=== PATIENT | male | born 1950 | race African-American/Black ===

== ENCOUNTER 2018-12-16 21:25 | Inpatient (IN) ==
[2018-12-16] MEDS ORDERED: ALBUTEROL 0.083% NEBU SOLN 3 ML VIAL NEB STA (21:55)
[2018-12-16] MEDS ORDERED: SODIUM CHLORIDE 0.9% 1000ML 1,000 ML IV SCH (22:00)
--- NOTE | 2018-12-16 22:10 | XRay Report ---
XR chest 1V portable CLINICAL HISTORY: weakness dyspnea COMPARISON STUDY: None FINDINGS: Diffuse parenchymal infiltrate medial and peripheral aspect left lung. Slight accentuation of the right basilar parenchymal markings. Diaphragms smooth. IMPRESSION: Diffuse parenchymal infiltrate left midlung with slight accentuation right middle lobe m arkings. This is presumably inflammatory, although repeat chest film at a later date is recommended t o ensure complete resolution. The above report was generated using voice recognition software. It may contain grammatical, syntax or spelling errors. Electronically signed by: Luis Fernando Delgadillo M.D. 12/16/2018 10:08 PM
[2018-12-16 22:11] LABS: Basophils # (auto) 0.01 K/uL (0-0.2); Basophils % (auto) 0.1 %; Eosinophils # (auto) 0.19 K/uL (0-0.5); Eosinophils % (auto) 2.4 %; Hematocrit (blood only) 35.6 % (42-52); Hemoglobin 12.6 g/dL (14.0-18.0); Immature Granulocytes # (auto) 0.25 K/uL (0.00-0.02); Immature Granulocytes % (auto) 3.2 %; Lymphocytes # (auto) 2.13 K/uL (1.2-3.4); Lymphocytes % (auto) 26.9 %; Mean Corpuscular Hgb Conc 35.4 g/dL (32-36); Mean Corpuscular Volume 77.2 fL (80-100); Mean Platelet Volume 9.4 fL (7.4-10.4); Monocytes # (auto) 0.99 K/uL (0.11-0.59); Monocytes % (auto) 12.5 %; Neutrophils # (auto) 4.35 K/uL (1.4-6.5); Neutrophils % (auto) 54.9 %; Platelet Count 295 K/uL (130-400); RDW Coefficient of Variation 15.7 % (11.5-14.5); RDW Standard Deviation 43.8 fL (36.4-46.3); Red Blood Count 4.61 M/uL (4.7-6.1); White Blood Count 7.92 K/uL (4.8-10.8)
[2018-12-16] MEDS ORDERED: DOXYCYCLINE HYCLATE 100 MG CAP PO STA (22:13)
[2018-12-16 22:28] LABS: Alanine Aminotransferase 63 U/L (12-78); Albumin Level 2.6 gm/dl (3.4-5.0); Aspartate Aminotransferase 59 U/L (15-37); BUN Creatinine Ratio 25.8 (10-20); Blood Urea Nitrogen 44 mg/dl (7-18); Calcium 8.9 mg/dl (8.5-10.1); Carbon Dioxide 23 mmol/L (21-32); Chloride 109 mmol/L (98-107); Creatinine Clr Calc Pharmacy 38.1 ml/min; Est GFR (African American) 46.3; Glucose 101 mg/dl (70-99); Potassium 3.8 mmol/L (3.5-5.1); Sodium 140 mmol/L (136-145)
[2018-12-16 22:33] LABS: iSTAT Creatinine 1.8 mg/dl (0.6-1.3); iSTAT Hemoglobin 11.9 g/dl (14.0-18.0); iSTAT Ionized Calcium 1.23 mmol/l (1.12-1.32); iSTAT Potassium 3.8 mEq/L (3.3-5.0)
[2018-12-16 22:38] LABS: Albumin Globulin Ratio 0.5 (0.9-2); Alkaline Phosphatase 115 U/L (45-117); Bilirubin,Total 0.5 mg/dl (0.2-1); Creatine Kinase 397 U/L (39-308); Globulin 5.5 gm/dl (2.5-4.0); Total Protein 8.1 gm/dl (6.4-8.2); Troponin I < 0.015 ng/ml (0-0.045)
[2018-12-16] MEDS ORDERED: PIPERACILLIN/TAZOBACTAM 4.5 GM/120 ML BAG IV ONE (22:39)
[2018-12-16] MEDS ORDERED: PIPERACILL/TAZOBAC CONSULT ACTIVE PRN (22:39)
[2018-12-16] MEDS ORDERED: LEVOFLOXACIN/D5W 750 MG/150 ML BAG IV STA (22:40)
[2018-12-16 22:51] LABS: T4 Free Thyroxine 1.08 ng/dl (0.8-1.6)
[2018-12-16 22:57] LABS: Appearance Urine Clear (Clear); Bacteria Urine Automated Negative (Negative); Bilirubin Urine Negative (Negative); Blood Urine Trace (Negative); Color Urine Yellow; Glucose Urine UA Negative (Negative); Ketones Urine Negative (Negative); Leukocyte Esterase Urine Negative (Negative); Nitrite Urine Negative (Negative); Protein Urine 1+ (Negative); RBC Urine Automated 0-4 /hpf (0-4); Specific Gravity Urine 1.015 (1.000-1.030); Urobilinogen Urine Negative (Negative); pH Urine 5.5 (4.5-7.5)
[2018-12-16 23:22] LABS: Influenza A virus by PCR Neg for Influ A (Neg); Influenza B virus by PCR Neg for Influ B (Neg)
--- NOTE | 2018-12-17 00:01 | Emergency Department Note ---
Entered by Cecilia Andrews acting as a scribe for Walker Hudson MD History of Present Illness General Chief complaint: Hypertension Stated complaint: CARDIAC ASSESSMENT Time Seen by Provider: 12/16/18 21:40 Source: patient and other ([facility] staff) Mode of arrival: ambulatory Limitations: no limitations History of Present Illness Onset (ago): day(s) 1 Radiation: non-radiation Pain Consistency: + constant Relieved By: + none Exacerbated By: + none Associated symptoms: + cough, + nausea/vomiting (+nausea, -vomiting) and + other (-abdominal pain) Treatments prior to arrival: other (Lopressor, IV fluids) The patient is a 68 year old male who presents to the Emergency Room with complaints of hypertension. He is accompanied by 2 corrections officers from the [facility] where he resides. According to the [facility] infirm[facility], the patient was in AI and was getting fluids at the [facility] earlier this evening. While getting IV fluids, his BP continued to rise. He was given 25 mg of Lopressor at 1930 this evening. Staff at [facility] checked his BP and it was 200 systolic. The patient admits to some dry heaving and spitting up but denies any vomiting. He states he has been coughing but denies any recent cold or flu symptoms. He states he has not been drinking normally. He denies any abdominal pain. Home Medications Home Medications Medication Instructions Recorded Confirmed Type amlodipine 10 mg PO DAILY 12/16/18 12/16/18 History amoxicillin-pot clavulanate 1 tab PO BID 12/16/18 12/16/18 History aspirin 81 mg PO DAILY 12/16/18 12/16/18 History enalapril maleate 20 mg PO BID 12/16/18 12/16/18 History hydrochlorothiazide 25 mg PO QAM 12/16/18 12/16/18 History metoprolol succinate 25 mg PO DAILY 12/16/18 12/16/18 History mirtazapine 15 mg PO HS 12/16/18 12/16/18 History tamsulosin 0.4 mg PO HS 12/16/18 12/16/18 History Allergies Allergy/AdvReac Type Severity Reaction Status Date / Time No Known Drug Allergies Allergy Unknown . 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 and A total of 10 systems reviewed and were otherwise negative Physical Exam Vital Signs Vital Signs - 24 hr 12/17/18 00:18 12/17/18 00:20 12/17/18 00:21 Temperature Temperature Source Pulse Rate 75 67 Pulse Rate [Apical] 72 Pulse Rate [Finger] Pulse Rhythm [Apical] Regular Pulse Strength [Apical] Respiratory Rate 16 17 17 Respiratory Effort / Characteristics Non-Labored Spontaneous Respiratory Depth Normal Respiratory Pattern Regular Blood Pressure 151/71 H Blood Pressure [Left Arm] Blood Pressure [Right Arm] 151/71 H Blood Pressure Mean 97 Blood Pressure Mean [Left Arm] Blood Pressure Mean [Right Arm] 97 Blood Pressure Position [Left Arm] Blood Pressure Position [Right Arm] Pulse Oximetry 99 Pulse Oximetry [Right Index Finger] Oxygen Delivery Method Room Air Oxygen Delivery Method [Right Index Finger] 12/17/18 00:30 12/17/18 00:31 12/17/18 00:40 Temperature Temperature Source Pulse Rate 73 71 63 Pulse Rate [Apical] Pulse Rate [Finger] Pulse Rhythm [Apical] Pulse Strength [Apical] Respiratory Rate 17 22 14 Respiratory Effort / Characteristics Respiratory Depth Respiratory Pattern Blood Pressure 150/71 H Blood Pressure [Left Arm] Blood Pressure [Right Arm] Blood Pressure Mean 97 Blood Pressure Mean [Left Arm] Blood Pressure Mean [Right Arm] Blood Pressure Position [Left Arm] Blood Pressure Position [Right Arm] Pulse Oximetry Pulse Oximetry [Right Index Finger] Oxygen Delivery Method Oxygen Delivery Method [Right Index Finger] 12/17/18 00:50 12/17/18 01:00 12/17/18 01:10 Temperature Temperature Source Pulse Rate 62 63 100 H Pulse Rate [Apical] Pulse Rate [Finger] Pulse Rhythm [Apical] Pulse Strength [Apical] Respiratory Rate 17 15 28 H Respiratory Effort / Characteristics Respiratory Depth Respiratory Pattern Blood Pressure 146/69 H Blood Pressure [Left Arm] Blood Pressure [Right Arm] Blood Pressure Mean 94 Blood Pressure Mean [Left Arm] Blood Pressure Mean [Right Arm] Blood Pressure Position [Left Arm] Blood Pressure Position [Right Arm] Pulse Oximetry Pulse Oximetry [Right Index Finger] Oxygen Delivery Method Oxygen Delivery Method [Right Index Finger] 12/17/18 01:20 12/17/18 02:21 12/17/18 02:55 Temperature Temperature Source Pulse Rate 64 Pulse Rate [Apical] 54 L Pulse Rate [Finger] Pulse Rhythm [Apical] Regular Pulse Strength [Apical] Normal Respiratory Rate 20 16 Respiratory Effort / Characteristics Non-Labored Non-Labored Spontaneous Respiratory Depth Normal Normal Respiratory Pattern Regular Regular Blood Pressure Blood Pressure [Left Arm] Blood Pressure [Right Arm] 168/72 H Blood Pressure Mean Blood Pressure Mean [Left Arm] Blood Pressure Mean [Right Arm] 104 Blood Pressure Position [Left Arm] Blood Pressure Position [Right Arm] Pulse Oximetry 95 Pulse Oximetry [Right Index Finger] 94 Oxygen Delivery Method Room Air Room Air Oxygen Delivery Method [Right Index Finger] Room Air 12/17/18 06:39 12/17/18 06:55 12/17/18 11:48 Temperature 37.2 C Temperature Source Oral Pulse Rate 68 55 L Pulse Rate [Apical] 80 Pulse Rate [Finger] Pulse Rhythm [Apical] Pulse Strength [Apical] Respiratory Rate 18 Respiratory Effort / Characteristics Respiratory Depth Respiratory Pattern Blood Pressure Blood Pressure [Left Arm] Blood Pressure [Right Arm] 144/71 H Blood Pressure Mean Blood Pressure Mean [Left Arm] Blood Pressure Mean [Right Arm] 95 Blood Pressure Position [Left Arm] Blood Pressure Position [Right Arm] Lying Pulse Oximetry 96 Pulse Oximetry [Right Index Finger] Oxygen Delivery Method Room Air Oxygen Delivery Method [Right Index Finger] 12/17/18 12:04 12/17/18 15:08 12/17/18 15:38 Temperature 37.2 C 36.8 C Temperature Source Oral Oral Pulse Rate 67 Pulse Rate [Apical] 61 Pulse Rate [Finger] 65 Pulse Rhythm [Apical] Pulse Strength [Apical] Respiratory Rate 18 18 Respiratory Effort / Characteristics Respiratory Depth Respiratory Pattern Blood Pressure Blood Pressure [Left Arm] 137/65 Blood Pressure [Right Arm] 149/57 H Blood Pressure Mean Blood Pressure Mean [Left Arm] 89 Blood Pressure Mean [Right Arm] 87 Blood Pressure Position [Left Arm] Lying Blood Pressure Position [Right Arm] Pulse Oximetry 95 93 Pulse Oximetry [Right Index Finger] Oxygen Delivery Method Room Air Room Air Oxygen Delivery Method [Right Index Finger] 12/17/18 17:38 12/17/18 19:45 12/17/18 23:27 Temperature 36.8 C 36.6 C Temperature Source Oral Oral Pulse Rate Pulse Rate [Apical] Pulse Rate [Finger] 66 75 Pulse Rhythm [Apical] Pulse Strength [Apical] Respiratory Rate 18 20 Respiratory Effort / Characteristics Non-Labored Respiratory Depth Normal Respiratory Pattern Regular Blood Pressure Blood Pressure [Left Arm] 164/64 H Blood Pressure [Right Arm] 172/71 H Blood Pressure Mean Blood Pressure Mean [Left Arm] 97 Blood Pressure Mean [Right Arm] 104 Blood Pressure Position [Left Arm] Blood Pressure Position [Right Arm] Lying Pulse Oximetry 96 92 Pulse Oximetry [Right Index Finger] Oxygen Delivery Method Room Air Room Air Room Air Oxygen Delivery Method [Right Index Finger] GENERAL: Awake, alert, well-appearing, in no distress HENT: Normocephalic, atraumatic. Oropharynx unremarkable. EYES: Normal conjunctiva. Sclera non-icteric. NECK: Supple. No nuchal rigidity. FROM. No masses. RESPIRATORY: Clear to auscultation. No wheezes. No rales. Normal respiratory effort. CARDIAC: Normal rate. Normal rhythm. No murmurs. No rubs. Extremities warm and well perfused. Pulses equal. No JVD. GI: Soft, non-distended. No tenderness to palpation. No rebound or guarding. No masses. RECTAL: Deferred. MUSCULOSKELETAL: Atraumatic. Chest examination reveals no tenderness. The back is symmetrical on inspection without obvious abnormality. There is no CVA tenderness to palpation. No joint edema. LOWER EXTREMITIES: Calves are equal size bilaterally and non-tender. No edema. No discoloration. NEURO: Normal sensorium. No sensory or motor deficits noted. Course 2143: Past medical records reviewed. The patient was evaluated in room C11, and a complete history and physical examination were performed. 2234: I reevaluated the patient. The COs are telling me the patient is not acting normally. I will consult the hospital medicine team. 4: I discussed the patients case with Titus Lyn. The patient will be further evaluated. Consultations Consultation #1: I discussed the patients case with Titus Lyn. The patient will be further evaluated. Time: 22:44 Administered Medications Amlodipine Besylate (Norvasc) 10 mg PO DAILY RA Stop: 04/08/19 08:59 Last Admin: 12/17/18 08:22 Dose: 10 mg Documented by: [id number] Aspirin (Ecotrin Ectab) 81 mg PO DAILY [facility] Stop: 01/16/19 08:59 Last Admin: 12/17/18 08:22 Dose: 81 mg Documented by: [id number] Heparin Sodium (Porcine) (Heparin Sodium (Porcine)) 5,000 units SQ Q8 RA Stop: 01/16/19 05:59 Last Admin: 12/17/18 21:49 Dose: 5,000 units Documented by: [id number] Cosigned by: [id number] Admin: 12/17/18 13:48 Dose: 5,000 units Documented by: [id number] Cosigned by: [id number] Admin: 12/17/18 05:03 Dose: 5,000 units Documented by: [id number] Cosigned by: [id number] Sodium Chloride (Nss 1000ml) 1,000 mls @ 100 mls/hr IV .Q10H [facility] Stop: 01/16/19 02:54 Last Admin: 12/17/18 23:23 Dose: 100 mls/hr Documented by: [id number] Infusion: 12/17/18 23:23 Dose: 100 mls/hr Documented by: [id number] Admin: 12/17/18 16:50 Dose: 100 mls/hr Documented by: [id number] Infusion: 12/17/18 14:00 Dose: 100 mls/hr Documented by: [id number] Admin: 12/17/18 04:00 Dose: 100 mls/hr Documented by: [id number] Doxycycline Hyclate 100 mg/ (Dextrose) 110 mls @ 50 mls/hr IV Q12H [facility] Stop: 12/24/18 02:54 Last Infusion: 12/17/18 23:45 Dose: 0 mls/hr Documented by: [id number] Admin: 12/17/18 21:46 Dose: 50 mls/hr Documented by: [id number] Infusion: 12/17/18 15:25 Dose: 0 mls/hr Documented by: [id number] Admin: 12/17/18 11:22 Dose: 50 mls/hr Documented by: [id number] Piperacillin Sod/Tazobactam (Sod 3.375 gm/ Dextrose) 115 mls @ 28.75 mls/hr IV Q8H RA Stop: 12/24/18 03:14 Last Infusion: 12/17/18 23:23 Dose: 0 mls/hr Documented by: [id number] Admin: 12/17/18 19:47 Dose: 28.8 mls/hr Documented by: [id number] Infusion: 12/17/18 17:49 Dose: 0 mls/hr Documented by: [id number] Admin: 12/17/18 13:41 Dose: 28.8 mls/hr Documented by: [id number] Infusion: 12/17/18 13:41 Dose: 0 mls/hr Documented by: [id number] Infusion: 12/17/18 09:00 Dose: 0 mls/hr Documented by: [id number] Admin: 12/17/18 05:03 Dose: 28.8 mls/hr Documented by: [id number] Metoprolol Succinate (Toprol Xl) 25 mg PO DAILY RA Stop: 01/16/19 08:59 Last Admin: 12/17/18 08:23 Dose: 25 mg Documented by: [id number] Mirtazapine (Remeron) 15 mg PO HS RA Stop: 01/16/19 20:59 Last Admin: 12/17/18 20:25 Dose: 15 mg Documented by: [id number] Tamsulosin HCl (Flomax) 0.4 mg PO HS RA Stop: 01/16/19 20:59 Last Admin: 12/17/18 20:25 Dose: 0.4 mg Documented by: [id number] Discontinued Medications Albuterol (Ventolin 0.083% 2.5mg/3ml) 2.5 mg NEB NOW STA Stop: 12/16/18 21:56 Last Admin: 12/16/18 22:24 Dose: 2.5 mg Documented by: [id number] Doxycycline Hyclate (Vibramycin) 100 mg PO NOW STA Stop: 12/16/18 22:14 Last Admin: 12/16/18 22:37 Dose: 100 mg Documented by: [id number] Sodium Chloride (Nss 1000ml) 1,000 mls @ 999 mls/hr IV .Q1H1M RA Stop: 12/16/18 23:00 Last Infusion: 12/16/18 23:25 Dose: 0 mls/hr Documented by: [id number] Admin: 12/16/18 22:24 Dose: 999 mls/hr Documented by: [id number] Piperacillin Sod/Tazobactam Sod (Zosyn) 4.5 gm in 120 mls @ 240 mls/hr IV NOW ONE Stop: 12/16/18 23:08 Last Infusion: 12/17/18 00:58 Dose: 0 mls/hr Documented by: [id number] Admin: 12/16/18 23:25 Dose: 240 mls/hr Documented by: [id number] Levofloxacin/Dextrose (Levaquin/D5w) 750 mg in 150 mls @ 100 mls/hr IV NOW STA Stop: 12/17/18 00:09 Last Infusion: 12/17/18 00:58 Dose: 0 mls/hr Documented by: [id number] Admin: 12/16/18 23:25 Dose: 100 mls/hr Documented by: [id number] Medical Decision Making Differential Diagnosis Differential: Benign Hypertension, Hypertensive Urgency/Emergency, Cardiovascular Pathology, Endocrine, Metabolic/Electrolyte, Renal Disease, Endorgan Damage, amongst other pathologies entertained. Medical Records Attestation: I reviewed the patient's medical records. Home Medications Current Medication List: was personally reviewed by me Laboratory Data Attestation: I reviewed the patient's lab results. Result diagrams: 12/17/18 05:09 12/17/18 05:09 Lab Results 12/16/18 12/16/18 12/16/18 Range/Units 22:00 22:00 22:00 WBC 7.92 (4.8-10.8) K/uL RBC 4.61 L (4.7-6.1) M/uL Hgb 12.6 L (14.0-18.0) g/dL POC Hgb (14.0-18.0) g/dl Hct 35.6 L (42-52) % POC Hct (42-52) % MCV 77.2 L (80-100) fL MCH 27.3 (25-34) pg MCHC 35.4 (32-36) g/dL RDW Std Deviation 43.8 (36.4-46.3) fL RDW Coeff of Ayanna 15.7 H (11.5-14.5) % Plt Count 295 (130-400) K/uL MPV 9.4 (7.4-10.4) fL Immature Gran % (Auto) 3.2 % Neut % (Auto) 54.9 % Lymph % (Auto) 26.9 % [place] % (Auto) 12.5 % Eos % (Auto) 2.4 % Baso % (Auto) 0.1 % Immature Gran # (Auto) 0.25 H (0.00-0.02) K/uL Neut # (Auto) 4.35 (1.4-6.5) K/uL Lymph # (Auto) 2.13 (1.2-3.4) K/uL [place] # (Auto) 0.99 H (0.11-0.59) K/uL Eos # (Auto) 0.19 (0-0.5) K/uL Baso # (Auto) 0.01 (0-0.2) K/uL PT 11.3 (9.0-12.0) Seconds INR 1.1 (0.9-1.1) APTT 27.0 (21.0-31.0) Seconds PTT Ratio 1.0 POC Sodium (135-144) mEq/L Sodium 140 (136-145) mmol/L POC Potassium (3.3-5.0) mEq/L Potassium 3.8 (3.5-5.1) mmol/L POC Chloride (101-112) mEq/L Chloride 109 H (98-107) mmol/L Carbon Dioxide 23 (21-32) mmol/L POC Total CO2 (24-31) mEq/l Anion Gap 7.0 (3-11) POC Anion Gap (16-25) mmol/L POC BUN (7-18) mg/dl BUN 44 H (7-18) mg/dl Creatinine 1.71 H (0.6-1.4) mg/dl POC Creatinine (0.6-1.3) mg/dl Est Cr Clr Drug Dosing 38.1 ml/min Est GFR ( Amer) 46.3 Est GFR (Non-Af Amer) 40.0 BUN/Creatinine Ratio 25.8 H (10-20) Glucose 101 H (70-99) mg/dl POC Glucose (other) (70-99) mg/dl Estimat Average Glucose mg/dl Hemoglobin A1c (4.5-5.6) % Calcium 8.9 (8.5-10.1) mg/dl POC Ioniz Calcium Joy (1.12-1.32) mmol/l Magnesium (1.8-2.4) mg/dl Total Bilirubin 0.5 (0.2-1) mg/dl AST 59 H (15-37) U/L ALT 63 (12-78) U/L Alkaline Phosphatase 115 (45-117) U/L Total Creatine Kinase 397 H (39-308) U/L Troponin I < 0.015 (0-0.045) ng/ml NT-Pro-B Natriuret Pep 248 (0-900) pg/ml Total Protein 8.1 (6.4-8.2) gm/dl Albumin 2.6 L (3.4-5.0) gm/dl Globulin 5.5 H (2.5-4.0) gm/dl Albumin/Globulin Ratio 0.5 L (0.9-2) TSH 0.124 L (0.300-4.500) uIu/ml Free T4 1.08 (0.8-1.6) ng/dl Urine Color Urine Appearance (Clear) Urine pH (4.5-7.5) Ur Specific [place] (1.000-1.030) Urine Protein (Negative) Urine Glucose (UA) (Negative) Urine Ketones (Negative) Urine Blood (Negative) Urine Nitrite (Negative) Urine Bilirubin (Negative) Urine Urobilinogen (Negative) Ur Leukocyte Esterase (Negative) Urine WBC (Auto) (0-5) /hpf Urine RBC (Auto) (0-4) /hpf U Hyaline Cast (Auto) (0-5) /lpf U Epithel Cells (Auto) (0-5) /lpf Urine Bacteria (Auto) (Negative) Influenza Type A (PCR) (Neg) Influenza Type B (PCR) (Neg) 12/16/18 12/16/18 12/16/18 Range/Units 22:07 22:42 22:42 WBC (4.8-10.8) K/uL RBC (4.7-6.1) M/uL Hgb (14.0-18.0) g/dL POC Hgb 11.9 L (14.0-18.0) g/dl Hct (42-52) % POC Hct 35 L (42-52) % MCV (80-100) fL MCH (25-34) pg MCHC (32-36) g/dL RDW Std Deviation (36.4-46.3) fL RDW Coeff of Ayanna (11.5-14.5) % Plt Count (130-400) K/uL MPV (7.4-10.4) fL Immature Gran % (Auto) % Neut % (Auto) % Lymph % (Auto) % [place] % (Auto) % Eos % (Auto) % Baso % (Auto) % Immature Gran # (Auto) (0.00-0.02) K/uL Neut # (Auto) (1.4-6.5) K/uL Lymph # (Auto) (1.2-3.4) K/uL [place] # (Auto) (0.11-0.59) K/uL Eos # (Auto) (0-0.5) K/uL Baso # (Auto) (0-0.2) K/uL PT (9.0-12.0) Seconds INR (0.9-1.1) APTT (21.0-31.0) Seconds PTT Ratio POC Sodium 144 (135-144) mEq/L Sodium (136-145) mmol/L POC Potassium 3.8 (3.3-5.0) mEq/L Potassium (3.5-5.1) mmol/L POC Chloride 109 (101-112) mEq/L Chloride (98-107) mmol/L Carbon Dioxide (21-32) mmol/L POC Total CO2 22 L (24-31) mEq/l Anion Gap (3-11) POC Anion Gap 18.0 (16-25) mmol/L POC BUN 39 H (7-18) mg/dl BUN (7-18) mg/dl Creatinine (0.6-1.4) mg/dl POC Creatinine 1.8 H (0.6-1.3) mg/dl Est Cr Clr Drug Dosing ml/min Est GFR ( Amer) Est GFR (Non-Af Amer) BUN/Creatinine Ratio (10-20) Glucose (70-99) mg/dl POC Glucose (other) 104 H (70-99) mg/dl Estimat Average Glucose mg/dl Hemoglobin A1c (4.5-5.6) % Calcium (8.5-10.1) mg/dl POC Ioniz Calcium Joy 1.23 (1.12-1.32) mmol/l Magnesium (1.8-2.4) mg/dl Total Bilirubin (0.2-1) mg/dl AST (15-37) U/L ALT (12-78) U/L Alkaline Phosphatase (45-117) U/L Total Creatine Kinase (39-308) U/L Troponin I (0-0.045) ng/ml NT-Pro-B Natriuret Pep (0-900) pg/ml Total Protein (6.4-8.2) gm/dl Albumin (3.4-5.0) gm/dl Globulin (2.5-4.0) gm/dl Albumin/Globulin Ratio (0.9-2) TSH (0.300-4.500) uIu/ml Free T4 (0.8-1.6) ng/dl Urine Color Yellow Urine Appearance Clear (Clear) Urine pH 5.5 (4.5-7.5) Ur Specific [place] 1.015 (1.000-1.030) Urine Protein 1+ H (Negative) Urine Glucose (UA) Negative (Negative) Urine Ketones Negative (Negative) Urine Blood Trace H (Negative) Urine Nitrite Negative (Negative) Urine Bilirubin Negative (Negative) Urine Urobilinogen Negative (Negative) Ur Leukocyte Esterase Negative (Negative) Urine WBC (Auto) 1-5 (0-5) /hpf Urine RBC (Auto) 0-4 (0-4) /hpf U Hyaline Cast (Auto) 1-5 (0-5) /lpf U Epithel Cells (Auto) 5-10 H (0-5) /lpf Urine Bacteria (Auto) Negative (Negative) Influenza Type A (PCR) Neg for Influ A (Neg) Influenza Type B (PCR) Neg for Influ B (Neg) 12/17/18 12/17/18 12/17/18 Range/Units 05:09 05:09 05:09 WBC 7.22 (4.8-10.8) K/uL RBC 4.79 (4.7-6.1) M/uL Hgb 13.2 L (14.0-18.0) g/dL POC Hgb (14.0-18.0) g/dl Hct 37.1 L (42-52) % POC Hct (42-52) % MCV 77.5 L (80-100) fL MCH 27.6 (25-34) pg MCHC 35.6 (32-36) g/dL RDW Std Deviation 43.5 (36.4-46.3) fL RDW Coeff of Ayanna 15.5 H (11.5-14.5) % Plt Count 313 (130-400) K/uL MPV 9.4 (7.4-10.4) fL Immature Gran % (Auto) 2.4 % Neut % (Auto) 54.0 % Lymph % (Auto) 25.9 % [place] % (Auto) 15.1 % Eos % (Auto) 2.5 % Baso % (Auto) 0.1 % Immature Gran # (Auto) 0.17 H (0.00-0.02) K/uL Neut # (Auto) 3.90 (1.4-6.5) K/uL Lymph # (Auto) 1.87 (1.2-3.4) K/uL [place] # (Auto) 1.09 H (0.11-0.59) K/uL Eos # (Auto) 0.18 (0-0.5) K/uL Baso # (Auto) 0.01 (0-0.2) K/uL PT (9.0-12.0) Seconds INR (0.9-1.1) APTT (21.0-31.0) Seconds PTT Ratio POC Sodium (135-144) mEq/L Sodium 141 (136-145) mmol/L POC Potassium (3.3-5.0) mEq/L Potassium 3.8 (3.5-5.1) mmol/L POC Chloride (101-112) mEq/L Chloride 110 H (98-107) mmol/L Carbon Dioxide 23 (21-32) mmol/L POC Total CO2 (24-31) mEq/l Anion Gap 8.0 (3-11) POC Anion Gap (16-25) mmol/L POC BUN (7-18) mg/dl BUN 36 H (7-18) mg/dl Creatinine 1.60 H (0.6-1.4) mg/dl POC Creatinine (0.6-1.3) mg/dl Est Cr Clr Drug Dosing 40.7 ml/min Est GFR ( Amer) 50.2 Est GFR (Non-Af Amer) 43.3 BUN/Creatinine Ratio 22.8 H (10-20) Glucose 89 (70-99) mg/dl POC Glucose (other) (70-99) mg/dl Estimat Average Glucose 128 mg/dl Hemoglobin A1c 6.1 H (4.5-5.6) % Calcium 8.4 L (8.5-10.1) mg/dl POC Ioniz Calcium Joy (1.12-1.32) mmol/l Magnesium 1.8 (1.8-2.4) mg/dl Total Bilirubin (0.2-1) mg/dl AST (15-37) U/L ALT (12-78) U/L Alkaline Phosphatase (45-117) U/L Total Creatine Kinase (39-308) U/L Troponin I (0-0.045) ng/ml NT-Pro-B Natriuret Pep (0-900) pg/ml Total Protein (6.4-8.2) gm/dl Albumin (3.4-5.0) gm/dl Globulin (2.5-4.0) gm/dl Albumin/Globulin Ratio (0.9-2) TSH (0.300-4.500) uIu/ml Free T4 (0.8-1.6) ng/dl Urine Color Urine Appearance (Clear) Urine pH (4.5-7.5) Ur Specific [place] (1.000-1.030) Urine Protein (Negative) Urine Glucose (UA) (Negative) Urine Ketones (Negative) Urine Blood (Negative) Urine Nitrite (Negative) Urine Bilirubin (Negative) Urine Urobilinogen (Negative) Ur Leukocyte Esterase (Negative) Urine WBC (Auto) (0-5) /hpf Urine RBC (Auto) (0-4) /hpf U Hyaline Cast (Auto) (0-5) /lpf U Epithel Cells (Auto) (0-5) /lpf Urine Bacteria (Auto) (Negative) Influenza Type A (PCR) (Neg) Influenza Type B (PCR) (Neg) Imaging Data Radiologist's Impression: Radiology results as stated below per my review and the radiologist's interpretation: XR chest 1V portable CLINICAL HISTORY: weakness dyspnea COMPARISON STUDY: None FINDINGS: Diffuse parenchymal infiltrate medial and peripheral aspect left lung. Slight accentuation of the right basilar parenchymal markings. Diaphragms smooth. IMPRESSION: Diffuse parenchymal infiltrate left midlung with slight accentuation right middle lobe markings. This is presumably inflammatory, although repeat chest film at a later date is recommended to ensure complete resolution. The above report was generated using voice recognition software. It may contain grammatical, syntax or spelling errors. Electronically signed by: Luis Fernando Delgadillo M.D. 12/16/2018 10:08 PM ECG Data Attestation: I personally reviewed and interpreted this ECG as follows: Indication: weakness Rate (beats per minute): 64 Rhythm: normal sinus Findings: no ST depression and no ST elevation MDM Narrative This is a 68-year-old male who presents emergency department complaining of al tered mental status. The patient appears to have pneumonia on chest x-ray. He was pancultured and started on antibiotics. I did discuss the case with the hospitalist service who agreed to admit the patient. Patient and caretakers are in agreement with the treatment plan. Impression & Plan Altered mental status, Pneumonia, Acute renal failure Discharge Plan Visit Data *Final* Discharge Date/Time: 12/17/18 02:23 Chief Complaint: Hypertension Stated Complaint: CARDIAC ASSESSMENT ED Provider: Walker Hudson Discharge Problem: Altered mental status, Pneumonia, Acute renal failure Patient Disposition: Admitted As Inpatient Discharge Instructions Interventions: ED Discharge Assessment Last Done: 12/17/18 02:23 The scribe's documentation has been prepared under my direction and personally reviewed by me in its entirety. I confirm that the note above accurately reflects all work, treatment, procedures, and medical decision making performed by me.
[2018-12-17 00:11] LABS: NT Pro B Type Natriuretic Pept 248 pg/ml (0-900)
[2018-12-17] MEDS ORDERED: PIPERACILL/TAZOBAC CONSULT ACTIVE PRN (02:55)
[2018-12-17] MEDS ORDERED: ACETAMINOPHEN 325 MG TAB PO PRN (02:55)
[2018-12-17] MEDS ORDERED: ALUMINUM/MAGNESIUM SUSP 30 ML UDC PO PRN (02:55)
[2018-12-17] MEDS ORDERED: ONDANSETRON INJ 2 MG/ML 2 ML VIAL IV PRN (02:55)
[2018-12-17] MEDS ORDERED: NITROGLYCERIN SL 0.4 MG/TAB TAB SL PRN (02:55)
[2018-12-17] MEDS ORDERED: POLYETHYLENE (MIRALAX) 17 GM PACK PO PRN (02:55)
[2018-12-17] MEDS ORDERED: HydrALAZINE HCL 20 MG/ML VIAL IV PRN (02:55)
[2018-12-17 03:47] LABS: INR 1.1 (0.9-1.1); Prothrombin Time 11.3 Seconds (9.0-12.0)
[2018-12-17] MEDS: SODIUM CHLORIDE 0.9% 1000ML 1,000 ML IV SCH ×3 (04:00→23:23)
[2018-12-17] MEDS: PIPERACILLIN/TAZOBACTAM 3.375 GM in DEXTROSE 5% 100 ML IV SCH ×3 (05:03→19:47)
[2018-12-17] MEDS: HEPARIN SOD 5,000 UNIT/0.5 ML VIAL SQ SCH ×3 (05:03→21:49)
[2018-12-17 05:50] LABS: Basophils # (auto) 0.01 K/uL (0-0.2); Basophils % (auto) 0.1 %; Eosinophils # (auto) 0.18 K/uL (0-0.5); Eosinophils % (auto) 2.5 %; Hematocrit (blood only) 37.1 % (42-52); Hemoglobin 13.2 g/dL (14.0-18.0); Immature Granulocytes # (auto) 0.17 K/uL (0.00-0.02); Immature Granulocytes % (auto) 2.4 %; Lymphocytes # (auto) 1.87 K/uL (1.2-3.4); Lymphocytes % (auto) 25.9 %; Mean Corpuscular Hgb Conc 35.6 g/dL (32-36); Mean Corpuscular Volume 77.5 fL (80-100); Mean Platelet Volume 9.4 fL (7.4-10.4); Monocytes # (auto) 1.09 K/uL (0.11-0.59); Monocytes % (auto) 15.1 %; Platelet Count 313 K/uL (130-400); RDW Coefficient of Variation 15.5 % (11.5-14.5); RDW Standard Deviation 43.5 fL (36.4-46.3); Red Blood Count 4.79 M/uL (4.7-6.1); White Blood Count 7.22 K/uL (4.8-10.8)
[2018-12-17 06:05] LABS: BUN Creatinine Ratio 22.8 (10-20); Calcium 8.4 mg/dl (8.5-10.1); Creatinine Clr Calc Pharmacy 40.7 ml/min; Est GFR (African American) 50.2; Est GFR (Non-African American) 43.3; Magnesium 1.8 mg/dl (1.8-2.4); Potassium 3.8 mmol/L (3.5-5.1)
--- NOTE | 2018-12-17 06:36 | CT Scan Report ---
HEAD CT NONCONTRAST CT DOSE: 720.23 mGy.cm HISTORY: Altered mental status. TECHNIQUE: Multiaxial CT images of the head were performed without the use of intravenous contrast. A utomated exposure control was utilized for this study. A dose lowering technique was utilized adheri ng to the principles of ALARA. Comparison: None. Findings: The paranasal sinuses and mastoid air cells are clear. The calvarium and skull base are int act. There is no mass, hematoma, midline shift, acute infarct. White matter hypodensity is nonspecifi c but suggestive of microvascular ischemic change. The ventricles and sulci demonstrate mild age-rela florencia involutional changes. Impression: No acute intracranial abnormality. Atrophy and microvascular ischemic changes. Electronically signed by: Lan Eagle M.D. 12/17/2018 6:34 AM
[2018-12-17 08:04] LABS: Estimated Average Glucose 128 mg/dl; Hemoglobin A1C 6.1 % (4.5-5.6)
[2018-12-17] MEDS: ASPIRIN 81 MG ECTAB PO SCH (08:22)
[2018-12-17] MEDS: AMLODIPINE BESYLATE 5 MG TAB PO SCH (08:22)
[2018-12-17] MEDS: METOPROLOL SUCC 25MG EXT REL TAB PO SCH (08:23)
--- NOTE | 2018-12-17 08:49 | History and Physical Report ---
DATE OF ADMISSION: 12/16/2018 CHIEF COMPLAINT: Cough, pneumonia, questionable confusion and hypertension. HISTORY OF PRESENT ILLNESS: This is a 68-year-old male with past medical history significant for hypertension, chronic kidney disease stage III, we do not have baseline creatinine, history of benign prostatic hypertrophy, depression and history of vocal cord polyp, status post excision in 04/2018, biopsy was benign, [facility] from [facility] because of some confusion and elevated blood pressure. The patient is getting treated for pneumonia around December 11 and was started on Levaquin, bu was changed to Augmentin and was given fluids for AI but today his blood pressure was running high. There was a question of confusion and at that time, it was decided to transfer here. But currently the patient is alert and oriented. He is somewhat upset that he does not know what is going on going on and was getting treatment for various things. He complains of having cough and was bringing up whitish phlegm. Denies any chest pain or shortness of breath. Denies any fever or chills. He is feeling somewhat nauseous. Denies any abdominal pain. He has some headaches. He says when he has coughing up has some blood coming from the nose. He denies any sore throat. Had dysphagia for solids, but the patient states that was because of laryngoscopy done for his polyp in April after that initially he was on soft diet, but that is improved, now he is back to his usual regular diet. . He states he is constipated. No blood in the stools. Normal bladder movements. No lower extremity swelling, no rash. ALLERGIES: No known drug allergies. PAST MEDICAL HISTORY: As mentioned above. PAST SURGICAL HISTORY: Inguinal surgeries and laryngoscopy with vocal cord polyp excision. MEDICATIONS: Currently, the patient is on amlodipine 10 mg p.o. daily, Augmentin 1 tablet b.i.d., aspirin 81 mg p.o. daily, enalapril 20 mg p.o. b.i.d., hydrochlorothiazide 25 mg p.o. a.m., metoprolol succinate 20 mg p.o. a.m., mirtazapine 50 mg p.o. at bedtime and Flomax 0.4 mg p.o. at bedtime. FAMILY HISTORY: He states father and mother had hypertension. Sister has diabetes. SOCIAL HISTORY: Used to smoke a lot, but currently smokes 1 pack every 5 days. Denies any alcohol use. REVIEW OF SYMPTOMS: As per HPI. Rest of the review of systems has been negative. PHYSICAL EXAMINATION: GENERAL: The patient is of moderate build, not in acute distress. VITAL SIGNS: Temperature 36.8, pulse 68, respiratory rate 16, blood pressure 146/77 and oxygen 97% on room air. HEENT: No pallor. No icterus. Pupils are equal, round and react to light. NECK: No JVD. No neck mass. No carotid bruit. CARDIOVASCULAR: S1, S2. Regular rate and rhythm. No murmur. No gallop. RESPIRATORY SYSTEM: Normal AP diameter. No accessory muscle use. No wheezing, no crackles. ABDOMEN: Soft. Bowel sounds present. Nontender. No distention. CENTRAL NERVOUS SYSTEM: Cranial nerves II-XII grossly intact. Nonfocal. EXTREMITIES: No edema. No erythema. LABORATORY DATA: WBC 7.9, hemoglobin 12.6, hematocrit 35.6 and platelets 295. Sodium 140, potassium 3.8, chloride 109, bicarbonate 23, BUN 44, creatinine 1.7, serum glucose 101, calcium 8.9, total bilirubin 0.5, AST 59, ALT 63, alkaline phosphatase 115 and total creatinine kinase 397. Troponin I less than 0.015. TSH 0.12. Free T4 of 1.08. Urinalysis, trace blood, otherwise, negative study. Influenza A and B and PCR negative. Chest x-ray, diffuse parenchymal infiltrate in the left mid lung with slight accentuation of right mid lower markings. CT of the head results pending. Electrocardiogram: Normal sinus rhythm with [address] changes seen. ASSESSMENT AND PLAN: This patient is a 68-year-old male who presents with ongoing pneumonia, acute kidney injury and some confusion and elevated blood pressure. 1. Pneumonia. Will start the patient on I.V. Zosyn and I.V. doxycycline. Follow the cultures. Could be from aspiration.. We will keep him on full liquid diet for now and speech evaluation. Monitor the response. 2. Acute kidney injury, on chronic kidney stage III, we do not have baseline creatinine. Cr 1.7 today. On fluids and we will hold his enalapril and hydrochlorothiazide. Monitor the laboratories in a.m. We will also follow renal ultrasound. 3. High blood pressure Holding enalapril and hydrochlorothiazide. encephalopathy probably from hypertensive urgency. Currently blood pressure is okay . Will continue his amlodipine and Toprol-XL. We will place on I.V. hydralazine and closely monitor his blood pressure. 4. Depression, continue mirtazapine. 5. Benign prostatic hypertrophy. Continue his Flomax. 6. Encephalopathy probably secondary to pneumonia and hypertensive urgency, currently seems to be back at baseline. We will closely monitor. 7. Deep venous thrombosis prophylaxis. Heparin subcutaneous. DISPOSITION: Closely monitor . Level 1 full code. MTDD
--- NOTE | 2018-12-17 09:19 | Ultrasound Report ---
RENAL ULTRASOUND HISTORY: Acute kidney injury. COMPARISON: None. FINDINGS: Right kidney: 10.8 cm. A few scattered simple cysts with the largest in the upper pole measuring 7.3 cm. No hydronephrosis. Normal corticomedullary differentiation and cortical thickness. Left kidney: 11.1 cm. A few cysts with the largest measuring 4.9 cm. No hydronephrosis. Normal cortic omedullary differentiation and cortical thickness. Bladder: No bladder wall thickening. The bilateral ureteral jets were identified. There is a left-angely ed bladder diverticulum. Calcific density seen posterior to the left bladder may represent a phleboli th. This does not appear to be within the distal left ureter. IMPRESSION: 1. No hydronephrosis. 2. Bilateral renal cysts. 3. Left sided bladder diverticulum. Electronically signed by: Lan Eagle M.D. 12/17/2018 9:16 AM
[2018-12-17] MEDS: DOXYCYCLINE HYCLATE 100 MG in DEXTROSE 5% 100 ML IV SCH ×2 (11:22→21:46)
--- NOTE | 2018-12-17 13:48 | Hospitalist Progress Note ---
Date of Service December 17, 2018 Assessment & Plan (1) Altered mental status: Possible secondary to metabolic encephalopathy in the setting of hypertensive urgency, acute renal failure, probable infection, pneumonia Sent from nursing home for confusion, mental status improved to approximate baseline No evidence of stroke in CT head with contrast Does not have any focal neurological deficit Present on Admission?: Yes (2) Pneumonia: Chest x-ray shows left-sided diffuse interstitial infiltrate, no complaint of cough, afebrile, white count within normal limit We will de-escalate antibiotic to p.o. doxycycline Present on Admission?: Yes (3) Acute renal failure: With unknown baseline, possible acute renal failure in the setting of poor p.o. intake Given IV fluids, monitor basic metabolic panel, patient home medications of diuretics kept on hold Renal ultrasound shows no evidence of obstruction or hydronephrosis Present on Admission?: Yes (4) AI (acute kidney injury): Management as outlined above (5) Hypertension: Resented with hypertensive urgency, SBP elevated more than 180 Home BP meds KHUSHI inhibitor and hydrochlorthiazide kept on hold for acute renal failure, dehydration For as needed hydralazine Patient may benefit to transition to oral hydralazine versus calcium channel félix: [facility] Continue to monitor CODE STATUS: Full code DVT prophylaxis: Subcu heparin Disposition: Prisoner at [facility] Will return back to present when medically stable Subjective Awake and alert now, able to answer questions appropriately, denies of any headache, No blurred vision denies of any chest heaviness, no complaint of palpitation no dizzy spell Physical Exam Vital Signs (Past 24 Hours): Last Vital Signs Temp 37.2 C 12/17/18 12:04 Pulse 61 12/17/18 12:04 Resp 18 12/17/18 12:04 BP 149/57 H 12/17/18 12:04 Pulse Ox 95 12/17/18 12:04 Physical Exam: GENERAL: No sign of distress, HEENT: Sclera nonicteric, pink-purple bilateral equal reactive to light extraocular muscle intact Normal oral mucosa, neck: No JVD, no thyromegaly, trachea midline Lungs: Clear to auscultate, no wheeze or rales Cardiovascular: Regular S1 and S2, no murmur or gallop, no JVD, no lower extremity edema Abdomen: Soft, nontender, bowel sounds active, no hepatosplenomegaly Extremities: No rash or deformity, normal joint, Neuro: No focal neurological deficit, no dysarthria, no facial droop Psych: Alert awake oriented x3: Euthymic Skin: No rash LYMPH NODES: No cervical lymphadenopathy
[2018-12-17] MEDS: TAMSULOSIN HCL 0.4 MG CAP PO SCH (20:25)
[2018-12-17] MEDS: MIRTAZAPINE TAB 15 MG TAB PO SCH (20:25)
[2018-12-18] MEDS: PIPERACILLIN/TAZOBACTAM 3.375 GM in DEXTROSE 5% 100 ML IV SCH (04:37)
[2018-12-18] MEDS: HEPARIN SOD 5,000 UNIT/0.5 ML VIAL SQ SCH ×3 (04:37→20:57)
[2018-12-18] MEDS: SODIUM CHLORIDE 0.9% 1000ML 1,000 ML IV SCH ×2 (04:37→16:26)
[2018-12-18 05:53] LABS: Basophils # (auto) 0.01 K/uL (0-0.2); Basophils % (auto) 0.1 %; Eosinophils # (auto) 0.21 K/uL (0-0.5); Eosinophils % (auto) 2.5 %; Hematocrit (blood only) 37.2 % (42-52); Hemoglobin 13.3 g/dL (14.0-18.0); Immature Granulocytes # (auto) 0.21 K/uL (0.00-0.02); Immature Granulocytes % (auto) 2.5 %; Mean Corpuscular Hgb Conc 35.8 g/dL (32-36); Mean Corpuscular Volume 76.4 fL (80-100); Mean Platelet Volume 9.4 fL (7.4-10.4); Monocytes # (auto) 0.94 K/uL (0.11-0.59); Monocytes % (auto) 11.4 %; Neutrophils # (auto) 4.07 K/uL (1.4-6.5); Neutrophils % (auto) 49.5 %; Platelet Count 365 K/uL (130-400); RDW Coefficient of Variation 15.5 % (11.5-14.5); RDW Standard Deviation 42.8 fL (36.4-46.3); Red Blood Count 4.87 M/uL (4.7-6.1); White Blood Count 8.24 K/uL (4.8-10.8)
[2018-12-18 06:24] LABS: BUN Creatinine Ratio 16.6 (10-20); Calcium 8.4 mg/dl (8.5-10.1); Creatinine Clr Calc Pharmacy 38.3 ml/min; Est GFR (African American) 46.7; Est GFR (Non-African American) 40.3; Magnesium 1.5 mg/dl (1.8-2.4); Potassium 4.1 mmol/L (3.5-5.1)
[2018-12-18] MEDS: ASPIRIN 81 MG ECTAB PO SCH (08:09)
[2018-12-18] MEDS: METOPROLOL SUCC 25MG EXT REL TAB PO SCH (08:10)
[2018-12-18] MEDS: AMLODIPINE BESYLATE 5 MG TAB PO SCH (08:10)
[2018-12-18] MEDS: DOXYCYCLINE HYCLATE 100 MG CAP PO SCH ×2 (11:05→20:56)
[2018-12-18] MEDS: DOXYCYCLINE HYCLATE 100 MG in DEXTROSE 5% 100 ML IV SCH (15:07)
--- NOTE | 2018-12-18 16:55 | Hospitalist Progress Note ---
Date of Service December 18, 2018 Assessment & Plan (1) Altered mental status: Possible secondary to metabolic encephalopathy in the setting of hypertensive urgency, acute renal failure, probable infection, pneumonia symptom has completely resolved Sent from [facility]term for confusion, mental status improved to approximate baseline No evidence of stroke in CT head with contrast Does not have any focal neurological deficit will be discharged back to longterm (2) Pneumonia: Chest x-ray shows left-sided diffuse interstitial infiltrate, no complaint of cough, afebrile, white count within normal limit de-escalated antibiotic to p.o. doxycycline (3) Acute renal failure: With unknown baseline, possible acute renal failure in the setting of poor p.o. intake Given IV fluids, home diuretics kept on hold basic metabolic panel shows improvement of cr /renal function Renal ultrasound shows no evidence of obstruction or hydronephrosis (4) AI (acute kidney injury): Management as outlined above cr improved to with iv hydration (5) Hypertension: Resented with hypertensive urgency, SBP elevated more than 180 Home BP meds KHUSHI inhibitor and hydrochlorthiazide kept on hold for acute renal failure, dehydration For as needed hydralazine Patient may benefit to transition to oral hydralazine versus calcium channel félix: [facility] Continue to monitor CODE STATUS: Full code DVT prophylaxis: Subcu heparin Disposition: Prisoner at [facility] Will return back to present when medically stable Subjective feels like his normal self alert awake and oriented denies of any discomfort Physical Exam Vital Signs (Past 24 Hours): Last Vital Signs Temp 37.1 C 12/18/18 15:46 Pulse 70 12/18/18 15:46 Resp 20 12/18/18 15:46 BP 167/76 H 12/18/18 15:46 Pulse Ox 96 12/18/18 15:46 Physical Exam: GENERAL: No sign of distress, HEENT: Sclera nonicteric, pink-purple bilateral equal reactive to light extraocular muscle intact Normal oral mucosa, neck: No JVD, no thyromegaly, trachea midline Lungs: Clear to auscultate, no wheeze or rales Cardiovascular: Regular S1 and S2, no murmur or gallop, no JVD, no lower extremity edema Abdomen: Soft, nontender, bowel sounds active, no hepatosplenomegaly Extremities: No rash or deformity, normal joint, Neuro: No focal neurological deficit, no dysarthria, no facial droop Psych: Alert awake oriented x3: Euthymic Skin: No rash LYMPH NODES: No cervical lymphadenopathy
[2018-12-18] MEDS: TAMSULOSIN HCL 0.4 MG CAP PO SCH (20:56)
[2018-12-18] MEDS: MIRTAZAPINE TAB 15 MG TAB PO SCH (20:56)
[2018-12-19] MEDS: SODIUM CHLORIDE 0.9% 1000ML 1,000 ML IV SCH (02:16)
[2018-12-19] MEDS: HEPARIN SOD 5,000 UNIT/0.5 ML VIAL SQ SCH ×2 (05:40→13:54)
[2018-12-19] MEDS: METOPROLOL SUCC 25MG EXT REL TAB PO SCH (08:17)
[2018-12-19] MEDS: AMLODIPINE BESYLATE 5 MG TAB PO SCH (08:17)
[2018-12-19] MEDS: ASPIRIN 81 MG ECTAB PO SCH (08:17)
[2018-12-19] MEDS: DOXYCYCLINE HYCLATE 100 MG CAP PO SCH (09:34)
--- NOTE | 2018-12-19 15:33 | Discharge Summary ---
Date of Service December 19, 2018 Admission HPI Per Admitting Provider DICTATED BY: Benedicto Reynolds MD DATE OF ADMISSION: 12/16/2018 CHIEF COMPLAINT: Cough, pneumonia, questionable confusion and hypertension. HISTORY OF PRESENT ILLNESS: This is a 68-year-old male with past medical history significant for hypertension, chronic kidney disease stage III, we do not have baseline creatinine, history of benign prostatic hypertrophy, depression and history of vocal cord polyp, status post excision in 04/2018, biopsy was benign, [facility] from [facility] because of some confusion and elevated blood pressure. The patient is getting treated for pneumonia around December 11 and was started on Levaquin, bu was changed to Augmentin and was given fluids for AI but today his blood pressure was running high. There was a question of confusion and at that time, it was decided to transfer here. But currently the patient is alert and oriented. He is somewhat upset that he does not know what is going on going on and was getting treatment for various things. He complains of having cough and was bringing up whitish phlegm. Denies any chest pain or shortness of breath. Denies any fever or chills. He is feeling somewhat nauseous. Denies any abdominal pain. He has some headaches. He says when he has coughing up has some blood coming from the nose. He denies any sore throat. Had dysphagia for solids, but the patient states that was because of laryngoscopy done for his polyp in April after that initially he was on soft diet, but that is improved, now he is back to his usual regular diet. . He states he is constipated. No blood in the stools. Normal bladder movements. No lower extremity swelling, no rash. ALLERGIES: No known drug allergies. PAST MEDICAL HISTORY: As mentioned above. PAST SURGICAL HISTORY: Inguinal surgeries and laryngoscopy with vocal cord polyp excision. MEDICATIONS: Currently, the patient is on amlodipine 10 mg p.o. daily, Augmentin 1 tablet b.i.d., aspirin 81 mg p.o. daily, enalapril 20 mg p.o. b.i.d., hydrochlorothiazide 25 mg p.o. a.m., metoprolol succinate 20 mg p.o. a.m., mirtazapine 50 mg p.o. at bedtime and Flomax 0.4 mg p.o. at bedtime. FAMILY HISTORY: He states father and mother had hypertension. Sister has diabetes. SOCIAL HISTORY: Used to smoke a lot, but currently smokes 1 pack every 5 days. Denies any alcohol use. REVIEW OF SYMPTOMS: As per HPI. Rest of the review of systems has been negative. Admission Exam Per Admitting Provider PHYSICAL EXAMINATION: GENERAL: The patient is of moderate build, not in acute distress. VITAL SIGNS: Temperature 36.8, pulse 68, respiratory rate 16, blood pressure 146/77 and oxygen 97% on room air. HEENT: No pallor. No icterus. Pupils are equal, round and react to light. NECK: No JVD. No neck mass. No carotid bruit. CARDIOVASCULAR: S1, S2. Regular rate and rhythm. No murmur. No gallop. RESPIRATORY SYSTEM: Normal AP diameter. No accessory muscle use. No wheezing, no crackles. ABDOMEN: Soft. Bowel sounds present. Nontender. No distention. CENTRAL NERVOUS SYSTEM: Cranial nerves II-XII grossly intact. Nonfocal. EXTREMITIES: No edema. No erythema. Principal Diagnosis HYPERTENSIVE URGENCY /ENCEPHALOPATHY Discharge Exam GENERAL: No sign of distress, HEENT: Sclera nonicteric, pink-purple bilateral equal reactive to light extraocular muscle intact Normal oral mucosa, neck: No JVD, no thyromegaly, trachea midline Lungs: Clear to auscultate, no wheeze or rales Cardiovascular: Regular S1 and S2, no murmur or gallop, no JVD, no lower extremity edema Abdomen: Soft, nontender, bowel sounds active, no hepatosplenomegaly Extremities: No rash or deformity, normal joint, Neuro: No focal neurological deficit, no dysarthria, no facial droop Psych: Alert awake oriented x3: Euthymic Skin: No rash LYMPH NODES: No cervical lymphadenopathy Discharge Data Allergies Allergy/AdvReac Type Severity Reaction Status Date / Time No Known Drug Allergies Allergy Unknown . Verified 12/16/18 23:21 Consultations 12/16/18 22:40 ED Decision to Admit Stat 12/17/18 02:55 Consult Case Management - Discharge Planning Routine Ordered Studies 12/16/18 22:39 CT head/brain wo con Stat 12/17/18 02:55 US renal/blad retro comp Urgent Hospital Course (1) Altered mental status: resolved mental status at baseline alert awake and oriented answering questions appropriately presented with confusion Possible secondary to metabolic encephalopathy in the setting of hypertensive urgency, acute renal failure, probable infection, pneumonia [facility] from [facility] for [facility], mental status improved to approximate baseline No evidence of stroke in CT head with contrast Does not have any focal neurological deficit BP meds adjusted -leading to better control of HTN (2) Pneumonia: Chest x-ray shows left-sided diffuse interstitial infiltrate, no complaint of cough, afebrile, white count within normal limit no cough complete course of Doxycline (3) Acute renal failure: resolved cr improved With unknown baseline, possible acute renal failure in the setting of poor p.o. intake patient home medications of diuretics kept on hold Given IV fluids, Renal ultrasound shows no evidence of obstruction or hydronephrosis (4) AI (acute kidney injury): Management as outlined above (5) Hypertension: Resented with hypertensive urgency, SBP elevated more than 180 Home BP meds KHUSHI inhibitor and hydrochlorthiazide was on hold for acute renal failure, dehydration resumed added Norvasc 10 mg /Hydralazine 25 mg PO BID BP improved after adjusting meds CODE STATUS: Full code DVT prophylaxis: Subcu heparin Disposition: Prisoner at [facility] return back to [facility] today Total Time Total Time Spent Total Time Spent (In Minutes): approx 35 mins Total Time Includes: Examination of the Patient, Discharge Planning and Medication Reconciliation Discharge Plan Discharge Items [facility] Disposition[facility] Reason For Visit: hypertension, confusion Discharge Diagnosis: HYPERTNSIVE URGENCY Discharge Goals: Decrease discomfort Activity: Resume your previous activity Non-emergency contact: Primary Care Provider Call non-emergency contact if: you have any medication questions [facility] - Diet: Heart Healthy Add Provider Instructions: [facility] UP WITH [facility] Prescriptions: New hydralazine 25 mg tablet 25 mg PO BID Qty: 60 RF: 0 Continued enalapril maleate 20 mg Tablet 20 mg PO BID RF: 0 tamsulosin 0.4 mg Capsule 0.4 mg PO HS RF: 0 amlodipine 10 mg Tablet 10 mg PO DAILY RF: 0 aspirin 81 mg Tablet,Chewable 81 mg PO DAILY RF: 0 mirtazapine 15 mg Tablet 15 mg PO HS RF: 0 metoprolol succinate 25 mg Capsule,Sprinkle,Er 24hr 25 mg PO DAILY RF: 0 Discontinued hydrochlorothiazide 25 mg Tablet 25 mg PO QAM RF: 0 amoxicillin-pot clavulanate 500-125 mg Tablet 1 tab PO BID RF: 0 Stand-Alone Forms: [facility]charge Orders: Discharge Order (Routine); Ordered 12/19/18 Ordered By: Radha Ortega Admission Data Admit Date/Time: 12/16/18 23:38 Attending Provider: Radha Ortega Admit Provider: Benedicto Reynolds Primary Care Provider: Matthew CONLEY Other Providers: Benedicto Reynolds ; Navid Friedman Service: Telemetry Medical Other Interventions: Discharge Summary Assessment (RN) Last Done: 12/19/18 16:26 DC Date/Time DO NOT enter until pt leaves facility: 12/19/18 19:23
== END 2018-12-19 19:23 | DRG 682 ==
LOC: ED 21:25 → 2W 23:38 → SUATTDRO 23:38 → 2W 12-17 02:23
DX: F32.9 Major depressive disorder, single episode, unspecified; J18.9 Pneumonia, unspecified organism; F17.210 Nicotine dependence, cigarettes, uncomplicated; I16.0 Hypertensive urgency; I12.9 Hypertensive chronic kidney disease with stage 1 through stage 4 chronic kidney disease, or unspecified chronic kidney disease; N18.3 Chronic kidney disease, stage 3 (moderate); G93.41 Metabolic encephalopathy; N17.9 Acute kidney failure, unspecified; Z82.49 Family history of ischemic heart disease and other diseases of the circulatory system; E86.0 Dehydration; N40.0 Benign prostatic hyperplasia without lower urinary tract symptoms

== ENCOUNTER 2019-07-31 11:07 | Inpatient (IN) ==
--- NOTE | 2019-07-31 12:14 | Emergency Department Note ---
Entered by Caroline Wagner acting as a scribe for Shan Singh MD History of Present Illness General Chief complaint: Shortness of Breath/Dyspnea Stated complaint: ams Time Seen by Provider: 07/31/19 11:52 Source: patient History of Present Illness Onset (ago): day(s) 4 Location: chest Pain Consistency: + other (persistent ) Maximum Pain Intensity: 9 Quality: + other (shortness of breath) Associated symptoms: + other (positive leg swelling; positive hand swelling; positive scrotum swelling; negative back pain); no chest pain, no cough and no fever/chills The patient is a 68 year old male who presents to the Emergency Room with complaints of persistent shortness of breath that began 4 days prior to arrival. The patient states that his legs, hands, and scrotum are swollen. He reports scrotum pain, but denies any recent trauma or injury. The patient denies cough, fever, back pain and chest pain. He denies any recent weight gain, and denies a history of retaining fluid. The patient states that he has an inguinal mass, but states that this has not changed. He denies any previous heart issues. Home Medications Home Medications Medication Instructions Recorded Confirmed Type aspirin 81 mg PO DAILY 12/16/18 07/31/19 History enalapril maleate 20 mg PO BID 12/16/18 07/31/19 History metoprolol succinate 25 mg PO DAILY 12/16/18 07/31/19 History tamsulosin 0.4 mg PO HS 12/16/18 07/31/19 History hydralazine 25 mg PO BID #60 tab 12/19/18 07/31/19 Rx ciclesonide [Alvesco] 1 puff INHALATION BID 07/31/19 07/31/19 History furosemide [Lasix] 40 mg PO QAM 07/31/19 07/31/19 History levalbuterol tartrate [Xopenex HFA] 2 inh INHALATION QID PRN 07/31/19 07/31/19 History loratadine 10 mg PO DAILY 07/31/19 07/31/19 History trazodone 100 mg PO HS 07/31/19 07/31/19 History Allergies Allergy/AdvReac Type Severity Reaction Status Date / Time No Known Drug Allergies Allergy Unknown . Verified 07/31/19 11:50 Past Med/Surg History Medical History BPH (benign prostatic hyperplasia) (Chronic) Hypertension (Chronic) Acute decompensated heart failure (Acute) Acute kidney injury superimposed on chronic kidney disease (Acute) Surgical History H/O hernia repair (Chronic) History of laryngoscopy (Chronic) Family History Other Diabetes Hypertension Social History Preferred Language: Spanish Communication Ability: Effective [employer] Required: No Beliefs That Will Affect Care: None Current Living Situation: Other Current Living Situation Comment: [facility] Other Information That Helps Us Care for You: No Feels Safe at Home: Yes Safety Concerns: Feels Safe At This Time Smoking Status: Former smoker Do You Dip or Chew Tobacco: No ; Second Hand Exposure: No ; Tobacco Cessation Education Requested by Patient: No Hx Alcohol Use: No Hx Substance Use: No Review of Systems See HPI for pertinent positives & negatives. and A total of 10 systems reviewed and were otherwise negative Physical Exam Vital Signs Vital Signs - 24 hr 07/31/19 11:23 07/31/19 11:35 07/31/19 11:36 Temperature 36.7 C Temperature Source Oral Sepsis Recent Fever Within 48 Hours No Sepsis New/Unexplained Change in Mental Status No Sepsis Action Taken by Nursing No Action Required Oxygen Flow Rate - Titration 2 Pulse Oximetry Post Tiitration 95 Pulse Rate 57 L 59 L Respiratory Rate 9 L 20 Respiratory Effort / Characteristics Spontaneous Respiratory Depth Normal Respiratory Pattern Regular Blood Pressure 163/72 H 160/109 H Blood Pressure Mean 102 126 Pulse Oximetry 94 88 L 90 Oxygen Delivery Method Nasal Cannula Room Air Room Air Oxygen Flow Rate 2 0 07/31/19 12:02 07/31/19 12:31 07/31/19 13:01 Temperature Temperature Source Sepsis Recent Fever Within 48 Hours Sepsis New/Unexplained Change in Mental Status Sepsis Action Taken by Nursing Oxygen Flow Rate - Titration Pulse Oximetry Post Tiitration Pulse Rate 56 L 59 L Respiratory Rate 12 20 Respiratory Effort / Characteristics Respiratory Depth Respiratory Pattern Blood Pressure 172/74 H 195/75 H Blood Pressure Mean 106 115 Pulse Oximetry 92 92 Oxygen Delivery Method Nasal Cannula Nasal Cannula Nasal Cannula Oxygen Flow Rate 2 2 2 General: Non-ill appearing middle aged male in no acute distress, on supplemental oxygen. HEENT: Normal cephalic atraumatic. Pupils are equal round and reactive to light. Extraocular movements are intact. Oropharynx is pink with moist mucous membranes. No swelling of the mouth lips or tongue. Neck: Supple with a midline trachea. No meningeal signs or stiffness, no JVD or bruits. No Stridor. Chest: Clear to auscultation bilaterally. No wheezes or rhonchi. No increased work of breathing. Heart: regular rate and rhythm. Abdomen: Soft nontender, nondistended without rebound guarding or rigidity. : Diffuse swelling of the penis and scrotum. No redness or warmth. Extremities: 1+ bilateral lower extremity edema, which he says is new. No cyanosis clubbing. No calf tenderness or asymmetry Spine/Back. Non tender to palpation. No CVA tenderness Skin: Good turgor without rashes. Neurologic exam: Cranial nerves two through 12 are intact. Motor and sensation are intact and symmetrical throughout. Course 1154: Past medical records reviewed. The patient was evaluated in room C6. A complete history and physical exam was performed. 1304: Upon reevaluation, the patient is resting comfortably. 1316: I discussed the case with Earline Chavez PA-C who accepts the patient for further evaluation under Dr. Gonzalez Hospitalist service. Administered Medications Heparin Sodium (Porcine) (Heparin Sodium (Porcine)) 5,000 units SQ Q8 RA Stop: 08/30/19 15:29 Last Admin: 07/31/19 17:33 Dose: 5,000 units Documented by: [id number] Cosigned by: [id number] Miscellaneous (Order Awaiting Action) 1 ea N/A QS RA Stop: 08/30/19 15:59 Last Admin: 07/31/19 17:31 Dose: Not Given Documented by: [id number] Discontinued Medications Furosemide 80 mg/ Syringe 8 mls @ 4 mls/min IV ONE ONE Stop: 07/31/19 15:01 Last Admin: 07/31/19 15:49 Dose: 4 mls/min Documented by: [id number] Medical Decision Making Differential Diagnosis Differential diagnoses include CHF, kidney disease, edema, urological process, infection, electrolyte or metabolic abnormality, and others were considered. Medical Records Attestation: I reviewed the patient's medical records. Home Medications Current Medication List: was personally reviewed by me Laboratory Data Attestation: I reviewed the patient's lab results. Result diagrams: 07/31/19 12:29 07/31/19 12:29 Lab Results 07/31/19 07/31/19 07/31/19 Range/Units 12:29 12:29 12:29 WBC 5.37 (4.8-10.8) K/uL RBC 4.30 L (4.7-6.1) M/uL Hgb 12.2 L (14.0-18.0) g/dL Hct 34.8 L (42-52) % MCV 80.9 (80-100) fL MCH 28.4 (25-34) pg MCHC 35.1 (32-36) g/dL RDW Std Deviation 43.4 (36.4-46.3) fL RDW Coeff of Ayanna 14.8 H (11.5-14.5) % Plt Count 190 (130-400) K/uL MPV 10.7 H (7.4-10.4) fL Immature Gran % (Auto) 0.2 % Neut % (Auto) 60.3 % Lymph % (Auto) 26.1 % [place] % (Auto) 10.6 % Eos % (Auto) 2.6 % Baso % (Auto) 0.2 % Immature Gran # (Auto) 0.01 (0.00-0.02) K/uL Neut # (Auto) 3.24 (1.4-6.5) K/uL Lymph # (Auto) 1.40 (1.2-3.4) K/uL [place] # (Auto) 0.57 (0.11-0.59) K/uL Eos # (Auto) 0.14 (0-0.5) K/uL Baso # (Auto) 0.01 (0-0.2) K/uL PT Cancelled INR Cancelled APTT Cancelled PTT Ratio Cancelled Sodium 144 (136-145) mmol/L Potassium 4.4 (3.5-5.1) mmol/L Chloride 116 H (98-107) mmol/L Carbon Dioxide 20 L (21-32) mmol/L Anion Gap 8.0 (3-11) BUN 33 H (7-18) mg/dl Creatinine 2.40 H (0.6-1.4) mg/dl Est Cr Clr Drug Dosing 30.1 ml/min Est GFR ( Amer) 30.7 Est GFR (Non-Af Amer) 26.5 BUN/Creatinine Ratio 13.5 (10-20) Glucose 96 (70-99) mg/dl Calcium 8.3 L (8.5-10.1) mg/dl Magnesium (1.8-2.4) mg/dl Total Bilirubin 0.5 (0.2-1) mg/dl AST 32 (15-37) U/L ALT 29 (12-78) U/L Alkaline Phosphatase 155 H (45-117) U/L NT-Pro-B Natriuret Pep 2232 H (0-900) pg/ml Total Protein 7.1 (6.4-8.2) gm/dl Albumin 2.4 L (3.4-5.0) gm/dl Globulin 4.7 H (2.5-4.0) gm/dl Albumin/Globulin Ratio 0.5 L (0.9-2) TSH (0.300-4.500) uIu/ml 07/31/19 07/31/19 Range/Units 12:29 13:32 WBC (4.8-10.8) K/uL RBC (4.7-6.1) M/uL Hgb (14.0-18.0) g/dL Hct (42-52) % MCV (80-100) fL MCH (25-34) pg MCHC (32-36) g/dL RDW Std Deviation (36.4-46.3) fL RDW Coeff of Ayanna (11.5-14.5) % Plt Count (130-400) K/uL MPV (7.4-10.4) fL Immature Gran % (Auto) % Neut % (Auto) % Lymph % (Auto) % [place] % (Auto) % Eos % (Auto) % Baso % (Auto) % Immature Gran # (Auto) (0.00-0.02) K/uL Neut # (Auto) (1.4-6.5) K/uL Lymph # (Auto) (1.2-3.4) K/uL [place] # (Auto) (0.11-0.59) K/uL Eos # (Auto) (0-0.5) K/uL Baso # (Auto) (0-0.2) K/uL PT 11.0 INR 1.1 APTT 26.3 PTT Ratio 1.0 Sodium (136-145) mmol/L Potassium (3.5-5.1) mmol/L Chloride (98-107) mmol/L Carbon Dioxide (21-32) mmol/L Anion Gap (3-11) BUN (7-18) mg/dl Creatinine (0.6-1.4) mg/dl Est Cr Clr Drug Dosing ml/min Est GFR ( Amer) Est GFR (Non-Af Amer) BUN/Creatinine Ratio (10-20) Glucose (70-99) mg/dl Calcium (8.5-10.1) mg/dl Magnesium 1.9 (1.8-2.4) mg/dl Total Bilirubin (0.2-1) mg/dl AST (15-37) U/L ALT (12-78) U/L Alkaline Phosphatase (45-117) U/L NT-Pro-B Natriuret Pep (0-900) pg/ml Total Protein (6.4-8.2) gm/dl Albumin (3.4-5.0) gm/dl Globulin (2.5-4.0) gm/dl Albumin/Globulin Ratio (0.9-2) TSH 1.380 (0.300-4.500) uIu/ml Imaging Data Radiologist's Impression: Radiology results as stated below per my review and the radiologist's interpretation: XR chest 1V portable CLINICAL HISTORY: Dyspnea dyspnea COMPARISON STUDY: 12/16/2018 FINDINGS: Moderate cardiomegaly. Bilateral parenchymal infiltrative change. Small left pleural effusion. Very slight blunting right lateral costophrenic angle. IMPRESSION: Diffuse bilateral parenchymal infiltrative change versus components of congestive failure. The above report was generated using voice recognition software. It may contain grammatical, syntax or spelling errors. Electronically signed by: Luis Fernando Delgadillo M.D. 07/31/2019 12:45 PM ECG Data Attestation: I personally reviewed and interpreted this ECG as follows: Indication: SOB/dyspnea Rate (beats per minute): 55 Rhythm: sinus bradycardia Findings: + other (poor R wave progression); no PAC, no PVC, no ST depression, no ST elevation, no acute ischemic change and no ectopy Comparison ECG Date: from (12/16/18) Change: no significant change Blood Pressure Blood Pressure Findings: Elevated blood pressure Blood Pressure Disposition: further management by hospitalist OLGA Reed This patient is from [facility] and comes in after having lower extremity edema shortness of breath and scrotal swelling. He has diffuse edema which she says is new. No history of CHF, he tells me does have some kidney issues. He did have an ultrasound in May which showed a cyst in his left inguinal canal. On exam, he is markedly swollen in his scrotum and testicles there is no redness or warmth and I do not think this is likely a primarily urologic process as he has diffuse body swelling/ anascara. He has no fever or any redness or skin lesions to suggest cellulitis or David's gangrene. IV access was established and blood work was obtained. Chest x-ray and EKG were also obtained. Chest x-ray does show findings consistent with CHF. EKG does not suggest acute coronary syndrome or arrhythmia. He does have renal insufficiency which has gotten progressively worse. He has normal potassium. With his diffuse body anasarca and I do think he needs to be admitted for further evaluation this may be related to his heart or his kidneys were both. He may need diuresis and cardiac and renal evaluation. I have consulted the [facility] hospitalist to see him for these measures Impression & Plan Pulmonary edema, CHF (congestive heart failure), Renal failure, Peripheral edema, Scrotal edema, Anasarca Discharge Plan Visit Data *Final* Discharge Date/Time: 07/31/19 14:22 Chief Complaint: Shortness of Breath/Dyspnea Stated Complaint: ams ED Provider: Shan Singh Discharge Problem: Pulmonary edema, CHF (congestive heart failure), Renal failure, Peripheral edema, Scrotal edema, Anasarca Patient Disposition: Admitted As Inpatient Discharge Instructions Interventions: ED Discharge Assessment Last Done: 07/31/19 14:22 The scribe's documentation has been prepared under my direction and personally reviewed by me in its entirety. I confirm that the note above accurately reflects all work, treatment, procedures, and medical decision making performed by me.
[2019-07-31 12:38] LABS: Basophils # (auto) 0.01 K/uL (0-0.2); Basophils % (auto) 0.2 %; Eosinophils # (auto) 0.14 K/uL (0-0.5); Eosinophils % (auto) 2.6 %; Hematocrit (blood only) 34.8 % (42-52); Hemoglobin 12.2 g/dL (14.0-18.0); Immature Granulocytes # (auto) 0.01 K/uL (0.00-0.02); Immature Granulocytes % (auto) 0.2 %; Lymphocytes % (auto) 26.1 %; Mean Corpuscular Hemoglobin 28.4 pg (25-34); Mean Corpuscular Hgb Conc 35.1 g/dL (32-36); Mean Corpuscular Volume 80.9 fL (80-100); Mean Platelet Volume 10.7 fL (7.4-10.4); Monocytes # (auto) 0.57 K/uL (0.11-0.59); Monocytes % (auto) 10.6 %; Neutrophils # (auto) 3.24 K/uL (1.4-6.5); Neutrophils % (auto) 60.3 %; Platelet Count 190 K/uL (130-400); RDW Coefficient of Variation 14.8 % (11.5-14.5); RDW Standard Deviation 43.4 fL (36.4-46.3); White Blood Count 5.37 K/uL (4.8-10.8)
--- NOTE | 2019-07-31 12:46 | XRay Report ---
XR chest 1V portable CLINICAL HISTORY: Dyspnea dyspnea COMPARISON STUDY: 12/16/2018 FINDINGS: Moderate cardiomegaly. Bilateral parenchymal infiltrative change. Small left pleural effusi on. Very slight blunting right lateral costophrenic angle. IMPRESSION: Diffuse bilateral parenchymal infiltrative change versus components of congestive failur e. The above report was generated using voice recognition software. It may contain grammatical, syntax or spelling errors. Electronically signed by: Luis Fernando Delgadillo M.D. 07/31/2019 12:45 PM
[2019-07-31 12:59] LABS: Albumin Level 2.4 gm/dl (3.4-5.0); BUN Creatinine Ratio 13.5 (10-20); Calcium 8.3 mg/dl (8.5-10.1); Creatinine Clr Calc Pharmacy 30.1 ml/min; Est GFR (African American) 30.7; Est GFR (Non-African American) 26.5; Potassium 4.4 mmol/L (3.5-5.1)
[2019-07-31 13:05] LABS: Albumin Globulin Ratio 0.5 (0.9-2); Bilirubin,Total 0.5 mg/dl (0.2-1); Globulin 4.7 gm/dl (2.5-4.0); Total Protein 7.1 gm/dl (6.4-8.2)
[2019-07-31 13:55] LABS: INR 1.1 (0.9-1.1); Partial Thromboplastin Time 26.3 Seconds (21.0-31.0)
--- NOTE | 2019-07-31 14:04 | History & Physical Report ---
Date of Service July 31, 2019 Assessment & Plan (1) Acute decompensated heart failure: This is a 68-year-old male from [facility] with a PMH of CKD 3, hypertension and BPH who presents with shortness of breath and diffuse swelling x5 days and was found to have AI on CKD and new onset CHF. -SOB and diffuse edema to legs, scrotum and abdomen x 5 days -Per cardiology, likely end organ damage to heart and kidneys 2/2 longstanding uncontrolled HTN -Chest x-ray with diffuse bilateral parenchymal infiltrative changes versus components of congestive failure. BNP elevated at 2232 -Will give IV Lasix 80mg now and again at 1900 -2D echo pending -Strict I&Os, daily weights -Routine cardiology consult (2) Acute kidney injury superimposed on chronic kidney disease: Cr elevated at 2.4 (last Cr in system of 1.7 in December 2018) -Discussed with nephro. UA with microscopy and creatinine: protein ratio pending to evaluate for nephrotic syndrome -Plan for diuresis with Lasix 80mg and repeat labwork this evening -Low sodium diet with 1.5L fluid restriction -Holding enalapril for now -Routine nephrology consult (3) Acute respiratory failure with hypoxia: Initially hypoxic to 88% on room air but oxygen improved to 92% on 2 L nasal cannula -Does not require home O2 -Continue supplemental O2 PRN (4) Hypertension: Initially elevated at 172/74 but now 107/64 -Continue home dose hydralazine (5) BPH (benign prostatic hyperplasia): Continue tamsulosin (6) Insomnia: Continue trazodone DVT Ppx: SQ heparin Code status: FULL PCP: [facility] Dispo: Admitted to [facility]. Discharge planning ordered for return to [facility]. Patient seen in collaboration with Dr. Ulloa. Please see addendum. History of Present Illness Chief Complaint: Shortness of breath, edema Primary Care Provider: [facility] This is a 68-year-old male from [facility] with a PMH of CKD 3, hypertension and BPH who presents with shortness of breath and diffuse swelling x5 days. Patient first noted swelling in lower legs but progressed into groin as well as arms and hands. Patient has been progressively dyspneic for the past few days but feel short of breath even at rest. Denies any fever, chills, chest pain, palpitations or wheezing. No sore throat, cough or sputum production. Endorses some weight gain due to swelling but is not sure how much. Denies any orthopnea or PND. Denies any history of formal CHF diagnosis but takes Lasix daily for lower extremity swelling. Has been told he has had kidney disease ever since he arrived at [facility]. Initially, patient hypoxic to 88% on room air but oxygen improved to 92% on 2 L nasal cannula. Does not require home O2. BP elevated at 172/74. proBNP elevated at 2232. Chest x-ray with diffuse bilateral parenchymal infiltrative changes versus components of congestive failure. Creatinine elevated at 2.4 (last Cr in system of 1.7 in December 2018). Most recent 2D echo from 2018 with mild concentric LVH, preserved EF: 65-70%, grade 1 diastolic dysfunction. Allergies Allergy/AdvReac Type Severity Reaction Status Date / Time No Known Drug Allergies Allergy Unknown . Verified 07/31/19 11:50 Home Medications Home Medications Medication Instructions Recorded Confirmed Type aspirin 81 mg PO DAILY 12/16/18 07/31/19 History enalapril maleate 20 mg PO BID 12/16/18 07/31/19 History metoprolol succinate 25 mg PO DAILY 12/16/18 07/31/19 History tamsulosin 0.4 mg PO HS 12/16/18 07/31/19 History hydralazine 25 mg PO BID #60 tab 12/19/18 07/31/19 Rx ciclesonide [Alvesco] 1 puff INHALATION BID 07/31/19 07/31/19 History furosemide [Lasix] 40 mg PO QAM 07/31/19 07/31/19 History levalbuterol tartrate [Xopenex HFA] 2 inh INHALATION QID PRN 07/31/19 07/31/19 History loratadine 10 mg PO DAILY 07/31/19 07/31/19 History trazodone 100 mg PO HS 07/31/19 07/31/19 History Past Med/Surg History Medical History BPH (benign prostatic hyperplasia) (Chronic) Hypertension (Chronic) Acute decompensated heart failure (Acute) Acute kidney injury superimposed on chronic kidney disease (Acute) Surgical History H/O hernia repair (Chronic) History of laryngoscopy (Chronic) Family History Other Diabetes Hypertension Social History Preferred Language: Monegasque Communication Ability: Effective 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 Physical Exam Physical Exam: General Appearance: WD/WN, vitals as above, NAD, sitting up in bed, pleasant, conversing easily Head: normocephalic, atraumatic Eyes: normal inspection, PERRL, conjunctivae normal, anicteric sclerae ENT: external ear and nose normal, oropharynx normal Neck: trachea midline, no thyromegaly normal visual inspection Respiratory: bibasilar crackles, otherwise clear to auscultation. No wheeze or rhonchi. Normal insp/exp effort, no accessory muscle use Cardiovascular: regular rate, rhythm, no murmur, normal peripheral pulses, 2+ BLE edema extending to waist. Vessels: no JVD or carotid bruit Chest: normal inspection of chest Abdomen/GI: normal bowel sounds, soft, nontender, no hepatosplenomegaly : Scrotal and penile edema. No evidence of open lesions or cellulitis Extremities/Musculoskelatal: no cyanosis or clubbing, extremities motor strength 5/5 Neurologic: PERRL, EOMI, accommodation nl, no face palsy, no dysarthria CN's II-XI intact bilaterally and moves all extremities Psychiatric: A+Ox3, euthymic affect Skin: no rashes, normal color, warm/dry Results & Data Vital Signs (Past 12 Hours) Vital Signs Temp Pulse Resp BP Pulse Ox 07/31/19 13:01 59 L 20 195/75 H 92 07/31/19 12:31 56 L 12 172/74 H 92 10/21/19 11:36 36.7 C 59 L 20 160/109 H 90 07/31/19 11:35 88 L 07/31/19 11:23 57 L 9 L 163/72 H 94 Laboratory Results Short CBC 07/31/19 07/31/19 07/31/19 Range/Units 12:29 12:29 12:29 WBC 5.37 (4.8-10.8) K/uL RBC 4.30 L (4.7-6.1) M/uL Hgb 12.2 L (14.0-18.0) g/dL Hct 34.8 L (42-52) % MCV 80.9 (80-100) fL MCH 28.4 (25-34) pg MCHC 35.1 (32-36) g/dL RDW Std Deviation 43.4 (36.4-46.3) fL RDW Coeff of Ayanna 14.8 H (11.5-14.5) % Plt Count 190 (130-400) K/uL MPV 10.7 H (7.4-10.4) fL Immature Gran % (Auto) 0.2 % Neut % (Auto) 60.3 % Lymph % (Auto) 26.1 % Reeves % (Auto) 10.6 % Eos % (Auto) 2.6 % Baso % (Auto) 0.2 % Immature Gran # (Auto) 0.01 (0.00-0.02) K/uL Neut # (Auto) 3.24 (1.4-6.5) K/uL Lymph # (Auto) 1.40 (1.2-3.4) K/uL Reeves # (Auto) 0.57 (0.11-0.59) K/uL Eos # (Auto) 0.14 (0-0.5) K/uL Baso # (Auto) 0.01 (0-0.2) K/uL PT Cancelled INR Cancelled APTT Cancelled PTT Ratio Cancelled Sodium 144 (136-145) mmol/L Potassium 4.4 (3.5-5.1) mmol/L Chloride 116 H (98-107) mmol/L Carbon Dioxide 20 L (21-32) mmol/L Anion Gap 8.0 (3-11) BUN 33 H (7-18) mg/dl Creatinine 2.40 H (0.6-1.4) mg/dl Est Cr Clr Drug Dosing 30.1 ml/min Est GFR ( Amer) 30.7 Est GFR (Non-Af Amer) 26.5 BUN/Creatinine Ratio 13.5 (10-20) Glucose 96 (70-99) mg/dl Calcium 8.3 L (8.5-10.1) mg/dl Total Bilirubin 0.5 (0.2-1) mg/dl AST 32 (15-37) U/L ALT 29 (12-78) U/L Alkaline Phosphatase 155 H (45-117) U/L NT-Pro-B Natriuret Pep 2232 H (0-900) pg/ml Total Protein 7.1 (6.4-8.2) gm/dl Albumin 2.4 L (3.4-5.0) gm/dl Globulin 4.7 H (2.5-4.0) gm/dl Albumin/Globulin Ratio 0.5 L (0.9-2) 07/31/19 Range/Units 13:32 WBC (4.8-10.8) K/uL RBC (4.7-6.1) M/uL Hgb (14.0-18.0) g/dL Hct (42-52) % MCV (80-100) fL MCH (25-34) pg MCHC (32-36) g/dL RDW Std Deviation (36.4-46.3) fL RDW Coeff of Ayanna (11.5-14.5) % Plt Count (130-400) K/uL MPV (7.4-10.4) fL Immature Gran % (Auto) % Neut % (Auto) % Lymph % (Auto) % Reeves % (Auto) % Eos % (Auto) % Baso % (Auto) % Immature Gran # (Auto) (0.00-0.02) K/uL Neut # (Auto) (1.4-6.5) K/uL Lymph # (Auto) (1.2-3.4) K/uL Reeves # (Auto) (0.11-0.59) K/uL Eos # (Auto) (0-0.5) K/uL Baso # (Auto) (0-0.2) K/uL PT 11.0 INR 1.1 APTT 26.3 PTT Ratio 1.0 Sodium (136-145) mmol/L Potassium (3.5-5.1) mmol/L Chloride (98-107) mmol/L Carbon Dioxide (21-32) mmol/L Anion Gap (3-11) BUN (7-18) mg/dl Creatinine (0.6-1.4) mg/dl Est Cr Clr Drug Dosing ml/min Est GFR ( Amer) Est GFR (Non-Af Amer) BUN/Creatinine Ratio (10-20) Glucose (70-99) mg/dl Calcium (8.5-10.1) mg/dl Total Bilirubin (0.2-1) mg/dl AST (15-37) U/L ALT (12-78) U/L Alkaline Phosphatase (45-117) U/L NT-Pro-B Natriuret Pep (0-900) pg/ml Total Protein (6.4-8.2) gm/dl Albumin (3.4-5.0) gm/dl Globulin (2.5-4.0) gm/dl Albumin/Globulin Ratio (0.9-2) BMP 07/31/19 12:29 Sodium 144 Potassium 4.4 Chloride 116 H Carbon Dioxide 20 L BUN 33 H Creatinine 2.40 H Glucose 96 Calcium 8.3 L Liver Function 07/31/19 Range/Units 12:29 Total Bilirubin 0.5 (0.2-1) mg/dl AST 32 (15-37) U/L ALT 29 (12-78) U/L Alkaline Phosphatase 155 H (45-117) U/L Albumin 2.4 L (3.4-5.0) gm/dl Diagnostic Findings CXR: IMPRESSION: Diffuse bilateral parenchymal infiltrative change versus components of congestive failure. ECG Rhythm: sinus bradycardia Additional Comments: inferior lead T wave flattening Code Status & VTE Plan VTE Prophylaxis Plan VTE Prophylaxis will be ordered: Yes Supervising Physician Co-Signing Physician Notes HISTORY: Record reviewed. Patient interviewed and examined. Care coordinated with Earline Broussard PA-C. Please refer to her documentation for complete history. Briefly, 68-year-old male with history of hypertension, chronic kidney disease, and other problems. Worsening dyspnea on exertion, dependent edema, scrotal edema over past week. Receiving furosemide without improvement. EXAM: General- no distress Lungs- clear to auscultation; no respiratory distress Cardiovascular- RRR; II/ systolic murmur at base; + S4; + JVD; 2+ pretibial edema Abdomen- + bowel sounds, soft, nontender - scrotal edema Extremities- no cyanosis; no calf tenderness Neuro- alert, oriented Skin- warm & dry DATA: Hemoglobin 12.2, white count 5370, platelet count 190,000. PT, INR, PTT normal. Sodium 144, potassium 4.4, chloride 116, CO2 20, BUN 33, creatinine 2.4, random glucose 96. Total bilirubin 0.5, AST 32, ALT 29, alkaline phosphatase 155. Albumin 2.4. proBNP 2232. TSH 1.38. Other lab studies as noted. Chest x-ray reviewed by the undersigned and formally interpreted by Radiology. Cardiomegaly, pulmonary vascular congestion, small left pleural effusion. EKG performed at 1120 reviewed and demonstrated sinus bradycardia at 50/minute, poor R wave progression, T wave flattening inferior leads. ASSESSMENT AND PLAN: Suspect acute/decompensated CHF secondary to left ventricular diastolic heart failure. Serum albumin low. Consider nephrotic syndrome. CKD with worsening creatinine. Diuresis with caution. Check echocardiogram. Consult Cardiology and Nephrology. Please refer to LUISA Broussard's documentation for discussion of other issues.
[2019-07-31] MEDS ORDERED: FUROSEMIDE 80 MG in SYRINGE 0 ML IV ONE (15:00)
[2019-07-31] MEDS ORDERED: ONDANSETRON INJ 2 MG/ML 2 ML VIAL IV PRN (15:30)
[2019-07-31] MEDS ORDERED: POLYETHYLENE (MIRALAX) 17 GM PACK PO PRN (15:30)
[2019-07-31] MEDS ORDERED: LEVALBUTEROL TARTRATE 15 GM HFA.AER.AD INH PRN (15:30)
--- NOTE | 2019-07-31 15:48 | Cardiology Consultation ---
Date of Consultation July 31, 2019 Assessment & Plan (1) Acute decompensated heart failure: (2) Acute kidney injury superimposed on chronic kidney disease: (3) Scrotal edema: (4) Hypertension: This patient most likely has had long-standing undertreated hypertension with resultant end organ damage to his kidneys and probable heart with either diastolic or systolic heart failure. The patient's urine does have protein but I do not believe it is at a level that would be concerning for nephrotic syndrome. Nephrology has been consulted. An echocardiogram is planned. Previously the patient did have thyroid functions from his prior admission which I will will recheck. We will follow along with you during his hospital stay. He should continue his current medications as well as diuretics. History of Present Illness Attending Physician: Alexi Ulloa MD History of Present Illness This is a 68-year-old male patient who is incarcerated at [facility]. He has a long-standing history of hypertension. Previously admitted with confusion and hypertension earlier this year. According to the patient over the past several days he has noticed increased swelling of his legs, scrotum, penis and abdomen. The patient was admitted with anasarca possibly due to heart failure versus chronic kidney disease from hypertension. He denies chest pain. He has been more short of breath recently. He has no history of diabetes or family history of heart disease. Allergies Allergy/AdvReac Type Severity Reaction Status Date / Time No Known Drug Allergies Allergy Unknown . Verified 07/31/19 11:50 Home Medications Home Medications Medication Instructions Recorded Confirmed Type aspirin 81 mg PO DAILY 12/16/18 07/31/19 History enalapril maleate 20 mg PO BID 12/16/18 07/31/19 History metoprolol succinate 25 mg PO DAILY 12/16/18 07/31/19 History tamsulosin 0.4 mg PO HS 12/16/18 07/31/19 History hydralazine 25 mg PO BID #60 tab 12/19/18 07/31/19 Rx ciclesonide [Alvesco] 1 puff INHALATION BID 07/31/19 07/31/19 History furosemide [Lasix] 40 mg PO QAM 07/31/19 07/31/19 History levalbuterol tartrate [Xopenex HFA] 2 inh INHALATION QID PRN 07/31/19 07/31/19 History loratadine 10 mg PO DAILY 07/31/19 07/31/19 History trazodone 100 mg PO HS 07/31/19 07/31/19 History Patient History Medical History BPH (benign prostatic hyperplasia) (Chronic) Hypertension (Chronic) Acute decompensated heart failure (Acute) Acute kidney injury superimposed on chronic kidney disease (Acute) Surgical History H/O hernia repair (Chronic) History of laryngoscopy (Chronic) Family History Other Diabetes Hypertension Social History Preferred Language: Ukrainian Communication Ability: Effective Youth Corrections Officer Required: No Beliefs That Will Affect Care: None Current Living Situation: Other Current Living Situation Comment: [facility] Other Information That Helps Us Care for You: No Feels Safe at Home: Yes Safety Concerns: Feels Safe At This Time Smoking Status: Former smoker Do You Dip or Chew Tobacco: No ; Second Hand Exposure: No ; Tobacco Cessation Education Requested by Patient: No Hx Alcohol Use: No Hx Substance Use: No Review of Systems Review of Systems: All systems reviewed & are unremarkable except as noted in HPI & below Nothing additional. Physical Exam Physical Exam: General: no acute distress and stated age Head: normocephalic, no masses, lesions, tenderness or abnormalities Eyes: conjunctiva are pink and non-injected, sclera clear Neck: supple, no adenopathy, no bruits, normal jugular venous pulse, no hepatojugular reflux Chest: normal shape and normal respiratory effort Lungs: clear to auscultation and percussion Cardiac Exam: - regular rate & rhythm, no murmurs gallops or rubs - normal S1, normal S2 Pulses: 2(+) throughout Abdomen: abdomen soft, non-tender, no abnormal masses and no hepatosplenomegaly Musculoskeletal: no gait disturbance, no joint inflammation, no deforming arthritis Extremities: Lower extremity edema. Edema and swelling of the scrotum and penis. Neuro: grossly normal exam Results & Data Vital Signs (Past 12 Hours) Vital Signs Temp Pulse Pulse Resp BP BP Pulse Ox 07/31/19 14:58 36.6 C 64 18 107/64 91 07/31/19 14:16 83 17 172/92 H 95 07/31/19 14:00 58 L 12 93 07/31/19 13:01 59 L 20 195/75 H 92 07/31/19 12:31 56 L 12 172/74 H 92 07/31/19 11:36 36.7 C 59 L 20 160/109 H 90 07/31/19 11:35 88 L 07/31/19 11:23 57 L 9 L 163/72 H 94 Laboratory Results Laboratory Results - last 24 hr 07/31/19 07/31/19 07/31/19 12:29 12:29 12:29 WBC 5.37 RBC 4.30 L Hgb 12.2 L Hct 34.8 L MCV 80.9 MCH 28.4 MCHC 35.1 RDW Std Deviation 43.4 RDW Coeff of Ayanna 14.8 H Plt Count 190 MPV 10.7 H Immature Gran % (Auto) 0.2 Neut % (Auto) 60.3 Lymph % (Auto) 26.1 [place] % (Auto) 10.6 Eos % (Auto) 2.6 Baso % (Auto) 0.2 Immature Gran # (Auto) 0.01 Neut # (Auto) 3.24 Lymph # (Auto) 1.40 [place] # (Auto) 0.57 Eos # (Auto) 0.14 Baso # (Auto) 0.01 PT Cancelled INR Cancelled APTT Cancelled PTT Ratio Cancelled Sodium 144 Potassium 4.4 Chloride 116 H Carbon Dioxide 20 L Anion Gap 8.0 BUN 33 H Creatinine 2.40 H Est Cr Clr Drug Dosing 30.1 Est GFR ( Amer) 30.7 Est GFR (Non-Af Amer) 26.5 BUN/Creatinine Ratio 13.5 Glucose 96 Calcium 8.3 L Magnesium Total Bilirubin 0.5 AST 32 ALT 29 Alkaline Phosphatase 155 H NT-Pro-B Natriuret Pep 2232 H Total Protein 7.1 Albumin 2.4 L Globulin 4.7 H Albumin/Globulin Ratio 0.5 L TSH Nasal Screen MRSA (PCR) 07/31/19 07/31/19 07/31/19 12:29 13:32 15:35 WBC RBC Hgb Hct MCV MCH MCHC RDW Std Deviation RDW Coeff of Ayanna Plt Count MPV Immature Gran % (Auto) Neut % (Auto) Lymph % (Auto) [place] % (Auto) Eos % (Auto) Baso % (Auto) Immature Gran # (Auto) Neut # (Auto) Lymph # (Auto) [place] # (Auto) Eos # (Auto) Baso # (Auto) PT 11.0 INR 1.1 APTT 26.3 PTT Ratio 1.0 Sodium Potassium Chloride Carbon Dioxide Anion Gap BUN Creatinine Est Cr Clr Drug Dosing Est GFR ( Amer) Est GFR (Non-Af Amer) BUN/Creatinine Ratio Glucose Calcium Magnesium Pending Total Bilirubin AST ALT Alkaline Phosphatase NT-Pro-B Natriuret Pep Total Protein Albumin Globulin Albumin/Globulin Ratio TSH Pending Nasal Screen MRSA (PCR) Pending Medications Administered Current Inpatient Medications Acetaminophen (Tylenol) 650 mg PO Q4H PRN PRN Reason: Pain or Fever Stop: 08/30/19 15:29 Aspirin (Ecotrin Ectab) 81 mg PO DAILY [facility] Stop: 08/31/19 08:59 Heparin Sodium (Porcine) (Heparin Sodium (Porcine)) 5,000 units SQ Q8 RA Stop: 08/30/19 15:29 Hydralazine HCl (Apresoline) 25 mg PO BID RA Stop: 08/30/19 20:59 Levalbuterol HCl (Xopenex Hfa) 2 puffs INH QID PRN PRN Reason: Shortness Of Breath Stop: 08/30/19 15:29 Loratadine (Claritin) 10 mg PO DAILY RA Stop: 08/31/19 08:59 Metoprolol Succinate (Toprol Xl) 25 mg PO DAILY RA Stop: 08/31/19 08:59 Miscellaneous (Order Awaiting Action) 1 ea N/A QS RA Stop: 08/30/19 15:59 Ondansetron HCl (Zofran) 4 mg IV Q6H PRN PRN Reason: Nausea Stop: 08/30/19 15:29 Polyethylene Glycol (Miralax Powder Packet) 17 gm PO DAILY PRN PRN Reason: Constipation Stop: 08/30/19 15:29 Tamsulosin HCl (Flomax) 0.4 mg PO HS RA Stop: 08/30/19 20:59 Trazodone HCl (Desyrel) 100 mg PO HS RA Stop: 08/30/19 20:59
[2019-07-31 16:04] LABS: Magnesium 1.9 mg/dl (1.8-2.4); Thyroid Stimulating Hormone 1.38 uIu/ml (0.300-4.500)
[2019-07-31 16:09] LABS: Appearance Urine Clear (Clear); Bacteria Urine Automated Negative (Negative); Bilirubin Urine Negative (Negative); Blood Urine Negative (Negative); Color Urine Yellow; Glucose Urine UA Negative (Negative); Ketones Urine Negative (Negative); Leukocyte Esterase Urine Negative (Negative); Nitrite Urine Negative (Negative); Protein Urine 3+ (Negative); RBC Urine Automated 0-4 /hpf (0-4); Specific Gravity Urine 1.017 (1.000-1.030); Urobilinogen Urine Negative (Negative); pH Urine 5.5 (4.5-7.5)
[2019-07-31 16:50] LABS: Creatinine Urine Random 72.7 mg/dl; Protein Creatinine Ratio Urine 3.8 (0-0.2); Total Protein Urine Random 279.4 mg/dl (0-11.9)
[2019-07-31] MEDS: HEPARIN SOD 5,000 UNIT/0.5 ML VIAL SQ SCH ×2 (17:33→22:30)
[2019-07-31] MEDS: FUROSEMIDE 80 MG in SYRINGE 0 ML IV SCH (20:42)
[2019-07-31] MEDS: TRAZODONE HCL 100 MG TAB PO SCH (20:43)
[2019-07-31] MEDS: TAMSULOSIN HCL 0.4 MG CAP PO SCH (20:43)
--- NOTE | 2019-07-31 22:30 | Nephrology Consultation ---
Date of Consultation July 31, 2019 Assessment & Plan (1) Acute kidney injury superimposed on chronic kidney disease: baseline creatinine in [facility] records 1.7 as of 2018; today w/ crea tinine 2.4; chemistries acceptable though hyperchloremic metabolic acidosis / NAGMA noted and odd -agree w/ holding enalapril -daily bmp -aggressive diuresis/ bp control as below -strict I/O Present on Admission?: Yes (2) Nephrotic syndrome: recommended lasix 80 mg IV bid >> may well need tid dosing -daily standing wt -less than 2 gm Na, 1.5 L FR -continue hydralazine, toprol current doses >> goal sbp is 130-140s -proteinuria w/u ordered for am >> kate, anca, complements, spep, upep, Hep panels; will d/w pt consent for HIV testing -f/u TTE Present on Admission?: Yes History of Present Illness Reason for Consultation: AI on CKD, anasarca Requesting Physician: Dr Ulloa Attending Physician: Alexi Ulloa MD History of Present Illness 68 y/o M [facility] jail inmate whom I'm asked to see for anasarca, AI on CKD after he was brought to ER to evaluate anasarca, dyspnea and found to have acute decompensated HF and uncontrolled HTN w/ sbp in 170-190s systolic. PMH includes longstanding HTN, CKD, prostatic hypertrophy. He was admitted here 12/2018 for HTN urgency > had creatinine 1.7 at that time (no nephro consult); bp responded to med adjustments; creatinine on presentation today was 2.4. Cardiology is following; TTE planned. Allergies Allergy/AdvReac Type Severity Reaction Status Date / Time No Known Drug Allergies Allergy Unknown . Verified 07/31/19 11:50 Home Medications Home Medications Medication Instructions Recorded Confirmed Type aspirin 81 mg PO DAILY 12/16/18 07/31/19 History enalapril maleate 20 mg PO BID 12/16/18 07/31/19 History metoprolol succinate 25 mg PO DAILY 12/16/18 07/31/19 History tamsulosin 0.4 mg PO HS 12/16/18 07/31/19 History hydralazine 25 mg PO BID #60 tab 12/19/18 07/31/19 Rx ciclesonide [Alvesco] 1 puff INHALATION BID 07/31/19 07/31/19 History furosemide [Lasix] 40 mg PO QAM 07/31/19 07/31/19 History levalbuterol tartrate [Xopenex HFA] 2 inh INHALATION QID PRN 07/31/19 07/31/19 History loratadine 10 mg PO DAILY 07/31/19 07/31/19 History trazodone 100 mg PO HS 07/31/19 07/31/19 History Patient History Medical History BPH (benign prostatic hyperplasia) (Chronic) Hypertension (Chronic) Acute decompensated heart failure (Acute) Acute kidney injury superimposed on chronic kidney disease (Acute) Surgical History H/O hernia repair (Chronic) History of laryngoscopy (Chronic) Family History Other Diabetes Hypertension Social History Preferred Language: Greenlandic Communication Ability: Effective Emt I/99 Required: No Beliefs That Will Affect Care: None Current Living Situation: Other Current Living Situation Comment: [facility] Other Information That Helps Us Care for You: No Feels Safe at Home: Yes Safety Concerns: Feels Safe At This Time Smoking Status: Former smoker Do You Dip or Chew Tobacco: No ; Second Hand Exposure: No ; Tobacco Cessation Education Requested by Patient: No Hx Alcohol Use: No Hx Substance Use: No Review of Systems Review of Systems: All systems reviewed & are unremarkable except as noted in HPI & below Constitutional: + fatigue, + weakness and + weight gain Eyes: no worsening vision Ear, Nose, Mouth, Throat: no dry mouth Respiratory: + dyspnea and + dyspnea on exertion Cardiovascular: + orthopnea and + edema Gastrointestinal: no abdominal pain, no vomiting and no diarrhea/loose stools Genitourinary: no dysuria, no urinary frequency and no hematuria Musculoskeletal: + swelling Integumentary: no rash and no lesions Neurologic: no generalized weakness, no headache(s) and no confusion Endocrine: + fatigue Hematologic / Lymphatic: no easy bleeding Physical Exam 2 Constitutional: well developed, well nourished and cooperative on 02nc, A& 0 x 3 Eyes: EOM intact bilaterally ENMT: Ears: no external ear abnormality Nose: no external nose abnormality Mouth: + dry oral mucous membranes Neck: no nuchal rigidity Respiratory: normal respiratory effort Auscultation: + diminished lung sounds, + crackles and + rhonchi clubbing Cardiovascular: Rate/Rhythm: regular rate and regular rhythm Extremities: + edema (2+ pedal edema, trace dorsi BL hands/proximal BL thighs, 1+ ankles BL ) Gastrointestinal (Abdomen): Inspection/Auscultation: normal bowel sounds Percussion/Palpation: abdomen soft; abdomen nontender Musculoskeletal: Extremities: strength 5/5 throughout Skin: no rashes, warm and dry Neurologic: hodges, fluent speech, no tremor Psychiatric: A+Ox3, euthymic affect Speech: normal rate/rhythm/volume of sp eech Genitourinary: no bull Results & Data Vital Signs (Past 12 Hours) Vital Signs Temp Pulse Pulse Resp BP BP Pulse Ox 07/31/19 19:35 37.1 C 63 20 190/75 H 93 07/31/19 16:00 75 07/31/19 14:58 36.6 C 64 18 107/64 91 07/31/19 14:16 83 17 172/92 H 95 07/31/19 14:00 58 L 12 93 07/31/19 13:01 59 L 20 195/75 H 92 07/31/19 12:31 56 L 12 172/74 H 92 07/31/19 11:36 36.7 C 59 L 20 160/109 H 90 07/31/19 11:35 88 L 07/31/19 11:23 57 L 9 L 163/72 H 94 Laboratory Results 07/31/19 12:29 07/31/19 12:29 UA w/ 2+ dipstick protein, 3.8 gm proteinuria on spot ratio Diagnostic Findings cxr > Diffuse bilateral parenchymal infiltrative change versus components of congestive failure. renal u/s 12/2018 Right kidney: 10.8 cm. A few scattered simple cysts with the largest in the upper pole measuring 7.3 cm. No hydronephrosis. Normal corticomedullary differentiation and cortical thickness. Left kidney: 11.1 cm. A few cysts with the largest measuring 4.9 cm. No hydronephrosis. Normal corticomedullary differentiation and cortical thickness. Bladder: No bladder wall thickening. The bilateral ureteral jets were identified. There is a left-sided bladder diverticulum. Calcific density seen posterior to the left bladder may represent a phlebolith. This does not appear to be within the distal left ureter. IMPRESSION: 1. No hydronephrosis. 2. Bilateral renal cysts. 3. Left sided bladder diverticulum.
[2019-08-01] MEDS: HEPARIN SOD 5,000 UNIT/0.5 ML VIAL SQ SCH ×3 (06:10→21:59)
[2019-08-01] MEDS: METOPROLOL SUCC 25MG EXT REL TAB PO SCH (08:18)
[2019-08-01] MEDS: ASPIRIN 81 MG ECTAB PO SCH (08:18)
[2019-08-01] MEDS: LORATADINE 10 MG TAB PO SCH (08:18)
[2019-08-01] MEDS: FUROSEMIDE 80 MG in SYRINGE 0 ML IV SCH ×2 (08:19→20:15)
[2019-08-01 08:31] LABS: Hematocrit (blood only) 36.1 % (42-52); Hemoglobin 13.4 g/dL (14.0-18.0); Mean Corpuscular Hemoglobin 29.5 pg (25-34); Mean Corpuscular Hgb Conc 37.1 g/dL (32-36); Mean Corpuscular Volume 79.3 fL (80-100); Mean Platelet Volume 10.3 fL (7.4-10.4); Platelet Count 189 K/uL (130-400); RDW Coefficient of Variation 14.4 % (11.5-14.5); RDW Standard Deviation 41.3 fL (36.4-46.3); Red Blood Count 4.55 M/uL (4.7-6.1); White Blood Count 5.12 K/uL (4.8-10.8)
[2019-08-01 09:02] LABS: BUN Creatinine Ratio 14.3 (10-20); Calcium 8.9 mg/dl (8.5-10.1); Creatinine Clr Calc Pharmacy 27.5 ml/min; Est GFR (African American) 27.7; Est GFR (Non-African American) 23.9
[2019-08-01 09:24] LABS: Hepatitis B Surface Antigen Neg (Neg)
--- NOTE | 2019-08-01 15:05 | Cardiology Progress Note ---
Date of Service August 01, 2019 Assessment & Plan (1) Acute decompensated heart failure: (2) Acute kidney injury superimposed on chronic kidney disease: (3) Scrotal edema: (4) Hypertension: I would continue with the diuresis. The patient remains hypertensive and I have increased his hydralazine to 3 times daily. His echocardiogram indicates severe left ventricular hypertrophy which could be consistent with his history of hypertension however other considerations may be amyloidosis. Labs are pending. Subjective The patient has been diuresing. His edema has improved. No new complaints today. Review of Systems Review of Systems: All systems reviewed & are unremarkable except as noted in HPI & below Nothing additional to add. Physical Exam Physical Exam: General: no acute distress and stated age Head: normocephalic, no masses, lesions, tenderness or abnormalities Eyes: conjunctiva are pink and non-injected, sclera clear Neck: supple, no adenopathy, no bruits, normal jugular venous pulse, no hepatojugular reflux Chest: normal shape and normal respiratory effort Lungs: clear to auscultation and percussion Cardiac Exam: - regular rate & rhythm, no murmurs gallops or rubs - normal S1, normal S2 Pulses: 2(+) throughout Abdomen: abdomen soft, non-tender, no abnormal masses and no hepatosplenomegaly Musculoskeletal: no gait disturbance, no joint inflammation, no deforming arthritis Extremities: no edema and no cyanosis Neuro: grossly normal exam Results & Data Vital Signs (Past 12 Hours) Vital Signs Temp Pulse Resp BP Pulse Ox 08/01/19 12:00 36.6 C 52 L 18 165/68 H 91 08/01/19 07:17 36.9 C 53 L 18 169/73 H 90 08/01/19 04:30 36.7 C 70 20 105/68 94 Laboratory Results Laboratory Results - last 24 hr 07/31/19 07/31/19 07/31/19 12:29 15:35 15:41 WBC RBC Hgb Hct MCV MCH MCHC RDW Std Deviation RDW Coeff of Ayanna Plt Count MPV Sodium Potassium Chloride Carbon Dioxide Anion Gap BUN Creatinine Est Cr Clr Drug Dosing Est GFR ( Amer) Est GFR (Non-Af Amer) BUN/Creatinine Ratio Glucose Calcium Magnesium 1.9 Total Protein (PEP) Albumin (PEP) Zjeuj-2-Vxvmuukvt Risms-4-Xyqttghaj Soor-0-Vacgzrjz Vhib-5-Fwaalcyo Gamma Globulins Monoclonal Peak 3 Ser Monoclonl Protein Ser Monoclonal Prot 2 PEP Interpretation TSH 1.380 Urine Color Yellow Urine Appearance Clear Urine pH 5.5 Ur Specific [place] 1.017 Urine Protein 3+ H Urine Glucose (UA) Negative Urine Ketones Negative Urine Blood Negative Urine Nitrite Negative Urine Bilirubin Negative Urine Urobilinogen Negative Ur Leukocyte Esterase Negative Urine WBC (Auto) 1-5 Urine RBC (Auto) 0-4 U Hyaline Cast (Auto) 1-5 U Epithel Cells (Auto) 5-10 H Urine Bacteria (Auto) Negative Ur Random Creatinine U Random Total Protein Protein/Creatinin Ratio Nasal Screen MRSA (PCR) Negative JENNIFER Screen ANCA Complement C3 Complement C4 Free [place] LC, Quant Free Lambda LC, Quant Free [place]/Lambda Ratio Hep Bs Antigen Hepatitis C Antibody HCV RNA Qual (TMA) 07/31/19 08/01/19 08/01/19 15:41 08:17 08:17 WBC 5.12 RBC 4.55 L Hgb 13.4 L Hct 36.1 L MCV 79.3 L MCH 29.5 MCHC 37.1 H RDW Std Deviation 41.3 RDW Coeff of Ayanna 14.4 Plt Count 189 MPV 10.3 Sodium 143 Potassium 4.0 Chloride 112 H Carbon Dioxide 23 Anion Gap 8.0 BUN 38 H Creatinine 2.62 H Est Cr Clr Drug Dosing 27.5 Est GFR ( Amer) 27.7 Est GFR (Non-Af Amer) 23.9 BUN/Creatinine Ratio 14.3 Glucose 82 Calcium 8.9 Magnesium Total Protein (PEP) Albumin (PEP) Gyshg-3-Wfpwxvpeb Rpmyy-5-Dndqkbhhi Sdfj-2-Zutwrfyk Esyi-5-Rximmygc Gamma Globulins Monoclonal Peak 3 Ser Monoclonl Protein Ser Monoclonal Prot 2 PEP Interpretation TSH Urine Color Urine Appearance Urine pH Ur Specific [place] Urine Protein Urine Glucose (UA) Urine Ketones Urine Blood Urine Nitrite Urine Bilirubin Urine Urobilinogen Ur Leukocyte Esterase Urine WBC (Auto) Urine RBC (Auto) U Hyaline Cast (Auto) U Epithel Cells (Auto) Urine Bacteria (Auto) Ur Random Creatinine 72.7 U Random Total Protein 279.4 H Protein/Creatinin Ratio 3.8 H Nasal Screen MRSA (PCR) JENNIFER Screen ANCA Complement C3 Complement C4 Free [place] LC, Quant Free Lambda LC, Quant Free [place]/Lambda Ratio Hep Bs Antigen Hepatitis C Antibody HCV RNA Qual (TMA) 08/01/19 08/01/19 08:17 08:17 WBC RBC Hgb Hct MCV MCH MCHC RDW Std Deviation RDW Coeff of Ayanna Plt Count MPV Sodium Potassium Chloride Carbon Dioxide Anion Gap BUN Creatinine Est Cr Clr Drug Dosing Est GFR ( Amer) Est GFR (Non-Af Amer) BUN/Creatinine Ratio Glucose Calcium Magnesium Total Protein (PEP) Pending Albumin (PEP) Pending Criav-4-Hyisoyzpg Pending Mzsxc-7-Gnuchoypm Pending Euax-4-Yluopuuu Pending Xdlm-6-Qdoenvqk Pending Gamma Globulins Pending Monoclonal Peak 3 Pending Ser Monoclonl Protein Pending Ser Monoclonal Prot 2 Pending PEP Interpretation Pending TSH Urine Color Urine Appearance Urine pH Ur Specific [place] Urine Protein Urine Glucose (UA) Urine Ketones Urine Blood Urine Nitrite Urine Bilirubin Urine Urobilinogen Ur Leukocyte Esterase Urine WBC (Auto) Urine RBC (Auto) U Hyaline Cast (Auto) U Epithel Cells (Auto) Urine Bacteria (Auto) Ur Random Creatinine U Random Total Protein Protein/Creatinin Ratio Nasal Screen MRSA (PCR) JENNIFER Screen Pending ANCA Pending Complement C3 Pending Complement C4 Pending Free [place] LC, Quant Pending Free Lambda LC, Quant Pending Free [place]/Lambda Ratio Pending Hep Bs Antigen Neg Hepatitis C Antibody Prelim Pos A HCV RNA Qual (TMA) Pending Medications Administered Current Inpatient Medications Acetaminophen (Tylenol) 650 mg PO Q4H PRN PRN Reason: Pain or Fever Stop: 08/30/19 15:29 Aspirin (Ecotrin Ectab) 81 mg PO DAILY [facility] Stop: 08/31/19 08:59 Last Admin: 08/01/19 08:18 Dose: 81 mg Documented by: Heparin Sodium (Porcine) (Heparin Sodium (Porcine)) 5,000 units SQ Q8 [facility] Stop: 08/30/19 15:29 Last Admin: 08/01/19 13:46 Dose: 5,000 units Documented by: Hydralazine HCl (Apresoline) 25 mg PO BID [facility] Stop: 08/30/19 20:59 Last Admin: 08/01/19 08:19 Dose: 25 mg Documented by: Furosemide 80 mg/ Syringe 8 mls @ 4 mls/min IV BID [facility] Stop: 08/30/19 19:29 Last Admin: 08/01/19 08:19 Dose: 4 mls/min Documented by: Levalbuterol HCl (Xopenex Hfa) 2 puffs INH QID PRN PRN Reason: Shortness Of Breath Stop: 08/30/19 15:29 Loratadine (Claritin) 10 mg PO DAILY RA Stop: 08/31/19 08:59 Last Admin: 08/01/19 08:18 Dose: 10 mg Documented by: Metoprolol Succinate (Toprol Xl) 25 mg PO DAILY RA Stop: 08/31/19 08:59 Last Admin: 08/01/19 08:18 Dose: 25 mg Documented by: Mometasone Furoate (Asmanex 220mcg) 1 puffs INH HS RA Stop: 08/31/19 20:59 Ondansetron HCl (Zofran) 4 mg IV Q6H PRN PRN Reason: Nausea Stop: 08/30/19 15:29 Polyethylene Glycol (Miralax Powder Packet) 17 gm PO DAILY PRN PRN Reason: Constipation Stop: 08/30/19 15:29 Tamsulosin HCl (Flomax) 0.4 mg PO HS [facility] Stop: 08/30/19 20:59 Last Admin: 07/31/19 20:43 Dose: 0.4 mg Documented by: Trazodone HCl (Desyrel) 100 mg PO HS RA Stop: 08/30/19 20:59 Last Admin: 07/31/19 20:43 Dose: 100 mg Documented by:
--- NOTE | 2019-08-01 18:21 | Nephrology Progress Note ---
Date of Service August 01, 2019 Assessment & Plan (1) Acute kidney injury superimposed on chronic kidney disease: baseline creatinine in [facility] records 1.7 as of spr2018; presented 07/31 w/ creatinine 2.4; today w/ diuresis up to 2.6; chemistries acceptable w/ improved hyperchloremic metabolic acidosis / NAGMA noted and odd -agree w/ holding enalapril -daily bmp -aggressive diuresis/ bp control as below -strict I/O (2) Nephrotic syndrome: -cont lasix 80 mg IV bid >> may well need tid dosing -daily standing wt -less than 2 gm Na, 1.5 L FR -continue hydralazine, toprol current doses >> goal sbp is 130-140s -proteinuria w/u ordered for am >> kate, anca, complements, spep, upep, Hep panels; will d/w pt consent for HIV testing -given TTE, diastolic HF may well have role in vol OL as well Subjective seen on rounds this am at about 1000; fees edema a bit better; still sob, still painful extremities (this latter sx is chronic) Review of Systems Review of Systems: All systems reviewed & are unremarkable except as noted in HPI & below Physical Exam Constitutional: well developed, well nourished and cooperative Eyes: EOM intact bilaterally ENMT: Ears: no external ear abnormality Nose: no external nose abnormality Mouth: + dry oral mucous membranes Neck: no nuchal rigidity Respiratory: normal respiratory effort Auscultation: + diminished lung sounds (does move air better today) and + crackles Cardiovascular: Rate/Rhythm: regular rate and regular rhythm Extremities: + edema (1-2+ pedal edema, trace dorsi BL hands/proximal BL thighs, ankles BL ) Gastrointestinal (Abdomen): Inspection/Auscultation: normal bowel sounds Percussion/Palpation: abdomen soft; abdomen nontender Musculoskeletal: Extremities: strength 5/5 throughout Skin: no rashes, warm and dry Neurologic: hodges, fluent speech, no tremor Psychiatric: A+Ox3, euthymic affect Speech: normal rate/rhythm/volume of speech Results & Data Vital Signs (Past 12 Hours) Vital Signs Temp Pulse Resp BP Pulse Ox 08/01/19 15:00 37.5 C 61 20 150/69 H 94 08/01/19 12:00 36.6 C 52 L 18 165/68 H 91 10/22/19 07:17 36.9 C 53 L 18 169/73 H 90 Laboratory Results 08/01/19 08:17 08/01/19 08:17 Diagnostic Findings TTE severe [facility]
[2019-08-01] MEDS: MOMETASONE FUROATE 14 PUFF/1 INHALER INH SCH (20:16)
[2019-08-01] MEDS: TAMSULOSIN HCL 0.4 MG CAP PO SCH (20:18)
[2019-08-01] MEDS: TRAZODONE HCL 100 MG TAB PO SCH (20:18)
--- NOTE | 2019-08-01 20:18 | Hospitalist Progress Note ---
Date of Service August 01, 2019 Assessment & Plan (1) Acute decompensated heart failure: Acute decompensated heart failure with preserved LVEF ( diastolic dysfunction ) This is a 68-year-old male from [facility] with a PMH of CKD 3, hypertension and BPH who presents with shortness of breath and diffuse swelling x5 days and was found to have AI on CKD and new onset CHF. -SOB and diffuse edema to legs, scrotum and abdomen x 5 days - -Chest x-ray with diffuse bilateral parenchymal infiltrative changes versus components of congestive failure. BNP elevated at 2232 -pt is continued with diuresis appreciate input from Cardiology (2) Acute kidney injury superimposed on chronic kidney disease: Cr elevated at 2.4 (last Cr in system of 1.7 in December 2018) -apprecite input from Nephrology lab work ordered for Nephrotic syndrome /proteinura; by nephrology team needs to r/o infectious cause ; will order hepatitis panel need consent for HIV testing -Low sodium diet with 1.5L fluid restriction -Hold enalapril for now - (3) Acute respiratory failure with hypoxia: respiratory status improved Initially hypoxic to 88% on room air but oxygen improved to 92% on 2 L nasal cannula -Does not require home O2 -Continue supplemental O2 PRN (4) Hypertension: -ECHO shows severe LV hypertrophy /indicative of hypertensive cardiac disease Hydralazine dose increased cont diuresis appreciate input from Nephrology /cardiology (5) BPH (benign prostatic hyperplasia): Continue tamsulosin (6) Insomnia: cont Trazodone CODE status : full code DVT PROPHYLAXIS : sub heparin Dispo: Admitted to [facility]. Discharge planning ordered for return to [facility]. Subjective The patient has been diuresing. His edema has improved. No new complaints today. Physical Exam Constitutional: well developed, well nourished and cooperative Eyes: EOM intact bilaterally ENMT: Ears: no external ear abnormality Nose: no external nose abnormality Mouth: + dry oral mucous membranes Neck: no nuchal rigidity Respiratory: normal respiratory effort Auscultation: + diminished lung sounds (does move air better today), + crackles and + rhonchi Cardiovascular: Rate/Rhythm: regular rate and regular rhythm Extremities: + edema (1-2+ pedal edema, trace dorsi BL hands/proximal BL thighs, ankles BL ) Gastrointestinal (Abdomen): Inspection/Auscultation: normal bowel sounds Percussion/Palpation: abdomen soft; abdomen nontender Musculoskeletal: Extremities: strength 5/5 throughout Skin: no rashes, warm and dry Psychiatric: A+Ox3, euthymic affect Speech: normal rate/rhythm/volume of speech Results & Data Vital Signs (Past 12 Hours) Vital Signs Temp Pulse Resp BP Pulse Ox 08/01/19 19:35 37.3 C 61 20 154/58 H 93 08/01/19 15:00 37.5 C 61 20 150/69 H 94 08/01/19 12:00 36.6 C 52 L 18 165/68 H 91
[2019-08-01 22:19] LABS: BUN Creatinine Ratio 16.5 (10-20); Calcium 8.2 mg/dl (8.5-10.1); Creatinine Clr Calc Pharmacy 23.6 ml/min; Est GFR (Non-African American) 19.9; Potassium 3.7 mmol/L (3.5-5.1)
[2019-08-02] MEDS: HEPARIN SOD 5,000 UNIT/0.5 ML VIAL SQ SCH ×3 (05:50→21:50)
[2019-08-02 07:17] LABS: Hematocrit (blood only) 33.9 % (42-52); Hemoglobin 12.2 g/dL (14.0-18.0); Mean Corpuscular Hemoglobin 28.9 pg (25-34); Mean Corpuscular Volume 80.3 fL (80-100); Mean Platelet Volume 10.3 fL (7.4-10.4); Platelet Count 179 K/uL (130-400); RDW Coefficient of Variation 14.4 % (11.5-14.5); RDW Standard Deviation 41.9 fL (36.4-46.3); Red Blood Count 4.22 M/uL (4.7-6.1); White Blood Count 4.76 K/uL (4.8-10.8)
[2019-08-02 07:50] LABS: BUN Creatinine Ratio 16.4 (10-20); Calcium 8.3 mg/dl (8.5-10.1); Creatinine Clr Calc Pharmacy 22.6 ml/min; Est GFR (African American) 24.7; Est GFR (Non-African American) 21.3; Potassium 3.7 mmol/L (3.5-5.1)
[2019-08-02] MEDS: METOPROLOL SUCC 25MG EXT REL TAB PO SCH (08:28)
[2019-08-02] MEDS: FUROSEMIDE 80 MG in SYRINGE 0 ML IV SCH ×2 (08:28→20:35)
[2019-08-02] MEDS: ASPIRIN 81 MG ECTAB PO SCH (08:28)
[2019-08-02] MEDS: LORATADINE 10 MG TAB PO SCH (08:29)
--- NOTE | 2019-08-02 08:46 | Nephrology Progress Note ---
Date of Service August 02, 2019 Assessment & Plan (1) Acute kidney injury superimposed on chronic kidney disease: baseline creatinine in [facility] records 1.7 as of 2018; presented 07/31 w/ creatinine 2.4; today w/ further diuresis up to 2.9; chemistries acceptable w/ mild hyperchloremia -agree w/ holding enalapril -daily bmp -aggressive diuresis/ bp control as below; accept worsening renal function at this point in order to diurese pt and get better -strict I/O (2) Nephrotic syndrome: -cont lasix 80 mg IV bid >> may well need tid dosing -daily standing wt -less than 2 gm Na, 1.5 L FR -continue hydralazine, toprol current doses >> goal sbp is 130-140s -proteinuria w/u pending >> kate, anca, complements, kappa/lambda light chains, spep, upep, Hep panels, HIV >> HCV Ab + and RNA pending -advanced liver disease and/or diastolic HF may well have role in vol OL as well (3) Acute diastolic heart failure: TTE w/ severe [facility] and pEF. amyloidosis on differential; to dx this would need biopsy of fat pad, kidney, heart or cardiac MRI; would await further serologic work up Present on Admission?: Yes (4) Hypertension: -getting hydralazine 25 tid, metoprolol XL 25 daily and bid IV lasix 80 mg >will add nifedipine 30 mg daily Present on Admission?: Yes (5) Mass of left inguinal region: longstanding (or at least present on April imaging); imaging suggests "encysted hydrocele;" consider urology eval if not already done Present on Admission?: Yes (6) Abnormal liver diagnostic imaging: April 2019 liver imaging at [facility] w/ and w/o IV con >> "heterogenous liver enhancement w/ likely multiple perfusion anomalies; in addition focal area of h yperenhancement... may represent flash filling hemangioma." >recommend getting outside records of w/u of these findings prior to admission; may need GI eval here depending on prior w/u Present on Admission?: Yes (7) Hepatitis C infection: HCV Ab is positive, Ab pending; pt tells me has been getting recent/active tx and was about to change to po meds for this just before admission; may need further w/u or/and outside records Present on Admission?: Yes Subjective c/o R sided rib/ shoulder pain; new today and addressed by Dr Friedman; no n/v, feels edema resolved; no RA today (an improvement); tells me he has had HCV tx in past and was about to switch to po tx for it Review of Systems Review of Systems: All systems reviewed & are unremarkable except as noted in HPI & below Physical Exam Constitutional: well developed, well nourished and cooperative on RA, some discomfort w/ exam maneuvers Eyes: EOM intact bilaterally ENMT: Ears: no external ear abnormality Nose: no external nose abnormality Mouth: + dry oral mucous membranes Neck: no nuchal rigidity Respiratory: normal respiratory effort Auscultation: + diminished lung sounds (does move air better today); no crackles Cardiovascular: Rate/Rhythm: regular rate and regular rhythm Extremities: + edema (trace BL pedal edema; none dorsi BL hands/proximal BL thighs, ankles BL ) Gastrointestinal (Abdomen): Inspection/Auscultation: normal bowel sounds Percussion/Palpation: abdomen soft; abdomen nontender Musculoskeletal: Extremities: strength 5/5 throughout Skin: no rashes, warm and dry Psychiatric: A+Ox3, euthymic affect Speech: normal rate/rhythm/volume of speech Results & Data Vital Signs (Past 12 Hours) Vital Signs Temp Pulse Pulse Resp BP Pulse Ox 08/02/19 07:00 36.9 C 56 L 14 158/66 H 95 08/02/19 03:28 37.1 C 52 L 18 153/66 H 93 08/01/19 23:28 37.2 C 56 L 20 160/63 H 93 08/01/19 22:20 64 Laboratory Results 08/02/19 06:54 08/02/19 06:54 Diagnostic Findings abd u/s 1. Cyst within the left inguinal canal. This most likely represents an encysted hydrocele.
[2019-08-02] MEDS ORDERED: NIFEdipine EXTENDED REL 30 MG TABCR PO SCH (09:30)
[2019-08-02 10:45] LABS: Hepatitis B Surface Antigen Neg (Neg)
--- NOTE | 2019-08-02 11:18 | Cardiology Progress Note ---
Date of Service August 02, 2019 Assessment & Plan (1) Acute kidney injury superimposed on chronic kidney disease: (2) Scrotal edema: (3) Hypertension: Labs are still pending. The patient has had a large diuresis and most of his edema has now resolved. His creatinine has increased post diuresis. Nephrology's help is appreciated. He is complaining of groin pain and does have an inguinal cyst on ultrasound performed at this hospital and noted on a CT of the pelvis completed recently at [facility]. This is never been evaluated or worked up and I will have urology see him. Depending on his lab results we may want to consider a fat pad biopsy to rule out amyloidosis. Subjective The patient is feeling some improvement. He still has complaints of groin pain and his ultrasound as well as an outside CT suggest a possible inguinal cyst. Other labs are pending. Review of Systems Review of Systems: All systems reviewed & are unremarkable except as noted in HPI & below Nothing additional. Physical Exam Physical Exam: General: no acute distress and stated age Head: normocephalic, no masses, lesions, tenderness or abnormalities Eyes: conjunctiva are pink and non-injected, sclera clear Neck: supple, no adenopathy, no bruits, normal jugular venous pulse, no hepatojugular reflux Chest: normal shape and normal respiratory effort Lungs: clear to auscultation and percussion Cardiac Exam: - regular rate & rhythm, no murmurs gallops or rubs - normal S1, normal S2 Pulses: 2(+) throughout Abdomen: abdomen soft, non-tender, no abnormal masses and no hepatosplenomegaly Musculoskeletal: no gait disturbance, no joint inflammation, no deforming arthritis Extremities: no edema and no cyanosis Neuro: grossly normal exam Results & Data Vital Signs (Past 12 Hours) Vital Signs Temp Pulse Resp BP Pulse Ox 08/02/19 11:05 37.1 C 55 L 18 166/73 H 96 08/02/19 07:00 36.9 C 56 L 14 158/66 H 95 08/02/19 03:28 37.1 C 52 L 18 153/66 H 93 08/01/19 23:28 37.2 C 56 L 20 160/63 H 93 Laboratory Results Laboratory Results - last 24 hr 08/01/19 08/02/19 08/02/19 21:52 06:54 06:54 WBC 4.76 L RBC 4.22 L Hgb 12.2 L Hct 33.9 L MCV 80.3 MCH 28.9 MCHC 36.0 RDW Std Deviation 41.9 RDW Coeff of Ayanna 14.4 Plt Count 179 MPV 10.3 Sodium 141 141 Potassium 3.7 3.7 Chloride 109 H 109 H Carbon Dioxide 26 25 Anion Gap 6.0 7.0 BUN 50 H 47 H Creatinine 3.05 H D 2.88 H Est Cr Clr Drug Dosing 23.6 22.6 Est GFR ( Amer) 23.0 24.7 Est GFR (Non-Af Amer) 19.9 21.3 BUN/Creatinine Ratio 16.5 16.4 Glucose 104 H 100 H Calcium 8.2 L 8.3 L Hepatitis A IgM Ab Hep Bs Antigen Hep B Core IgM Ab Hepatitis C Antibody 08/02/19 08/02/19 09:32 09:32 WBC RBC Hgb Hct MCV MCH MCHC RDW Std Deviation RDW Coeff of Ayanna Plt Count MPV Sodium Potassium Chloride Carbon Dioxide Anion Gap BUN Creatinine Est Cr Clr Drug Dosing Est GFR ( Amer) Est GFR (Non-Af Amer) BUN/Creatinine Ratio Glucose Calcium Hepatitis A IgM Ab Pending Hep Bs Antigen Neg Hep B Core IgM Ab Pending Hepatitis C Antibody Pending Medications Administered Current Inpatient Medications Acetaminophen (Tylenol) 650 mg PO Q4H PRN PRN Reason: Pain or Fever Stop: 08/30/19 15:29 Aspirin (Ecotrin Ectab) 81 mg PO DAILY [facility] Stop: 08/31/19 08:59 Last Admin: 08/02/19 08:28 Dose: 81 mg Documented by: Heparin Sodium (Porcine) (Heparin Sodium (Porcine)) 5,000 units SQ Q8 RA Stop: 08/30/19 15:29 Last Admin: 08/02/19 05:50 Dose: 5,000 units Documented by: Hydralazine HCl (Apresoline) 25 mg PO TID RA Stop: 08/31/19 20:59 Last Admin: 08/02/19 08:29 Dose: 25 mg Documented by: Furosemide 80 mg/ Syringe 8 mls @ 4 mls/min IV BID RA Stop: 08/30/19 19:29 Last Admin: 08/02/19 08:28 Dose: 4 mls/min Documented by: Levalbuterol HCl (Xopenex Hfa) 2 puffs INH QID PRN PRN Reason: Shortness Of Breath Stop: 08/30/19 15:29 Loratadine (Claritin) 10 mg PO DAILY [facility] Stop: 08/31/19 08:59 Last Admin: 08/02/19 08:29 Dose: 10 mg Documented by: Metoprolol Succinate (Toprol Xl) 25 mg PO DAILY [facility] Stop: 08/31/19 08:59 Last Admin: 08/02/19 08:28 Dose: 25 mg Documented by: Mometasone Furoate (Asmanex 220mcg) 1 puffs INH HS [facility] Stop: 08/31/19 20:59 Last Admin: 08/01/19 20:16 Dose: 1 puffs Documented by: Nifedipine (Procardia Xl) [facility] [place]: 09/01/19 09:29 Last Admin: 08/02/19 10:23 Dose: 30 mg Documented by: Ondansetron HCl (Zofran) 4 mg IV Q6H PRN PRN Reason: Nausea Stop: 08/30/19 15:29 Polyethylene Glycol (Miralax Powder Packet) 17 gm PO DAILY PRN PRN Reason: Constipation Stop: 08/30/19 15:29 Tamsulosin HCl (Flomax) 0.4 mg PO [facility] Stop: 08/30/19 20:59 Last Admin: 08/01/19 20:18 Dose: 0.4 mg Documented by: Trazodone HCl (Desyrel) 100 mg PO HS [facility] Stop: 08/30/19 20:59 Last Admin: 08/01/19 20:18 Dose: 100 mg Documented by:
--- NOTE | 2019-08-02 11:56 | Hospitalist Progress Note ---
Date of Service August 02, 2019 Assessment & Plan (1) Acute decompensated heart failure: Acute decompensated heart failure with preserved LVEF ( diastolic dysfunction ) per Dr. Ortega notes: This is a 68-year-old male from [facility] with a PMH of CKD 3, hypertension and BPH who presents with shortness of breath and diffuse swelling x5 days and was found to have AI on CKD and new onset CHF. -SOB and diffuse edema to legs, scrotum and abdomen x 5 days - -Chest x-ray with diffuse bilateral parenchymal infiltrative changes versus components of congestive failure. BNP elevated at 2232 -- responding to Lasix gradually continue Lasix 80mg po BID monitor crea (2) Acute kidney injury superimposed on chronic kidney disease: Cr elevated at 2.4 (last Cr in system of 1.7 in December 2018) Nephrotic syndrome being considered crea improved from 3.05 to 2.88 -- work up pending (+) Hep C: RNA pending HIV: pending (3) Acute respiratory failure with hypoxia: respiratory status improved Initially hypoxic to 88% on room air but oxygen improved to 92% on 2 L nasal cannula --weaned off from O2 -Does not require home O2 -Continue supplemental O2 PRN (4) Hypertension: - ECHO shows severe LV hypertrophy /indicative of hypertensive cardiac disease Hydralazine dose increased -- improving, monitor (5) BPH (benign prostatic hyperplasia): Continue tamsulosin (6) Insomnia: cont Trazodone CODE status : full code DVT PROPHYLAXIS : sub heparin Dispo: Admitted to [facility]. Discharge planning ordered for return to [facility]. Subjective ff up for CHF, nephrotic syndrome seen sitting up in bed, comfortable states he feels improved compared to yesterday denies shortness of breath, chest pain no leg pain denies problems with urination no other symptoms Review of Systems Review of Systems: All systems reviewed & are unremarkable except as noted in HPI & below Physical Exam Physical Exam: General- oriented x 3, not in distress, speaks in sentences with no effort or accessory muscle use Head- atraumatic Eyes- PERRL, EOMI, anicteric ENT- oropharynx clear Neck- supple, no JVD, no adenopathy, no thyromegaly; carotids +2/2, no bruits appreciated Lungs- mild rales at bilateral bases Heart- normal rate, regular rhythm; no murmur, no gallop, no rub appreciated Abdomen- normal bowel sounds, nondistended, soft, nontender, no masses or hepatosplenomegaly Extremities- mild pretibial edema, no calf tenderness; peripheral pulses intact Neuro- alert, oriented x 3; CN 2-12 grossly intact; motor 5/5 bilaterally;sensation 100% on all extremities; no other gross focal neurologic deficits Skin- warm & dry Results & Data Vital Signs (Past 12 Hours) Vital Signs Temp Pulse Resp BP Pulse Ox 08/02/19 11:05 37.1 C 55 L 18 166/73 H 96 08/02/19 07:00 36.9 C 56 L 14 158/66 H 95 08/02/19 03:28 37.1 C 52 L 18 153/66 H 93
[2019-08-02] MEDS ORDERED: CYCLOBENZAPRINE HCL 10 MG TAB PO STA (12:40)
[2019-08-02] MEDS: LIDOCAINE 5% 1 PATCH TD SCH (13:45)
[2019-08-02] MEDS: ACETAMINOPHEN 325 MG TAB PO PRN (19:51)
[2019-08-02] MEDS: TAMSULOSIN HCL 0.4 MG CAP PO SCH (20:35)
[2019-08-02] MEDS: CYCLOBENZAPRINE HCL 5 MG TAB PO PRN (20:35)
[2019-08-02] MEDS: MOMETASONE FUROATE 14 PUFF/1 INHALER INH SCH (20:35)
[2019-08-02] MEDS: TRAZODONE HCL 100 MG TAB PO SCH (20:35)
[2019-08-02 22:52] LABS: BUN Creatinine Ratio 16.8 (10-20); Calcium 8.4 mg/dl (8.5-10.1); Creatinine Clr Calc Pharmacy 20.2 ml/min; Est GFR (African American) 21.6; Est GFR (Non-African American) 18.6; Magnesium 1.7 mg/dl (1.8-2.4); Potassium 3.6 mmol/L (3.5-5.1)
[2019-08-02] MEDS ORDERED: ALBUMIN 25% 50 ML IV ONE (22:59)
[2019-08-02] MEDS ORDERED: MAGNESIUM SULFATE / D5W 1 GM/100 ML BAG IV ONE (23:15)
[2019-08-03] MEDS: HEPARIN SOD 5,000 UNIT/0.5 ML VIAL SQ SCH ×3 (05:11→21:29)
--- NOTE | 2019-08-03 07:05 | Hospitalist Progress Note ---
Date of Service August 02, 2019 Subjective Low-grade fever as per RN . No cough, no abdominal pain, no diarrhea, no dysuria symptoms. serum crea 3.22 form 2.88 in AM normal procalcitonin AP Fever ARF on CRI Possible overdiuresis Hold diuretic Rx for now. Will relay to AM provider. Results & Data Vital Signs (Past 12 Hours) Vital Signs Temp Pulse Pulse Resp BP Pulse Ox 08/02/19 23:00 37.4 C 72 18 149/64 H 95 08/02/19 20:32 37.6 C H 08/02/19 19:34 37.6 C H 72 20 162/67 H 93 08/02/19 16:53 73 08/02/19 15:22 37.1 C 68 20 146/65 H 94 08/02/19 11:05 37.1 C 55 L 18 166/73 H 96
[2019-08-03 07:16] LABS: Hepatitis A Antibody IgM NON-REACTIVE (NON-REACTIVE); Hepatitis B Core Antibody IgM NON-REACTIVE (NON-REACTIVE)
--- NOTE | 2019-08-03 08:01 | Urology Consultation ---
Date of Consultation August 03, 2019 Assessment & Plan (1) Mass of left inguinal region: 68yo M, inmate from [facility] admitted with acute CHF exacerbation, consulted for evaluation of left inguinal mass. Images and patient care reviewed with Dr. Ramos. No acute intervention required at this time, this issue has been ongoing for at least 3 months. Okay to apply ice as needed. Will arrange for outpatient evaluation once cardiac issues have improved. Thank you for allowing us to participate in the acute care of Mr. Rossi. Please reconsult us with additional questions, concerns or changes in patient status. History of Present Illness Reason for Consultation: left inguinal mass vs hydrocele Requesting Physician: Dr Friedman Attending Physician: Navid Friedman MD History of Present Illness 68yo M inmate from [facility] presented to [facility] for evaluation for shortness of breath, diffuse swelling. Diagnosed with new onset CHF, LVH. Pt also noted to have painful mass to left inguinal canal, ongoing since at least end of April where pt had CT imaging completed. [facility] imaging report reveals mass, consistent with testicle to left groin. Repeat US reveals cyst within the left inguinal canal. This most likely represents an encrusted hydrocele. Very tender to touch Pt voiding into urinal without difficulty. Denies dysuria, hematuria. Eating regular diet. Allergies Allergy/AdvReac Type Severity Reaction Status Date / Time No Known Drug Allergies Allergy Unknown . Verified 07/31/19 11:50 Home Medications Home Medications Medication Instructions Recorded Confirmed Type aspirin 81 mg PO DAILY 12/16/18 07/31/19 History enalapril maleate 20 mg PO BID 12/16/18 07/31/19 History metoprolol succinate 25 mg PO DAILY 12/16/18 07/31/19 History tamsulosin 0.4 mg PO HS 12/16/18 07/31/19 History hydralazine 25 mg PO BID #60 tab 12/19/18 07/31/19 Rx ciclesonide [Alvesco] 1 puff INHALATION BID 07/31/19 07/31/19 History furosemide [Lasix] 40 mg PO QAM 07/31/19 07/31/19 History levalbuterol tartrate [Xopenex HFA] 2 inh INHALATION QID PRN 07/31/19 07/31/19 History loratadine 10 mg PO DAILY 07/31/19 07/31/19 History trazodone 100 mg PO HS 07/31/19 07/31/19 History Patient History Medical History BPH (benign prostatic hyperplasia) (Chronic) Hypertension (Chronic) Acute decompensated heart failure (Acute) Acute kidney injury superimposed on chronic kidney disease (Acute) Surgical History H/O hernia repair (Chronic) History of laryngoscopy (Chronic) Family History Other Diabetes Hypertension Social History Preferred Language: Albanian Communication Ability: Effective Meter/Relay Technician Required: No Beliefs That Will Affect Care: None Current Living Situation: Other Current Living Situation Comment: [facility] Other Information That Helps Us Care for You: No Feels Safe at Home: Yes Safety Concerns: Feels Safe At This Time Smoking Status: Former smoker Do You Dip or Chew Tobacco: No ; Second Hand Exposure: No ; Tobacco Cessation Education Requested by Patient: No Hx Alcohol Use: No Hx Substance Use: No Physical Exam Constitutional: no acute distress and not ill appearing Eyes: no nystagmus ENMT: Ears: no hearing impairment Neck: trachea midline Respiratory: no respiratory distress and no cough Cardiovascular: Vessels: no JVD Chest (Breasts): Chest: normal inspection of chest Gastrointestinal (Abdomen): Inspection/Auscultation: abdomen not distended and no abdominal edema Percussion/Palpation: abdomen soft; abdomen nontender Musculoskeletal: Head/Neck/Chest: normocephalic and head atraumatic Skin: no rashes, warm and dry Neurologic: awake; not confused and not obtunded Psychiatric: Orientation: alert and oriented x 3 Eye Contact: good eye contact Affect: no depressed affect Genitourinary: + testicular tenderness (left groin mass, texture consistent with testicle. ); no CVA tenderness Lymphatic: no lymphadenopathy and no lymphedema Results & Data Vital Signs (Past 12 Hours) Vital Signs Temp Pulse Pulse Resp BP BP Pulse Ox 08/03/19 06:54 37 C 58 L 16 155/61 H 94 08/03/19 04:00 37.1 C 71 16 145/51 H 95 08/03/19 00:17 74 08/02/19 23:00 37.4 C 72 18 149/64 H 95 08/02/19 20:32 37.6 C H PG Care Time/CCT Total # of Minutes Spent Total Time Spent with Patient: Total time spent is greater than 50% in coordination of care (as documented) at patient's floor/unit and/or counseling patient:
--- NOTE | 2019-08-03 08:09 | Nephrology Progress Note ---
Date of Service August 03, 2019 Assessment & Plan (1) Acute kidney injury superimposed on chronic kidney disease: baseline creatinine in [facility] records 1.7 as of 2018; presented 07/31 w/ creatinine 2.4; today w/ further diuresis up to 3.2; chemistries acceptable w/ mild hyperchloremia -agree w/ holding enalapril -daily bmp -aggressive diuresis/ bp control as below; accept worsening renal function at this point in order to diurese pt and get better -strict I/O (2) Nephrotic syndrome: -lowered lasix to 40 mg IV bid -daily standing wt -less than 2 gm Na, 1.5 L FR -continue toprol current dose; see below for other changes>> goal sbp is 130- 140s -proteinuria w/u pending >> kate, anca, complements, kappa/lambda light chains, spep, upep, Hep panels, HIV >> HCV Ab + prelim but looks like RNA cx'd until HCV confirmed -advanced liver disease and/or diastolic HF may well have role in vol OL as well (3) Acute diastolic heart failure: TTE w/ severe CLVH and pEF. amyloidosis on differential; to dx this would need biopsy of fat pad, kidney, heart or cardiac MRI; would await further serologic work up (4) Hypertension: -getting metoprolol XL 25 daily -upped hydrlaazine to 50 mg tid -lowered bid IV lasix to 40 mg >upped nifedipine to 60 mg daily (5) Mass of left inguinal region: longstanding (or at least present on April imaging); imaging suggests "encysted hydrocele;" consider urology eval if not already done (6) Abnormal liver diagnostic imaging: April 2019 liver imaging [facility] w/ and w/o IV con >> "heterogenous liver enhancement w/ likely multiple perfusion anomalies; in addition focal area of hyperenhancement... may represent flash filling hemangioma." >recommend getting outside records of w/u of these findings prior to admission; may need GI eval here depending on prior w/u (7) Hepatitis C infection: HCV Ab is positive prelim; confirmation pending; RNA HCV cx'd (not by me) > should be reordered if confirmed HCV +; pt tells me has been getting recent/active tx and was about to change to po meds for this just before admission; may need further w/u or/and outside records Subjective seen on rounds at 0820; edema cont to improve; no cp, no sob, no voiding c/o. still w/ some aches / pains musculoskeletal and migrating Review of Systems Review of Systems: All systems reviewed & are unremarkable except as noted in HPI & below Physical Exam Constitutional: well developed, well nourished and cooperative on RA Eyes: EOM intact bilaterally ENMT: Ears: no external ear abnormality Nose: no external nose abnormality Mouth: + dry oral mucous membranes Neck: no nuchal rigidity Respiratory: normal respiratory effort Auscultation: + diminished lung sounds (does move air better today); no crackles Cardiovascular: Rate/Rhythm: regular rate and regular rhythm Extremities: + edema (trace BL pedal edema; none dorsi BL hands/proximal BL thighs, ankles BL ) Gastrointestinal (Abdomen): Inspection/Auscultation: normal bowel sounds P ercussion/Palpation: abdomen soft; abdomen nontender Musculoskeletal: Extremities: strength 5/5 throughout Skin: no rashes, warm and dry Psychiatric: A+Ox3, euthymic affect Speech: normal rate/rhythm/volume of speech Results & Data Vital Signs (Past 12 Hours) Vital Signs Temp Pulse Pulse Resp BP BP Pulse Ox 08/03/19 06:54 37 C 58 L 16 155/61 H 94 08/03/19 04:00 37.1 C 71 16 145/51 H 95 08/03/19 00:17 74 08/02/19 23:00 37.4 C 72 18 149/64 H 95 08/02/19 20:32 37.6 C H Laboratory Results 08/02/19 06:54 08/02/19 22:17
[2019-08-03 08:24] LABS: Basophils # (auto) 0.02 K/uL (0-0.2); Basophils % (auto) 0.3 %; Eosinophils # (auto) 0.21 K/uL (0-0.5); Eosinophils % (auto) 3.3 %; Hemoglobin 13.3 g/dL (14.0-18.0); Immature Granulocytes # (auto) 0.01 K/uL (0.00-0.02); Immature Granulocytes % (auto) 0.2 %; Lymphocytes # (auto) 1.95 K/uL (1.2-3.4); Lymphocytes % (auto) 30.8 %; Mean Corpuscular Hemoglobin 29.4 pg (25-34); Mean Corpuscular Hgb Conc 36.9 g/dL (32-36); Mean Corpuscular Volume 79.5 fL (80-100); Mean Platelet Volume 10.5 fL (7.4-10.4); Monocytes # (auto) 0.75 K/uL (0.11-0.59); Monocytes % (auto) 11.8 %; Neutrophils % (auto) 53.6 %; Platelet Count 190 K/uL (130-400); RDW Coefficient of Variation 14.3 % (11.5-14.5); RDW Standard Deviation 41.6 fL (36.4-46.3); Red Blood Count 4.53 M/uL (4.7-6.1); White Blood Count 6.34 K/uL (4.8-10.8)
[2019-08-03 08:39] LABS: BUN Creatinine Ratio 17.2 (10-20); Calcium 8.7 mg/dl (8.5-10.1); Creatinine Clr Calc Pharmacy 21.9 ml/min; Est GFR (African American) 23.7; Est GFR (Non-African American) 20.4; Potassium 3.6 mmol/L (3.5-5.1)
[2019-08-03] MEDS ORDERED: FUROSEMIDE 40 MG in SYRINGE 0 ML IV SCH (09:00)
[2019-08-03] MEDS: NIFEdipine EXTENDED REL 30 MG TABCR PO SCH (09:03)
[2019-08-03] MEDS: ASPIRIN 81 MG ECTAB PO SCH (09:03)
[2019-08-03] MEDS: METOPROLOL SUCC 25MG EXT REL TAB PO SCH (09:03)
[2019-08-03] MEDS: LORATADINE 10 MG TAB PO SCH (09:04)
[2019-08-03] MEDS: LIDOCAINE 5% 1 PATCH TD SCH (09:04)
[2019-08-03] MEDS: HydrALAZINE TAB 50 MG TAB PO SCH ×2 (13:31→20:11)
--- NOTE | 2019-08-03 14:34 | Cardiology Progress Note ---
Date of Service August 03, 2019 Assessment & Plan (1) Acute kidney injury superimposed on chronic kidney disease: (2) Scrotal edema: (3) Hypertension: The patient continues to improve. His blood pressure is better controlled. Unfortunately he looks that he has chronic progressive kidney disease with his creatinine now at 3.0. Labs are still pending. Subjective No new cardiac complaints today. The patient's weight is now down 10 kg. Review of Systems Review of Systems: All systems reviewed & are unremarkable except as noted in HPI & below No additional information. Physical Exam Physical Exam: General: no acute distress and stated age Head: normocephalic, no masses, lesions, tenderness or abnormalities Eyes: conjunctiva are pink and non-injected, sclera clear Neck: supple, no adenopathy, no bruits, normal jugular venous pulse, no he patojugular reflux Chest: normal shape and normal respiratory effort Lungs: clear to auscultation and percussion Cardiac Exam: - regular rate & rhythm, no murmurs gallops or rubs - normal S1, normal S2 Pulses: 2(+) throughout Abdomen: abdomen soft, non-tender, no abnormal masses and no hepatosplenomegaly Musculoskeletal: no gait disturbance, no joint inflammation, no deforming arthritis Extremities: no edema and no cyanosis Neuro: grossly normal exam Results & Data Vital Signs (Past 12 Hours) Vital Signs Temp Pulse Resp BP BP Pulse Ox 08/03/19 11:15 36.8 C 64 16 139/54 L 96 08/03/19 11:01 37 C 63 16 158/62 H 92 08/03/19 06:54 37 C 58 L 16 155/61 H 94 08/03/19 04:00 37.1 C 71 16 145/51 H 95 Laboratory Results Laboratory Results - last 24 hr 08/02/19 08/02/19 08/02/19 09:32 16:51 22:17 WBC RBC Hgb Hct MCV MCH MCHC RDW Std Deviation RDW Coeff of Ayanna Plt Count MPV Immature Gran % (Auto) Neut % (Auto) Lymph % (Auto) [place] % (Auto) Eos % (Auto) Baso % (Auto) Immature Gran # (Auto) Neut # (Auto) Lymph # (Auto) [place] # (Auto) Eos # (Auto) Baso # (Auto) Sodium Potassium Chloride Carbon Dioxide Anion Gap BUN Creatinine Est Cr Clr Drug Dosing Est GFR ( Amer) Est GFR (Non-Af Amer) BUN/Creatinine Ratio Glucose Lactate Calcium Magnesium Procalcitonin 0.09 U Random Total Protein Pending Ur Creatinine mg/dL Pending Protein/Creatinin Ratio Pending Urine Albumin (%) Pending U Cbxau-8-Rozbhtoi (%) Pending U Xxjas-4-Umfjthsk (%) Pending U Beta Globulin (%) Pending U Gamma Globulin (%) Pending Urine PEP Interpret Pending Hepatitis A IgM Ab NON-REACTIVE Hep B Core IgM Ab NON-REACTIVE HCV RNA Qual (TMA) Cancelled 08/02/19 08/02/19 08/03/19 22:17 22:18 08:08 WBC 6.34 RBC 4.53 L Hgb 13.3 L Hct 36.0 L MCV 79.5 L MCH 29.4 MCHC 36.9 H RDW Std Deviation 41.6 RDW Coeff of Ayanna 14.3 Plt Count 190 MPV 10.5 H Immature Gran % (Auto) 0.2 Neut % (Auto) 53.6 Lymph % (Auto) 30.8 [place] % (Auto) 11.8 Eos % (Auto) 3.3 Baso % (Auto) 0.3 Immature Gran # (Auto) 0.01 Neut # (Auto) 3.40 Lymph # (Auto) 1.95 [place] # (Auto) 0.75 H Eos # (Auto) 0.21 Baso # (Auto) 0.02 Sodium 142 Potassium 3.6 Chloride 108 H Carbon Dioxide 26 Anion Gap 8.0 BUN 54 H Creatinine 3.22 H D Est Cr Clr Drug Dosing 20.2 Est GFR ( Amer) 21.6 Est GFR (Non-Af Amer) 18.6 BUN/Creatinine Ratio 16.8 Glucose 139 H Lactate 1.9 Calcium 8.4 L Magnesium 1.7 L Procalcitonin U Random Total Protein Ur Creatinine mg/dL Protein/Creatinin Ratio Urine Albumin (%) U Ulxvy-5-Xqnymmus (%) U Ejbwv-0-Awomyglk (%) U Beta Globulin (%) U Gamma Globulin (%) Urine PEP Interpret Hepatitis A IgM Ab Hep B Core IgM Ab HCV RNA Qual (TMA) 08/03/19 08:08 WBC RBC Hgb Hct MCV MCH MCHC RDW Std Deviation RDW Coeff of Ayanna Plt Count MPV Immature Gran % (Auto) Neut % (Auto) Lymph % (Auto) [place] % (Auto) Eos % (Auto) Baso % (Auto) Immature Gran # (Auto) Neut # (Auto) Lymph # (Auto) [place] # (Auto) Eos # (Auto) Baso # (Auto) Sodium 141 Potassium 3.6 Chloride 109 H Carbon Dioxide 24 Anion Gap 9.0 BUN 51 H Creatinine 2.98 H Est Cr Clr Drug Dosing 21.9 Est GFR ( Amer) 23.7 Est GFR (Non-Af Amer) 20.4 BUN/Creatinine Ratio 17.2 Glucose 124 H Lactate Calcium 8.7 Magnesium Procalcitonin U Random Total Protein Ur Creatinine mg/dL Protein/Creatinin Ratio Urine Albumin (%) U Swwbf-8-Bidvadnm (%) U Ejdul-9-Vreiyrah (%) U Beta Globulin (%) U Gamma Globulin (%) Urine PEP Interpret Hepatitis A IgM Ab Hep B Core IgM Ab HCV RNA Qual (TMA) Medications Administered Current Inpatient Medications Acetaminophen (Tylenol) 650 mg PO Q4H PRN PRN Reason: Pain or Fever Stop: 08/30/19 15:29 Last Admin: 08/02/19 19:51 Dose: 650 mg Documented by: Aspirin (Ecotrin Ectab) 81 mg PO DAILY [facility] Stop: 08/31/19 08:59 Last Admin: 08/03/19 09:03 Dose: 81 mg Documented by: Cyclobenzaprine HCl (Flexeril) 5 mg PO TID PRN PRN Reason: Muscle Spasm Stop: 09/01/19 13:59 Last Admin: 08/02/19 20:35 Dose: 5 mg Documented by: Heparin Sodium (Porcine) (Heparin Sodium (Porcine)) 5,000 units SQ Q8 [facility] Stop: 08/30/19 15:29 Last Admin: 08/03/19 13:33 Dose: 5,000 units Documented by: Hydralazine HCl (Apresoline) 50 mg PO TID [facility] Stop: 09/02/19 08:59 Last Admin: 08/03/19 13:31 Dose: 50 mg Documented by: Furosemide 40 mg/ Syringe 4 mls @ 4 mls/min IV BID17 [facility] Stop: 09/02/19 08:59 Levalbuterol HCl (Xopenex Hfa) 2 puffs INH QID PRN PRN Reason: Shortness Of Breath Stop: 08/30/19 15:29 Lidocaine (Lidoderm 5%) 1 patch TD QAM [facility] Stop: 09/01/19 12:44 Last Admin: 08/03/19 09:04 Dose: 1 patch Documented by: Loratadine (Claritin) 10 mg PO DAILY [facility] Stop: 08/31/19 08:59 Last Admin: 08/03/19 09:04 Dose: 10 mg Documented by: Metoprolol Succinate (Toprol Xl) 25 mg PO DAILY [facility] Stop: 08/31/19 08:59 Last Admin: 08/03/19 09:03 Dose: 25 mg Documented by: Miscellaneous (Remove Lidoderm Patch) 1 ea N/A DAILY@2100 [facility] Stop: 09/01/19 20:59 Last Admin: 08/02/19 20:36 Dose: 1 ea Documented by: Mometasone Furoate (Asmanex 220mcg) 1 puffs INH [facility] Stop: 08/31/19 20:59 Last Admin: 08/02/19 20:35 Dose: 1 puffs Documented by: Nifedipine (Procardia Xl) 60 mg PO QAM [facility] Stop: 09/02/19 08:59 Last Admin: 08/03/19 09:03 Dose: 60 mg Documented by: Ondansetron HCl (Zofran) 4 mg IV Q6H PRN PRN Reason: Nausea Stop: 08/30/19 15:29 Polyethylene Glycol (Miralax Powder Packet) 17 gm PO DAILY PRN PRN Reason: Constipation Stop: 08/30/19 15:29 Tamsulosin HCl (Flomax) 0.4 mg PO [facility] Stop: 08/30/19 20:59 Last Admin: 08/02/19 20:35 Dose: 0.4 mg Documented by: Trazodone HCl (Desyrel) 100 mg PO HS [facility] Stop: 08/30/19 20:59 Last Admin: 08/02/19 20:35 Dose: 100 mg Documented by:
[2019-08-03] MEDS: ACETAMINOPHEN 325 MG TAB PO PRN (20:09)
[2019-08-03] MEDS: MOMETASONE FUROATE 14 PUFF/1 INHALER INH SCH (20:12)
[2019-08-03] MEDS: TRAZODONE HCL 100 MG TAB PO SCH (20:12)
[2019-08-03] MEDS: TAMSULOSIN HCL 0.4 MG CAP PO SCH (20:13)
[2019-08-03 20:36] LABS: Appearance Urine Clear (Clear); Bacteria Urine Automated Negative (Negative); Bilirubin Urine Negative (Negative); Blood Urine Negative (Negative); Color Urine Yellow; Glucose Urine UA Negative (Negative); Ketones Urine Negative (Negative); Leukocyte Esterase Urine Negative (Negative); Nitrite Urine Negative (Negative); Protein Urine 3+ (Negative); RBC Urine Automated 0-4 /hpf (0-4); Specific Gravity Urine 1.017 (1.000-1.030); Urobilinogen Urine Negative (Negative); pH Urine 5.5 (4.5-7.5)
--- NOTE | 2019-08-03 21:04 | Hospitalist Progress Note ---
Date of Service August 03, 2019 Assessment & Plan (1) Acute decompensated heart failure: Acute decompensated heart failure with preserved LVEF ( diastolic dysfunction ) per Dr. Ortega notes: This is a 68-year-old male from [facility] with a PMH of CKD 3, hypertension and BPH who presents with shortness of breath and diffuse swelling x5 days and was found to have AI on CKD and new onset CHF. -SOB and diffuse edema to legs, scrotum and abdomen x 5 days - -Chest x-ray with diffuse bilateral parenchymal infiltrative changes versus components of congestive failure. BNP elevated at 2232 -- responding to Lasix gradually continue Lasix 40mg IV po BID monitor crea (2) Acute kidney injury superimposed on chronic kidney disease: Cr elevated at 2.4 (last Cr in system of 1.7 in December 2018) Nephrotic syndrome being considered crea improved from 3.05 to 2.9 -- work up pending (+) Hep C: RNA pending HIV: pending (3) Acute respiratory failure with hypoxia: respiratory status improved Initially hypoxic to 88% on room air but oxygen improved to 92% on 2 L nasal cannula --weaned off from O2 -Does not require home O2 -Continue supplemental O2 PRN (4) Hypertension: - ECHO shows severe LV hypertrophy /indicative of hypertensive cardiac disease Hydralazine dose increased -- improving, monitor (5) BPH (benign prostatic hyperplasia): Continue tamsulosin (6) Insomnia: cont Trazodone CODE status : full code DVT PROPHYLAXIS : sub heparin Dispo: [facility] Discharge planning ordered for return to [facility]. Subjective ff up for HTN, Acute renal failure seen resting in bed, comfortable denies shortness of breath, chest pain, headache has some mild left scapular pain no other symptoms Review of Systems Review of Systems: All systems reviewed & are unremarkable except as noted in HPI & below Physical Exam Physical Exam: General- oriented x 3, not in distress, speaks in sentences with no effort or accessory muscle use Eyes- anicteric Neck- no JVD Lungs- clear breath sounds bilaterally, no crackles Heart- normal rate, regular rhythm; no murmurs Abdomen- normal bowel sounds, nondistended, soft, nontender Extremities- no pretibial edema, no calf tenderness Neuro- alert, oriented x 3; no gross focal neurologic deficits Skin- warm & dry Results & Data Vital Signs (Past 12 Hours) Vital Signs Temp Pulse Resp BP BP Pulse Ox 08/03/19 19:41 37.2 C 65 18 157/63 H 93 08/03/19 15:56 37.1 C 74 16 146/52 H 92 08/03/19 15:44 37.5 C 74 18 149/58 H 92 08/03/19 11:15 36.8 C 64 16 139/54 L 96 08/03/19 11:01 37 C 63 16 158/62 H 92 Laboratory Results Laboratory Results - last 24 hr 08/02/19 08/02/19 08/02/19 09:32 22:17 22:17 WBC RBC Hgb Hct MCV MCH MCHC RDW Std Deviation RDW Coeff of Ayanna Plt Count MPV Immature Gran % (Auto) Neut % (Auto) Lymph % (Auto) [place] % (Auto) Eos % (Auto) Baso % (Auto) Immature Gran # (Auto) Neut # (Auto) Lymph # (Auto) [place] # (Auto) Eos # (Auto) Baso # (Auto) Sodium 142 Potassium 3.6 Chloride 108 H Carbon Dioxide 26 Anion Gap 8.0 BUN 54 H Creatinine 3.22 H D Est Cr Clr Drug Dosing 20.2 Est GFR ( Amer) 21.6 Est GFR (Non-Af Amer) 18.6 BUN/Creatinine Ratio 16.8 Glucose 139 H Lactate Calcium 8.4 L Magnesium 1.7 L Procalcitonin 0.09 Urine Color Urine Appearance Urine pH Ur Specific [place] Urine Protein Urine Glucose (UA) Urine Ketones Urine Blood Urine Nitrite Urine Bilirubin Urine Urobilinogen Ur Leukocyte Esterase Urine WBC (Auto) Urine RBC (Auto) U Hyaline Cast (Auto) U Epithel Cells (Auto) Urine Bacteria (Auto) Hepatitis A IgM Ab NON-REACTIVE Hep B Core IgM Ab NON-REACTIVE HCV RNA Qual (TMA) Cancelled 08/02/19 08/03/19 08/03/19 22:18 08:08 08:08 WBC 6.34 RBC 4.53 L Hgb 13.3 L Hct 36.0 L MCV 79.5 L MCH 29.4 MCHC 36.9 H RDW Std Deviation 41.6 RDW Coeff of Ayanna 14.3 Plt Count 190 MPV 10.5 H Immature Gran % (Auto) 0.2 Neut % (Auto) 53.6 Lymph % (Auto) 30.8 [place] % (Auto) 11.8 Eos % (Auto) 3.3 Baso % (Auto) 0.3 Immature Gran # (Auto) 0.01 Neut # (Auto) 3.40 Lymph # (Auto) 1.95 [place] # (Auto) 0.75 H Eos # (Auto) 0.21 Baso # (Auto) 0.02 Sodium 141 Potassium 3.6 Chloride 109 H Carbon Dioxide 24 Anion Gap 9.0 BUN 51 H Creatinine 2.98 H Est Cr Clr Drug Dosing 21.9 Est GFR ( Amer) 23.7 Est GFR (Non-Af Amer) 20.4 BUN/Creatinine Ratio 17.2 Glucose 124 H Lactate 1.9 Calcium 8.7 Magnesium Procalcitonin Urine Color Urine Appearance Urine pH Ur Specific [place] Urine Protein Urine Glucose (UA) Urine Ketones Urine Blood Urine Nitrite Urine Bilirubin Urine Urobilinogen Ur Leukocyte Esterase Urine WBC (Auto) Urine RBC (Auto) U Hyaline Cast (Auto) U Epithel Cells (Auto) Urine Bacteria (Auto) Hepatitis A IgM Ab Hep B Core IgM Ab HCV RNA Qual (TMA) 08/03/19 Unknown WBC RBC Hgb Hct MCV MCH MCHC RDW Std Deviation RDW Coeff of Ayanna Plt Count MPV Immature Gran % (Auto) Neut % (Auto) Lymph % (Auto) [place] % (Auto) Eos % (Auto) Baso % (Auto) Immature Gran # (Auto) Neut # (Auto) Lymph # (Auto) [place] # (Auto) Eos # (Auto) Baso # (Auto) Sodium Potassium Chloride Carbon Dioxide Anion Gap BUN Creatinine Est Cr Clr Drug Dosing Est GFR ( Amer) Est GFR (Non-Af Amer) BUN/Creatinine Ratio Glucose Lactate Calcium Magnesium Procalcitonin Urine Color Yellow Urine Appearance Clear Urine pH 5.5 Ur Specific [place] 1.017 Urine Protein 3+ H Urine Glucose (UA) Negative Urine Ketones Negative Urine Blood Negative Urine Nitrite Negative Urine Bilirubin Negative Urine Urobilinogen Negative Ur Leukocyte Esterase Negative Urine WBC (Auto) 1-5 Urine RBC (Auto) 0-4 U Hyaline Cast (Auto) 1-5 U Epithel Cells (Auto) 5-10 H Urine Bacteria (Auto) Negative Hepatitis A IgM Ab Hep B Core IgM Ab HCV RNA Qual (TMA)
[2019-08-04 00:53] LABS: ANCA Screen Negative (Negative); Albumin 2.5 G/DL (3.8-4.8); Alpha 1 Globulin 0.3 G/DL (0.2-0.3); Anti Nuclear Antibody Screen POSITIVE (NEGATIVE); Beta-1-Globulin 0.4 G/DL (0.4-0.6); Beta-2-Globulin 0.4 G/DL (0.2-0.5); Complement C3 103 MG/DL (82-185); Free Kappa 166.9 MG/L (3.3-19.4); Free Kappa/Lambda Ratio 1.75 (0.26-1.65); Free Lambda 95.4 MG/L (5.7-26.3); Gamma Globulin 1.6 G/DL (0.8-1.7); Monoclonal Protein Band 1 DNR G/DL (NOT DETECTED); Monoclonal Protein Band 2 DNR G/DL (NOT DETECTED); Monoclonal Protein Band 3 DNR G/DL (NOT DETECTED); Total Protein 6.2 G/DL (6.2-8.3)
[2019-08-04] MEDS: HEPARIN SOD 5,000 UNIT/0.5 ML VIAL SQ SCH ×3 (05:43→20:39)
[2019-08-04 07:58] LABS: Basophils # (auto) 0.01 K/uL (0-0.2); Basophils % (auto) 0.1 %; Eosinophils # (auto) 0.18 K/uL (0-0.5); Eosinophils % (auto) 2.4 %; Hematocrit (blood only) 34.3 % (42-52); Hemoglobin 12.1 g/dL (14.0-18.0); Immature Granulocytes # (auto) 0.02 K/uL (0.00-0.02); Immature Granulocytes % (auto) 0.3 %; Lymphocytes % (auto) 23.5 %; Mean Corpuscular Hemoglobin 28.7 pg (25-34); Mean Corpuscular Hgb Conc 35.3 g/dL (32-36); Mean Corpuscular Volume 81.3 fL (80-100); Mean Platelet Volume 11.6 fL (7.4-10.4); Monocytes # (auto) 1.12 K/uL (0.11-0.59); Monocytes % (auto) 14.6 %; Neutrophils # (auto) 4.52 K/uL (1.4-6.5); Neutrophils % (auto) 59.1 %; Platelet Count 184 K/uL (130-400); RDW Coefficient of Variation 14.6 % (11.5-14.5); RDW Standard Deviation 43.1 fL (36.4-46.3); Red Blood Count 4.22 M/uL (4.7-6.1); White Blood Count 7.65 K/uL (4.8-10.8)
[2019-08-04 08:25] LABS: BUN Creatinine Ratio 17.4 (10-20); Calcium 8.5 mg/dl (8.5-10.1); Creatinine Clr Calc Pharmacy 18.3 ml/min; Est GFR (African American) 19.1; Est GFR (Non-African American) 16.5; Potassium 3.7 mmol/L (3.5-5.1)
[2019-08-04] MEDS: LIDOCAINE 5% 1 PATCH TD SCH (09:06)
[2019-08-04] MEDS: ASPIRIN 81 MG ECTAB PO SCH (09:07)
[2019-08-04] MEDS: NIFEdipine EXTENDED REL 30 MG TABCR PO SCH (09:07)
[2019-08-04] MEDS: LORATADINE 10 MG TAB PO SCH (09:08)
[2019-08-04] MEDS: HydrALAZINE TAB 50 MG TAB PO SCH ×3 (09:08→20:38)
[2019-08-04] MEDS: METOPROLOL SUCC 25MG EXT REL TAB PO SCH (09:08)
[2019-08-04] MEDS: ACETAMINOPHEN 325 MG TAB PO PRN ×2 (17:52→22:07)
[2019-08-04] MEDS: CYCLOBENZAPRINE HCL 5 MG TAB PO PRN (17:52)
--- NOTE | 2019-08-04 18:33 | Nephrology Progress Note ---
Date of Service August 04, 2019 Assessment & Plan (1) Acute kidney injury superimposed on chronic kidney disease: baseline creatinine in [facility] records 1.7 as of 2018; presented 07/31 w/ creatinine 2.4; today w/ further diuresis up to 3.6; chemistries acceptable w/ mild hyperchloremia; note he has 07/25/19 OP labs showing sCrea 2.2 and 4.7 gm proteinuria -agree w/ holding enalapril -daily bmp -renal function and volume status now at a point where will lower diuretics/change to po -strict I/O (2) Nephrotic syndrome: -lowered lasix to 40 mg po bid -daily standing wt -less than 2 gm Na, 1.5 L FR -bp meds as below>> goal sbp is 130-140s -proteinuria w/u pending >> spep, upep, Hep C >> HCV Ab + prelim but looks like RNA cx'd until HCV confirmed; kappa lambda elevation not clinically significant in renal failure w/ ratio <2; HIV neg, complement and anca negative; hep B negative; JENNIFER + and will send anti DS DNA and anti histone Ab -advanced liver disease and/or diastolic HF may well have role in vol OL as well (3) Acute diastolic heart failure: TTE w/ severe CLVH and pEF. amyloidosis on differential; to dx this would need biopsy of fat pad, kidney, heart or cardiac MRI; would await further serologic work up (4) Hypertension: -getting metoprolol XL 25 daily > increased to 50 mg XL daily -cont hydralazine 50 mg tid -IV lasix on hold for today >> recheck labs in am and consider 40 mg po bid lasix >cont nifedipine 60 mg daily (5) Mass of left inguinal region: longstanding (or at least present on April imaging); imaging suggests "encysted hydrocele;" urology has evaluated (6) Abnormal liver diagnostic imaging: April 2019 liver imaging at [facility] w/ and w/o IV con >> "heterogenous liver enhancement w/ likely multiple perfusion anomalies; in addition focal area of hyperenhancement... may represent flash filling hemangioma." >recommend getting outside records of w/u of these findings prior to admission; may need GI eval here depending on prior w/u (7) Hepatitis C infection: HCV Ab is positive prelim; confirmation pending; RNA HCV cx'd (not by me) > should be reordered if confirmed HCV +; pt tells me has been getting recent/active tx and was about to change to po meds for this just before admission; may need further w/u or/and outside records Subjective seen on PM rounds at 1610; on RA no c/o sob; still some diffuse aches/pains; denies voiding issues; no chest pain, no PIPER Review of Systems Review of Systems: All systems reviewed & are unremarkable except as noted in HPI & below Physical Exam Constitutional: well developed, well nourished and cooperative on RA Eyes: EOM intact bilaterally ENMT: Ears: no external ear abnormality Nose: no external nose abnormality Mouth: + dry oral mucous membranes Neck: no nuchal rigidity Respiratory: normal respiratory effort Auscultation: lungs clear to auscultation bilaterally and + diminished lung sounds Cardiovascular: Rate/Rhythm: regular rate and regular rhythm Extremities: + edema (at most trace BL pedal) Gastrointestinal (Abdomen): Inspection/Auscultation: normal bowel sounds Percussion/Palpation: abdomen soft; abdomen nontender Musculoskeletal: Extremities: strength 5/5 throughout Skin: no rashes, warm and dry Psychiatric: A+Ox3, euthymic affect Speech: normal rate/rhythm/volume of speech Results & Data Vital Signs (Past 12 Hours) Vital Signs Temp Pulse Resp BP BP Pulse Ox 08/04/19 15:31 37.0 C 74 16 152/61 H 96 08/04/19 11:09 37.1 C 70 18 158/66 H 96 08/04/19 07:17 37.0 C 67 18 149/65 H 95 Laboratory Results 08/04/19 06:40 08/04/19 06:40 kappa lambda light chains + but ratio 1.5
[2019-08-04] MEDS ORDERED: METOPROLOL SUCC 25MG EXT REL TAB PO ONE (18:34)
[2019-08-04] MEDS: MOMETASONE FUROATE 14 PUFF/1 INHALER INH SCH (20:38)
[2019-08-04] MEDS: TAMSULOSIN HCL 0.4 MG CAP PO SCH (20:39)
[2019-08-04] MEDS: TRAZODONE HCL 100 MG TAB PO SCH (20:39)
[2019-08-05] MEDS: HEPARIN SOD 5,000 UNIT/0.5 ML VIAL SQ SCH ×3 (06:38→21:21)
[2019-08-05 06:45] LABS: Basophils # (auto) 0.01 K/uL (0-0.2); Basophils % (auto) 0.1 %; Eosinophils # (auto) 0.24 K/uL (0-0.5); Eosinophils % (auto) 3.3 %; Hematocrit (blood only) 33.3 % (42-52); Immature Granulocytes # (auto) 0.02 K/uL (0.00-0.02); Immature Granulocytes % (auto) 0.3 %; Lymphocytes # (auto) 1.91 K/uL (1.2-3.4); Lymphocytes % (auto) 25.9 %; Mean Corpuscular Hemoglobin 28.8 pg (25-34); Mean Corpuscular Volume 79.9 fL (80-100); Mean Platelet Volume 10.5 fL (7.4-10.4); Monocytes % (auto) 14.9 %; Neutrophils # (auto) 4.09 K/uL (1.4-6.5); Neutrophils % (auto) 55.5 %; Platelet Count 182 K/uL (130-400); RDW Coefficient of Variation 14.6 % (11.5-14.5); RDW Standard Deviation 42.2 fL (36.4-46.3); Red Blood Count 4.17 M/uL (4.7-6.1); White Blood Count 7.37 K/uL (4.8-10.8)
[2019-08-05 07:14] LABS: BUN Creatinine Ratio 18.6 (10-20); Calcium 8.6 mg/dl (8.5-10.1); Creatinine Clr Calc Pharmacy 20.6 ml/min; Potassium 4.2 mmol/L (3.5-5.1)
[2019-08-05] MEDS: NIFEdipine EXTENDED REL 30 MG TABCR PO SCH (07:58)
[2019-08-05] MEDS: LORATADINE 10 MG TAB PO SCH (07:58)
[2019-08-05] MEDS: ACETAMINOPHEN 325 MG TAB PO PRN (07:58)
[2019-08-05] MEDS: METOPROLOL SUCC 50MG EXT REL TAB PO SCH (07:59)
[2019-08-05] MEDS: CYCLOBENZAPRINE HCL 5 MG TAB PO PRN (07:59)
[2019-08-05] MEDS: HydrALAZINE TAB 50 MG TAB PO SCH ×3 (07:59→20:19)
[2019-08-05] MEDS: LIDOCAINE 5% 1 PATCH TD SCH (08:00)
[2019-08-05] MEDS: ASPIRIN 81 MG ECTAB PO SCH (08:00)
--- NOTE | 2019-08-05 18:31 | Hospitalist Progress Note ---
Date of Service delayed entry date of service 08/04/19 August 05, 2019 Assessment & Plan (1) Acute decompensated heart failure: Acute decompensated heart failure with preserved LVEF ( diastolic dysfunction ) per Dr. Ortega notes: This is a 68-year-old male from [facility] with a PMH of CKD 3, hypertension and BPH who presents with shortness of breath and diffuse swelling x5 days and was found to have AI on CKD and new onset CHF. -SOB and diffuse edema to legs, scrotum and abdomen x 5 days - -Chest x-ray with diffuse bilateral parenchymal infiltrative changes versus components of congestive failure. BNP elevated at 2232 -- Lasix held patient on the dry side, crea up to 3.5 monitor crea (2) Acute kidney injury superimposed on chronic kidney disease: Cr elevated at 2.4 (last Cr in system of 1.7 in December 2018) Nephrotic syndrome being considered crea increased to 3.5 6 no held (3) Acute respiratory failure with hypoxia: respiratory status improved Initially hypoxic to 88% on room air but oxygen improved to 92% on 2 L nasal cannula --weaned off from O2 -Does not require home O2 -Continue supplemental O2 PRN (4) Hypertension: - ECHO shows severe LV hypertrophy /indicative of hypertensive cardiac disease On Hydralazine, Nifedipine, Metoprolol -- improving, monitor (5) BPH (benign prostatic hyperplasia): Continue tamsulosin (6) Insomnia: cont Trazodone CODE status : full code DVT PROPHYLAXIS : sub heparin Dispo: Admitted to [facility]. Discharge planning ordered for return to [facility]. Subjective Follow-up for acute renal failure Seen resting in bed, comfortable Patient reports some mild back pain, worse with movement Denies abdominal pain, chest pain, shortness of breath, problems with urination Denies other symptoms Review of Systems Review of Systems: All systems reviewed & are unremarkable except as noted in HPI & below Physical Exam Physical Exam: General- oriented x 3, not in distress, speaks in sentences with no effort or accessory muscle use Eyes- anicteric Neck- no JVD Lungs- clear breath sounds, no crackles bilaterally Heart- normal rate, regular rhythm; no murmurs Abdomen- normal bowel sounds, nondistended, soft, nontender Extremities-mild pretibial edema, no calf tenderness Neuro- alert, oriented x 3; no gross focal neurologic deficits Skin- warm & dry Results & Data Vital Signs (Past 12 Hours) Vital Signs Temp Pulse Resp BP BP Pulse Ox 08/05/19 15:23 36.8 C 63 18 142/59 H 92 08/05/19 12:00 36.8 C 95 H 18 143/67 H 95 08/05/19 07:28 36.9 C 64 20 145/65 H 92 Laboratory Results Laboratory Results - last 24 hr 08/06/19 08/06/19 06:11 06:11 WBC 5.52 RBC 3.97 L Hgb 11.4 L Hct 31.6 L MCV 79.6 L MCH 28.7 MCHC 36.1 H RDW Std Deviation 41.6 RDW Coeff of Ayanna 14.3 Plt Count 171 MPV 10.0 Immature Gran % (Auto) 0.2 Neut % (Auto) 49.0 Lymph % (Auto) 30.8 [place] % (Auto) 14.3 Eos % (Auto) 5.3 Baso % (Auto) 0.4 Immature Gran # (Auto) 0.01 Neut # (Auto) 2.71 Lymph # (Auto) 1.70 [place] # (Auto) 0.79 H Eos # (Auto) 0.29 Baso # (Auto) 0.02 Sodium 138 Potassium 4.6 Chloride 109 H Carbon Dioxide 23 Anion Gap 6.0 BUN 56 H Creatinine 2.83 H D Est Cr Clr Drug Dosing 23.0 Est GFR ( Amer) 25.2 Est GFR (Non-Af Amer) 21.7 BUN/Creatinine Ratio 19.8 Glucose 108 H Calcium 8.3 L
--- NOTE | 2019-08-05 18:33 | Hospitalist Progress Note ---
Date of Service August 05, 2019 Assessment & Plan (1) Acute decompensated heart failure: Acute decompensated heart failure with preserved LVEF ( diastolic dysfunction ) per Dr. Ortega notes: This is a 68-year-old male from [facility] with a PMH of CKD 3, hypertension and BPH who presents with shortness of breath and diffuse swelling x5 days and was found to have AI on CKD and new onset CHF. -SOB and diffuse edema to legs, scrotum and abdomen x 5 days - -Chest x-ray with diffuse bilateral parenchymal infiltrative changes versus components of congestive failure. BNP elevated at 2232 -- Lasix held patient on the dry side, crea up to 3.5 now 3.1 monitor crea (2) Acute kidney injury superimposed on chronic kidney disease: Cr elevated at 2.4 (last Cr in system of 1.7 in December 2018) Nephrotic syndrome being considered crea improved from 3.5 to 3.1 after holding Lasix (+) urinary retention, Folecy cath placed (+) JENNIFER, dsDNA ordered (+) Hep C: RNA pending HIV: negative (3) Acute respiratory failure with hypoxia: respiratory status improved Initially hypoxic to 88% on room air but oxygen improved to 92% on 2 L nasal cannula --weaned off from O2 -Does not require home O2 -Continue supplemental O2 PRN (4) Hypertension: - ECHO shows severe LV hypertrophy /indicative of hypertensive cardiac disease On Hydralazine, Nifedipine, Metoprolol -- improving, monitor (5) BPH (benign prostatic hyperplasia): Continue tamsulosin (+) urinary retention, Bull catheter placed (6) Insomnia: cont Trazodone CODE status : full code DVT PROPHYLAXIS : sub heparin Dispo: Admitted to [facility]. Discharge planning ordered for return to [facility]. Subjective ff up for acute renal failure, CHF seen sitting up in bed, not in distress states he feels improved compared to yesterday denies back pain (+) urinary retention, bull cath placed no abdominal pain no dyspnea, chest pain no other symptoms Review of Systems Review of Systems: All systems reviewed & are unremarkable except as noted in HPI & below Physical Exam Physical Exam: General- oriented x 3, not in distress, speaks in sentences with no effort or accessory muscle use Eyes- anicteric Neck- no JVD Lungs-mild rales left base, clear on the right Heart- normal rate, regular rhythm; no murmurs Abdomen- normal bowel sounds, nondistended, soft, nontender Extremities- trace pretibial edema, no calf tenderness Neuro- alert, oriented x 3; no gross focal neurologic deficits Skin- warm & dry Results & Data Vital Signs (Past 12 Hours) Vital Signs Temp Pulse Resp BP BP Pulse Ox 08/05/19 15:23 36.8 C 63 18 142/59 H 92 08/05/19 12:00 36.8 C 95 H 18 143/67 H 95 08/05/19 07:28 36.9 C 64 20 145/65 H 92 Laboratory Results Laboratory Results - last 24 hr 08/05/19 08/05/19 08/05/19 06:21 06:21 06:21 WBC 7.37 RBC 4.17 L Hgb 12.0 L Hct 33.3 L MCV 79.9 L MCH 28.8 MCHC 36.0 RDW Std Deviation 42.2 RDW Coeff of Ayanna 14.6 H Plt Count 182 MPV 10.5 H Immature Gran % (Auto) 0.3 Neut % (Auto) 55.5 Lymph % (Auto) 25.9 [place] % (Auto) 14.9 Eos % (Auto) 3.3 Baso % (Auto) 0.1 Immature Gran # (Auto) 0.02 Neut # (Auto) 4.09 Lymph # (Auto) 1.91 [place] # (Auto) 1.10 H Eos # (Auto) 0.24 Baso # (Auto) 0.01 Sodium 142 Potassium 4.2 Chloride 112 H Carbon Dioxide 24 Anion Gap 6.0 BUN 59 H Creatinine 3.17 H D Est Cr Clr Drug Dosing 20.6 Est GFR ( Amer) 22.0 Est GFR (Non-Af Amer) 19.0 BUN/Creatinine Ratio 18.6 Glucose 109 H Calcium 8.6 Double Strand DNA Ab Histone Ab, Qual Miscellaneous Test Cancelled Miscellaneous Test 2 Cancelled 08/05/19 06:21 WBC RBC Hgb Hct MCV MCH MCHC RDW Std Deviation RDW Coeff of Ayanna Plt Count MPV Immature Gran % (Auto) Neut % (Auto) Lymph % (Auto) [place] % (Auto) Eos % (Auto) Baso % (Auto) Immature Gran # (Auto) Neut # (Auto) Lymph # (Auto) [place] # (Auto) Eos # (Auto) Baso # (Auto) Sodium Potassium Chloride Carbon Dioxide Anion Gap BUN Creatinine Est Cr Clr Drug Dosing Est GFR ( Amer) Est GFR (Non-Af Amer) BUN/Creatinine Ratio Glucose Calcium Double Strand DNA Ab Pending Histone Ab, Qual Pending Miscellaneous Test Miscellaneous Test 2
--- NOTE | 2019-08-05 18:49 | Nephrology Progress Note ---
Date of Service August 05, 2019 Assessment & Plan (1) Acute kidney injury superimposed on chronic kidney disease: baseline creatinine in [facility] records 1.7 as of 2018; presented 07/31 w/ creatinine 2.4; peaked at 3.6; chemistries acceptable w/ mild hyperchloremia; Cr down to 3.1 today and 4.7 gm proteinuria -agree w/ holding enalapril and diuretics -daily bmp -Post void bladder scan, if more 200ml, will need bull -No need for fluid restriction -strict I/O (2) Nephrotic syndrome: Improving. Off lasix now. Allow to drink without restriction -proteinuria w/u pending >> spep, upep, Hep C >> HCV Ab + prelim but looks like RNA cx'd until HCV confirmed; kappa lambda elevation not clinically significant in renal failure w/ ratio <2; HIV neg, complement and anca negative; hep B negative; JENNIFER + and will send anti DS DNA and anti histone Ab -advanced liver disease and/or diastolic HF may well have role in vol OL as well (3) Acute diastolic heart failure: TTE w/ severe CLVH and pEF. amyloidosis on differential; to dx this would need biopsy of fat pad, kidney, heart or cardiac MRI; would await further serologic work up (4) Hypertension: -getting metoprolol XL 25 daily > increased to 50 mg XL daily -cont hydralazine 50 mg tid >cont nifedipine 60 mg daily (5) Mass of left inguinal region: longstanding (or at least present on [place] imaging); imaging suggests "encysted hydrocele;" urology has evaluated (6) Abnormal liver diagnostic imaging: April 2019 liver imaging at [facility] w/ and w/o IV con >> "heterogenous liver enhancement w/ likely multiple perfusion anomalies; in addition focal area of hyperenhancement... may represent flash filling hemangioma." >recommend getting outside records of w/u of these findings prior to admission; may need GI eval here depending on prior w/u (7) Hepatitis C infection: HCV Ab is positive prelim; confirmation pending; RNA HCV cx'd (not by me) > should be reordered if confirmed HCV +; pt reported has been getting recent/active tx and was about to change to po meds for this just before admission; may need further w/u or/and outside records Subjective Seen during morning rounds. Complain of thirst. He is off fluids now. No more lasix. No SOB. No vomiting or diarrhoea Review of Systems Review of Systems: All systems reviewed & are unremarkable except as noted in HPI & below Physical Exam Physical Exam: General exam: Appears comfortable, no acute distress HEENT: Pupils are equal and reactive to light Neck: No JVD, neck is supple trachea is midline Respiratory system: Clear breath sounds bilaterally. Gastrointestinal: Abdomen is soft, non distended, non tender, bowel sounds are present CVS: Regular rate and rhythm. No murmurs, rubs or gallops Musculoskeletal: No joint or muscle tenderness Extremities: Non tender, no edema, peripheral pulses are present Neuro: Oriented, no tremors, no focal neurological deficits Skin: No rashes Results & Data Vital Signs (Past 12 Hours) Vital Signs Temp Pulse Resp BP BP Pulse Ox 08/05/19 15:23 36.8 C 63 18 142/59 H 92 08/05/19 12:00 36.8 C 95 H 18 143/67 H 95 08/05/19 07:28 36.9 C 64 20 145/65 H 92 Laboratory Results Laboratory Results - last 24 hr 08/05/19 08/05/19 08/05/19 06:21 06:21 06:21 WBC 7.37 RBC 4.17 L Hgb 12.0 L Hct 33.3 L MCV 79.9 L MCH 28.8 MCHC 36.0 RDW Std Deviation 42.2 RDW Coeff of Ayanna 14.6 H Plt Count 182 MPV 10.5 H Immature Gran % (Auto) 0.3 Neut % (Auto) 55.5 Lymph % (Auto) 25.9 [place] % (Auto) 14.9 Eos % (Auto) 3.3 Baso % (Auto) 0.1 Immature Gran # (Auto) 0.02 Neut # (Auto) 4.09 Lymph # (Auto) 1.91 [place] # (Auto) 1.10 H Eos # (Auto) 0.24 Baso # (Auto) 0.01 Sodium 142 Potassium 4.2 Chloride 112 H Carbon Dioxide 24 Anion Gap 6.0 BUN 59 H Creatinine 3.17 H D Est Cr Clr Drug Dosing 20.6 Est GFR ( Amer) 22.0 Est GFR (Non-Af Amer) 19.0 BUN/Creatinine Ratio 18.6 Glucose 109 H Calcium 8.6 Double Strand DNA Ab Histone Ab, Qual Miscellaneous Test Cancelled Miscellaneous Test 2 Cancelled 08/05/19 06:21 WBC RBC Hgb Hct MCV MCH MCHC RDW Std Deviation RDW Coeff of Ayanna Plt Count MPV Immature Gran % (Auto) Neut % (Auto) Lymph % (Auto) [place] % (Auto) Eos % (Auto) Baso % (Auto) Immature Gran # (Auto) Neut # (Auto) Lymph # (Auto) [place] # (Auto) Eos # (Auto) Baso # (Auto) Sodium Potassium Chloride Carbon Dioxide Anion Gap BUN Creatinine Est Cr Clr Drug Dosing Est GFR ( Amer) Est GFR (Non-Af Amer) BUN/Creatinine Ratio Glucose Calcium Double Strand DNA Ab Pending Histone Ab, Qual Pending Miscellaneous Test Miscellaneous Test 2
[2019-08-05] MEDS: MOMETASONE FUROATE 14 PUFF/1 INHALER INH SCH (20:18)
[2019-08-05] MEDS: TAMSULOSIN HCL 0.4 MG CAP PO SCH (20:19)
[2019-08-05] MEDS: TRAZODONE HCL 100 MG TAB PO SCH (20:20)
[2019-08-06] MEDS: HEPARIN SOD 5,000 UNIT/0.5 ML VIAL SQ SCH ×3 (05:24→22:07)
[2019-08-06 06:24] LABS: Basophils # (auto) 0.02 K/uL (0-0.2); Basophils % (auto) 0.4 %; Eosinophils # (auto) 0.29 K/uL (0-0.5); Eosinophils % (auto) 5.3 %; Hematocrit (blood only) 31.6 % (42-52); Hemoglobin 11.4 g/dL (14.0-18.0); Immature Granulocytes # (auto) 0.01 K/uL (0.00-0.02); Immature Granulocytes % (auto) 0.2 %; Lymphocytes % (auto) 30.8 %; Mean Corpuscular Hemoglobin 28.7 pg (25-34); Mean Corpuscular Hgb Conc 36.1 g/dL (32-36); Mean Corpuscular Volume 79.6 fL (80-100); Monocytes # (auto) 0.79 K/uL (0.11-0.59); Monocytes % (auto) 14.3 %; Neutrophils # (auto) 2.71 K/uL (1.4-6.5); Platelet Count 171 K/uL (130-400); RDW Coefficient of Variation 14.3 % (11.5-14.5); RDW Standard Deviation 41.6 fL (36.4-46.3); Red Blood Count 3.97 M/uL (4.7-6.1); White Blood Count 5.52 K/uL (4.8-10.8)
[2019-08-06 06:55] LABS: BUN Creatinine Ratio 19.8 (10-20); Calcium 8.3 mg/dl (8.5-10.1); Est GFR (African American) 25.2; Est GFR (Non-African American) 21.7; Potassium 4.6 mmol/L (3.5-5.1)
[2019-08-06] MEDS: ACETAMINOPHEN 325 MG TAB PO PRN (09:01)
[2019-08-06] MEDS: ASPIRIN 81 MG ECTAB PO SCH (09:05)
[2019-08-06] MEDS: METOPROLOL SUCC 50MG EXT REL TAB PO SCH (09:05)
[2019-08-06] MEDS: LORATADINE 10 MG TAB PO SCH (09:05)
[2019-08-06] MEDS: HydrALAZINE TAB 50 MG TAB PO SCH ×3 (09:05→20:13)
[2019-08-06] MEDS: NIFEdipine EXTENDED REL 30 MG TABCR PO SCH (09:05)
[2019-08-06] MEDS: LIDOCAINE 5% 1 PATCH TD SCH (09:06)
--- NOTE | 2019-08-06 11:09 | Nephrology Progress Note ---
Date of Service August 06, 2019 Assessment & Plan (1) Acute kidney injury superimposed on chronic kidney disease: baseline creatinine in [facility] records 1.7 as of 2018; presented 07/31 w/ creatinine 2.4; peaked at 3.6; chemistries acceptable w/ mild hyperchloremia; Cr down to 2.8 from 3.1 yesterday and 4.7 gm proteinuria -agree w/ holding enalapril and diuretics -daily bmp -No need for fluid restriction -strict I/O (2) Nephrotic syndrome: Improving. Off lasix now. Allow to drink without restriction -proteinuria w/u pending >> spep, upep, Hep C >> HCV Ab + prelim but looks like RNA cx'd until HCV confirmed; kappa lambda elevation not clinically significant in renal failure w/ ratio <2; HIV neg, complement and anca negative; hep B negative; JENNIFER + and will send anti DS DNA and anti histone Ab -advanced liver disease and/or diastolic HF may well have role in vol OL as well (3) Acute diastolic heart failure: TTE w/ severe CLVH and pEF. amyloidosis on differential; to dx this would need biopsy of fat pad, kidney, heart or cardiac MRI; would await further serologic work up (4) Hypertension: Blood pressure is controlled. -getting metoprolol XL 25 daily > increased to 50 mg XL daily -cont hydralazine 50 mg tid >cont nifedipine 60 mg daily (5) Mass of left inguinal region: longstanding (or at least present on [facility] imaging); imaging suggests "encysted hydrocele;" urology has evaluated (6) Abnormal liver diagnostic imaging: April 2019 liver imaging at [facility] w/ and w/o IV con >> "heterogenous liver enhancement w/ likely multiple perfusion anomalies; in addition focal area of hyperenhancement... may represent flash filling hemangioma." >recommend getting outside records of w/u of these findings prior to admission; may need GI eval here depending on prior w/u (7) Hepatitis C infection: HCV Ab is positive prelim; confirmation pending; RNA HCV cx'd (not by me) > should be reordered if confirmed HCV +; pt reported has been getting recent/active tx and was about to change to po meds for this just before admiss ion; may need further w/u or/and outside records Subjective Patient feels better today. No shortness of breath. He is drinking and eating well. No leg swelling. He now has a Garay catheter. He was found to have urinary retention with a postvoid of 400 mL. Creatinine is downtrending to 2.8 Review of Systems Review of Systems: All systems reviewed & are unremarkable except as noted in HPI & below Physical Exam Physical Exam: General exam: Appears comfortable, no acute distress HEENT: Pupils are equal and reactive to light Neck: No JVD, neck is supple trachea is midline Respiratory system: Clear breath sounds bilaterally. Gastrointestinal: Abdomen is soft, non distended, non tender, bowel sounds are present CVS: Regular rate and rhythm. No murmurs, rubs or gallops Musculoskeletal: No joint or muscle tenderness Extremities: Non tender, no edema, peripheral pulses are present Neuro: Oriented, no tremors, no focal neurological deficits Skin: No rashes Results & Data Vital Signs (Past 12 Hours) Vital Signs Temp Pulse Resp BP BP Pulse Ox 08/06/19 07:06 37.0 C 64 18 145/58 H 92 08/06/19 03:49 37.0 C 63 20 150/63 H 93 Laboratory Results Laboratory Results - last 24 hr 08/06/19 08/06/19 06:11 06:11 WBC 5.52 RBC 3.97 L Hgb 11.4 L Hct 31.6 L MCV 79.6 L MCH 28.7 MCHC 36.1 H RDW Std Deviation 41.6 RDW Coeff of Ayanna 14.3 Plt Count 171 MPV 10.0 Immature Gran % (Auto) 0.2 Neut % (Auto) 49.0 Lymph % (Auto) 30.8 [place] % (Auto) 14.3 Eos % (Auto) 5.3 Baso % (Auto) 0.4 Immature Gran # (Auto) 0.01 Neut # (Auto) 2.71 Lymph # (Auto) 1.70 [place] # (Auto) 0.79 H Eos # (Auto) 0.29 Baso # (Auto) 0.02 Sodium 138 Potassium 4.6 Chloride 109 H Carbon Dioxide 23 Anion Gap 6.0 BUN 56 H Creatinine 2.83 H D Est Cr Clr Drug Dosing 23.0 Est GFR ( Amer) 25.2 Est GFR (Non-Af Amer) 21.7 BUN/Creatinine Ratio 19.8 Glucose 108 H Calcium 8.3 L
--- NOTE | 2019-08-06 15:55 | Hospitalist Progress Note ---
Date of Service August 06, 2019 Assessment & Plan (1) Acute decompensated heart failure: Acute decompensated heart failure with preserved LVEF ( diastolic dysfunction ) per Dr. Ortega notes: This is a 68-year-old male from [facility] with a PMH of CKD 3, hypertension and BPH who presents with shortness of breath and diffuse swelling x5 days and was found to have AI on CKD and new onset CHF. -SOB and diffuse edema to legs, scrotum and abdomen x 5 days - -Chest x-ray with diffuse bilateral parenchymal infiltrative changes versus components of congestive failure. BNP elevated at 2232 -- Lasix held patient on the dry side, crea up to 3.5 , now improved to 2.8 monitor crea --Nephrology on board (2) Acute kidney injury superimposed on chronic kidney disease: Cr elevated at 2.4 (last Cr in system of 1.7 in December 2018) Nephrotic syndrome being considered crea increased to 3.5, Lasix held, improved to 2.8 (3) Acute respiratory failure with hypoxia: respiratory status improved Initially hypoxic to 88% on room air but oxygen improved to 92% on 2 L nasal cannula --weaned off from O2 -Does not require home O2 -Continue supplemental O2 PRN (4) Hypertension: - ECHO shows severe LV hypertrophy /indicative of hypertensive cardiac disease On Hydralazine, Nifedipine, Metoprolol -- improving, monitor (5) BPH (benign prostatic hyperplasia): Continue tamsulosin (6) Insomnia: cont Trazodone CODE status : full code DVT PROPHYLAXIS : sub heparin Dispo: Admitted to [facility]. Discharge planning ordered for return to [facility]. Subjective Follow-up for acute failure, CHF diastolic exacerbation Seen sitting up in bed, comfortable, not in distress Denies shortness of breath, chest pain, palpitations No abdominal pain No other symptoms Review of Systems Review of Systems: All systems reviewed & are unremarkable except as noted in HPI & below Physical Exam Physical Exam: General- oriented x 3, not in distress, speaks in sentences with no effort or accessory muscle use Eyes- anicteric Neck- no JVD Lungs- clear breath sounds bilaterally Heart- normal rate, regular rhythm; no murmurs Abdomen- normal bowel sounds, nondistended, soft, nontender Extremities- no pretibial edema, no calf tenderness Neuro- alert, oriented x 3; no gross focal neurologic deficits Skin- warm & dry Results & Data Vital Signs (Past 12 Hours) Vital Signs Temp Pulse Resp BP BP Pulse Ox 08/06/19 15:30 36.7 C 60 18 134/57 L 94 08/06/19 11:42 36.4 C L 58 L 18 149/62 H 96 08/06/19 07:06 37.0 C 64 18 145/58 H 92
[2019-08-06] MEDS: MOMETASONE FUROATE 14 PUFF/1 INHALER INH SCH (20:12)
[2019-08-06] MEDS: TRAZODONE HCL 100 MG TAB PO SCH (20:13)
[2019-08-06] MEDS: TAMSULOSIN HCL 0.4 MG CAP PO SCH (20:14)
[2019-08-07] MEDS: HEPARIN SOD 5,000 UNIT/0.5 ML VIAL SQ SCH ×3 (05:17→21:34)
[2019-08-07 06:51] LABS: Basophils # (auto) 0.01 K/uL (0-0.2); Basophils % (auto) 0.2 %; Eosinophils # (auto) 0.28 K/uL (0-0.5); Eosinophils % (auto) 5.4 %; Hemoglobin 11.9 g/dL (14.0-18.0); Immature Granulocytes # (auto) 0.02 K/uL (0.00-0.02); Immature Granulocytes % (auto) 0.4 %; Lymphocytes # (auto) 1.92 K/uL (1.2-3.4); Lymphocytes % (auto) 37.1 %; Mean Corpuscular Hemoglobin 28.7 pg (25-34); Mean Corpuscular Hgb Conc 36.1 g/dL (32-36); Mean Corpuscular Volume 79.5 fL (80-100); Mean Platelet Volume 10.9 fL (7.4-10.4); Monocytes # (auto) 0.75 K/uL (0.11-0.59); Monocytes % (auto) 14.5 %; Neutrophils % (auto) 42.4 %; Platelet Count 207 K/uL (130-400); RDW Coefficient of Variation 14.3 % (11.5-14.5); RDW Standard Deviation 41.6 fL (36.4-46.3); Red Blood Count 4.15 M/uL (4.7-6.1); White Blood Count 5.18 K/uL (4.8-10.8)
[2019-08-07 07:16] LABS: BUN Creatinine Ratio 20.6 (10-20); Calcium 8.4 mg/dl (8.5-10.1); Creatinine Clr Calc Pharmacy 21.2 ml/min; Est GFR (African American) 22.7; Est GFR (Non-African American) 19.6; Potassium 4.7 mmol/L (3.5-5.1)
[2019-08-07] MEDS: HydrALAZINE TAB 50 MG TAB PO SCH ×3 (08:39→21:33)
[2019-08-07] MEDS: NIFEdipine EXTENDED REL 30 MG TABCR PO SCH (08:40)
[2019-08-07] MEDS: LORATADINE 10 MG TAB PO SCH (08:40)
[2019-08-07] MEDS: ASPIRIN 81 MG ECTAB PO SCH (08:40)
[2019-08-07] MEDS: METOPROLOL SUCC 50MG EXT REL TAB PO SCH (08:40)
[2019-08-07] MEDS: LIDOCAINE 5% 1 PATCH TD SCH (08:41)
--- NOTE | 2019-08-07 09:12 | Nephrology Progress Note ---
Date of Service August 07, 2019 Assessment & Plan (1) Acute kidney injury superimposed on chronic kidney disease: baseline creatinine in [facility] records 1.7 as of spring 2018; presented 07/31 w/ creatinine 2.4; peaked at 3.6; chemistries acceptable; Cr hovering high 2's; on presentation had 4.7 gm proteinuria today despite w/ holding diuretics, creatinine a bit worse today >>>I suspect this is natural progression of hypertensive nephrosclerosis; that is likeliest dx; however he could have had worsened renal fucntion from heptatitis or other glomerular process; in that case, there may be targets for treatment. Unlikely that renal biopsy will change treatment BUT important to consider (and do recommend it) in event that we have a finding which could be treated/reversed. pt aware and willing to do renal bx -he is at high risk to need dialysis in next 12-36 mos; none needed now -agree w/ holding enalapril and diuretics -daily bmp -No need for fluid restriction for now -strict I/O -recheck urine studies (2) Nephrotic syndrome: Improving. Off lasix now. Allow to drink without restriction. -will recheck prot/creat ratio -proteinuria w/u pending >> spep, upep, Hep C >> HCV Ab +HCV RNA present; kappa lambda elevation not clinically significant in renal failure w/ ratio <2; HIV neg, complement and anca negative; hep B negative; JENNIFER + and anti DS DNA and anti histone Ab are pending but not likely to be positive; did order cryos d/t a dvanced liver dz -advanced liver disease and/or diastolic HF may well have role in vol OL as well (3) Acute diastolic heart failure: TTE w/ severe CLVH and pEF. amyloidosis on differential; to dx this would need biopsy of fat pad, kidney, heart or cardiac MRI; would await further serologic work up or consider renal bx (4) Hypertension: Blood pressure is controlled. -cont increased metoprolol 50 mg XL daily -cont hydralazine 50 mg tid >cont nifedipine 60 mg daily (5) Mass of left inguinal region: longstanding (or at least present on April imaging); imaging suggests "encysted hydrocele;" urology has evaluated (6) Abnormal liver diagnostic imaging: April 2019 liver imaging at [facility] w/ and w/o IV con >> "heterogenous liver enhancement w/ likely multiple perfusion anomalies; in addition focal area of hyperenhancement... may represent flash filling hemangioma." >recommend getting outside records of w/u of these findings prior to admission; may need GI eval here depending on prior w/u (7) Hepatitis C infection: HCV Ab is positive prelim; HCV RNA qualitatively positive; pt reported has been getting recent/active tx and was about to change to po meds for this just before admission; -need further w/u or/and outside records Subjective seen on [facility] am 1015; feels improved; edema gone; no N; still diffuse soreness. and had urinary retention and got bull Review of Systems Review of Systems: All systems reviewed & are unremarkable except as noted in HPI & below Physical Exam Constitutional: well developed, well nourished and cooperative on RA Eyes: EOM intact bilaterally ENMT: Ears: no external ear abnormality Nose: no external nose abnormality Mouth: + dry oral mucous membranes Neck: no nuchal rigidity Respiratory: normal respiratory effort Auscultation: lungs clear to auscultation bilaterally and + diminished lung sounds Cardiovascular: Rate/Rhythm: regular rate and regular rhythm Extremities: + edema (at most trace BL pedal) Gastrointestinal (Abdomen): Inspection/Auscultation: normal bowel sounds Percussion/Palpation: abdomen soft; abdomen nontender Musculoskeletal: Extremities: strength 5/5 throughout Skin: no rashes, warm and dry Neurologic: maneuvers readily for exam, no tremor Psychiatric: A+Ox3, euthymic affect Speech: normal rate/rhythm/volume of speech Genitourinary: bull present Results & Data Vital Signs (Past 12 Hours) Vital Signs Temp Pulse Pulse Resp BP BP Pulse Ox 08/07/19 07:38 37.2 C 67 18 160/49 H 92 08/07/19 03:33 36.9 C 69 19 147/56 H 90 08/06/19 23:22 37.0 C 66 19 159/63 H 93 08/06/19 23:05 73 Laboratory Results 08/07/19 06:12 08/07/19 06:12
[2019-08-07 11:44] LABS: Appearance Urine Clear (Clear); Bacteria Urine Automated Negative (Negative); Bilirubin Urine Negative (Negative); Blood Urine 3+ (Negative); Color Urine Yellow; Epithelial Cell Urine Auto 20-30 /lpf (0-5); Glucose Urine UA Negative (Negative); Ketones Urine Negative (Negative); Leukocyte Esterase Urine Trace (Negative); Nitrite Urine Negative (Negative); Protein Urine 2+ (Negative); RBC Urine Automated >30 /hpf (0-4); Specific Gravity Urine 1.015 (1.000-1.030); Urobilinogen Urine Negative (Negative); pH Urine 6.5 (4.5-7.5)
[2019-08-07 12:57] LABS: Protein Creatinine Ratio Urine 1.6 (0-0.2); Total Protein Urine Random 157.5 mg/dl (0-11.9)
[2019-08-07 13:13] LABS: Creatinine Ur 67 MG/DL (20-320); Protein, Urine Random 156 MG/DL (5-25); Urine Protein/Creatinine Ratio 2328 (22-128)
[2019-08-07 14:33] LABS: ANA Pattern 2 DNR; ANA Titer 1:40 TITER (<1:40); ANA Titer 2 DNR TITER (<1:40)
[2019-08-07] MEDS: ACETAMINOPHEN 325 MG TAB PO PRN (17:41)
--- NOTE | 2019-08-07 18:56 | Hospitalist Progress Note ---
Date of Service August 07, 2019 Assessment & Plan (1) Acute decompensated heart failure: Acute decompensated heart failure with preserved LVEF ( diastolic dysfunction ) per Dr. Ortega notes: This is a 68-year-old male from [facility] with a PMH of CKD 3, hypertension and BPH who presents with shortness of breath and diffuse swelling x5 days and was found to have AI on CKD and new onset CHF. -SOB and diffuse edema to legs, scrotum and abdomen x 5 days - -Chest x-ray with diffuse bilateral parenchymal infiltrative changes versus components of congestive failure. BNP elevated at 2232 -- Lasix held patient euvolemic, crea up to 3.5 , now increased to 3.0 again monitor crea --Nephrology on board renal biopsy recommended, discussed with T[facility], they are confirming with interventional radiologist about possibly doing it on (2) Acute kidney injury superimposed on chronic kidney disease: Cr elevated at 2.4 (last Cr in system of 1.7 in December 2018) Nephrotic syndrome being considered crea increased to 3.5, Lasix held, and now again increased to 3.0 Monitor closely (3) Acute respiratory failure with hypoxia: respiratory status improved Initially hypoxic to 88% on room air but oxygen improved to 92% on 2 L nasal cannula --weaned off from O2 -Does not require home O2 -Continue supplemental O2 PRN (4) Hypertension: - ECHO shows severe LV hypertrophy /indicative of hypertensive cardiac disease On Hydralazine, Nifedipine, Metoprolol -- improving, monitor (5) BPH (benign prostatic hyperplasia): Continue tamsulosin (6) Insomnia: cont Trazodone CODE status : full code DVT PROPHYLAXIS : sub heparin Dispo: Admitted to [facility]. Discharge planning ordered for return to [facility]. Subjective Follow-up for acute renal failure, CHF Seen resting in bed, comfortable, in good spirits States he feels fine overall today Has minimal back pain Denies shortness of breath, chest pain, palpitations, dizziness No problems with Garay catheter Review of Systems Review of Systems: All systems reviewed & are unremarkable except as noted in HPI & below Physical Exam Physical Exam: General- oriented x 3, not in distress, speaks in sentences with no effort or accessory muscle use Eyes- anicteric Neck- no JVD Lungs- clear breath sounds bilaterally, no wheezing, no crackles bilaterally Heart- normal rate, regular rhythm; no murmurs Abdomen- normal bowel sounds, nondistended, soft, nontender Extremities-trace pretibial edema, no calf tenderness Neuro- alert, oriented x 3; no gross focal neurologic deficits Skin- warm & dry Results & Data Vital Signs (Past 12 Hours) Vital Signs Temp Pulse Pulse Resp BP BP Pulse Ox 08/07/19 16:00 70 08/07/19 15:12 37.4 C 68 18 136/60 95 08/07/19 11:34 37 C 67 18 143/61 H 96 08/07/19 07:38 37.2 C 67 18 160/49 H 92 Laboratory Results Laboratory Results - last 24 hr 08/01/19 08/02/19 08/07/19 08:17 16:51 06:12 WBC 5.18 RBC 4.15 L Hgb 11.9 L Hct 33.0 L MCV 79.5 L MCH 28.7 MCHC 36.1 H RDW Std Deviation 41.6 RDW Coeff of Ayanna 14.3 Plt Count 207 MPV 10.9 H Immature Gran % (Auto) 0.4 Neut % (Auto) 42.4 Lymph % (Auto) 37.1 [place] % (Auto) 14.5 Eos % (Auto) 5.4 Baso % (Auto) 0.2 Immature Gran # (Auto) 0.02 Neut # (Auto) 2.20 Lymph # (Auto) 1.92 Ellis # (Auto) 0.75 H Eos # (Auto) 0.28 Baso # (Auto) 0.01 Sodium Potassium Chloride Carbon Dioxide Anion Gap BUN Creatinine Est Cr Clr Drug Dosing Est GFR ( Amer) Est GFR (Non-Af Amer) BUN/Creatinine Ratio Glucose Calcium Total Protein (PEP) 6.2 Albumin (PEP) 2.5 L Afqdx-5-Tahsxpzas 0.3 Gujbq-5-Xiwhnnyxy 1.0 H Fkpn-9-Lcxzuece 0.4 Bdbw-4-Spvcbgzw 0.4 Gamma Globulins 1.6 Monoclonal Peak 3 DNR Ser Monoclonl Protein DNR Ser Monoclonal Prot 2 DNR PEP Interpretation SEE NOTE Urine Color Urine Appearance Urine pH Ur Specific [place] Urine Protein Urine Glucose (UA) Urine Ketones Urine Blood Urine Nitrite Urine Bilirubin Urine Urobilinogen Ur Leukocyte Esterase Urine WBC (Auto) Urine RBC (Auto) U Hyaline Cast (Auto) U Epithel Cells (Auto) Urine Bacteria (Auto) Ur Random Creatinine U Random Total Protein 156 H Ur Creatinine mg/dL 67 Protein/Creatinin Ratio 2328 H Urine Albumin (%) 60.69 U Vgiml-8-Ufafdpri (%) 6.25 U Sdbkq-1-Rdsfqsca (%) 4.47 U Beta Globulin (%) 11.47 U Gamma Globulin (%) 17.12 Urine PEP Interpret SEE NOTE JENNIFER Screen POSITIVE A JENNIFER Titer 1:40 A JENNIFER Titer 2 DNR JENNIFER Pattern SEE NOTE JENNIFER Pattern 2 DNR ANCA Negative Complement C3 103 Complement C4 26 Free [place] LC, Quant 166.9 H Free Lambda LC, Quant 95.4 H Free [place]/Lambda Ratio 1.75 H HCV RNA Qual (TMA) DETECTED A 08/07/19 08/07/19 08/07/19 06:12 Unknown Unknown WBC RBC Hgb Hct MCV MCH MCHC RDW Std Deviation RDW Coeff of Ayanna Plt Count MPV Immature Gran % (Auto) Neut % (Auto) Lymph % (Auto) [place] % (Auto) Eos % (Auto) Baso % (Auto) Immature Gran # (Auto) Neut # (Auto) Lymph # (Auto) Ellis # (Auto) Eos # (Auto) Baso # (Auto) Sodium 138 Potassium 4.7 Chloride 108 H Carbon Dioxide 21 Anion Gap 10.0 BUN 63 H Creatinine 3.08 H Est Cr Clr Drug Dosing 21.2 Est GFR ( Amer) 22.7 Est GFR (Non-Af Amer) 19.6 BUN/Creatinine Ratio 20.6 H Glucose 110 H Calcium 8.4 L Total Protein (PEP) Albumin (PEP) Enpki-9-Odvklfjuf Mmyyc-7-Duvexfkgs Bkee-1-Jakubfob Nlul-2-Wsictefj Gamma Globulins Monoclonal Peak 3 Ser Monoclonl Protein Ser Monoclonal Prot 2 PEP Interpretation Urine Color Yellow Urine Appearance Clear Urine pH 6.5 Ur Specific [place] 1.015 Urine Protein 2+ H Urine Glucose (UA) Negative Urine Ketones Negative Urine Blood 3+ H Urine Nitrite Negative Urine Bilirubin Negative Urine Urobilinogen Negative Ur Leukocyte Esterase Trace H Urine WBC (Auto) 1-5 Urine RBC (Auto) >30 H U Hyaline Cast (Auto) 1-5 U Epithel Cells (Auto) 20-30 H Urine Bacteria (Auto) Negative Ur Random Creatinine 101.0 U Random Total Protein 157.5 H Ur Creatinine mg/dL Protein/Creatinin Ratio 1.6 H Urine Albumin (%) U Iiknv-1-Oyvsinps (%) U Njhun-3-Semsskay (%) U Beta Globulin (%) U Gamma Globulin (%) Urine PEP Interpret JENNIFER Screen JNENIFER Titer JENNIFER Titer 2 JENNIFER Pattern JENNIFER Pattern 2 ANCA Complement C3 Complement C4 Free [place] LC, Quant Free Lambda LC, Quant Free [place]/Lambda Ratio HCV RNA Qual (TMA)
[2019-08-07] MEDS: MOMETASONE FUROATE 14 PUFF/1 INHALER INH SCH (21:32)
[2019-08-07] MEDS: TRAZODONE HCL 100 MG TAB PO SCH (21:33)
[2019-08-07] MEDS: TAMSULOSIN HCL 0.4 MG CAP PO SCH (21:33)
[2019-08-08 06:16] LABS: Basophils # (auto) 0.02 K/uL (0-0.2); Basophils % (auto) 0.5 %; Eosinophils # (auto) 0.23 K/uL (0-0.5); Eosinophils % (auto) 5.5 %; Hematocrit (blood only) 31.6 % (42-52); Hemoglobin 11.2 g/dL (14.0-18.0); Immature Granulocytes # (auto) 0.02 K/uL (0.00-0.02); Immature Granulocytes % (auto) 0.5 %; Lymphocytes # (auto) 1.57 K/uL (1.2-3.4); Lymphocytes % (auto) 37.4 %; Mean Corpuscular Hemoglobin 28.4 pg (25-34); Mean Corpuscular Hgb Conc 35.4 g/dL (32-36); Mean Corpuscular Volume 80.2 fL (80-100); Mean Platelet Volume 9.8 fL (7.4-10.4); Monocytes # (auto) 0.59 K/uL (0.11-0.59); Neutrophils # (auto) 1.77 K/uL (1.4-6.5); Neutrophils % (auto) 42.1 %; Platelet Count 188 K/uL (130-400); RDW Coefficient of Variation 14.2 % (11.5-14.5); RDW Standard Deviation 41.9 fL (36.4-46.3); Red Blood Count 3.94 M/uL (4.7-6.1)
[2019-08-08] MEDS: HEPARIN SOD 5,000 UNIT/0.5 ML VIAL SQ SCH ×3 (06:33→21:00)
[2019-08-08 06:46] LABS: BUN Creatinine Ratio 21.5 (10-20); Calcium 8.7 mg/dl (8.5-10.1); Creatinine Clr Calc Pharmacy 21.2 ml/min; Est GFR (African American) 22.8; Est GFR (Non-African American) 19.7; Potassium 4.8 mmol/L (3.5-5.1)
--- NOTE | 2019-08-08 08:05 | Nephrology Progress Note ---
Date of Service August 08, 2019 Assessment & Plan (1) Acute kidney injury superimposed on chronic kidney disease: baseline creatinine in [facility] records 1.7 as of spring 2018; presented 07/31 w/ creatinine 2.4; peaked at 3.6; chemistries acceptable; Cr hovering low 3's; on presentation had 4.7 gm proteinuria today despite w/ holding diuretics x 48 hrs, creatinine w/ no improvement today >>>I suspect this is natural progression of hypertensive nephrosclerosis; that is likeliest dx; however he could have had worsened renal function from secondary FSGS potentially from HCV tx (had injections he says last about 10-12 mos ago >> could be IFN?); or from hepatitis itself or (low on ddx) amyloidosis or other glomerular process; in that case, there may be targets for treatment. Unlikely that renal biopsy will change treatment BUT important to consider (and do recommend it) in event that we have a finding which could be treated/reversed. pt aware and willing to do renal bx -he is at high risk to need dialysis in next 12-36 mos; none needed now -agree w/ holding enalapril and diuretics -daily bmp -No need for fluid restriction for now -strict I/O -rechecked urine studies> proteinuria down to 1.6 gm now (2) Nephrotic syndrome: Improving. 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 (if this is what he had for HCV) -proteinuria further improved w/ diuresis, bp control despite no acei to 1.6 gm daily -proteinuria w/u pending >> spep, upep, Hep C >> HCV Ab +HCV RNA present; kappa lambda elevation not clinically significant in renal failure w/ ratio <2; HIV neg, complement and anca negative; hep B negative; JENNIFER + and anti DS DNA and anti histone Ab are pending but not likely to be positive; cryos pending -advanced liver disease and/or diastolic HF may well have role in vol OL as well Present on Admission?: Yes (3) Hypertension: Blood pressure is still on higher side, even for in hospital >>>>increased metoprolol to 75 mg XL daily -cont hydralazine 50 mg tid >>>>changed nifedipine for amlodipine 10 mg daily (his OP med) now that edema better (4) Hepatitis C infection: HCV Ab is positive prelim; HCV RNA qualitatively positive; pt reported has been getting recent/active tx and was about to change to po meds for this just before admission; -need further w/u or/and outside records (5) Acute diastolic heart failure: TTE w/ severe CLVH and pEF. amyloidosis (low) on differential; to dx this would need biopsy of fat pad, kidney, heart or cardiac MRI; would await further serologic work up or consider renal bx (6) Abnormal liver diagnostic imaging: April 2019 liver imaging at [facility] w/ and w/o IV con >> "heterogenous liver enhancement w/ likely multiple perfusion anomalies; in addition focal area of hyperenhancement... may represent flash filling hemangioma." >recommend getting outside records of w/u of these findings prior to admission; may need GI eval here depending on prior w/u >>>important for renal care/ consideration of bx to know if he had interferon t herapy for HCV (7) Mass of left inguinal region: longstanding (or at least present on April imaging); imaging suggests "encysted hydrocele;" urology has evaluated Subjective seen on rounds this evenign; still w/ bull; breathing w/o issues; edema remains much better. he can't remember what he was treated w/ for HCV >>injections last one he thinks a year ago to "slow its transformation." no rash, no PIPER Review of Systems Review of Systems: All systems reviewed & are unremarkable except as noted in HPI & below Physical Exam Constitutional: well developed, well nourished and cooperative on RA in bed Eyes: EOM intact bilaterally ENMT: Ears: no external ear abnormality Nose: no external nose abnormality Mouth: + dry oral mucous membranes Neck: no nuchal rigidity Respiratory: normal respiratory effort Auscultation: lungs clear to auscultation bilaterally and + diminished lung sounds Cardiovascular: RRR, no murmur, no edema Gastrointestinal (Abdomen): Inspection/Auscultation: normal bowel sounds Percussion/Palpation: abdomen soft; abdomen nontender Musculoskeletal: Extremities: strength 5/5 throughout Skin: no rashes, warm and dry Psychiatric: A+Ox3, euthymic affect Speech: normal rate/rhythm/volume of speech Genitourinary: bull present Results & Data Vital Signs (Past 12 Hours) Vital Signs Temp Pulse Pulse Resp BP Pulse Ox 10/29/19 07:12 36.7 C 67 20 169/74 H 94 08/08/19 03:38 74 08/08/19 03:10 36.9 C 69 20 149/63 H 94 08/07/19 23:15 36.9 C 70 19 141/64 H 93 08/07/19 21:30 75 147/62 H Laboratory Results 08/08/19 06:06 08/08/19 06:06 (1) Hepatitis C infection Hepatic coma status: without hepatic coma Viral hepatitis chronicity: chronic Qualified Code(s): B18.2 - Chronic viral hepatitis C (2) Hypertension Hypertension type: essential hypertension Qualified Code(s): I10 - Essential (primary) hypertension
[2019-08-08] MEDS: LORATADINE 10 MG TAB PO SCH (08:26)
[2019-08-08] MEDS: HydrALAZINE TAB 50 MG TAB PO SCH ×3 (08:27→20:59)
[2019-08-08] MEDS: ASPIRIN 81 MG ECTAB PO SCH (08:27)
[2019-08-08] MEDS: LIDOCAINE 5% 1 PATCH TD SCH (08:29)
[2019-08-08] MEDS: METOPROLOL SUCC 25MG EXT REL TAB PO SCH (09:18)
[2019-08-08] MEDS: AMLODIPINE BESYLATE 5 MG TAB PO SCH (09:19)
--- NOTE | 2019-08-08 20:04 | Hospitalist Progress Note ---
Date of Service August 08, 2019 Assessment & Plan (1) Acute decompensated heart failure: Acute decompensated heart failure with preserved LVEF ( diastolic dysfunction ) per Dr. Ortega notes: This is a 68-year-old male from [facility] with a PMH of CKD 3, hypertension and BPH who presents with shortness of breath and diffuse swelling x5 days and was found to have AI on CKD and new onset CHF. -SOB and diffuse edema to legs, scrotum and abdomen x 5 days - -Chest x-ray with diffuse bilateral parenchymal infiltrative changes versus components of congestive failure. BNP elevated at 2232 -- Lasix held patient euvolemic, crea up to 3.5 , now staying at 3.0 monitor crea --Nephrology on board renal biopsy recommended, discussed with Titus Ha, informed with interventional radiologist, they are finalizing final ointment scheduled for next (2) Acute kidney injury superimposed on chronic kidney disease: Cr elevated at 2.4 (last Cr in system of 1.7 in December 2018) Nephrotic syndrome being considered crea increased to 3.5, Lasix held, and now weaning at 3 Monitor closely (3) Acute respiratory failure with hypoxia: respiratory status improved Initially hypoxic to 88% on room air but oxygen improved to 92% on 2 L nasal cannula --weaned off from O2 -Does not require home O2 -Continue supplemental O2 PRN (4) Hypertension: - ECHO shows severe LV hypertrophy /indicative of hypertensive cardiac disease On Hydralazine, Nifedipine, Metoprolol -- improving, monitor (5) BPH (benign prostatic hyperplasia): Continue tamsulosin Currently on Garay catheter for urinary retention (6) Insomnia: cont Trazodone CODE status : full code DVT PROPHYLAXIS : sub heparin Dispo: Admitted to [facility]. [facility]charge planning [facility]. Subjective Follow-up for CHF, acute renal failure Seen resting in bed, comfortable, not in distress No shortness of breath, no chest pain No problems with Garay catheter Denies pain No other symptoms Review of Systems Review of Systems: All systems reviewed & are unremarkable except as noted in HPI & below Physical Exam Physical Exam: General- oriented x 3, not in distress, speaks in sentences with no effort or accessory muscle use Eyes- anicteric Neck- no JVD Lungs- clear breath sounds bilaterally, no crackles Heart- normal rate, regular rhythm; no murmurs Abdomen- normal bowel sounds, nondistended, soft, nontender Extremities-trace pretibial edema, no calf tenderness Neuro- alert, oriented x 3; no gross focal neurologic deficits Skin- warm & dry Results & Data Vital Signs (Past 12 Hours) Vital Signs Temp Pulse Pulse Resp BP BP Pulse Ox 08/08/19 19:34 37 C 65 19 159/73 H 96 08/08/19 15:08 36.7 C 69 21 159/59 H 96 08/08/19 15:00 66 08/08/19 11:21 36.5 C 62 18 159/72 H 97 Laboratory Results Laboratory Results - last 24 hr 08/08/19 08/08/19 08/08/19 06:06 06:06 06:06 WBC 4.20 L RBC 3.94 L Hgb 11.2 L Hct 31.6 L MCV 80.2 MCH 28.4 MCHC 35.4 RDW Std Deviation 41.9 RDW Coeff of Ayanna 14.2 Plt Count 188 MPV 9.8 Immature Gran % (Auto) 0.5 Neut % (Auto) 42.1 Lymph % (Auto) 37.4 Stanton % (Auto) 14.0 Eos % (Auto) 5.5 Baso % (Auto) 0.5 Immature Gran # (Auto) 0.02 Neut # (Auto) 1.77 Lymph # (Auto) 1.57 Stanton # (Auto) 0.59 Eos # (Auto) 0.23 Baso # (Auto) 0.02 Sodium 140 Potassium 4.8 Chloride 110 H Carbon Dioxide 22 Anion Gap 8.0 BUN 66 H Creatinine 3.07 H Est Cr Clr Drug Dosing 21.2 Est GFR ( Amer) 22.8 Est GFR (Non-Af Amer) 19.7 BUN/Creatinine Ratio 21.5 H Glucose 96 Calcium 8.7 Cryoglobulin Pending Cryoglobulin Cryocrit Pending (1) Hypertension Hypertension type: essential hypertension Qualified Code(s): I10 - Essential (primary) hypertension
[2019-08-08] MEDS: TRAZODONE HCL 100 MG TAB PO SCH (20:59)
[2019-08-08] MEDS: TAMSULOSIN HCL 0.4 MG CAP PO SCH (20:59)
[2019-08-08] MEDS: MOMETASONE FUROATE 14 PUFF/1 INHALER INH SCH (21:01)
[2019-08-09] MEDS: HEPARIN SOD 5,000 UNIT/0.5 ML VIAL SQ SCH ×2 (06:15→14:07)
[2019-08-09 07:16] LABS: Calcium 8.9 mg/dl (8.5-10.1); Creatinine Clr Calc Pharmacy 21.9 ml/min; Est GFR (African American) 23.7; Est GFR (Non-African American) 20.4; Potassium 4.9 mmol/L (3.5-5.1)
[2019-08-09] MEDS: LIDOCAINE 5% 1 PATCH TD SCH (07:52)
[2019-08-09] MEDS: AMLODIPINE BESYLATE 5 MG TAB PO SCH (07:53)
[2019-08-09] MEDS: HydrALAZINE TAB 50 MG TAB PO SCH ×3 (07:53→14:07)
[2019-08-09] MEDS: METOPROLOL SUCC 25MG EXT REL TAB PO SCH (07:53)
[2019-08-09] MEDS: ASPIRIN 81 MG ECTAB PO SCH (07:53)
[2019-08-09] MEDS: LORATADINE 10 MG TAB PO SCH (07:53)
--- NOTE | 2019-08-09 08:35 | Nephrology Progress Note ---
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 Unlikely that renal biopsy will change treatment BUT important to consider (and do recommend it) in event that we have a finding which could be treated/reversed. pt aware and willing to do renal bx -he is at high risk to need dialysis in next 12-36 mos; none needed now -agree w/ holding enalapril and diuretics -daily bmp -No need for fluid restriction for now -he has urinary retention >> has bull; defer to hospitalist when to attempt voiding trial; no indication this affects renal function currently -strict I/O -rechecked urine studies> proteinuria down to 1.6 gm now >>CKD clinic follow up is scheduled for 08/23/19 at [facility] at 1020 w/ Dr Carlo Rossi >>>>check bmp q Wednesday and FAX to me at [phone] >>>>they need to FAX hx of his HCV treatment to me at same fax # as above >>>they need to FAX labs (CMP, CBC, any urine tests) from the past 12 months to me at fax # as above >>Care coordinated w/ Annamaria Nava and Idalia (2) Nephrotic syndrome: Improving. 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 (if this is what he had for HCV) -proteinuria further improved w/ diuresis, bp control despite no acei to 1.6 gm daily -proteinuria w/u pending >> spep, upep, Hep C >> HCV Ab +HCV RNA present; kappa lambda elevation not clinically significant in renal failure w/ ratio <2; HIV neg, complement and anca negative; hep B negative; JENNIFER + and anti DS DNA and anti histone Ab are pending but not likely to be positive; cryos pending -advanced liver disease and/or diastolic HF may well have role in vol OL as well (3) Hypertension: Blood pressure is still on higher side, even for in hospital >>>>cont metoprolol to 75 mg XL daily -increased hydralazine to 75 mg tid >>>>cont amlodipine 10 mg daily -started lasix 40 mg daily (4) Hepatitis C infection: HCV Ab is positive prelim; HCV RNA qualitatively positive; pt reported has been getting recent/active tx and was about to change to po meds for this just before admission; -need further w/u or/and outside records (5) Acute diastolic heart failure: TTE w/ severe CLVH and pEF. amyloidosis (low) on differential; to dx this would need biopsy of fat pad, kidney, heart or cardiac MRI; would await further serologic work up or consider renal bx (6) Abnormal liver diagnostic imaging: April 2019 liver imaging at [facility] w/ and w/o IV con >> "heterogenous liver enhancement w/ likely multiple perfusion anomalies; in addition focal area of hyperenhancement... may represent flash filling hemangioma." >recommend getting outside records of w/u of these findings prior to admission; may need GI eval here depending on prior w/u >>>important for renal care/ consideration of bx to know if he had interferon therapy for HCV (7) Mass of left inguinal region: longstanding (or at least present on April imaging); imaging suggests "encysted hydrocele;" urology has evaluated Subjective no c/o of sob, chest pain, digestive concerns, poor po, rash. still w/ bull. edema controlled Review of Systems Review of Systems: All systems reviewed & are unremarkable except as noted in HPI & below Physical Exam Constitutional: well developed, well nourished and cooperative Eyes: EOM intact bilaterally ENMT: Ears: no external ear abnormality Nose: no external nose abnormality Mouth: + dry oral mucous membranes Neck: no nuchal rigidity Respiratory: normal respiratory effort Auscultation: lungs clear to auscultation bilaterally and + diminished lung sounds Cardiovascular: RRR, no murmur, no edema Rate/Rhythm: regular rate and regular rhythm Extremities: + edema (at most trace BL pedal) Gastrointestinal (Abdomen): Inspection/Auscultation: normal bowel sounds Percussion/Palpation: abdomen soft; abdomen nontender Musculoskeletal: Extremities: strength 5/5 throughout Skin: no rashes, warm and dry Psychiatric: A+Ox3, euthymic affect Speech: normal rate/rhythm/volume of speech Results & Data Vital Signs (Past 12 Hours) Vital Signs Temp Pulse Pulse Resp BP BP Pulse Ox 08/09/19 07:53 64 08/09/19 07:02 36.6 C 57 L 18 162/70 H 96 08/09/19 03:21 37.0 C 60 17 150/63 H 96 08/08/19 23:13 37.0 C 75 20 168/69 H 94 08/08/19 22:20 70 Laboratory Results 08/08/19 06:06 08/09/19 06:05 (1) Hepatitis C infection Hepatic coma status: without hepatic coma Viral hepatitis chronicity: chronic Qualified Code(s): B18.2 - Chronic viral hepatitis C (2) Hypertension Hypertension type: essential hypertension Qualified Code(s): I10 - Essential (primary) hypertension
[2019-08-09] MEDS ORDERED: FUROSEMIDE 40 MG TAB PO SCH (09:00)
--- NOTE | 2019-08-09 12:52 | Hospitalist Progress Note ---
Date of Service August 09, 2019 Assessment & Plan (1) Acute decompensated heart failure: Acute decompensated heart failure with preserved LVEF ( diastolic dysfunction ) per Dr. Ortega notes: This is a 68-year-old male from [facility] with a PMH of CKD 3, hypertension and BPH who presents with shortness of breath and diffuse swelling x5 days and was found to have AI on CKD and new onset CHF. -presented with SOB and diffuse edema to legs, scrotum and abdomen x 5 days - -Chest x-ray with diffuse bilateral parenchymal infiltrative changes versus components of congestive failure. BNP elevated at 2232 --Last Remodeler Repairer and ratoprinter consulted --Placed on Lasix IV, with good diuresis --Lasix was held in light of increasing creatinine, up to 3.5 For holding Lasix, creatinine improved and plateaued to 3.0 --Discharge plan: Lasix 40 mg daily Repeat basic metabolic profile on Wednesday, August 14, 2019, please fax results to Dr. Amira Urena, [facility] ratoprinter, fax number is [phone] Please fax to [place] laboratory results within the past 12 months as well including CBC, CMP, urine studies will also need to follow-up with ratoprinter at [facility] on August 23, 2019, with Dr. Rossi at 10:20 AM --We will need to be referred to a natural gas trader for follow-up as well (2) Acute kidney injury superimposed on chronic kidney disease: Likely hypertensive nephrosclerosis, possible nephrotic syndrome On admission, Cr elevated at 2.4 (last Cr in system of 1.7 in December 2018) Nephrotic syndrome being considered With diuresis, Crea increased to 3.5, Lasix held, and now stable at 3.0 Serologies ordered: JENNIFER positive, double-stranded DNA and his stone [id number] CyroGlobulins [id number] ANCA negative, HIV negative Discharge plan: Lasix 40 mg daily Repeat basic metabolic profile on Wednesday, August 14, 2019, please fax results to Dr. Amira Urena, [facility] ratoprinter, fax number is [phone] We will also need to follow-up with ratoprinter at [facility] on August 23, 2019, with Dr. Rossi at 10:20 AM Patient also is recommended to have renal biopsy at [facility] care of Dr. He at the interventional radiology department, next , August 17, 2019 The department will be calling the [facility] for final confirmation of schedule, please follow-up with [facility], interventional radiology department, care of JERRELL Whittington (3) Acute respiratory failure with hypoxia: respiratory status improved Initially hypoxic to 88% on room air but oxygen improved to 92% on 2 L nasal cannula --weaned off from O2 -Does not require home O2 -Continue supplemental O2 PRN (4) Hypertension: -- ECHO shows severe LV hypertrophy /indicative of hypertensive cardiac disease On Hydralazine, Nifedipine, Metoprolol -- improving, continue to monitor closely (5) Urinary retention: (6) Mass of left inguinal region: (7) BPH (benign prostatic hyperplasia): Currently on Garay catheter for urinary retention, trial of voiding in 1 to 2 days Continue tamsulosin Follow-up with Doni ramírez urologist Dr. Dexter Trujillo on August 22, 2019 at 1:30 PM (8) Hepatitis C infection: April 2019 liver imaging at [facility] w/ and w/o IV con >> "heterogenous liver enhancement w/ likely multiple perfusion anomalies; in addition focal area of hyperenhancement... may represent flash filling hemangioma." -- Further management as an outpatient Please fax records as well to ratoprinter Dr. Amira Chao [facility] ratoprinter, fax number is [phone] (9) Insomnia: cont Trazodone Disposition: Follow-up with [facility] ratoprinter, [facility] urologist as outlined above Follow-up for renal biopsy care of interventional radiology at [facility] as outlined above Refer to natural gas trader Case and plan of care discussed with Dr. Garcia [facility] physician, yesterday and this morning All questions answered Subjective Follow-up for heart failure diastolic type, acute renal failure, hypertension Seen resting in bed, comfortable, not in distress, in good spirits States he feels fine overall Denies chest pain, shortness of breath, palpitations, dizziness Denies pain Agreeable for discharge today Review of Systems Review of Systems: All systems reviewed & are unremarkable except as noted in HPI & below Physical Exam Physical Exam: General- oriented x 3, not in distress, speaks in sentences with no effort or accessory muscle use Eyes- anicteric Neck- no JVD Lungs- clear breath sounds bilaterally, no crackles, no wheezing, no rhonchi bilaterally Heart- normal rate, regular rhythm; no murmurs Abdomen- normal bowel sounds, nondistended, soft, nontender Extremities-trace pretibial edema, no calf tenderness Neuro- alert, oriented x 3; no gross focal neurologic deficits Skin- warm & dry Results & Data Vital Signs (Past 12 Hours) Vital Signs Temp Pulse Pulse Resp BP BP Pulse Ox 08/09/19 11:28 36.7 C 59 L 18 136/63 98 08/09/19 09:00 58 L 08/09/19 07:53 64 08/09/19 07:02 36.6 C 57 L 18 162/70 H 96 08/09/19 03:21 37.0 C 60 17 150/63 H 96 Laboratory Results Laboratory Results - last 24 hr 08/09/19 06:05 Sodium 138 Potassium 4.9 Chloride 109 H Carbon Dioxide 21 Anion Gap 7.0 BUN 66 H Creatinine 2.98 H Est Cr Clr Drug Dosing 21.9 Est GFR ( Amer) 23.7 Est GFR (Non-Af Amer) 20.4 BUN/Creatinine Ratio 22.0 H Glucose 93 Calcium 8.9 (1) Hypertension Hypertension type: essential hypertension Qualified Code(s): I10 - Essential (primary) hypertension (2) Hepatitis C infection Viral hepatitis chronicity: chronic Hepatic coma status: without hepatic coma Qualified Code(s): B18.2 - Chronic viral hepatitis C
--- NOTE | 2019-08-09 13:15 | Discharge Summary ---
Date of Service August 09, 2019 Admission HPI Per Admitting Provider This is a 68-year-old male from [facility] with a PMH of CKD 3, hypertension and BPH who presents with shortness of breath and diffuse swelling x5 days. Patient first noted swelling in lower legs but progressed into groin as well as arms and hands. Patient has been progressively dyspneic for the past few days but feel short of breath even at rest. Denies any fever, chills, chest pain, palpitations or wheezing. No sore throat, cough or sputum production. Endorses some weight gain due to swelling but is not sure how much. Denies any orthopnea or PND. Denies any history of formal CHF diagnosis but takes Lasix daily for lower extremity swelling. Has been told he has had kidney disease ever since he arrived at [facility]. Initially, patient hypoxic to 88% on room air but oxygen improved to 92% on 2 L nasal cannula. Does not require home O2. BP elevated at 172/74. proBNP elevated at 2232. Chest x-ray with diffuse bilateral parenchymal infiltrative changes versus components of congestive failure. Creatinine elevated at 2.4 (last Cr in system of 1.7 in December 2018). Most recent 2D echo from 2018 with mild concentric LVH, preserved EF: 65-70%, grade 1 diastolic dysfunction. Admission Exam Per Admitting Provider General- oriented x 3, not in distress, speaks in sentences with no effort or accessory muscle use Eyes- anicteric Neck- no JVD Lungs- clear breath sounds bilaterally, no crackles, no wheezing, no rhonchi bilaterally Heart- normal rate, regular rhythm; no murmurs Abdomen- normal bowel sounds, nondistended, soft, nontender Extremities-trace pretibial edema, no calf tenderness Neuro- alert, oriented x 3; no gross focal neurologic deficits Skin- warm & dry Principal Diagnosis ACUTE DIASTOLIC CONGESTIVE HEART FAILURE EXACERBATION, ACUTE RENAL FAILURE Discharge Exam General- oriented x 3, not in distress, speaks in sentences with no effort or accessory muscle use Eyes- anicteric Neck- no JVD Lungs- clear breath sounds bilaterally, no crackles, no wheezing, no rhonchi bilaterally Heart- normal rate, regular rhythm; no murmurs Abdomen- normal bowel sounds, nondistended, soft, nontender Extremities-trace pretibial edema, no calf tenderness Neuro- alert, oriented x 3; no gross focal neurologic deficits Skin- warm & dry Discharge Data Allergies Allergy/AdvReac Type Severity Reaction Status Date / Time No Known Drug Allergies Allergy Unknown . Verified 07/31/19 11:50 Consultations 07/31/19 13:17 ED Decision to Admit Stat 07/31/19 15:30 Consult Cardiology Routine Consult Case Management - Discharge Planning Routine Consult Nephrology Routine 08/02/19 11:12 Consult Urology Routine 08/06/19 08:57 Consult Health Information Management Routine Procedures Performed Echocardiogram Severe concentric LVH Ejection fraction 55 to 60% Right ventricular systolic function is normal Left Atrial size is normal Right atrial size is normal Mild aortic regurgitation Mild pulmonic valvular regurgitation Mild mitral regurgitation Mild tricuspid regurgitation Ordered Studies XR chest 1V portable CLINICAL HISTORY: Dyspnea dyspnea COMPARISON STUDY: 12/16/2018 FINDINGS: Moderate cardiomegaly. Bilateral parenchymal infiltrative change. Small left pleural effusion. Very slight blunting right lateral costophrenic angle. IMPRESSION: Diffuse bilateral parenchymal infiltrative change versus components of congestive failure. Hospital Course (1) Acute decompensated heart failure: Acute decompensated heart failure with preserved LVEF ( diastolic dysfunction ) per Dr. Ortega notes: This is a 68-year-old male from [facility] with a PMH of CKD 3, hypertension and BPH who presents with shortness of breath and diffuse swelling x5 days and was found to have AI on CKD and new onset CHF. -presented with SOB and diffuse edema to legs, scrotum and abdomen x 5 days - -Chest x-ray with diffuse bilateral parenchymal infiltrative changes versus components of congestive failure. BNP elevated at 2232 Echocardiogram: Severe concentric LVH Ejection fraction 55 to 60% Right ventricular systolic function is normal Left Atrial size is normal Right atrial size is normal Mild aortic regurgitation Mild pulmonic valvular regurgitation Mild mitral regurgitation Mild tricuspid regurgitation --[employer]ior [employer] and supervisor gelatin plant consulted --Placed on Lasix IV, with good diuresis --Lasix was held in light of increasing creatinine, up to 3.5 For holding Lasix, creatinine improved and plateaued to 3.0 --Discharge plan: Lasix 40 mg daily Repeat basic metabolic profile on Wednesday, August 14, 2019, please fax results to Dr. Amira Urena [facility] supervisor gelatin plant, fax number is [phone] Please fax to [facility] laboratory results within the past 12 months as well including CBC, CMP, urine studies will also need to follow-up with supervisor gelatin plant at [facility] on August 23, 2019, with Dr. oRssi at 10:20 AM --We will need to be referred to a pit shoveler for follow-up as well (2) Acute kidney injury superimposed on chronic kidney disease: Likely hypertensive nephrosclerosis, possible nephrotic syndrome On admission, Cr elevated at 2.4 (last Cr in system of 1.7 in December 2018) Nephrotic syndrome being considered With diuresis, Crea increased to 3.5, Lasix held, and now stable at 3.0 Serologies ordered: JENNIFER positive, double-stranded DNA and his stone [id number] CyroGlobulins [id number] ANCA negative, HIV negative Discharge plan: Lasix 40 mg daily Repeat basic metabolic profile on Wednesday, August 14, 2019, please fax results to Dr. Amira Urena, [facility] supervisor gelatin plant, fax number is [phone] We will also need to follow-up with supervisor gelatin plant at [facility] on August 23, 2019, with Dr. Rossi at 10:20 AM Patient also is recommended to have renal biopsy at [facility] care of Dr. He at the interventional radiology department, next August The department will be calling the [facility] for final confirmation of schedule, please follow-up with [facility], interventional radiology department, care of JERRELL Whittington (3) Acute respiratory failure with hypoxia: respiratory status improved Initially hypoxic to 88% on room air but oxygen improved to 92% on 2 L nasal cannula --weaned off from O2 -Does not require home O2 -Continue supplemental O2 PRN (4) Hypertension: -- ECHO shows severe LV hypertrophy /indicative of hypertensive cardiac disease On Hydralazine, Nifedipine, Metoprolol -- improving, continue to monitor closely (5) Urinary retention: (6) Mass of left inguinal region: (7) BPH (benign prostatic hyperplasia): Currently on Garay catheter for urinary retention, trial of voiding in 1 to 2 days Continue tamsulosin Follow-up with [facility] physicians group urologist Dr. Dexter Trujillo on August 22, 2019 at 1:30 PM (8) Hepatitis C infection: April 2019 liver imaging at [facility] w/ and w/o IV con >> "heterogenous liver enhancement w/ likely multiple perfusion anomalies; in addition focal area of hyperenhancement... may represent flash filling hemangioma." -- Further management as an outpatient Please fax records as well to supervisor gelatin plant Dr. Amira Qureshi supervisor gelatin plant, fax number is [phone] (9) Insomnia: cont Trazodone Disposition: Follow-up with [facility] supervisor gelatin plant, [facility] physicians group urologist as outlined above Follow-up for renal biopsy care of interventional radiology at [facility] as outlined above Refer to pit shoveler Case and plan of care discussed with Dr. Garcia [facility] physician, yesterday and this morning All questions answered Total Time Total Time Spent Total Time Spent (In Minutes): 70 minutes Discharge Plan Discharge Items [facility] Disposition[facility] Reason For Visit: SOB, VOLUME OVERLOAD Discharge Diagnosis: ACUTE DIASTOLIC CONGESTIVE HEART FAILURE EXACERBATION, ACUTE RENAL FAILURE Activity: As commented below Activity Comment: Resume activity gradually as tolerated Lifting: Wait until after follow-up appointment Exercise/Sports: Wait until after follow-up appointment Non-emergency contact: Primary Care Provider, Vp Biology and Urologist Call non-emergency contact if: you have any medication questions, your symptoms worsen, your pain is not controlled and you have a fever Follow-up/Referrals: Dexter Trujillo II, DO [Physician] - 08/22/19 1:30 pm Carlo Rossi MD [Surgeon] - 08/23/19 10:20 am Matthew CONLEY [Primary Care Provider] - Diet: Heart Healthy Addtl Attending Provider Instructions: PLEASE REFER TO [facility] DISCHARGE SUMMARY FOR ALL DETAILS. Pending Studies at Discharge: Yes Studies:: PLEASE REFER TO [facility] DISCHARGE SUMMARY FOR ALL DETAILS. Stand-Alone Forms: My [employer]Up, Smoking Cessation Skilled Items Patient informed of condition?: Yes Discharge Level of Care: Other Communicable Disease: No Discharge Prognosis: Stable Lines: None Urinary Catheter: Yes Medications and DC Order Prescriptions: New amlodipine [Norvasc] 5 mg Tablet 10 mg PO QAM 30 Days Qty: 60 RF: 0 hydralazine 50 mg Tablet 75 mg PO TID 30 Days Qty: 135 RF: 0 metoprolol succinate 25 mg Tablet Extended Release 24 Hr 75 mg PO DAILY 30 Days Qty: 90 RF: 0 furosemide [Lasix] 40 mg Tablet 40 mg PO QAM 30 Days Qty: 30 RF: 0 Continued tamsulosin 0.4 mg Capsule 0.4 mg PO HS RF: 0 aspirin 81 mg Tablet,Chewable 81 mg PO DAILY RF: 0 trazodone 100 mg Tablet 100 mg PO HS RF: 0 loratadine 10 mg Tablet 10 mg PO DAILY RF: 0 levalbuterol tartrate [Xopenex HFA] 45 mcg/actuation Hfa Aerosol Inhaler 2 inh INHALATION QID PRN (Reason: Shortness Of Breath) RF: 0 Alvesco 160 mcg/actuation Hfa Aerosol Inhaler 1 puff INHALATION BID RF: 0 Discontinued enalapril maleate 20 mg Tablet 20 mg PO BID RF: 0 metoprolol succinate 25 mg Capsule,Sprinkle,Er 24hr 25 mg PO DAILY RF: 0 hydralazine 25 mg tablet 25 mg PO BID Qty: 60 RF: 0 Discharge Orders: Discharge Order (Routine); Ordered 08/09/19 Ordered By: Navid Friedman Admission Data Admit Date/Time: 07/31/19 13:54 Attending Provider: Mercy Nava I. Admit Provider: Alexi Ulloa [facility] Other Providers: Alexi Ulloa ; Manuel Phan ; Amira Urena ; Radha Ortega ; Laurent Thomas I. ; Navid Friedman
[2019-08-10] MEDS ORDERED: FUROSEMIDE 40 MG TAB PO SCH (09:00)
[2019-08-13 20:39] LABS: Anti-Histone Ab 4.2 U (<1.0)
[2019-08-14 18:57] LABS: % Cryocrit DNR; Cryoglobulin, QL Negative (Negative)
== END 2019-08-09 14:19 | DRG 291 ==
LOC: ED 11:07 → SUATTDRO 13:54 → 2W 13:54

== ENCOUNTER 2019-11-09 10:52 | Inpatient (IN) ==
[2019-11-09] MEDS ORDERED: FUROSEMIDE 40 MG/4 ML VIAL IV STA (12:20)
[2019-11-09] MEDS ORDERED: ALBUT/IPRATROP 3MG/0.5MG NEB 3 ML VIAL NEB ONE (12:21)
[2019-11-09 12:27] LABS: Basophils # (auto) 0.02 K/uL (0-0.2); Basophils % (auto) 0.3 %; Eosinophils # (auto) 0.01 K/uL (0-0.5); Eosinophils % (auto) 0.1 %; Hematocrit (blood only) 33.5 % (42-52); Hemoglobin 11.9 g/dL (14.0-18.0); Immature Granulocytes # (auto) 0.01 K/uL (0.00-0.02); Immature Granulocytes % (auto) 0.1 %; Lymphocytes # (auto) 0.83 K/uL (1.2-3.4); Lymphocytes % (auto) 11.9 %; Mean Corpuscular Hemoglobin 27.9 pg (25-34); Mean Corpuscular Hgb Conc 35.5 g/dL (32-36); Mean Corpuscular Volume 78.6 fL (80-100); Mean Platelet Volume 9.7 fL (7.4-10.4); Monocytes # (auto) 0.48 K/uL (0.11-0.59); Monocytes % (auto) 6.9 %; Neutrophils # (auto) 5.62 K/uL (1.4-6.5); Neutrophils % (auto) 80.7 %; Platelet Count 254 K/uL (130-400); RDW Coefficient of Variation 13.9 % (11.5-14.5); RDW Standard Deviation 39.5 fL (36.4-46.3); Red Blood Count 4.26 M/uL (4.7-6.1); White Blood Count 6.97 K/uL (4.8-10.8)
[2019-11-09 12:37] LABS: Albumin Globulin Ratio 0.5 (0.9-2); Albumin Level 2.8 gm/dl (3.4-5.0); BUN Creatinine Ratio 19.5 (10-20); Bilirubin,Total 0.3 mg/dl (0.2-1); Calcium 9.7 mg/dl (8.5-10.1); Creatinine Clr Calc Pharmacy 19.7 ml/min; Est GFR (Non-African American) 18.1; Globulin 5.7 gm/dl (2.5-4.0); Potassium 4.1 mmol/L (3.5-5.1); Total Protein 8.5 gm/dl (6.4-8.2)
[2019-11-09 12:40] LABS: INR 1.2 (0.9-1.1); Partial Thromboplastin Ratio 0.8; Partial Thromboplastin Time 21.1 Seconds (21.0-31.0); Prothrombin Time 11.7 Seconds (9.0-12.0)
[2019-11-09 12:41] LABS: Creatine Kinase MB 1.6 ng/ml (0.5-3.6); Troponin I 0.02 ng/ml (0-0.045)
[2019-11-09] MEDS ORDERED: ACETAMINOPHEN 1,000 MG/100 ML VIAL IV STA (13:01)
--- NOTE | 2019-11-09 13:04 | XRay Report ---
XR chest 1V portable HISTORY: 69 years-old Male Chest Pain acute atypical chest pain COMPARISON: Chest radiograph 07/31/2019 and 12/16/2018 TECHNIQUE: Portable AP view of the chest FINDINGS: Cardiac silhouette is mildly enlarged, unchanged. Calcified plaque of the thoracic aorta arch. No ove rt pulmonary edema. Mild asymmetric right hilar prominence with subtle ill-defined midlung opacities. No pneumothorax, or large pleural effusion. There is suggested emphysema with hyperinflation. Degene rative changes of the shoulders and spine. IMPRESSION: 1. Cardiomegaly without overt pulmonary edema. 2. Suggested emphysema with ill-defined midlung opacities suggestive of scarring. Pneumonitis is also within the differential. ACT 112: Negative or not required by law. The above report was generated using voice recognition software. It may contain grammatical, syntax o r spelling errors. Electronically signed by: Levy Gibbs M.D. 11/09/2019 1:02 PM
[2019-11-09 13:52] LABS: Influenza A virus by PCR Neg for Influ A (Neg); Influenza B virus by PCR Neg for Influ B (Neg)
--- NOTE | 2019-11-09 13:53 | CT Scan Report ---
CT chest wo con CT DOSE: 1256.14 mGy.cm HISTORY: Pt c/o emesis TECHNIQUE: Multiaxial CT images of the chest were performed without contrast. A dose lowering techni que was utilized adhering to the principles of ALARA. COMPARISON: None. FINDINGS: Lungs are considered clear. 7 mm nodule left lung base. Emphysematous change throughout. Several blebs throughout both hemithoraces. Moderate atherosclerotic change thoracic aorta. No evidence for aneurysm. Small pericardial effusion. Maximum thickness is 6 mm. The thoracic spine shows no evidence for compr ession deformity. IMPRESSION: 1. Emphysematous change. 2. No acute process the chest. 3. 7 mm nodule left lung base with appropriate follow-up recommended. Please refer to below summary of Fleischner criteria recommendations for follow-up of incidental CT n odules (Rani Luna, Guidelines for management of small pulmonary nodules detected on CT scans: A sta tement from the Fleischner Society, Radiology 237: [phone].) SOLID NODULES Solitary nodule size: <6 mm * low risk patients: no follow-up needed * high risk patients: optional CT at 12 months Solitary nodule size: 6-8 mm * low risk patients: follow-up at 6-12 months, then consider further follow-up at 18-24 months * high risk patients: initial follow-up CT at 6-12 months and then at 18-24 months if no change Solitary nodule size: >8 mm * either low or high risk patients - consider follow-up CT at 3 months, and/or CT-PET, and/or biopsy Multiple nodules size: <6 mm * low risk patients: no routine follow-up * high risk patients: optional CT at 12 months Multiple nodules size: 6-8 mm * low risk patients: follow-up at 3-6 months, then consider further follow-up at 18-24 months * high risk patients: follow-up at 3-6 months, then at 18-24 months if no change Multiple nodules size: >8 mm * low risk patients: follow-up at 3-6 months, then consider further follow-up at 18-24 months * high risk patients: follow-up at 3-6 months, then at 18-24 months if no change Note: newly detected indeterminate nodule in persons 35 years of age or older. * low risk patients: minimal or absent history of smoking and/or other known risk factors * high risk patients: history of smoking or of other known risk factors (e.g. first degree relative with lung cancer, or exposure to asbestos, radon, uranium) * if a nodule up to 8 mm is partly solid or is ground glass further follow-up is required after 24 m onths to exclude possible slow growing adenocarcinoma (LAKESHA) SUBSOLID NODULES Solitary pure ground-glass nodule * nodule size <6 mm - no CT follow-up required * nodule size >=6 mm - follow-up CT at 6-12 months, then every 2 years until 5 years Solitary part-solid nodule * nodule size <6 mm - no CT follow-up required * nodule size >=6 mm - follow-up CT at 3-6 months. If unchanged, and solid component remains <6 mm, then annual follow-up for 5 years Multiple subsolid nodules * nodule size <6 mm - follow-up CT at 3-6 months, consider further follow-up at 2 and 4 years if sta ble * nodule size >=6 mm - follow-up CT at 3-6 months, subsequent management based on the most suspiciou s nodule(s) ACT 112: Negative or not required by law. The above report was generated using voice recognition software. It may contain grammatical, syntax or spelling errors. Electronically signed by: Luis Fernando Delgadillo M.D. 11/09/2019 1:51 PM
--- NOTE | 2019-11-09 13:54 | CT Scan Report ---
CT cervical spine wo con CT DOSE: HISTORY: Pain. Neuropathy. Pt c/o neck pain TECHNIQUE: Multiaxial CT images of the cervical spine were performed and reformatted in the sagittal and coronal plane without the use of contrast. A dose lowering technique was utilized adhering to th e principles of ALARA. COMPARISON: None. FINDINGS: Severe degenerative disc changes throughout the entire cervical region. Reversal of the nor mal cervical curvature. Significant anterior and posterior osteophytic formation. Partially calcified bulging discs at virtually all levels. Degenerative change of the C1-C2 complex. IMPRESSION: 1. Considerable degenerative change. 2. No acute process. ACT 112: Negative or not required by law. The above report was generated using voice recognition software. It may contain grammatical, syntax or spelling errors. Electronically signed by: Luis Fernando Delgadillo M.D. 11/09/2019 1:53 PM
[2019-11-09] MEDS ORDERED: NITROGLYCERIN 2% OINTMENT 30GM TUBE EXT STA (13:55)
[2019-11-09] MEDS ORDERED: GI COCKTAIL ED USE PO ONE (13:55)
[2019-11-09] MEDS ORDERED: SODIUM CHLORIDE 0.9% 1000ML 500 ML IV ONE (13:55)
[2019-11-09] MEDS ORDERED: METOCLOPRAMIDE HCL INJ 5 MG/ML 2 ML VIAL IV ONE (13:55)
[2019-11-09] MEDS ORDERED: FAMOTIDINE 40 MG TABLET PO ONE (13:55)
[2019-11-09] MEDS ORDERED: SUCRALFATE 1 GM TAB PO STA (13:55)
[2019-11-09] MEDS ORDERED: GLUCAGON 1 MG in SYRINGE 0 ML IV STA (13:55)
--- NOTE | 2019-11-09 14:08 | CT Scan Report ---
CT SCAN OF THE ABDOMEN AND PELVIS WITHOUT CONTRAST CLINICAL HISTORY: Diffuse abdominal pain COMPARISON STUDY: No previous studies for comparison. TECHNIQUE: CT scan of the abdomen and pelvis was performed from the lung bases to the proximal femurs . Images are reviewed in the axial, sagittal, and coronal planes. IV contrast was not administered fo r this examination. A dose lowering technique was utilized adhering to the principles of ALARA. CT DOSE: FINDINGS: Lower chest: There is severe pulmonary emphysema. There is respiratory motion artifact. There is a sm all pericardial effusion. Liver: The unenhanced liver is normal in size, contour, and attenuation. There is no intrahepatic jamshid iary ductal dilatation. Gallbladder: Unremarkable. Spleen: Normal in size and attenuation. Pancreas: Unremarkable. Adrenal glands: There is mild bilateral adrenal gland thickening Kidneys: There are multiple bilateral renal cysts. 5.9 cm upper pole right renal cyst demonstrates pe ripheral rim calcification. There is a 2 mm lower pole right renal calculus. There is no hydronephros is. Bowel: There are no transition zones indicate bowel obstruction. There is colonic diverticulosis. The re is no evidence of acute diverticulitis. The visualized portions of the appendix appear normal. Peritoneum: There is no intraperitoneal free air or abdominal ascites. Vasculature: There is no evidence of abdominal aortic aneurysm. There are moderately extensive athero matous calcifications within the aorta iliac vessels. Adenopathy: None. Pelvic viscera: Prostate is prominent. There are multiple bladder diverticula present. There is an en cysted hydrocele within the left inguinal canal.. Skeletal structures: No destructive osseous lesions are seen. There is an L5-S1 disc protrusion. Ther e is multilevel spinal stenosis. IMPRESSION: 1. Examination limited due to lack of intravenous and oral contrast 2. No evidence of bowel obstruction. No evidence of free air 3. No acute inflammatory changes 4. Bilateral renal cysts 5. 2 mm lower pole right renal calculus. No hydronephrosis. No ureteral calculi identified. 6. Multiple bladder diverticula ACT 112: Electronically signed by: Ulysses Pereyra M.D. 11/09/2019 2:06 PM
[2019-11-09] MEDS ORDERED: GLUCAGON FOR INJ 1 MG VIAL ONE (14:11)
--- NOTE | 2019-11-09 15:37 | Emergency Department Note ---
Entered by Josefina Evangelista acting as a scribe for History of Present Illness General Chief complaint: Illness Time Seen by Provider: 11/09/19 11:32 Source: patient Mode of arrival: EMS History of Present Illness Onset (ago): day(s) 2 Location: right (flank) Pain Consistency: + other (persistent) Maximum Pain Intensity: 7 Quality: + sharp Exacerbated By: + other (pushing on abdomen) Associated symptoms: + nausea/vomiting and + other (abdominal pain, right sided neck pain) The patient is a 69 year old male presenting to the Emergency Department via EMS complaining of persistent flank pain starting 2 days ago. The patient reports that he has right sided flank pain. He describes this as a sharp pain. He states that he is nauseous and vomited 8 times yesterday. He explains that pushing on his abdomen worsens his pain. He notes that he keeps spitting up a brown sputum. He adds that the right side of his neck hurts. The patient reports that he resides in a correctional facility and has been seen at the [facility] for these same symptoms. He states that the [facility] called EMS earlier today to bring the patient into the hospital. He notes that he has had a hernia repair before but that this is his only known abdominal surgery. Home Medications Home Medications Medication Instructions Recorded Confirmed Type aspirin 81 mg PO DAILY 12/16/18 11/09/19 History tamsulosin 0.4 mg PO HS 12/16/18 11/09/19 History Alvesco 1 puff INHALATION BID 07/31/19 11/09/19 History levalbuterol tartrate [Xopenex HFA] 2 inh INHALATION QID PRN 07/31/19 11/09/19 History trazodone 100 mg PO HS 07/31/19 11/09/19 History acetaminophen 650 mg PO TID PRN 11/09/19 11/09/19 History baclofen 10 mg PO TID PRN 11/09/19 11/09/19 History bumetanide 0.5 mg PO 3XWK 11/09/19 11/09/19 History elbasvir-grazoprevir [Zepatier] 1 tab PO DAILY 11/09/19 11/09/19 History hydralazine 50 mg PO TID 11/09/19 11/09/19 History hydrochlorothiazide 25 mg PO DAILY 11/09/19 11/09/19 History ipratropium-albuterol 3 ml INHALATION QID 11/09/19 11/09/19 History isosorbide dinitrate 20 mg PO BID 11/09/19 11/09/19 History levofloxacin 500 mg PO DAILY 11/09/19 11/09/19 History vitamin A and D 1 applic TOPICAL BID PRN 11/09/19 11/09/19 History Allergies Allergy/AdvReac Type Severity Reaction Status Date / Time No Known Drug Allergies Allergy Unknown . 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 and A total of 10 systems reviewed and were otherwise negative Physical Exam Vital Signs Vital Signs - 24 hr 11/09/19 11:02 11/09/19 11:03 11/09/19 11:05 Temperature 36.6 C Temperature Source Oral Pulse Rate 58 L 56 L 54 L Pulse Rate [Apical] Pulse Rate from SpO2 Sensor 54 L Pulse Rhythm Regular Pulse Strength Normal Respiratory Rate 14 15 17 Respiratory Effort / Characteristics Non-Labored Spontaneous Respiratory Depth Normal Respiratory Pattern Regular Blood Pressure 223/102 H 223/102 H Blood Pressure Mean 160 142 Blood Pressure Position Lying Pulse Oximetry 99 100 Oxygen Delivery Method Nasal Cannula Oxygen Flow Rate 2 Sepsis Recent Fever Within 48 Hours No Sepsis Action Taken by Nursing No Action Required 11/09/19 11:15 11/09/19 11:30 11/09/19 11:31 Temperature Temperature Source Pulse Rate 68 64 53 L Pulse Rate [Apical] Pulse Rate from SpO2 Sensor 61 67 54 L Pulse Rhythm Pulse Strength Respiratory Rate 16 13 14 Respiratory Effort / Characteristics Respiratory Depth Respiratory Pattern Blood Pressure 201/94 H Blood Pressure Mean 123 Blood Pressure Position Pulse Oximetry 100 100 100 Oxygen Delivery Method Oxygen Flow Rate Sepsis Recent Fever Within 48 Hours Sepsis Action Taken by Nursing 11/09/19 11:40 11/09/19 11:45 11/09/19 11:46 Temperature Temperature Source Pulse Rate 56 L 59 L 55 L Pulse Rate [Apical] Pulse Rate from SpO2 Sensor 58 L 56 L Pulse Rhythm Regular Pulse Strength Respiratory Rate 18 24 Respiratory Effort / Characteristics Respiratory Depth Respiratory Pattern Blood Pressure 194/81 H Blood Pressure Mean 108 Blood Pressure Position Pulse Oximetry 99 100 100 Oxygen Delivery Method Nasal Cannula Oxygen Flow Rate 2 Sepsis Recent Fever Within 48 Hours Sepsis Action Taken by Nursing 11/09/19 12:00 11/09/19 12:01 11/09/19 12:15 Temperature Temperature Source Pulse Rate 64 81 64 Pulse Rate [Apical] Pulse Rate from SpO2 Sensor 62 78 66 Pulse Rhythm Pulse Strength Respiratory Rate 16 15 18 Respiratory Effort / Characteristics Respiratory Depth Respiratory Pattern Blood Pressure 187/80 H 199/74 H Blood Pressure Mean 94 120 Blood Pressure Position Pulse Oximetry 100 100 100 Oxygen Delivery Method Oxygen Flow Rate Sepsis Recent Fever Within 48 Hours Sepsis Action Taken by Nursing 11/09/19 12:16 11/09/19 12:30 11/09/19 12:31 Temperature Temperature Source Pulse Rate 64 56 L 58 L Pulse Rate [Apical] Pulse Rate from SpO2 Sensor 67 57 L 59 L Pulse Rhythm Pulse Strength Respiratory Rate 15 16 17 Respiratory Effort / Characteristics Respiratory Depth Respiratory Pattern Blood Pressure 190/73 H Blood Pressure Mean 145 Blood Pressure Position Pulse Oximetry 100 100 99 Oxygen Delivery Method Oxygen Flow Rate Sepsis Recent Fever Within 48 Hours Sepsis Action Taken by Nursing 11/09/19 12:39 11/09/19 12:45 11/09/19 12:46 Temperature Temperature Source Pulse Rate 52 L 53 L Pulse Rate [Apical] 58 L Pulse Rate from SpO2 Sensor 53 L 53 L Pulse Rhythm Pulse Strength Respiratory Rate 20 11 L 14 Respiratory Effort / Characteristics Respiratory Depth Respiratory Pattern Blood Pressure 212/72 H Blood Pressure Mean 90 Blood Pressure Position Pulse Oximetry 100 100 100 Oxygen Delivery Method Nasal Cannula Oxygen Flow Rate 2 Sepsis Recent Fever Within 48 Hours Sepsis Action Taken by Nursing 11/09/19 13:00 11/09/19 13:01 11/09/19 13:15 Temperature Temperature Source Pulse Rate 67 58 L 58 L Pulse Rate [Apical] Pulse Rate from SpO2 Sensor 63 59 L 59 L Pulse Rhythm Pulse Strength Respiratory Rate 15 17 16 Respiratory Effort / Characteristics Respiratory Depth Respiratory Pattern Blood Pressure 178/81 H Blood Pressure Mean 102 Blood Pressure Position Pulse Oximetry 100 100 100 Oxygen Delivery Method Oxygen Flow Rate Sepsis Recent Fever Within 48 Hours Sepsis Action Taken by Nursing 11/09/19 13:16 11/09/19 13:47 11/09/19 13:48 Temperature Temperature Source Pulse Rate 59 L 98 H 100 H Pulse Rate [Apical] Pulse Rate from SpO2 Sensor 63 100 H 91 H Pulse Rhythm Pulse Strength Respiratory Rate 16 18 21 Respiratory Effort / Characteristics Respiratory Depth Respiratory Pattern Blood Pressure 198/69 H 222/97 H Blood Pressure Mean 126 138 Blood Pressure Position Pulse Oximetry 100 93 92 Oxygen Delivery Method Oxygen Flow Rate Sepsis Recent Fever Within 48 Hours Sepsis Action Taken by Nursing 11/09/19 14:00 11/09/19 14:01 11/09/19 14:15 Temperature Temperature Source Pulse Rate 87 83 83 Pulse Rate [Apical] Pulse Rate from SpO2 Sensor 87 82 84 Pulse Rhythm Pulse Strength Respiratory Rate 24 21 25 H Respiratory Effort / Characteristics Respiratory Depth Respiratory Pattern Blood Pressure 198/82 H 213/94 H Blood Pressure Mean 140 148 Blood Pressure Position Pulse Oximetry 93 98 91 Oxygen Delivery Method Oxygen Flow Rate Sepsis Recent Fever Within 48 Hours Sepsis Action Taken by Nursing 11/09/19 14:16 11/09/19 14:30 11/09/19 14:31 Temperature Temperature Source Pulse Rate 90 82 88 Pulse Rate [Apical] Pulse Rate from SpO2 Sensor 87 80 86 Pulse Rhythm Pulse Strength Respiratory Rate 18 21 23 Respiratory Effort / Characteristics Respiratory Depth Respiratory Pattern Blood Pressure 197/80 H Blood Pressure Mean 136 Blood Pressure Position Pulse Oximetry 92 97 97 Oxygen Delivery Method Oxygen Flow Rate Sepsis Recent Fever Within 48 Hours Sepsis Action Taken by Nursing 11/09/19 14:44 11/09/19 14:45 11/09/19 14:46 Temperature Temperature Source Pulse Rate 78 90 98 H Pulse Rate [Apical] Pulse Rate from SpO2 Sensor 81 89 Pulse Rhythm Pulse Strength Respiratory Rate 21 15 15 Respiratory Effort / Characteristics Respiratory Depth Respiratory Pattern Blood Pressure 215/103 H 184/91 H Blood Pressure Mean 162 111 Blood Pressure Position Pulse Oximetry 97 97 Oxygen Delivery Method Oxygen Flow Rate Sepsis Recent Fever Within 48 Hours Sepsis Action Taken by Nursing 11/09/19 15:00 11/09/19 15:01 11/09/19 15:15 Temperature Temperature Source Pulse Rate 82 92 H 79 Pulse Rate [Apical] Pulse Rate from SpO2 Sensor 82 90 81 Pulse Rhythm Pulse Strength Respiratory Rate 18 17 19 Respiratory Effort / Characteristics Respiratory Depth Respiratory Pattern Blood Pressure 212/79 H 194/82 H Blood Pressure Mean 119 145 Blood Pressure Position Pulse Oximetry 96 97 98 Oxygen Delivery Method Oxygen Flow Rate Sepsis Recent Fever Within 48 Hours Sepsis Action Taken by Nursing 11/09/19 15:16 Temperature Temperature Source Pulse Rate 75 Pulse Rate [Apical] Pulse Rate from SpO2 Sensor 78 Pulse Rhythm Pulse Strength Respiratory Rate 12 Respiratory Effort / Characteristics Respiratory Depth Respiratory Pattern Blood Pressure Blood Pressure Mean Blood Pressure Position Pulse Oximetry 97 Oxygen Delivery Method Oxygen Flow Rate Sepsis Recent Fever Within 48 Hours Sepsis Action Taken by Nursing GENERAL: Spitting clear fluid into an emesis bag. Awake, alert, well-appearing, in no acute distress HENT: Normocephalic, atraumatic. Oropharynx unremarkable. EYES: Normal conjunctiva. Sclera non-icteric. NECK: Supple. No nuchal rigidity. FROM. No JVD. RESPIRATORY: Clear to auscultation. CARDIAC: Regular rate, normal rhythm. Extremities warm and well perfused. Pulses equal. ABDOMEN: RLQ abdominal pain. Soft, non-distended. No rebound or guarding. No masses. RECTAL: Deferred. MUSCULOSKELETAL: Chest examination reveals no tenderness. The back is symmetrical on inspection without obvious abnormality. There is no CVA tenderness to palpation. No joint edema. LOWER EXTREMITIES: Calves are equal size bilaterally and non-tender. No edema. No discoloration. NEURO: Normal sensorium. No sensory or motor deficits noted. SKIN: No rash or jaundice noted. Course Course 1215: The patient was evaluated in room C5, and a complete history and physical examination were performed. 1324: I reevaluated the patient at this time. 1410: I updated the patient on his imaging studies at this time. 1445: Upon my reevaluation, I discussed ramanaalexandrea's findings with him. He v erbalized agreement of the treatment plan. The patient was discharged home. Administered Medications Acetaminophen (Tylenol) 650 mg PO Q4H PRN PRN Reason: Pain or Fever Stop: 12/09/19 18:27 Last Admin: 11/12/19 08:16 Dose: 650 mg Documented by: [id number] Admin: 11/11/19 04:09 Dose: 650 mg Documented by: [id number] Admin: 11/10/19 08:13 Dose: 650 mg Documented by: [id number] Albuterol (Duoneb) 3 ml INH QIDR [facility] Stop: 12/12/19 18:59 Last Admin: 11/13/19 19:13 Dose: 3 ml Documented by: [id number] Admin: 11/13/19 15:12 Dose: 3 ml Documented by: [id number] Admin: 11/13/19 10:56 Dose: 3 ml Documented by: [id number] Admin: 11/13/19 06:59 Dose: 3 ml Documented by: [id number] Admin: 11/12/19 19:16 Dose: 3 ml Documented by: [id number] Amlodipine Besylate (Norvasc) 10 mg PO [facility] Stop: 12/13/19 08:59 Last Admin: 11/13/19 07:50 Dose: 10 mg Documented by: [id number] Carvedilol (Coreg) 12.5 mg PO BID [facility] Stop: 12/13/19 20:59 Last Admin: 11/13/19 20:47 Dose: 12.5 mg Documented by: [id number] Diazepam (Valium) 2 mg PO BID PRN PRN Reason: neck pain Stop: 12/13/19 12:36 Last Admin: 11/13/19 20:47 Dose: 2 mg Documented by: [id number] Elbasvir/Grazoprevir (Zepatier) 1 ea PO [facility] Stop: 12/10/19 12:59 Last Admin: 11/13/19 07:50 Dose: 1 ea Documented by: [id number] Admin: 11/12/19 08:09 Dose: 1 ea Documented by: [id number] Admin: 11/11/19 08:30 Dose: 1 ea Documented by: [id number] Admin: 11/10/19 14:54 Dose: 1 ea Documented by: [id number] Fluticasone Furoate (Arnuity Ellipta 200mcg) 1 puffs INH [facility] Stop: 12/10/19 08:59 Last Admin: 11/13/19 07:49 Dose: 1 puffs Documented by: [id number] Admin: 11/12/19 08:08 Dose: 1 puffs Documented by: [id number] Admin: 11/11/19 08:29 Dose: 1 puffs Documented by: [id number] Admin: 11/10/19 08:06 Dose: 1 puffs Documented by: [id number] Guaifenesin/Dextromethorphan (Robitussin Cough-Chest Dm) 10 ml PO Q6H PRN PRN Reason: Cough Stop: 12/12/19 18:13 Last Admin: 11/13/19 20:25 Dose: 10 ml Documented by: [id number] Admin: 11/13/19 15:27 Dose: 10 ml Documented by: [id number] Heparin Sodium (Porcine) (Heparin Sodium (Porcine)) 5,000 units SQ Q8 [facility] Stop: 12/13/19 05:59 Last Admin: 11/13/19 21:35 Dose: 5,000 units Documented by: [id number] Cosigned by: [id number] Admin: 11/13/19 13:02 Dose: 5,000 units Documented by: [id number] Cosigned by: [id number] Admin: 11/13/19 06:19 Dose: 5,000 units Documented by: [id number] Cosigned by: [id number] Hydralazine HCl (Apresoline) 75 mg PO TID [facility] Stop: 12/13/19 20:59 Last Admin: 11/13/19 20:47 Dose: 75 mg Documented by: [id number] Promethazine HCl 12.5 mg/ (Sodium Chloride) 50.5 mls @ 202 mls/hr IV Q6H PRN PRN Reason: Nausea And Vomiting Stop: 12/10/19 10:12 Last Infusion: 11/10/19 11:09 Dose: 0 mls/hr Documented by: [id number] Admin: 11/10/19 10:48 Dose: 202 mls/hr Documented by: [id number] Isosorbide Dinitrate (Isordil) 20 mg PO BID@0700,1200 [facility] Stop: 12/11/19 06:59 Last Admin: 11/13/19 11:20 Dose: 20 mg Documented by: [id number] Admin: 11/13/19 06:20 Dose: 20 mg Documented by: [id number] Admin: 11/12/19 11:33 Dose: 20 mg Documented by: [id number] Admin: 11/12/19 08:09 Dose: 20 mg Documented by: [id number] Admin: 11/11/19 11:37 Dose: 20 mg Documented by: [id number] Admin: 11/11/19 08:29 Dose: 20 mg Documented by: [id number] Ondansetron HCl (Zofran) 4 mg IV Q6H PRN PRN Reason: nausea Stop: 12/09/19 18:27 Last Admin: 11/10/19 08:23 Dose: 4 mg Documented by: [id number] Pantoprazole S[facility] (Protonix) [facility] Stop: 12/10/19 17:14 Last Admin: 11/13/19 07:50 Dose: 40 mg Documented by: [id number] Admin: 11/12/19 08:08 Dose: 40 mg Documented by: [id number] Admin: 11/11/19 08:30 Dose: 40 mg Documented by: [id number] Admin: 11/10/19 18:27 Dose: 40 mg Documented by: [id number] Tamsulosin HCl (Flomax) 0.4 mg PO [facility] Stop: 12/09/19 20:59 Last Admin: 11/13/19 20:47 Dose: 0.4 mg Documented by: [id number] Admin: 11/12/19 20:59 Dose: 0.4 mg Documented by: [id number] Admin: 11/11/19 19:45 Dose: 0.4 mg Documented by: [id number] Admin: 11/10/19 20:42 Dose: 0.4 mg Documented by: [id number] Admin: 11/09/19 20:26 Dose: 0.4 mg Documented by: [id number] Tramadol HCl (Ultram) 25 mg PO Q4H PRN PRN Reason: Pain Stop: 12/09/19 23:47 Last Admin: 11/10/19 20:50 Dose: 25 mg Documented by: [id number] Admin: 11/10/19 08:13 Dose: 25 mg Documented by: [id number] Admin: 11/10/19 04:38 Dose: 25 mg Documented by: [id number] Discontinued Medications Al Hydrox/Mg Hydrox/Simethicone () 1 dose PO ONE ONE Stop: 11/09/19 13:56 Last Admin: 11/09/19 14:34 Dose: 1 dose Documented by: [id number] Albuterol (Duoneb) 12 ml NEB ONE ONE Stop: 11/09/19 12:22 Last Admin: 11/09/19 12:36 Dose: 12 ml Documented by: [id number] Albuterol (Duoneb) 3 ml INH QIDR [facility] Stop: 12/09/19 19:29 Last Admin: 11/10/19 15:20 Dose: Not Given Documented by: [id number] Admin: 11/10/19 11:32 Dose: Not Given Documented by: [id number] Admin: 11/10/19 06:56 Dose: Not Given Documented by: [id number] Admin: 11/09/19 19:52 Dose: 3 ml Documented by: [id number] Amlodipine Besylate (Norvasc) 5 mg PO NOW ONE Stop: 11/09/19 18:29 Last Admin: 11/09/19 19:46 Dose: 5 mg Documented by: [id number] Amlodipine Besylate (Norvasc) 5 mg PO [facility] Stop: 12/10/19 08:59 Last Admin: 11/10/19 08:06 Dose: 5 mg Documented by: [id number] Amlodipine Besylate (Norvasc) 10 mg PO NOW STA Stop: 11/10/19 18:02 Last Admin: 11/10/19 18:28 Dose: 10 mg Documented by: [id number] Amlodipine Besylate (Norvasc) 5 mg PO [facility] Stop: 12/11/19 08:59 Last Admin: 11/12/19 08:09 Dose: 5 mg Documented by: [id number] Admin: 11/11/19 08:30 Dose: 5 mg Documented by: [id number] Baclofen (Lioresal) 10 mg PO NOW STA Stop: 11/09/19 23:49 Last Admin: 11/10/19 00:05 Dose: 10 mg Documented by: [id number] Baclofen (Lioresal) 10 mg PO TID PRN PRN Reason: neck pain Stop: 12/10/19 17:08 Last Admin: 11/13/19 07:53 Dose: 10 mg Documented by: [id number] Admin: 11/12/19 20:58 Dose: 10 mg Documented by: [id number] Admin: 11/12/19 14:09 Dose: 10 mg Documented by: [id number] Admin: 11/11/19 19:50 Dose: 10 mg Documented by: [id number] Clonidine HCl (Catapres) 0.1 mg PO NOW ONE Stop: 11/09/19 23:47 Last Admin: 11/10/19 00:05 Dose: 0.1 mg Documented by: [id number] Diazepam (Valium) 5 mg PO ONE ONE Stop: 11/13/19 13:01 Last Admin: 11/13/19 13:02 Dose: 5 mg Documented by: [id number] Famotidine (Pepcid) 40 mg PO NOW ONE Stop: 11/09/19 13:56 Last Admin: 11/09/19 14:34 Dose: 40 mg Documented by: [id number] Furosemide (Lasix) 40 mg IV NOW STA Stop: 11/09/19 12:21 Last Admin: 11/09/19 19:52 Dose: Not Given Documented by: [id number] Glucagon (Glucagen) Confirm Administered Dose 1 mg .ROUTE .STK-MED ONE Stop: 11/09/19 14:12 Last Admin: 11/09/19 14:35 Dose: Not Given Documented by: [id number] Hydralazine HCl (Hydralazine Hcl) 10 mg IV Q6H PRN PRN Reason: HTN Stop: 12/09/19 18:27 Last Admin: 11/10/19 23:17 Dose: 10 mg Documented by: [id number] Admin: 11/10/19 14:59 Dose: 10 mg Documented by: [id number] Admin: 11/10/19 11:15 Dose: 10 mg Documented by: [id number] Admin: 11/10/19 05:05 Dose: 10 mg Documented by: [id number] Hydralazine HCl (Apresoline) 50 mg PO TID [facility] Stop: 12/09/19 20:59 Last Admin: 11/13/19 13:02 Dose: 50 mg Documented by: [id number] Admin: 11/13/19 07:49 Dose: 50 mg Documented by: [id number] Admin: 11/12/19 20:59 Dose: 50 mg Documented by: [id number] Admin: 11/12/19 14:04 Dose: 50 mg Documented by: [id number] Admin: 11/12/19 08:08 Dose: 50 mg Documented by: [id number] Admin: 11/11/19 19:44 Dose: 50 mg Documented by: [id number] Admin: 11/11/19 13:50 Dose: 50 mg Documented by: [id number] Admin: 11/11/19 08:29 Dose: 50 mg Documented by: [id number] Admin: 11/10/19 20:41 Dose: 50 mg Documented by: [id number] Admin: 11/10/19 14:54 Dose: 50 mg Documented by: [id number] Admin: 11/10/19 08:06 Dose: 50 mg Documented by: [id number] Admin: 11/09/19 20:25 Dose: 50 mg Documented by: [id number] Hydralazine HCl (Hydralazine Hcl) 10 mg IV NOW STA Stop: 11/10/19 15:02 Last Admin: 11/10/19 15:02 Dose: Not Given Documented by: [id number] Hydralazine HCl (Hydralazine Hcl) 10 mg IV NOW STA Stop: 11/10/19 17:11 Last Admin: 11/10/19 17:16 Dose: 10 mg Documented by: [id number] Hydrochlorothiazide (Hctz) 25 mg PO DAILY RA Stop: 12/11/19 08:59 Last Admin: 11/13/19 07:50 Dose: 25 mg Documented by: [id number] Admin: 11/12/19 08:08 Dose: 25 mg Documented by: [id number] Admin: 11/11/19 08:29 Dose: 25 mg Documented by: [id number] Acetaminophen (Ofirmev) 1,000 mg in 100 mls @ 400 mls/hr IV NOW STA Stop: 11/09/19 13:15 Last Infusion: 11/09/19 14:00 Dose: 0 mls/hr Documented by: [id number] Admin: 11/09/19 13:45 Dose: 400 mls/hr Documented by: [id number] Sodium Chloride (Nss 1000ml) 500 mls @ 999 mls/hr IV .Q31M ONE Stop: 11/09/19 14:25 Last Infusion: 11/09/19 15:26 Dose: 0 mls/hr Documented by: [id number] Admin: 11/09/19 14:31 Dose: 999 mls/hr Documented by: [id number] Glucagon 1 mg/ Syringe 1 mls @ 1 mls/min IV NOW STA Stop: 11/09/19 13:56 Last Admin: 11/09/19 14:34 Dose: 1 mls/min Documented by: [id number] Pantoprazole Sodium 80 mg/ (Dextrose) 120 mls @ 480 mls/hr IV 1650 ONE Stop: 11/09/19 17:04 Last Infusion: 11/09/19 19:52 Dose: 0 mls/hr Documented by: [id number] Admin: 11/09/19 18:31 Dose: 480 mls/hr Documented by: [id number] Pantoprazole Sodium 40 mg/ (Dextrose) 100 mls @ 20 mls/hr IV Q5H RA Stop: 12/09/19 16:59 Last Admin: 11/10/19 14:12 Dose: Not Given Documented by: [id number] Infusion: 11/10/19 14:11 Dose: 0 mls/hr Documented by: [id number] Infusion: 11/10/19 11:57 Dose: 0 mls/hr Documented by: [id number] Admin: 11/10/19 08:06 Dose: 20 mls/hr Documented by: [id number] Infusion: 11/10/19 08:06 Dose: 20 mls/hr Documented by: [id number] Admin: 11/10/19 04:56 Dose: 20 mls/hr Documented by: [id number] Infusion: 11/10/19 04:55 Dose: 20 mls/hr Documented by: [id number] Admin: 11/09/19 23:55 Dose: 20 mls/hr Documented by: [id number] Infusion: 11/09/19 23:47 Dose: 20 mls/hr Documented by: [id number] Admin: 11/09/19 18:47 Dose: 20 mls/hr Documented by: [id number] Sodium Chloride (Nss 1000ml) 1,000 mls @ 100 mls/hr IV .Q10H RA Stop: 12/09/19 18:27 Last Infusion: 11/10/19 23:02 Dose: 0 mls/hr Documented by: [id number] Infusion: 11/10/19 19:05 Dose: 0 mls/hr Documented by: [id number] Admin: 11/10/19 16:37 Dose: 100 mls/hr Documented by: [id number] Infusion: 11/10/19 16:37 Dose: 100 mls/hr Documented by: [id number] Infusion: 11/10/19 14:54 Dose: 100 mls/hr Documented by: [id number] Infusion: 11/10/19 11:57 Dose: 0 mls/hr Documented by: [id number] Admin: 11/10/19 04:58 Dose: 100 mls/hr Documented by: [id number] Infusion: 11/10/19 04:58 Dose: 100 mls/hr Documented by: [id number] Admin: 11/09/19 19:46 Dose: 100 mls/hr Documented by: [id number] Labetalol HCl (Normodyne) 20 mg IV NOW STA Stop: 11/10/19 17:57 Last Admin: 11/10/19 18:33 Dose: 20 mg Documented by: [id number] Cosigned by: [id number] Metoclopramide HCl (Reglan) 5 mg IV ONE ONE Stop: 11/09/19 13:56 Last Admin: 11/09/19 14:34 Dose: 5 mg Documented by: [id number] Morphine Sulfate (Morphine Sulfate) 2 mg IV Q4 PRN PRN Reason: Pain Stop: 11/24/19 08:41 Last Admin: 11/10/19 09:27 Dose: 2 mg Documented by: [id number] Nitroglycerin (Nitro-Bid 2%) 1 inch EXT NOW STA Stop: 11/09/19 13:56 Last Admin: 11/09/19 14:33 Dose: 1 inch Documented by: [id number] Elbasvir-Grazoprevir (Zepatier): Non- Formulary Patient's Own Med 1 ea PO QAM [facility] Stop: 12/09/19 21:59 Last Admin: 11/10/19 08:07 Dose: Not Given Documented by: [id number] Admin: 11/09/19 21:47 Dose: 1 tab Documented by: [id number] Ondansetron HCl (Zofran) 4 mg IV NOW STA Stop: 11/09/19 16:03 Last Admin: 11/09/19 16:50 Dose: 4 mg Documented by: [id number] Ondansetron HCl (Zofran) 4 mg IV ONCE PRN PRN Reason: PACU Use Only-Nausea/Vomiting Stop: 11/10/19 16:56 Last Admin: 11/10/19 13:09 Dose: 4 mg Documented by: [id number] Sucralfate (Carafate Tab) 1 gm PO NOW STA Stop: 11/09/19 13:56 Last Admin: 11/09/19 14:34 Dose: 1 gm Documented by: [id number] Medical Decision Making Differential Diagnosis Differential diagnoses includes but is not limited to gastritis, peptic ulcer disease, GERD, gallbladder disease, pancreatitis, small bowel obstruction, acute coronary syndrome, pericarditis, ischemic bowel, irritable bowel disease, irritable bowel syndrome, appendicitis, diverticulitis, malignancy, hernia, urinary tract infection, torsion, perforation, trauma, infectious. Medical Records Attestation: I reviewed the patient's medical records. Home Medications Current Medication List: was personally reviewed by me Laboratory Data Attestation: I reviewed the patient's lab results. Result diagrams: 11/13/19 06:12 11/13/19 06:12 Lab Results 11/09/19 11/09/19 11/09/19 Range/Units 11:28 11:28 11:28 WBC 6.97 (4.8-10.8) K/uL RBC 4.26 L (4.7-6.1) M/uL Hgb 11.9 L (14.0-18.0) g/dL Hct 33.5 L (42-52) % MCV 78.6 L (80-100) fL MCH 27.9 (25-34) pg MCHC 35.5 (32-36) g/dL RDW Std Deviation 39.5 (36.4-46.3) fL RDW Coeff of Ayanna 13.9 (11.5-14.5) % Plt Count 254 (130-400) K/uL MPV 9.7 (7.4-10.4) fL Immature Gran % (Auto) 0.1 % Neut % (Auto) 80.7 % Lymph % (Auto) 11.9 % [place] % (Auto) 6.9 % Eos % (Auto) 0.1 % Baso % (Auto) 0.3 % Immature Gran # (Auto) 0.01 (0.00-0.02) K/uL Neut # (Auto) 5.62 (1.4-6.5) K/uL Lymph # (Auto) 0.83 L (1.2-3.4) K/uL [place] # (Auto) 0.48 (0.11-0.59) K/uL Eos # (Auto) 0.01 (0-0.5) K/uL Baso # (Auto) 0.02 (0-0.2) K/uL PT 11.7 (9.0-12.0) Seconds INR 1.2 H (0.9-1.1) APTT 21.1 (21.0-31.0) Seconds PTT Ratio 0.8 Sodium 139 (136-145) mmol/L Potassium 4.1 (3.5-5.1) mmol/L Chloride 106 (98-107) mmol/L Carbon Dioxide 26 (21-32) mmol/L Anion Gap 7.0 (3-11) BUN 64 H (7-18) mg/dl Creatinine 3.27 H (0.6-1.4) mg/dl Est Cr Clr Drug Dosing 19.7 ml/min Est GFR ( Amer) 21.0 Est GFR (Non-Af Amer) 18.1 BUN/Creatinine Ratio 19.5 (10-20) Glucose 125 H (70-99) mg/dl Calcium 9.7 (8.5-10.1) mg/dl Total Bilirubin 0.3 (0.2-1) mg/dl AST 14 L (15-37) U/L ALT 10 L (12-78) U/L Alkaline Phosphatase 95 (45-117) U/L Total Creatine Kinase 74 (39-308) U/L CK-MB (CK-2) 1.6 (0.5-3.6) ng/ml CK/CKMB % Calc 2.2 (0-3.0) Troponin I 0.020 (0-0.045) ng/ml NT-Pro-B Natriuret Pep 565 (0-900) pg/ml Total Protein 8.5 H (6.4-8.2) gm/dl Albumin 2.8 L (3.4-5.0) gm/dl Globulin 5.7 H (2.5-4.0) gm/dl Albumin/Globulin Ratio 0.5 L (0.9-2) Lipase 67 L (73-393) U/L Nasal Screen MRSA (PCR) (Negative) Hepatitis C Ab Screen (Neg) Influenza Type A (PCR) (Neg) Influenza Type B (PCR) (Neg) 11/09/19 11/09/19 11/09/19 Range/Units 11:28 11:28 18:59 WBC (4.8-10.8) K/uL RBC (4.7-6.1) M/uL Hgb 11.2 L (14.0-18.0) g/dL Hct 31.8 L (42-52) % MCV (80-100) fL MCH (25-34) pg MCHC (32-36) g/dL RDW Std Deviation (36.4-46.3) fL RDW Coeff of Ayanna (11.5-14.5) % Plt Count (130-400) K/uL MPV (7.4-10.4) fL Immature Gran % (Auto) % Neut % (Auto) % Lymph % (Auto) % [place] % (Auto) % Eos % (Auto) % Baso % (Auto) % Immature Gran # (Auto) (0.00-0.02) K/uL Neut # (Auto) (1.4-6.5) K/uL Lymph # (Auto) (1.2-3.4) K/uL [place] # (Auto) (0.11-0.59) K/uL Eos # (Auto) (0-0.5) K/uL Baso # (Auto) (0-0.2) K/uL PT (9.0-12.0) Seconds INR (0.9-1.1) APTT (21.0-31.0) Seconds PTT Ratio Sodium (136-145) mmol/L Potassium (3.5-5.1) mmol/L Chloride (98-107) mmol/L Carbon Dioxide (21-32) mmol/L Anion Gap (3-11) BUN (7-18) mg/dl Creatinine (0.6-1.4) mg/dl Est Cr Clr Drug Dosing ml/min Est GFR ( Amer) Est GFR (Non-Af Amer) BUN/Creatinine Ratio (10-20) Glucose (70-99) mg/dl Calcium (8.5-10.1) mg/dl Total Bilirubin (0.2-1) mg/dl AST (15-37) U/L ALT (12-78) U/L Alkaline Phosphatase (45-117) U/L Total Creatine Kinase (39-308) U/L CK-MB (CK-2) (0.5-3.6) ng/ml CK/CKMB % Calc (0-3.0) Troponin I (0-0.045) ng/ml NT-Pro-B Natriuret Pep (0-900) pg/ml Total Protein (6.4-8.2) gm/dl Albumin (3.4-5.0) gm/dl Globulin (2.5-4.0) gm/dl Albumin/Globulin Ratio (0.9-2) Lipase (73-393) U/L Nasal Screen MRSA (PCR) (Negative) Hepatitis C Ab Screen Pos A (Neg) Influenza Type A (PCR) Neg for Influ A (Neg) Influenza Type B (PCR) Neg for Influ B (Neg) 11/09/19 11/10/19 11/10/19 Range/Units 21:30 05:46 05:46 WBC 5.82 (4.8-10.8) K/uL RBC 4.32 L (4.7-6.1) M/uL Hgb 11.9 L (14.0-18.0) g/dL Hct 34.0 L (42-52) % MCV 78.7 L (80-100) fL MCH 27.5 (25-34) pg MCHC 35.0 (32-36) g/dL RDW Std Deviation 39.6 (36.4-46.3) fL RDW Coeff of Ayanna 13.8 (11.5-14.5) % Plt Count 258 (130-400) K/uL MPV 9.8 (7.4-10.4) fL Immature Gran % (Auto) % Neut % (Auto) % Lymph % (Auto) % [place] % (Auto) % Eos % (Auto) % Baso % (Auto) % Immature Gran # (Auto) (0.00-0.02) K/uL Neut # (Auto) (1.4-6.5) K/uL Lymph # (Auto) (1.2-3.4) K/uL [place] # (Auto) (0.11-0.59) K/uL Eos # (Auto) (0-0.5) K/uL Baso # (Auto) (0-0.2) K/uL PT (9.0-12.0) Seconds INR (0.9-1.1) APTT (21.0-31.0) Seconds PTT Ratio Sodium 139 (136-145) mmol/L Potassium 3.7 (3.5-5.1) mmol/L Chloride 109 H (98-107) mmol/L Carbon Dioxide 24 (21-32) mmol/L Anion Gap 6.0 (3-11) BUN 55 H (7-18) mg/dl Creatinine 2.87 H D (0.6-1.4) mg/dl Est Cr Clr Drug Dosing 22.4 ml/min Est GFR ( Amer) 24.6 Est GFR (Non-Af Amer) 21.2 BUN/Creatinine Ratio 19.2 (10-20) Glucose 113 H (70-99) mg/dl Calcium 9.4 (8.5-10.1) mg/dl Total Bilirubin (0.2-1) mg/dl AST (15-37) U/L ALT (12-78) U/L Alkaline Phosphatase (45-117) U/L Total Creatine Kinase (39-308) U/L CK-MB (CK-2) (0.5-3.6) ng/ml CK/CKMB % Calc (0-3.0) Troponin I (0-0.045) ng/ml NT-Pro-B Natriuret Pep (0-900) pg/ml Total Protein (6.4-8.2) gm/dl Albumin (3.4-5.0) gm/dl Globulin (2.5-4.0) gm/dl Albumin/Globulin Ratio (0.9-2) Lipase (73-393) U/L Nasal Screen MRSA (PCR) Negative (Negative) Hepatitis C Ab Screen (Neg) Influenza Type A (PCR) (Neg) Influenza Type B (PCR) (Neg) Imaging Data Radiologist's Impression: Radiology results as stated below per my review and the radiologist's interpretation: CT cervical spine wo con CT DOSE: HISTORY: Pain. Neuropathy. Pt c/o neck pain TECHNIQUE: Multiaxial CT images of the cervical spine were performed and reformatted in the sagittal and coronal plane without the use of contrast. A dose lowering technique was utilized adhering to the principles of ALARA. COMPARISON: None. FINDINGS: Severe degenerative disc changes throughout the entire cervical region. Reversal of the normal cervical curvature. Significant anterior and posterior osteophytic formation. Partially calcified bulging discs at virtually all levels. Degenerative change of the C1-C2 complex. IMPRESSION: 1. Considerable degenerative change. 2. No acute process. ACT 112: Negative or not required by law. The above report was generated using voice recognition software. It may contain grammatical, syntax or spelling errors. Electronically signed by: Luis Fernando Delgadillo M.D. 11/09/2019 1:[address] chest wo con CT DOSE: 1256.14 mGy.cm HISTORY: Pt c/o emesis TECHNIQUE: Multiaxial CT images of the chest were performed without contrast. A dose lowering technique was utilized adhering to the principles of ALARA. COMPARISON: None. FINDINGS: Lungs are considered clear. 7 mm nodule left lung base. Emphysematous change throughout. Several blebs throughout both hemithoraces. Moderate atherosclerotic change thoracic aorta. No evidence for aneurysm. Small pericardial effusion. Maximum thickness is 6 mm. The thoracic spine shows no evidence for compression deformity. IMPRESSION: 1. Emphysematous change. 2. No acute process the chest. 3. 7 mm nodule left lung base with appropriate follow-up recommended. Please refer to below summary of Fleischner criteria recommendations for follow- up of incidental CT nodules (Rani Luna, Guidelines for management of small pulmonary nodules detected on CT scans: A statement from the Fleischner Society, Radiology 237: [id number].) SOLID NODULES Solitary nodule size: <6 mm * low risk patients: no follow-up needed * high risk patients: optional CT at 12 months Solitary nodule size: 6-8 mm * low risk patients: follow-up at 6-12 months, then consider further follow-up at 18-24 months * high risk patients: initial follow-up CT at 6-12 months and then at 18-24 months if no change Solitary nodule size: >8 mm * either low or high risk patients - consider follow-up CT at 3 months, and/or CT-PET, and/or biopsy Multiple nodules size: <6 mm * low risk patients: no routine follow-up * high risk patients: optional CT at 12 months Multiple nodules size: 6-8 mm * low risk patients: follow-up at 3-6 months, then consider further follow-up at 18-24 months * high risk patients: follow-up at 3-6 months, then at 18-24 months if no change Multiple nodules size: >8 mm * low risk patients: follow-up at 3-6 months, then consider further follow-up at 18-24 months * high risk patients: follow-up at 3-6 months, then at 18-24 months if no change Note: newly detected indeterminate nodule in persons 35 years of age or older. * low risk patients: minimal or absent history of smoking and/or other known risk factors * high risk patients: history of smoking or of other known risk factors (e.g. first degree relative with lung cancer, or exposure to asbestos, radon, uranium) * if a nodule up to 8 mm is partly solid or is ground glass further follow-up is required after 24 months to exclude possible slow growing adenocarcinoma (LAKESHA) SUBSOLID NODULES Solitary pure ground-glass nodule * nodule size <6 mm - no CT follow-up required * nodule size >=6 mm - follow-up CT at 6-12 months, then every 2 years until 5 years Solitary part-solid nodule * nodule size <6 mm - no CT follow-up required * nodule size >=6 mm - follow-up CT at 3-6 months. If unchanged, and solid component remains <6 mm, then annual follow-up for 5 years Multiple subsolid nodules * nodule size <6 mm - follow-up CT at 3-6 months, consider further follow-up at 2 and 4 years if stable * nodule size >=6 mm - follow-up CT at 3-6 months, subsequent management based on the most suspicious nodule(s) ACT 112: Negative or not required by law. The above report was generated using voice recognition software. It may contain grammatical, syntax or spelling errors. Electronically signed by: Luis Fernando Delgadillo M.D. 11/09/2019 1:[address] SCAN OF THE ABDOMEN AND PELVIS WITHOUT CONTRAST CLINICAL HISTORY: Diffuse abdominal pain COMPARISON STUDY: No previous studies for comparison. TECHNIQUE: CT scan of the abdomen and pelvis was performed from the lung bases to the proximal femurs. Images are reviewed in the axial, sagittal, and coronal planes. IV contrast was not administered for this examination. A dose lowering technique was utilized adhering to the principles of ALARA. CT DOSE: FINDINGS: Lower chest: There is severe pulmonary emphysema. There is respiratory motion artifact. There is a small pericardial effusion. Liver: The unenhanced liver is normal in size, contour, and attenuation. There is no intrahepatic biliary ductal dilatation. Gallbladder: Unremarkable. Spleen: Normal in size and attenuation. Pancreas: Unremarkable. Adrenal glands: There is mild bilateral adrenal gland thickening Kidneys: There are multiple bilateral renal cysts. 5.9 cm upper pole right renal cyst demonstrates peripheral rim calcification. There is a 2 mm lower pole right renal calculus. There is no hydronephrosis. Bowel: There are no transition zones indicate bowel obstruction. There is colonic diverticulosis. There is no evidence of acute diverticulitis. The visualized portions of the appendix appear normal. Peritoneum: There is no intraperitoneal free air or abdominal ascites. Vasculature: There is no evidence of abdominal aortic aneurysm. There are moderately extensive atheromatous calcifications within the aorta iliac vessels. Adenopathy: None. Pelvic viscera: Prostate is prominent. There are multiple bladder diverticula present. There is an encysted hydrocele within the left inguinal canal.. Skeletal structures: No destructive osseous lesions are seen. There is an L5-S1 disc protrusion. There is multilevel spinal stenosis. IMPRESSION: 1. Examination limited due to lack of intravenous and oral contrast 2. No evidence of bowel obstruction. No evidence of free air 3. No acute inflammatory changes 4. Bilateral renal cysts 5. 2 mm lower pole right renal calculus. No hydronephrosis. No ureteral calculi identified. 6. Multiple bladder diverticula ACT 112: Electronically signed by: Ulysses Pereyra M.D. 11/09/2019 2:06 PM XR chest 1V portable HISTORY: 69 years-old Male Chest Pain acute atypical chest pain COMPARISON: Chest radiograph 07/31/2019 and 12/16/2018 TECHNIQUE: Portable AP view of the chest FINDINGS: Cardiac silhouette is mildly enlarged, unchanged. Calcified plaque of the thoracic aorta arch. No overt pulmonary edema. Mild asymmetric right hilar prominence with subtle ill-defined midlung opacities. No pneumothorax, or large pleural effusion. There is suggested emphysema with hyperinflation. Degenerative changes of the shoulders and spine. IMPRESSION: 1. Cardiomegaly without overt pulmonary edema. 2. Suggested emphysema with ill-defined midlung opacities suggestive of scarring. Pneumonitis is also within the differential. ACT 112: Negative or not required by law. The above report was generated using voice recognition software. It may contain grammatical, syntax or spelling errors. Electronically signed by: Levy Gibbs M.D. 11/09/2019 1:02 PM ECG Data Attestation: I personally reviewed and interpreted this ECG as follows: Indication: + abdominal pain Rate (beats per minute): 53 Rhythm: + sinus bradycardia ECG Intervals/blocks: + Normal QT-c (QT-c 452. ) ECG ST segments: no ST depression and no ST elevation ECG Findings: + Other (Old septal infarct. ) Blood Pressure Blood Pressure Findings: Elevated blood pressure Blood Pressure Disposition: Referred to patients primary care provider OLGA Reed This is a 69-year-old male who presents emergency department complaining of cough and hypertension. Patient has a history of chronic kidney disease. He was given nitro for his hypertension. Repeat examination revealed improvement the patient's symptoms. Based on this I did discuss the case with the hospitalist service who did agree to admit the patient. Patient and caretakers were in agreement with the treatment plan. Impression & Plan Hypertension, Chronic hepatitis C, CKD (chronic kidney disease), stage IV, Arteriolar nephrosclerosis, Acute kidney injury superimposed on CKD, Hypertensive urgency, Intractable vomiting Discharge Plan Visit Data *Final* Discharge Date/Time: 11/09/19 17:15 Chief Complaint: Illness ED Provider: Walker Hudson Discharge Problem: Hypertension, Chronic hepatitis C, CKD (chronic kidney disease), stage IV, Arteriolar nephrosclerosis, Acute kidney injury superimposed on CKD, Hypertensive urgency, Intractable vomiting Patient Disposition: Admitted As Inpatient Discharge Instructions Interventions: ED Discharge Assessment Last Done: 11/09/19 17:15 Discharge Problem: Hypertension Qualifiers: Hypertension type: unspecified Qualified Code(s): I10 - Essential (primary) hypertension Chronic hepatitis C Qualifiers: Hepatic coma status: without hepatic coma Qualified Code(s): B18.2 - Chronic viral hepatitis C Intractable vomiting Qualifiers: Vomiting type: unspecified Nausea presence: unspecified Qualified Code(s): R11.10 - Vomiting, unspecified The scribe's documentation has been prepared under my direction and personally reviewed by me in its entirety. I confirm that the note above accurately reflects all work, treatment, procedures, and medical decision making performed by me.
[2019-11-09] MEDS ORDERED: ONDANSETRON INJ 2 MG/ML 2 ML VIAL IV STA (16:02)
[2019-11-09] MEDS ORDERED: PANTOprazole 80 MG in DEXTROSE 5% 100 ML IV ONE (16:50)
--- NOTE | 2019-11-09 17:33 | Electrocardiogram Report ---
Test Reason : Blood Pressure : / mmHG Vent. Rate : 053 BPM Atrial Rate : 053 BPM P-R Int : 164 ms QRS Dur : 094 ms QT Int : 482 ms P-R-T Axes : 083 003 048 degrees QTc Int : 452 ms Sinus bradycardia Minimal voltage criteria for LVH, may be normal variant possible Anteroseptal infarct (cited on or before 16-DEC-2018) Abnormal ECG When compared with ECG of 02-AUG-2019 11:22, Premature ventricular complexes are no longer Present Confirmed by Isaiah Hays ([id number]) on 11/09/2019 5:33:46 PM Referred By: [facility] Confirmed By:Michel Hays
[2019-11-09] MEDS ORDERED: AMLODIPINE BESYLATE 5 MG TAB PO ONE (18:28)
[2019-11-09] MEDS ORDERED: LEVALBUTEROL TARTRATE 15 GM HFA.AER.AD INH PRN (18:28)
[2019-11-09] MEDS ORDERED: ONDANSETRON INJ 2 MG/ML 2 ML VIAL IV PRN (18:28)
--- NOTE | 2019-11-09 18:43 | History & Physical Report ---
Date of Service November 09, 2019 Assessment & Plan (1) Acute kidney injury superimposed on CKD: (2) CKD (chronic kidney disease), stage IV: (3) Arteriolar nephrosclerosis: -admit to tele -Patient presenting from [facility] for evaluation of intractable vomiting -Detailed recent history as per HPI -In the ED, found to have creatinine 3.2 (baseline runs in the mid 2's, being 2.5 on 11/06 on [facility] labs) -Suspect worsening creatinine secondary to diuresis from treatment of CHF at [facility] in combination with GI losses from vomiting -will give gentle IVF given history of CHF -Hold Bumex and HCTZ -Patient had kidney biopsy 08/2019 and patient was evaluated with nephrology telemedicine at [facility], and as per [facility] physician, patient was diagnosed with arteriolar nephrosclerosis (4) Intractable vomiting: (5) Black stools: -Patient reporting black stools -Given high BUN, suspicious for upper GI bleed -Hgb stable at 11.9, will recheck later this evening -IV Protonix bolus and drip -N.p.o. -GI consult, case discussed with ANDRE Hall (6) Hypertensive urgency: -BP on presentation 223/102 -Treated with topical nitroglycerin in ED with improvement in BP -Patient previously on various antihypertensives as outlined in HPI; currently on hydralazine and isosorbide plus diuretics -will discontinue isosorbide in favor of amlodipine, monitoring for lower extremity edema; continue hydralazine 50 mg 3 times daily -PRN hydralazine (7) Chronic diastolic CHF (congestive heart failure): -Currently on the dry side with AI and vomiting -Holding Bumex for now (8) Chronic hepatitis C: -Continue Zepatier (9) BPH (benign prostatic hyperplasia): -Continue tamsulosin (10) DVT prophylaxis: -SCDs due to possible upper GI bleed History of Present Illness Chief Complaint: Vomiting Primary Care Provider: [facility] 69-year-old male who was sent from [facility] for evaluation of vomiting. History was obtained from physician at [facility]. He reports the patient was admitted to the [facility] about 1 week ago for management of CHF. Patient had lower extremity edema and rales on exam. CXR showed left pleural effusion and pulmonary congestion. Patient also had a telemedicine consult with nephrology the same day. His diuretics were changed from Lasix 40 mg daily to Bumex 1 mg daily and HCTZ 25 mg daily was added. Patient responded well to the diuretic change with his weight going from 171 pounds to 135 pounds. Chest x-ray had cleared as well. With the quick response of diuresis, Bumex was titrated down to 0.5 mg Fridays. Patient was also found to be hypertensive and hydralazine 25 mg 3 times daily was initially started and increased eventually to 50 mg 3 times daily. Isosorbide dinitrate 20 mg twice daily was also started to help with blood pressure control. Patient was previously on hydralazine in the past however it was stopped by nephrology for arterial nephrosclerosis and patient was started on KHUSHI inhibitor however that ultimately had to be stopped as well secondary to worsening renal function. Patient also had been on Norvasc in the past however this was discontinued secondary to lower extremity edema. Additionally, patient was on metoprolol in the past however this was discontinued secondary to bradycardia. Upon arrival to the [facility], patient was also found to have low-grade fever and productive cough. He was empirically started on Levaquin. 2 days ago, patient started vomiting. He describes the emesis as brown is times however denies coffee-ground appearance or bright red blood. Yesterday he had a black bowel movement. He denies abdominal pain. No lightheadedness, dizziness, diaphoresis, syncopal events. Denies chest pain and shortness of breath. No urinary symptoms. In the ED, patient is found to be hypertensive at 223/102. Labs show stable hemoglobin at 11.9. BUN and creatinine 64/3.2 (baseline creatinine ~mid 2's, was 2.5 on 11/06 per [facility] labs). CXR and CT ABD/pelvis are negative for acute findings. Patient was given IV Tylenol, GI cocktail, albuterol treatment, p.o. famotidine, IV furosemide, glucagon, IV Reglan, topical nitro, IVF, p.o. sucralfate. Allergies Allergy/AdvReac Type Severity Reaction Status Date / Time No Known Drug Allergies Allergy Unknown . Verified 11/09/19 12:40 Home Medications Home Medications Medication Instructions Recorded Confirmed Type aspirin 81 mg PO DAILY 12/16/18 11/09/19 History tamsulosin 0.4 mg PO HS 12/16/18 11/09/19 History Alvesco 1 puff INHALATION BID 07/31/19 11/09/19 History levalbuterol tartrate [Xopenex HFA] 2 inh INHALATION QID PRN 07/31/19 11/09/19 History trazodone 100 mg PO HS 07/31/19 11/09/19 History acetaminophen 650 mg PO TID PRN 11/09/19 11/09/19 History baclofen 10 mg PO TID PRN 11/09/19 11/09/19 History bumetanide 0.5 mg PO 3XWK 11/09/19 11/09/19 History elbasvir-grazoprevir [Zepatier] 1 tab PO DAILY 11/09/19 11/09/19 History hydralazine 50 mg PO TID 11/09/19 11/09/19 History hydrochlorothiazide 25 mg PO DAILY 11/09/19 11/09/19 History ipratropium-albuterol 3 ml INHALATION QID 11/09/19 11/09/19 History isosorbide dinitrate 20 mg PO BID 11/09/19 11/09/19 History levofloxacin 500 mg PO DAILY 11/09/19 11/09/19 History vitamin A and D 1 applic TOPICAL BID PRN 11/09/19 11/09/19 History Past Med/Surg History Medical History Arteriolar nephrosclerosis BPH (benign prostatic hyperplasia) (Chronic) Chronic diastolic CHF (congestive heart failure) Chronic hepatitis C CKD (chronic kidney disease), stage IV Hypertension (Chronic) Surgical History H/O hernia repair (Chronic) History of laryngoscopy (Chronic) Family History Other Diabetes Hypertension Social History Preferred Language: Hungarian Communication Ability: Effective 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 Dhaliwal's addendum for physical exam Results & Data Vital Signs (Past 12 Hours) Vital Signs Temp Pulse Pulse Resp BP Pulse Ox 11/09/19 17:31 59 L 18 11/09/19 17:30 81 21 178/71 H 11/09/19 17:16 67 13 11/09/19 17:15 78 16 175/84 H 11/09/19 17:01 72 13 11/09/19 17:00 62 17 184/93 H 11/09/19 16:46 59 L 19 97 11/09/19 16:45 61 15 176/80 H 97 11/09/19 16:31 95 H 20 11/09/19 16:30 86 15 179/93 H 96 11/09/19 16:16 88 24 97 11/09/19 16:15 88 18 193/88 H 97 11/09/19 16:00 105 H 18 96 11/09/19 15:46 80 14 97 11/09/19 15:45 68 12 178/81 H 97 11/09/19 15:31 72 12 96 11/09/19 15:30 73 12 190/80 H 96 11/09/19 15:16 75 12 97 11/09/19 15:15 79 19 194/82 H 98 11/09/19 15:01 92 H 17 97 11/09/19 15:00 82 18 212/79 H 96 11/09/19 14:46 98 H 15 11/09/19 14:45 90 15 184/91 H 97 11/09/19 14:44 78 21 215/103 H 97 11/09/19 14:31 88 23 97 11/09/19 14:30 82 21 197/80 H 97 11/09/19 14:16 90 18 92 11/09/19 14:15 83 25 H 213/94 H 91 11/09/19 14:01 83 21 98 11/09/19 14:00 87 24 198/82 H 93 11/09/19 13:48 100 H 21 222/97 H 92 11/09/19 13:47 98 H 18 93 01/30/20 13:16 59 L 16 198/69 H 100 11/09/19 13:15 58 L 16 100 11/09/19 13:01 58 L 17 100 11/09/19 13:00 67 15 178/81 H 100 11/09/19 12:46 53 L 14 100 11/09/19 12:45 52 L 11 L 212/72 H 11/09/19 12:39 58 L 20 11/09/19 12:31 58 L 17 99 11/09/19 12:30 56 L 16 190/73 H 11/09/19 12:16 64 15 100 11/09/19 12:15 64 18 199/74 H 100 11/09/19 12:01 81 15 100 11/09/19 12:00 64 16 187/80 H 11/09/19 11:46 55 L 24 11/09/19 11:45 59 L 18 194/81 H 11/09/19 11:40 56 L 99 11/09/19 11:31 53 L 14 11/09/19 11:30 64 13 201/94 H 11/09/19 11:15 68 16 100 11/09/19 11:05 54 L 17 100 11/09/19 11:03 36.6 C 56 L 15 223/102 H 99 11/09/19 11:02 58 L 14 223/102 H Laboratory Results Short CBC 11/09/19 Range/Units 11:28 WBC 6.97 (4.8-10.8) K/uL Hgb 11.9 L (14.0-18.0) g/dL Hct 33.5 L (42-52) % Plt Count 254 (130-400) K/uL BMP 11/09/19 11:28 Sodium 139 Potassium 4.1 Chloride 106 Carbon Dioxide 26 BUN 64 H Creatinine 3.27 H Glucose 125 H Calcium 9.7 Cardiac Enzymes 11/09/19 Range/Units 11:28 Total Creatine Kinase 74 (39-308) U/L CK-MB (CK-2) 1.6 (0.5-3.6) ng/ml Troponin I 0.020 (0-0.045) ng/ml Liver Function 11/09/19 Range/Units 11:28 Total Bilirubin 0.3 (0.2-1) mg/dl AST 14 L (15-37) U/L ALT 10 L (12-78) U/L Alkaline Phosphatase 95 (45-117) U/L Albumin 2.8 L (3.4-5.0) gm/dl Diagnostic Findings CXR IMPRESSION: 1. Cardiomegaly without overt pulmonary edema. 2. Suggested emphysema with ill-defined midlung opacities suggestive of scarring. Pneumonitis is also within the differential. CERVICAL SPINE CT IMPRESSION: 1. Considerable degenerative change. 2. No acute process. CT ABD/PELVIS IMPRESSION: 1. Examination limited due to lack of intravenous and oral contrast 2. No evidence of bowel obstruction. No evidence of free air 3. No acute inflammatory changes 4. Bilateral renal cysts 5. 2 mm lower pole right renal calculus. No hydronephrosis. No ureteral calculi identified. 6. Multiple bladder diverticula CHEST CT IMPRESSION: 1. Emphysematous change. 2. No acute process the chest. 3. 7 mm nodule left lung base with appropriate follow-up recommended. Code Status & VTE Plan VTE Prophylaxis Plan VTE Prophylaxis will be ordered: Yes Supervising Physician Co-Signing Physician Notes Attending addendum: The patient was seen and examined in the emergency room He has been complaining of neck pain and intractable nausea vomiting Noted to be very dry in the emergency room with very high blood pressure On examination Minimal distress due to nausea vomiting and neck pain Blood pressure was noted to be very high at systolic more than 220 Chest-clear to auscultate bilaterally Heart-S1-S2 Abdomen-mildly tender in the epigastrium, bowel sounds present Extremities negative for any 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
[2019-11-09] MEDS: PANTOprazole 40 MG in DEXTROSE 5% 100 ML IV SCH ×2 (18:47→23:55)
[2019-11-09 19:10] LABS: Hematocrit (blood only) 31.8 % (42-52); Hemoglobin 11.2 g/dL (14.0-18.0)
[2019-11-09] MEDS: SODIUM CHLORIDE 0.9% 1000ML 1,000 ML IV SCH (19:46)
[2019-11-09] MEDS: ALBUT/IPRATROP 3MG/0.5MG NEB 3 ML VIAL INH SCH (19:52)
[2019-11-09] MEDS: HydrALAZINE TAB 50 MG TAB PO SCH (20:25)
[2019-11-09] MEDS: TAMSULOSIN HCL 0.4 MG CAP PO SCH (20:26)
[2019-11-09] MEDS: ELBASVIR PO SCH (21:47)
[2019-11-09] MEDS: GRAZOPREVIR PO SCH (21:47)
[2019-11-09] MEDS ORDERED: cloNIDine HCL 0.1 MG TAB PO ONE (23:46)
[2019-11-09] MEDS ORDERED: BACLOFEN 10 MG TAB PO STA (23:48)
[2019-11-10] MEDS: TRAMADOL HCL 50 MG TABLET PO PRN ×3 (04:38→20:50)
[2019-11-10] MEDS: PANTOprazole 40 MG in DEXTROSE 5% 100 ML IV SCH ×3 (04:56→14:12)
[2019-11-10] MEDS: SODIUM CHLORIDE 0.9% 1000ML 1,000 ML IV SCH ×2 (04:58→16:37)
[2019-11-10] MEDS: HydrALAZINE HCL 20 MG/ML VIAL IV PRN ×4 (05:05→23:17)
[2019-11-10 06:27] LABS: Hemoglobin 11.9 g/dL (14.0-18.0); Mean Corpuscular Hemoglobin 27.5 pg (25-34); Mean Corpuscular Volume 78.7 fL (80-100); Mean Platelet Volume 9.8 fL (7.4-10.4); Platelet Count 258 K/uL (130-400); RDW Coefficient of Variation 13.8 % (11.5-14.5); RDW Standard Deviation 39.6 fL (36.4-46.3); Red Blood Count 4.32 M/uL (4.7-6.1); White Blood Count 5.82 K/uL (4.8-10.8)
[2019-11-10] MEDS: ALBUT/IPRATROP 3MG/0.5MG NEB 3 ML VIAL INH SCH ×3 (06:56→15:20)
[2019-11-10 07:05] LABS: BUN Creatinine Ratio 19.2 (10-20); Calcium 9.4 mg/dl (8.5-10.1); Creatinine Clr Calc Pharmacy 22.4 ml/min; Est GFR (African American) 24.6; Est GFR (Non-African American) 21.2; Potassium 3.7 mmol/L (3.5-5.1)
--- NOTE | 2019-11-10 07:54 | Gastrointestinal Consultation ---
Date of Consultation November 10, 2019 Assessment & Plan (1) Black stools: EGD today. Further recommendations to follow EGD. Present on Admission?: Yes (2) Nausea & vomiting: Antiemetics. EGD as mentioned above. Present on Admission?: Yes Supervising Physician Co-Signing Physician Notes Attending attestation I have seen, examined this patient, and agree with the findings and above by our mid-level provider ANDRE Grajeda, with the following additions -Patient with no significant GI bleeding given normal Hb and no signs but questionable melena yesterday -intractable dry heaves, some browish yellow emesis. -plan for EGD today History of Present Illness Reason for Consultation: Mr. Alexi Rossi is a 69 yr old male inmate of [facility] with a hx of CKD-4, Attending Physician: Edwin Dhaliwal MD History of Present Illness Mr. Alexi Rossi is a 69 yr old male inmate at [facility] with a hx of CHF, CKD- 4, chronic HCV (currently on Zepatier) who was brought to the ED yesterday with report of nausea vomiting, passing one black loose BM 2 days ago , and vomiting brown liquid yesterday. GI is consulted for ? upper GI bleed. The patient tells me that he has had persistent nausea, with vomiting 3-5 times per day for 3 days. He also reports a 40 pound weight loss in the last 2 to 3 months, but was eating well prior to 2 or 3 days ago. He verified that he vomited brown liquid once yesterday and that he passed 1 loose black bowel movement 2 days ago. He has some mild upper abdomen pain that began yesterday but has not had any significant or severe abdominal pain. On arrival, Hb was 11.9, which is down from 12.9 Nov 02, though his baseline in 2019 appears closer to 11.5-12.0. BUN on arrival was elevated at 64->55 (today), but there is also compensatory rise in Cr. Since arrival he has not had any BMs. He continues with nausea and is during the time in the exam frequently dry heaving and bringing up small amounts of clear to white liquid. Noncontrast CT is without bowel obstruction or masses . He is n.p.o. and and agrees to undergo EGD today. He denies ever previously undergoing endoscopy. In addition to the nausea and vomiting he began with moderately severe muscular neck pain and stiffness also about 3 days ago which Tylenol is not helping. He was presc ribed baclofen but is not on any NSAIDs. Cervical spine x-ray with degenerative changes. Chest x-ray with pulmonary nodule, emphysema, no acute processes. Allergies Allergy/AdvReac Type Severity Reaction Status Date / Time No Known Drug Allergies Allergy Unknown . Verified 11/09/19 12:40 Home Medications Home Medications Medication Instructions Recorded Confirmed Type aspirin 81 mg PO DAILY 12/16/18 11/09/19 History tamsulosin 0.4 mg PO HS 12/16/18 11/09/19 History Alvesco 1 puff INHALATION BID 07/31/19 11/09/19 History levalbuterol tartrate [Xopenex HFA] 2 inh INHALATION QID PRN 07/31/19 11/09/19 History trazodone 100 mg PO HS 07/31/19 11/09/19 History acetaminophen 650 mg PO TID PRN 11/09/19 11/09/19 History baclofen 10 mg PO TID PRN 11/09/19 11/09/19 History bumetanide 0.5 mg PO 3XWK 11/09/19 11/09/19 History elbasvir-grazoprevir [Zepatier] 1 tab PO DAILY 11/09/19 11/09/19 History hydralazine 50 mg PO TID 11/09/19 11/09/19 History hydrochlorothiazide 25 mg PO DAILY 11/09/19 11/09/19 History ipratropium-albuterol 3 ml INHALATION QID 11/09/19 11/09/19 History isosorbide dinitrate 20 mg PO BID 11/09/19 11/09/19 History levofloxacin 500 mg PO DAILY 11/09/19 11/09/19 History vitamin A and D 1 applic TOPICAL BID PRN 11/09/19 11/09/19 History Patient History Medical History Arteriolar nephrosclerosis BPH (benign prostatic hyperplasia) (Chronic) Chronic diastolic CHF (congestive heart failure) Chronic hepatitis C CKD (chronic kidney disease), stage IV Hypertension (Chronic) Surgical History H/O hernia repair (Chronic) History of laryngoscopy (Chronic) Family History Other Diabetes Hypertension Social History Preferred Language: British Communication Ability: Effective Certified Surgical First Assistant Required: No Beliefs That Will Affect Care: None Current Living Situation: Other Current Living Situation Comment: [facility] Other Information That Helps Us Care for You: No Feels Safe at Home: Yes Safety Concerns: Feels Safe At This Time Smoking Status: Former smoker Second Hand Exposure: No ; Hx Alcohol Use: No Hx Substance Use: No Review of Systems Review of Systems: ROS: Gen: Denies weakness, fevers, weight loss Eyes: No eye redness, or pain, no recent vision changes Resp: No SOB, no cough Cardio: No palpitations/irregular beats, no chest pain GI: No abdominal pain, no nausea/vomiting : Denies pain on urination Skin: No jaundice, itching or new rashes M/S: Neck pain and stiffness but has been able to move his neck on muscle relaxants. Neuro: Denies headaches or one sided weakness. Physical Exam Constitutional: WD/WN, vitals as above + ill appearing and + thin Eyes: PERRL, conjunctivae normal, anicteric sclerae ENMT: external ear and nose normal, oropharynx normal Neck: trachea midline Thyroid: normal thyroid Respiratory: normal respiratory effort, lungs clear to auscultation Cardiovascular: RRR, no murmur, no edema Gastrointestinal (Abdomen): Inspection/Auscultation: + hypoactive bowel sounds ; abdomen not distended Percussion/Palpation: + abdomen tender (Mild, epigastric) and abdomen soft Musculoskeletal: Spine: + limited cervical ROM (Uncomfortable when asked to move his neck, but he does have nearly full ROM) Uncomfortable when asked to move his neck, but he does have nearly full ROM. Skin: no rashes, warm and dry no lesions and no ulcers Neurologic: PERRL, EOMI, accommodation nl, no face palsy, no dysarthria moves all extremities Motor/Sensory: no tremor Psychiatric: A+Ox3, euthymic affect Uncomfortable and distracted due to nausea Lymphatic: no cervical or axillary lymphadenopathy Results & Data Vital Signs (Past 12 Hours) Vital Signs Temp Pulse Pulse Resp BP Pulse Ox 11/10/19 06:04 150/65 H 11/10/19 04:09 36.6 C 63 20 184/76 H 95 11/09/19 23:35 37.0 C 103 H 20 184/85 H 93 11/09/19 20:16 72 11/09/19 19:52 [address] abd/pelvis without contrast: 1. Examination limited due to lack of intravenous and oral contrast 2. No evidence of bowel obstruction. No evidence of free air 3. No acute inflammatory changes 4. Bilateral renal cysts 5. 2 mm lower pole right renal calculus. No hydronephrosis. No ureteral calculi identified. 6. Multiple bladder diverticula Chest Ct with a pulmonary nodule and emphysema
[2019-11-10] MEDS: HydrALAZINE TAB 50 MG TAB PO SCH ×3 (08:06→20:41)
[2019-11-10] MEDS: FLUTICASONE FUROATE 200MCG 14 PUFFS/INHALER INH SCH (08:06)
[2019-11-10] MEDS: GRAZOPREVIR PO SCH ×2 (08:07→14:54)
[2019-11-10] MEDS: ELBASVIR PO SCH ×2 (08:07→14:54)
[2019-11-10] MEDS: ACETAMINOPHEN 325 MG TAB PO PRN (08:13)
[2019-11-10] MEDS ORDERED: MoRPHine SULFATE 2 MG/ML CARP IV PRN (08:42)
[2019-11-10] MEDS ORDERED: AMLODIPINE BESYLATE 5 MG TAB PO SCH (09:00)
[2019-11-10] MEDS ORDERED: PROMETHAZINE HCL 12.5 MG in SODIUM CHLORIDE 0.9% 50 ML IV PRN (10:13)
[2019-11-10] MEDS ORDERED: ePHEDrine sulfate 50 MG/ML AMP IV PRN (11:56)
[2019-11-10] MEDS ORDERED: ONDANSETRON INJ 2 MG/ML 2 ML VIAL IV PRN (11:56)
[2019-11-10] MEDS ORDERED: ATROPINE SULFATE 0.1 MG/ML 10ML SYR IV PRN (11:56)
[2019-11-10] MEDS ORDERED: fentaNYL citrate 100 MCG/2 ML VIAL IV PRN (11:56)
--- NOTE | 2019-11-10 11:58 | Anesthesiology Consultation ---
Date of Service November 10, 2019 Assessment & Plan (1) Encounter for pre-operative examination: Chart Review Chart Review: Acceptable Risk for Surgery and Patient NOT seen in Pre Admission Testing Consults Requested none History Surgery Operation Date: 11/10/19 15:20 Proposed Procedures p Esophagogastroduodenoscopy - Antwon Molina Height/Weight Height: 5 ft 7 in Weight: 67.1 kg Allergies Allergy/AdvReac Type Severity Reaction Status Date / Time No Known Drug Allergies Allergy Unknown . Verified 11/09/19 12:40 Medications Home Medications Medication Instructions Recorded Confirmed Last Taken aspirin 81 mg PO DAILY 12/16/18 11/09/19 11/08/19 tamsulosin 0.4 mg PO HS 12/16/18 11/09/19 11/08/19 Alvesco 1 puff INHALATION BID 07/31/19 11/09/19 11/08/19 levalbuterol tartrate [Xopenex HFA] 2 inh INHALATION QID PRN 07/31/19 11/09/19 11/08/19 trazodone 100 mg PO HS 07/31/19 11/09/19 11/08/19 acetaminophen 650 mg PO TID PRN 11/09/19 11/09/19 11/09/19 baclofen 10 mg PO TID PRN 11/09/19 11/09/19 11/09/19 bumetanide 0.5 mg PO 3XWK 11/09/19 11/09/19 Unknown elbasvir-grazoprevir [Zepatier] 1 tab PO DAILY 11/09/19 11/09/19 11/08/19 hydralazine 50 mg PO TID 11/09/19 11/09/19 11/08/19 hydrochlorothiazide 25 mg PO DAILY 11/09/19 11/09/19 11/08/19 ipratropium-albuterol 3 ml INHALATION QID 11/09/19 11/09/19 11/08/19 isosorbide dinitrate 20 mg PO BID 11/09/19 11/09/19 11/08/19 levofloxacin 500 mg PO DAILY 11/09/19 11/09/19 11/08/19 vitamin A and D 1 applic TOPICAL BID PRN 11/09/19 11/09/19 11/04/19 Active Medications Generic Name Dose Route Start Last Admin Trade Name Freq PRN Reason Stop Dose Admin Acetaminophen 650 mg 11/09/19 18:28 11/10/19 08:13 Tylenol PO 12/09/19 18:27 650 mg Q4H PRN Administration Pain or Fever Albuterol 3 ml 11/09/19 19:30 11/10/19 11:32 Duoneb INH 12/09/19 19:29 Not Given QIDR RA Amlodipine Besylate 5 mg 11/10/19 09:00 11/10/19 08:06 Norvasc PO 12/10/19 08:59 5 mg QAM RA Administration Fluticasone Furoate 1 puffs 11/10/19 09:00 11/10/19 08:06 Arnuity Ellipta 200mcg INH 12/10/19 08:59 1 puffs QAM RA Administration Hydralazine HCl 10 mg 11/09/19 18:28 11/10/19 11:15 Hydralazine Hcl IV 12/09/19 18:27 10 mg Q6H PRN Administration HTN Hydralazine HCl 50 mg 11/09/19 21:00 11/10/19 08:06 Apresoline PO 12/09/19 20:59 50 mg TID RA Administration Pantoprazole Sodium 40 mg/ 100 mls @ 20 mls/hr 11/09/19 17:00 11/10/19 11:57 Dextrose IV 12/09/19 16:59 0 mls/hr Q5H RA Infusion Sodium Chloride 1,000 mls @ 100 mls/hr 11/09/19 18:28 11/10/19 11:57 Nss 1000ml IV 12/09/19 18:27 0 mls/hr .Q10H RA Infusion Promethazine HCl 12.5 mg/ 50.5 mls @ 202 mls/hr 11/10/19 10:13 11/10/19 11:09 Sodium Chloride IV 12/10/19 10:12 Infused Q6H PRN Infusion Nausea And Vomiting Morphine Sulfate 2 mg 11/10/19 08:42 11/10/19 09:27 Morphine Sulfate IV 11/24/19 08:41 2 mg Q4 PRN Administration Pain Elbasvir-Grazoprevir 1 ea 11/09/19 22:00 11/10/19 08:07 (Bernie): Non- PO 12/09/19 21:59 Not Given Formulary Patient's QAM RA Own Med Ondansetron HCl 4 mg 11/09/19 18:28 11/10/19 08:23 Zofran IV 12/09/19 18:27 4 mg Q6H PRN Administration nausea Tamsulosin HCl 0.4 mg 11/09/19 21:00 11/09/19 20:26 Flomax PO 12/09/19 20:59 0.4 mg HS RA Administration Tramadol HCl 25 mg 11/09/19 23:48 11/10/19 08:13 Ultram PO 12/09/19 23:47 25 mg Q4H PRN Administration Pain Past Medical History Medical History Arteriolar nephrosclerosis BPH (benign prostatic hyperplasia) (Chronic) Chronic diastolic CHF (congestive heart failure) Chronic hepatitis C CKD (chronic kidney disease), stage IV Hypertension (Chronic) Exercise / Class Metabolic Activity III < 4 Walking/Shop/Light housework Past Family History Family History Other Diabetes Hypertension Past Surgical History Surgical History H/O hernia repair (Chronic) History of laryngoscopy (Chronic) Past Anesthesia History No Hx of Anesthesia Complications and No Family Hx of Anesthesia Complications History of PONV No Hx of PONV and No Hx of Motion Sickness Social History Smoking Status: Former smoker Hx Alcohol Use: No Hx Substance Use: No substance use type: does not use Physical Exam Vital Signs Last Vital Signs Temp 37 C 11/10/19 11:10 Pulse 76 11/10/19 11:46 Resp 18 11/10/19 11:10 BP 162/73 H 11/10/19 11:46 Pulse Ox 98 11/10/19 11:10 Testing Laboratory Results 11/10/19 05:46 11/10/19 05:46 PT 11.7 Seconds (9.0-12.0) 11/09/19 11:28 INR 1.2 (0.9-1.1) H 11/09/19 11:28 APTT 21.1 Seconds (21.0-31.0) 11/09/19 11:28 Electrocardiogram Date: 11/09/19 Findings: + SB @ (53) Sinus bradycardia Minimal voltage criteria for LVH, may be normal variant possib le Anteroseptal infarct (cited on or before 16-DEC-2018) Abnormal ECG When compared with ECG of 02-AUG-2019 11:22, Premature ventricular complexes are no longer Present Confirmed by Isaiah Hays ([id number]) on 11/09/2019 5:33:46 PM
[2019-11-10] MEDS ORDERED: fentaNYL citrate 100 MCG/2 ML VIAL ONE (12:09)
[2019-11-10] MEDS ORDERED: DEXAMETHASONE SOD INJ 4 MG/ML VIAL ONE (12:09)
[2019-11-10] MEDS ORDERED: ONDANSETRON INJ 2 MG/ML 2 ML VIAL ONE (12:09)
[2019-11-10] MEDS ORDERED: LIDOCAINE HCL 2% 2 ML VIAL/AMP(20MG/ML) INFIL ONE (12:09)
[2019-11-10] MEDS ORDERED: GLYCOPYRROLATE 0.2 MG/ML VIAL ONE (12:09)
[2019-11-10] MEDS ORDERED: PROPOFOL IV EMULSION 10 MG/ML 20 ML VIAL IV ONE (12:09)
[2019-11-10] MEDS ORDERED: MIDAZOLAM HCL 1 MG/ML 2ML VIAL ONE (12:09)
[2019-11-10] MEDS ORDERED: NEOSTIGMINE METHYLSULFATE 5 MG/5 ML SYR ONE (12:09)
[2019-11-10] MEDS ORDERED: LARYING-O-JET KIT (LTA) ONE (12:43)
[2019-11-10] MEDS ORDERED: SUCCINYLCHOLINE CHLORIDE 20 MG/ML 10 ML VIAL ONE (12:43)
[2019-11-10] MEDS ORDERED: ESMOLOL HCL INJ 10 MG/ML 10ML VIAL IV ONE (12:43)
--- NOTE | 2019-11-10 12:43 | GI REPORT ---
Patient Name: Alexi Rossi Procedure Date: 11/10/2019 12:10 PM Date of : 1950 Admit Type: Inpatient Age: 69 Gender: Male Attending MD: Antwon Molina MD Procedure: Upper GI endoscopy Providers: Antwon Molina MD Referring MD: Matthew CONLEY Indications: Melena, Persistent vomiting of unknown cause Medicines: General Anesthesia Complications: No immediate complications. Estimated blood loss: None. Estimated Blood Loss: Estimated blood loss: none. Procedure: Pre-Anesthesia Assessment: - Pre-Anesthesia Assessment: - Prior to the procedure, a History and Physical was performed, and patient medications, allergies and sensitivities were reviewed. The patient's tolerance of previous anesthesia was reviewed. Please see [employer] for complete details. - The risks and benefits of the procedure and the sedation options and risks were discussed with the patient. All questions were answered and informed consent was obtained. - Patient identification and proposed procedure were verified prior to the procedure by the physician and the nurse. The procedure was verified in the pre-procedure area in the procedure room. After obtaining informed consent, the endoscope was passed carefully and meticuously under direct vision and only advanced when the lumen was clearly identified, C02 insuflation was utilized throughout the entirity of the procedure. Throughout the procedure, the patient's blood pressure, pulse, and oxygen saturations were monitored continuously. After obtaining informed consent, the endoscope was passed under direct vision. Throughout the procedure, the patient's blood pressure, pulse, and oxygen saturations were monitored continuously. The Endoscope was introduced through the mouth, and advanced to the second part of duodenum. The upper GI endoscopy was accomplished without difficulty. The patient tolerated the procedure well. Findings: A small hiatal hernia was present. Localized moderate inflammation characterized by erosions was found in the gastric antrum. Biopsies were taken with a cold forceps for histology. The examined duodenum was normal. No signs of bleeding Impression: - Small hiatal hernia. - Gastritis. Biopsied. - Normal examined duodenum. - Possible gastroenteritis as culprit Recommendation: - [facility] to [facility] care. - Advance diet as tolerated. - Use Prilosec (omeprazole) 40 mg PO daily. - Antiemetics as needed - Continue symptomatic care - GI will sign off Antwon Molina MD 11/10/2019 12:42:34 PM This report has been signed electronically. Note Initiated On: 11/10/2019 12:10 PM Number of Addenda: 0 I attest to the content of the Intraoperative Record and orders documented therein, exceptions below {[id number]}
[2019-11-10] MEDS ORDERED: ePHEDrine sulfate 50 MG/ML AMP ONE (13:10)
--- NOTE | 2019-11-10 13:23 | Anesthesiology Progress Note ---
Date of Service November 10, 2019 Anesthesia Post Procedure Vital Signs Vital Signs: Temp Pulse Pulse Pulse Resp BP BP 11/10/19 13:15 79 14 169/73 H 11/10/19 13:05 77 14 161/69 H 11/10/19 12:56 36.6 C 92 H 17 157/72 H 11/10/19 12:00 36.6 C 86 19 170/93 H 11/10/19 11:46 76 162/73 H 11/10/19 11:10 37 C 77 18 173/79 H 11/10/19 10:07 97 H 170/66 H 11/10/19 08:03 36.8 C 74 18 188/77 H 11/10/19 06:04 150/65 H 11/10/19 04:09 36.6 C 63 20 184/76 H 11/09/19 23:35 37.0 C 103 H 20 184/85 H 11/09/19 20:16 72 11/09/19 19:52 77 18 11/09/19 19:20 37.1 C 75 18 170/81 H 11/09/19 17:31 59 L 18 11/09/19 17:30 81 21 178/71 H 11/09/19 17:16 67 13 11/09/19 17:15 78 16 175/84 H 11/09/19 17:01 72 13 11/09/19 17:00 62 17 184/93 H 11/09/19 16:46 59 L 19 11/09/19 16:45 61 15 176/80 H 11/09/19 16:31 95 H 20 11/09/19 16:30 86 15 179/93 H 11/09/19 16:16 88 24 11/09/19 16:15 88 18 193/88 H 11/09/19 16:00 105 H 18 11/09/19 15:46 80 14 11/09/19 15:45 68 12 178/81 H 11/09/19 15:31 72 12 11/09/19 15:30 73 12 190/80 H 11/09/19 15:16 75 12 11/09/19 15:15 79 19 194/82 H 11/09/19 15:01 92 H 17 11/09/19 15:00 82 18 212/79 H 11/09/19 14:46 98 H 15 11/09/19 14:45 90 15 184/91 H 11/09/19 14:44 78 21 215/103 H 11/09/19 14:31 88 23 11/09/19 14:30 82 21 197/80 H 11/09/19 14:16 90 18 11/09/19 14:15 83 25 H 213/94 H 11/09/19 14:01 83 21 11/09/19 14:00 87 24 198/82 H 11/09/19 13:48 100 H 21 222/97 H 11/09/19 13:47 98 H 18 Pulse Ox 11/10/19 13:15 97 11/10/19 13:05 98 11/10/19 12:56 97 11/10/19 12:00 96 11/10/19 11:46 11/10/19 11:10 98 11/10/19 10:07 11/10/19 08:03 94 11/10/19 06:04 11/10/19 04:09 95 11/09/19 23:35 93 11/09/19 20:16 11/09/19 19:52 95 11/09/19 19:20 94 11/09/19 17:31 11/09/19 17:30 11/09/19 17:16 11/09/19 17:15 11/09/19 17:01 11/09/19 17:00 11/09/19 16:46 97 11/09/19 16:45 97 11/09/19 16:31 11/09/19 16:30 96 11/09/19 16:16 97 11/09/19 16:15 97 11/09/19 16:00 96 11/09/19 15:46 97 11/09/19 15:45 97 11/09/19 15:31 96 11/09/19 15:30 96 11/09/19 15:16 97 11/09/19 15:15 98 11/09/19 15:01 97 11/09/19 15:00 96 11/09/19 14:46 11/09/19 14:45 97 11/09/19 14:44 97 11/09/19 14:31 97 11/09/19 14:30 97 11/09/19 14:16 92 11/09/19 14:15 91 01/30/20 14:01 98 11/09/19 14:00 93 11/09/19 13:48 92 11/09/19 13:47 93 Pain Intensity Bilateral Neck: Pain Intensity: 6 Transfer of Care Handoff Completed per policy Notes Mental Status: alert / awake / arousable and participated in evaluation Patient Amnestic to Procedure: Yes Nausea / Vomiting: adequately controlled Pain: adequately controlled Airway Patency, RR, SpO2: stable & adequate BP & HR: stable & adequate Hydration State: stable & adequate Anesthetic Complications: no major complications apparent and Pt Satisfied with anesthetic care
[2019-11-10] MEDS ORDERED: HydrALAZINE HCL 20 MG/ML VIAL IV STA ×2 (15:01→17:10)
--- NOTE | 2019-11-10 15:14 | Hospitalist Progress Note ---
Date of Service November 10, 2019 Assessment & Plan (1) Hypertensive urgency: -BP on presentation 223/102 -Treated with topical nitroglycerin in ED with improvement in BP Continued on hydralazine PO and amlodipine, however, he required several doses of IV medication tonight to get blood pressure into the 160s including one dose of labetalol 20mg. HCTZ 25mg PO was restarted tonight and isosorbide continued. May need to place him on a drip to more easily control blood pressure. If not already performed before, would screen for secondary causes of HTN. (2) Black stools: Protonix drip stopped after EGD revealed no evidence of active GI bleedin g. He has remained hemodynamically stable for the most part and has had no further bloody stools. Appreciate GI involvement in case. Trend CBC. (3) Intractable vomiting: Resolved and tolerating food this evening post EGD. Antiemetics PRN. (4) CKD (chronic kidney disease), stage IV: Appears to be around baseline functioning. Will restart HCTZ per home regimen. Cont to hold Bumex for now. (5) Arteriolar nephrosclerosis: (6) Chronic diastolic CHF (congestive heart failure): stable, euvolemic. Bumex on hold. (7) Chronic hepatitis C: -Continue Zepatier (8) BPH (benign prostatic hyperplasia): -Continue tamsulosin (9) DVT prophylaxis: -SCDs Full Dispo-cont monitoring on telemetry Melissa Morfin DO [facility] Hospitalist Subjective 69 yo M presented with intractable vomiting and black stools. He was recently on Levaquin in the [facility]. He also came in with uncontrolled blood pressure. He was taken for EGD today revealing gastritis. Upon returning to the floor it took multiple doses of hydralazine and some labetalol in addition to PO agents to get his blood pressure more under control. He reports some neck muscle cramping which was going on [employer]. He reports asking for food this evening. Review of Systems Review of Systems: All systems reviewed & are unremarkable except as noted in Subjective Physical Exam Physical Exam: CONSTITUTIONAL: WNWD, vitals as above, generally well- appearing EYES: normal conjunctivae, no scleral icterus ENT: MMM RESPIRATORY: clear to auscultation bilaterally, no crackles, rales or wheezes, normal respiratory effort CARDIOVASCULAR: regular rate and rhythm, S1 and 2 heard without murmurs, gallops or rubs, no JVD, no peripheral edema GASTROINTESTINAL: soft, nontender, nondistended MUSCULOSKELETAL: strength 5/5 throughout, head is normocephalic and atraumatic SKIN: warm and dry NEUROLOGIC: CN 2-12 grossly intact, normal cognition, normal speech PSYCHIATRIC: alert cooperative and oriented to person, place and time. Results & Data ([facility]) Vital Signs (Past 12 Hours) Vital Signs Temp Pulse Pulse Resp BP Pulse Ox 11/10/19 14:51 36.7 C 85 16 194/87 H 93 11/10/19 14:25 85 14 174/79 H 97 11/10/19 14:10 77 10 L 167/74 H 96 11/10/19 13:55 77 12 160/70 H 96 11/10/19 13:45 75 14 174/69 H 96 11/10/19 13:30 36.5 C 75 14 175/68 H 96 11/10/19 13:15 79 14 169/73 H 97 11/10/19 13:05 77 14 161/69 H 98 11/10/19 12:56 36.6 C 92 H 17 157/72 H 97 11/10/19 12:00 36.6 C 86 19 170/93 H 96 11/10/19 11:46 76 162/73 H 11/10/19 11:10 37 C 77 18 173/79 H 98 11/10/19 10:07 97 H 170/66 H 11/10/19 08:03 36.8 C 74 18 188/77 H 94 11/10/19 06:04 150/65 H 11/10/19 04:09 36.6 C 63 20 184/76 H 95 Laboratory Results Short CBC 11/09/19 11/10/19 Range/Units 18:59 05:46 WBC 5.82 (4.8-10.8) K/uL Hgb 11.2 L 11.9 L (14.0-18.0) g/dL Hct 31.8 L 34.0 L (42-52) % Plt Count 258 (130-400) K/uL BMP 11/10/19 05:46 Sodium 139 Potassium 3.7 Chloride 109 H Carbon Dioxide 24 BUN 55 H Creatinine 2.87 H D Glucose 113 H Calcium 9.4 Medications Administered Current Inpatient Medications Acetaminophen (Tylenol) 650 mg PO Q4H PRN PRN Reason: Pain or Fever Stop: 12/09/19 18:27 Last Admin: 11/10/19 08:13 Dose: 650 mg Documented by: Albuterol (Duoneb) 3 ml INH QIDR RA Stop: 12/09/19 19:29 Last Admin: 11/10/19 11:32 Dose: Not Given Documented by: A[facility]odip[facility] ([facility]) [facility] Stop: 12/10/19 08:59 Last Admin: 11/10/19 08:06 Dose: 5 mg Documented by: Elbasvir/Grazoprevir (Zepatier) 1 [facility]a [facility] Stop: 12/10/19 12:59 Last Admin: 11/10/19 14:54 Dose: 1 ea Documented by: Fluticasone Furoate (Arnuity Ellipta 200mcg) 1 puffs INH [facility] Stop: 12/10/19 08:59 Last Admin: 11/10/19 08:06 Dose: 1 puffs Documented by: Hydralazine HCl (Hydralazine Hcl) 10 mg IV Q6H PRN PRN Reason: HTN Stop: 12/09/19 18:27 Last Admin: 11/10/19 14:59 Dose: 10 mg Documented by: Hydralazine HCl (Apresoline) 50 mg PO TID [facility] Stop: 12/09/19 20:59 Last Admin: 11/10/19 14:54 Dose: 50 mg Documented by: Sodium Chloride (Nss 1000ml) 1,000 mls @ 100 mls/hr IV .Q10H [facility] Stop: 12/09/19 18:27 Last Infusion: 11/10/19 14:54 Dose: 100 mls/hr Documented by: Promethazine HCl 12.5 mg/ (Sodium Chloride) 50.5 mls @ 202 mls/hr IV Q6H PRN PRN Reason: Nausea And Vomiting Stop: 12/10/19 10:12 Last Infusion: 11/10/19 11:09 Dose: Infused Documented by: Levalbuterol HCl (Xopenex Hfa) 2 puffs INH QID PRN PRN Reason: Shortness Of Breath Stop: 12/09/19 18:27 Ondansetron HCl (Zofran) 4 mg IV Q6H PRN PRN Reason: nausea Stop: 12/09/19 18:27 Last Admin: 11/10/19 08:23 Dose: 4 mg Documented by: Tamsulosin HCl (Flomax) 0.4 mg PO HS RA Stop: 12/09/19 20:59 Last Admin: 11/09/19 20:26 Dose: 0.4 mg Documented by: Tramadol HCl (Ultram) 25 mg PO Q4H PRN PRN Reason: Pain Stop: 12/09/19 23:47 Last Admin: 11/10/19 08:13 Dose: 25 mg Documented by:
[2019-11-10] MEDS ORDERED: ALBUT/IPRATROP 3MG/0.5MG NEB 3 ML VIAL INH PRN (16:56)
[2019-11-10] MEDS ORDERED: LABETALOL HCL IV 5 MG/ML 20ML IV STA (17:56)
[2019-11-10] MEDS ORDERED: AMLODIPINE BESYLATE 5 MG TAB PO STA (18:01)
[2019-11-10] MEDS: PANTOprazole 40 MG TAB PO SCH (18:27)
[2019-11-10] MEDS: TAMSULOSIN HCL 0.4 MG CAP PO SCH (20:42)
--- NOTE | 2019-11-11 02:50 | Communication Note ---
Date of Service: November 11, 2019 Made aware by RN of uncontrolled blood pressure. SBP 150-190s the last 24 hours. Patient asymptomatic as per RN. AP Hypertensive urgency Add Norvasc to regimen. Will relay to AM provider.
[2019-11-11] MEDS: ACETAMINOPHEN 325 MG TAB PO PRN (04:09)
[2019-11-11 06:15] LABS: Hematocrit (blood only) 33.7 % (42-52); Hemoglobin 11.8 g/dL (14.0-18.0); Mean Corpuscular Hemoglobin 27.3 pg (25-34); Mean Platelet Volume 9.4 fL (7.4-10.4); Platelet Count 263 K/uL (130-400); RDW Standard Deviation 39.9 fL (36.4-46.3); Red Blood Count 4.32 M/uL (4.7-6.1); White Blood Count 7.35 K/uL (4.8-10.8)
[2019-11-11 06:44] LABS: BUN Creatinine Ratio 18.2 (10-20); Calcium 9.4 mg/dl (8.5-10.1); Creatinine Clr Calc Pharmacy 20.1 ml/min; Est GFR (African American) 21.6; Est GFR (Non-African American) 18.7; Potassium 3.8 mmol/L (3.5-5.1)
[2019-11-11] MEDS: FLUTICASONE FUROATE 200MCG 14 PUFFS/INHALER INH SCH (08:29)
[2019-11-11] MEDS: hydroCHLOROthiazide 25 MG TAB PO SCH (08:29)
[2019-11-11] MEDS: HydrALAZINE TAB 50 MG TAB PO SCH ×3 (08:29→19:44)
[2019-11-11] MEDS: ISOSORBIDE DINITRATE 20 MG TAB PO SCH ×2 (08:29→11:37)
[2019-11-11] MEDS: ELBASVIR PO SCH (08:30)
[2019-11-11] MEDS: GRAZOPREVIR PO SCH (08:30)
[2019-11-11] MEDS: AMLODIPINE BESYLATE 5 MG TAB PO SCH (08:30)
[2019-11-11] MEDS: PANTOprazole 40 MG TAB PO SCH (08:30)
[2019-11-11] MEDS ORDERED: AMLODIPINE BESYLATE 5 MG TAB PO SCH (09:00)
--- NOTE | 2019-11-11 17:14 | Hospitalist Progress Note ---
Date of Service November 11, 2019 Assessment & Plan (1) Hypertensive urgency: Improving on hydralazine, Isordil, HCTZ and norvasc. Still not to goal but improved. Cont low salt diet. Cont good pain control with neck issue. (2) CKD (chronic kidney disease), stage IV: Appears to be around baseline functioning after restarting HCTZ. Cont to hold Bumex. (3) Chronic diastolic CHF (congestive heart failure): stable, euvolemic. Bumex on hold. (4) Chronic hepatitis C: -Continue Zepatier (5) BPH (benign prostatic hyperplasia): -Continue tamsulosin (6) Black stools: Protonix drip stopped after EGD revealed no evidence of active GI bleeding. He has remained hemodynamically stable for the most part and has had no further bloody stools. Resolved. (7) Intractable vomiting: Resolved and tolerating food (8) DVT prophylaxis: -SCDs Full Dispo-cont monitoring on telemetry Melissa Morfin DO [facility] Hospitalist Subjective neck pain is improving with heat/muscle relaxers nausea and vomiting resolved tolerating PO afebrile denies abdominal pain Review of Systems Review of Systems: All systems reviewed & are unremarkable except as noted in Subjective Physical Exam Physical Exam: CONSTITUTIONAL: WNWD, vitals as above, generally well- appearing EYES: normal conjunctivae, no scleral icterus ENT: MMM RESPIRATORY: clear to auscultation bilaterally, no crackles, rales or wheezes, normal respiratory effort CARDIOVASCULAR: regular rate and rhythm, S1 and 2 heard without murmurs, gallops or rubs, no JVD, no peripheral edema GASTROINTESTINAL: soft, nontender, nondistended MUSCULOSKELETAL: strength 5/5 throughout, head is normocephalic and atraumatic SKIN: warm and dry NEUROLOGIC: CN 2-12 grossly intact, normal cognition, normal speech PSYCHIATRIC: alert cooperative and oriented to person, place and time. Results & Data ([facility]) Vital Signs (Past 12 Hours) Vital Signs Temp Pulse Resp BP Pulse Ox 11/11/19 15:24 36.7 C 76 20 165/73 H 93 11/11/19 11:36 36.8 C 64 18 161/83 H 96 11/11/19 09:33 148/62 H 11/11/19 07:06 37.3 C 79 18 182/76 H 96 Laboratory Results Short CBC 11/11/19 Range/Units 05:40 WBC 7.35 (4.8-10.8) K/uL Hgb 11.8 L (14.0-18.0) g/dL Hct 33.7 L (42-52) % Plt Count 263 (130-400) K/uL BMP 11/11/19 05:40 Sodium 137 Potassium 3.8 Chloride 107 Carbon Dioxide 24 BUN 58 H Creatinine 3.19 H D Glucose 100 H Calcium 9.4 Medications Administered Current Inpatient Medications Acetaminophen (Tylenol) 650 mg PO Q4H PRN PRN Reason: Pain or Fever Stop: 12/09/19 18:27 Last Admin: 11/11/19 04:09 Dose: 650 mg Documented by: Albuterol (Duoneb) 3 ml INH QIDR PRN PRN Reason: SOB/wheezing Stop: 12/09/19 19:29 Amlodipine Besylate (Norvasc) 5 mg PO QAM [facility] Stop: 12/11/19 08:59 Last Admin: 11/11/19 08:30 Dose: 5 mg Documented by: Baclofen (Lioresal) 10 mg PO TID PRN PRN Reason: neck pain Stop: 12/10/19 17:08 Elbasvir/Grazoprevir ([facility]atier) [facility] [place] Stop: 12/10/19 12:59 Last Admin: 11/11/19 08:30 Dose: 1 ea Documented by: Fluticasone Furoate (Arnuity Ellipta 200mcg) 1 puffs INH QAM [facility] Stop: 12/10/19 08:59 Last Admin: 11/11/19 08:29 Dose: 1 puffs Documented by: Hydralazine HCl (Hydralazine Hcl) 10 mg IV Q6H PRN PRN Reason: HTN Stop: 12/09/19 18:27 Last Admin: 11/10/19 23:17 Dose: 10 mg Documented by: Hydralazine HCl (Apresoline) 50 mg PO TID RA Stop: 12/09/19 20:59 Last Admin: 11/11/19 13:50 Dose: 50 mg Documented by: Hydrochlorothiazide (Hctz) 25 mg PO DAILY [facility] Stop: 12/11/19 08:59 Last Admin: 11/11/19 08:29 Dose: 25 mg Documented by: Promethazine HCl 12.5 mg/ (Sodium Chloride) 50.5 mls @ 202 mls/hr IV Q6H PRN PRN Reason: Nausea And Vomiting Stop: 12/10/19 10:12 Last Infusion: 11/10/19 11:09 Dose: Infused Documented by: Isosorbide Dinitrate (Isordil) 20 mg PO BID@0700,1200 [facility] Stop: 12/11/19 06:59 Last Admin: 11/11/19 11:37 Dose: 20 mg Documented by: Levalbuterol HCl (Xopenex Hfa) 2 puffs INH QID PRN PRN Reason: Shortness Of Breath Stop: 12/09/19 18:27 Ondansetron HCl (Zofran) 4 mg IV Q6H PRN PRN Reason: nausea Stop: 12/09/19 18:27 Last Admin: 11/10/19 08:23 Dose: 4 mg Documented by: Pantoprazole Sodium (Protonix) 40 mg PO QAM [facility] Stop: 12/10/19 17:14 Last Admin: 11/11/19 08:30 Dose: 40 mg Documented by: Tamsulosin HCl (Flomax) 0.4 mg PO HS [facility] Stop: 12/09/19 20:59 Last Admin: 11/10/19 20:42 Dose: 0.4 mg Documented by: Tramadol HCl (Ultram) 25 mg PO Q4H PRN PRN Reason: Pain Stop: 12/09/19 23:47 Last Admin: 11/10/19 20:50 Dose: 25 mg Documented by:
[2019-11-11] MEDS: TAMSULOSIN HCL 0.4 MG CAP PO SCH (19:45)
[2019-11-11] MEDS: BACLOFEN 10 MG TAB PO PRN (19:50)
[2019-11-12] MEDS: HydrALAZINE TAB 50 MG TAB PO SCH ×3 (08:08→20:59)
[2019-11-12] MEDS: FLUTICASONE FUROATE 200MCG 14 PUFFS/INHALER INH SCH (08:08)
[2019-11-12] MEDS: hydroCHLOROthiazide 25 MG TAB PO SCH (08:08)
[2019-11-12] MEDS: PANTOprazole 40 MG TAB PO SCH (08:08)
[2019-11-12] MEDS: AMLODIPINE BESYLATE 5 MG TAB PO SCH (08:09)
[2019-11-12] MEDS: GRAZOPREVIR PO SCH (08:09)
[2019-11-12] MEDS: ISOSORBIDE DINITRATE 20 MG TAB PO SCH ×2 (08:09→11:33)
[2019-11-12] MEDS: ELBASVIR PO SCH (08:09)
[2019-11-12] MEDS: ACETAMINOPHEN 325 MG TAB PO PRN (08:16)
[2019-11-12 11:49] LABS: BUN Creatinine Ratio 21.8 (10-20); Calcium 9.2 mg/dl (8.5-10.1); Creatinine Clr Calc Pharmacy 21.1 ml/min; Est GFR (African American) 22.9; Est GFR (Non-African American) 19.8
[2019-11-12] MEDS: BACLOFEN 10 MG TAB PO PRN ×2 (14:09→20:58)
--- NOTE | 2019-11-12 14:48 | Hospitalist Progress Note ---
Date of Service November 12, 2019 Assessment & Plan (1) Cough: New productive cough reported since hospitalization began. Chest x-ray this evening is negative for any intrathoracic acute process. Supportive care offered with John. Sputum culture ordered. (2) Hypertensive urgency: Blood pressure has improved on current therapy including Hydralazine 50 mg p.o. 3 times daily, Isordil 20 mg p.o. twice daily, HCTZ 25 mg p.o. daily, Norvasc 5 mg daily. He still in the 150s systolic consistently, therefore, will increase Norvasc to 10 mg in the a.m. Neck pain appears to be under control and is less likely to be contributing here. Continue low-salt diet. (3) CKD (chronic kidney disease), stage IV: Appears to be around baseline functioning despite restarting HCTZ. Continue to monitor. Continue to avoid nephrotoxic substances as able. Continue to hold Bumex. (4) Chronic diastolic CHF (congestive heart failure): stable, euvolemic. Bumex on hold. (5) Chronic hepatitis C: -Continue Zepatier (6) BPH (benign prostatic hyperplasia): -Continue tamsulosin (7) Black stools: Protonix drip stopped after EGD revealed no evidence of active GI bleeding. He has remained hemodynamically stable for the most part and has had no further bloody stools. Resolved, continue monitoring as outpatient. (8) Intractable vomiting: Possibly secondary to underlying gastritis seen on EGD. Resolved and tolerating food this evening post EGD. Antiemetics PRN. (9) DVT prophylaxis: Heparin Full Code Dispo-cont hospitalization Melissa Morfin DO [facility] Hospitalist Subjective Patient denies nausea and is tolerating p.o. today. He denies any abdominal pain. Denies fevers or chills. He does report a new onset cough that is somewhat productive of discolored sputum since arriving in the hospital. He ambulated to the toilet and had a BM today after 5 days. He reported some dizziness when he did this. Review of Systems Review of Systems: All systems reviewed & are unremarkable except as noted in Subjective Physical Exam Physical Exam: CONSTITUTIONAL: WNWD, vitals as above, generally well- appearing EYES: normal conjunctivae, no scleral icterus ENT: MMM RESPIRATORY: clear to auscultation bilaterally, no crackles, rales or wheezes, normal respiratory effort CARDIOVASCULAR: regular rate and rhythm, S1 and 2 heard without murmurs, gallops or rubs, no JVD, no peripheral edema GASTROINTESTINAL: soft, nontender, nondistended MUSCULOSKELETAL: strength 5/5 throughout, head is normocephalic and atraumatic SKIN: warm and dry NEUROLOGIC: CN 2-12 grossly intact, normal cognition, normal speech PSYCHIATRIC: alert cooperative and oriented to person, place and time. Results & Data ([facility]) Vital Signs (Past 12 Hours) Vital Signs Temp Pulse Pulse Resp BP Pulse Ox 11/12/19 12:29 36.8 C 79 18 155/69 H 95 11/12/19 11:16 36.8 C 84 19 149/72 H 97 11/12/19 10:17 36.8 C 99 H 18 160/73 H 98 11/12/19 08:00 72 Laboratory Results [facility] 11/12/19 10:46 Sodium 137 Potassium 4.0 Chloride 107 Carbon Dioxide 23 BUN 66 H Creatinine 3.04 H Glucose 116 H Calcium 9.2 Medications Administered Current Inpatient Medications Acetaminophen (Tylenol) 650 mg PO Q4H PRN PRN Reason: Pain or Fever Stop: 12/09/19 18:27 Last Admin: 11/12/19 08:16 Dose: 650 mg Documented by: Albuterol (Duoneb) 3 ml INH QIDR PRN PRN Reason: SOB/wheezing Stop: 12/09/19 19:29 Amlodipine Besylate (Norvasc) 5 mg PO QAM [facility] Stop: 12/11/19 08:59 Last Admin: 11/12/19 08:09 Dose: 5 mg Documented by: Baclofen (Lioresal) 10 mg PO TID PRN PRN Reason: neck pain Stop: 12/10/19 17:08 Last Admin: 11/12/19 14:09 Dose: 10 mg Documented by: Elbasvir/Grazoprevir (Zepatier) 1 ea PO QAM [facility] Stop: 12/10/19 12:59 Last Admin: 11/12/19 08:09 Dose: 1 ea Documented by: Fluticasone Furoate (Arnuity Ellipta 200mcg) 1 puffs INH QAM [facility] Stop: 12/10/19 08:59 Last Admin: 11/12/19 08:08 Dose: 1 puffs Documented by: Hydralazine HCl (Hydralazine Hcl) 10 mg IV Q6H PRN PRN Reason: HTN Stop: 12/09/19 18:27 Last Admin: 11/10/19 23:17 Dose: 10 mg Documented by: Hydralazine HCl (Apresoline) 50 mg PO TID [facility] Stop: 12/09/19 20:59 Last Admin: 11/12/19 14:04 Dose: 50 mg Documented by: Hydrochlorothiazide (Hctz) 25 mg PO DAILY [facility] Stop: 12/11/19 08:59 Last Admin: 11/12/19 08:08 Dose: 25 mg Documented by: Promethazine HCl 12.5 mg/ (Sodium Chloride) 50.5 mls @ 202 mls/hr IV Q6H PRN PRN Reason: Nausea And Vomiting Stop: 12/10/19 10:12 Last Infusion: 11/10/19 11:09 Dose: Infused Documented by: Isosorbide Dinitrate (Isordil) 20 mg PO BID@0700,1200 [facility] Stop: 12/11/19 06:59 Last Admin: 11/12/19 11:33 Dose: 20 mg Documented by: Levalbuterol HCl (Xopenex Hfa) 2 puffs INH QID PRN PRN Reason: Shortness Of Breath Stop: 12/09/19 18:27 Ondansetron HCl (Zofran) 4 mg IV Q6H PRN PRN Reason: nausea Stop: 12/09/19 18:27 Last Admin: 11/10/19 08:23 Dose: 4 mg Documented by: Pantoprazole Sodium (Protonix) 40 mg PO QAM [facility] Stop: 12/10/19 17:14 Last Admin: 11/12/19 08:08 Dose: 40 mg Documented by: Tamsulosin HCl (Flomax) 0.4 mg PO HS [facility] Stop: 12/09/19 20:59 Last Admin: 11/11/19 19:45 Dose: 0.4 mg Documented by: Tramadol HCl (Ultram) 25 mg PO Q4H PRN PRN Reason: Pain Stop: 12/09/19 23:47 Last Admin: 11/10/19 20:50 Dose: 25 mg Documented by:
--- NOTE | 2019-11-12 19:02 | XRay Report ---
XR chest 2V PA/lateral HISTORY: acute productive cough COMPARISON: Chest 11/09/2019. FINDINGS: No pneumothorax. No pleural effusions. The heart remains mildly enlarged. Calcifications wi thin the aortic knob. Calcified right hilar lymph nodes and a calcified left lower lobe granuloma. No new focal lung consolidations to suggest pneumonia. No evidence for pulmonary edema. Mild interstiti al thickening within the lower lung zones. This is likely chronic. Mild emphysema. IMPRESSION: No acute process. ACT 112: Negative or not required by law. Electronically signed by: Lan Eagle M.D. 11/12/2019 7:01 PM
[2019-11-12] MEDS: ALBUT/IPRATROP 3MG/0.5MG NEB 3 ML VIAL INH SCH (19:16)
[2019-11-12] MEDS: TAMSULOSIN HCL 0.4 MG CAP PO SCH (20:59)
[2019-11-13] MEDS: HEPARIN SOD 5,000 UNIT/0.5 ML VIAL SQ SCH ×3 (06:19→21:35)
[2019-11-13] MEDS: ISOSORBIDE DINITRATE 20 MG TAB PO SCH ×2 (06:20→11:20)
[2019-11-13] MEDS: ALBUT/IPRATROP 3MG/0.5MG NEB 3 ML VIAL INH SCH ×4 (06:59→19:13)
[2019-11-13 07:03] LABS: Hematocrit (blood only) 31.7 % (42-52); Hemoglobin 11.2 g/dL (14.0-18.0); Mean Corpuscular Hemoglobin 27.3 pg (25-34); Mean Corpuscular Hgb Conc 35.3 g/dL (32-36); Mean Corpuscular Volume 77.3 fL (80-100); Mean Platelet Volume 9.3 fL (7.4-10.4); Platelet Count 235 K/uL (130-400); RDW Standard Deviation 39.8 fL (36.4-46.3)
[2019-11-13 07:40] LABS: Calcium 8.8 mg/dl (8.5-10.1); Creatinine Clr Calc Pharmacy 21.3 ml/min; Est GFR (African American) 23.1; Potassium 3.8 mmol/L (3.5-5.1)
[2019-11-13] MEDS: HydrALAZINE TAB 50 MG TAB PO SCH ×2 (07:49→13:02)
[2019-11-13] MEDS: FLUTICASONE FUROATE 200MCG 14 PUFFS/INHALER INH SCH (07:49)
[2019-11-13] MEDS: hydroCHLOROthiazide 25 MG TAB PO SCH (07:50)
[2019-11-13] MEDS: ELBASVIR PO SCH (07:50)
[2019-11-13] MEDS: PANTOprazole 40 MG TAB PO SCH (07:50)
[2019-11-13] MEDS: AMLODIPINE BESYLATE 5 MG TAB PO SCH (07:50)
[2019-11-13] MEDS: GRAZOPREVIR PO SCH (07:50)
[2019-11-13] MEDS: BACLOFEN 10 MG TAB PO PRN (07:53)
[2019-11-13] MEDS ORDERED: diazePAM 5 MG TABLET PO ONE (13:00)
[2019-11-13] MEDS: GUAIFENESIN/DEXTROM SYRUP 200MG/20MG 10ML UDC PO PRN ×2 (15:27→20:25)
--- NOTE | 2019-11-13 16:19 | Nephrology Consultation ---
Date of Consultation November 13, 2019 Assessment & Plan (1) Hypertensive urgency: asymptomatic and w/o evidence of acute organ injury in setting of uncontrolled HTN w/ sbp generally in 150-180s, HR 80-90s -currently on amlodipine 10 mg daily; on hydralazine 75 mg tid; on hctz 25 mg daily -stopped hctz; started coreg 12.5 mg bid; started torsemide 5 mg q AM for tomorrow am Present on Admission?: Yes (2) CKD (chronic kidney disease), stage IV: baseline creatinine since fall appears to be low 3's from hypertensive nephrosclerosis (biopsy proven) -bp control as above -daily bmp -avoid nephrotoxins Present on Admission?: Yes (3) Chronic hepatitis C: tx status not documented in retirement records received; states was tx'd for this Present on Admission?: Yes History of Present Illness Reason for Consultation: ckd4, uncontrolled HTN Requesting Physician: Dr Morfin Attending Physician: Melissa Morfin, DO History of Present Illness 69 y/o M prisoner whom I'm asked to see for CKD 4 and HTN mgt after he was admitted on 11/09 for AI on CKD 4 after presenting w/ intractable vomiting/melena. Had renal bx 08/2019 (results below) most consistent on my review of result w/ hypertensive nephrosclerosis. PMH includes longstanding HTN, HCV s/p reported course of tx, CKD4, longstanding resistant htn, complex L hydrocele. Admitted [facility] 12/2018 for HTN urgency; admitted [facility] 07/2019 for acute diastolic HF. Had EGD GI recommnedations: c/w localized moderate gastritis, possibly from gastroenteritis. His presenting creatinine was 3.3; f/u creatinine is 3.0-3.1 and has returned to this baseline. his baseline creatinine in fall 2018 was also in low 3's w/ 1.6-4.7 gm proteinuria during fall admission dependingon bp control. Of note as recently as spring 2018, baseline creatinine was 1.7. currently on amlodipine 10 mg q AM, hctz 25 mg daily, hydralazine 50 mg tid. as OP, takes bumex 0.5 MWF, takes same doses of hctz an dhydralazine. Has had HTN ranging 150-220 systolic w/o sx. Allergies Allergy/AdvReac Type Severity Reaction Status Date / Time No Known Drug Allergies Allergy Unknown . Verified 11/09/19 12:40 Home Medications Home Medications Medication Instructions Recorded Confirmed Type aspirin 81 mg PO DAILY 12/16/18 11/09/19 History tamsulosin 0.4 mg PO HS 12/16/18 11/09/19 History Alvesco 1 puff INHALATION BID 07/31/19 11/09/19 History levalbuterol tartrate [Xopenex HFA] 2 inh INHALATION QID PRN 07/31/19 11/09/19 History trazodone 100 mg PO HS 07/31/19 11/09/19 History acetaminophen 650 mg PO TID PRN 11/09/19 11/09/19 History baclofen 10 mg PO TID PRN 11/09/19 11/09/19 History bumetanide 0.5 mg PO 3XWK 11/09/19 11/09/19 History elbasvir-grazoprevir [Zepatier] 1 tab PO DAILY 11/09/19 11/09/19 History hydralazine 50 mg PO TID 11/09/19 11/09/19 History hydrochlorothiazide 25 mg PO DAILY 11/09/19 11/09/19 History ipratropium-albuterol 3 ml INHALATION QID 11/09/19 11/09/19 History isosorbide dinitrate 20 mg PO BID 11/09/19 11/09/19 History levofloxacin 500 mg PO DAILY 11/09/19 11/09/19 History vitamin A and D 1 applic TOPICAL BID PRN 11/09/19 11/09/19 History Patient History Medical History Arteriolar nephrosclerosis BPH (benign prostatic hyperplasia) (Chronic) Chronic diastolic CHF (congestive heart failure) Chronic hepatitis C CKD (chronic kidney disease), stage IV Hydrocele in adult Hypertension (Chronic) Surgical History H/O hernia repair (Chronic) History of laryngoscopy (Chronic) Family History Other Diabetes Hypertension Social History Preferred Language: Citizen Of [place] Communication Ability: Effective 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: No Beliefs That Will Affect Care: None Current Living Situation: Other Current Living Situation Comment: [facility] Feels Safe at Home: Yes Smoking Status: Former smoker Second Hand Exposure: No ; Hx Alcohol Use: No Hx Substance Use: No Review of Systems Review of Systems: All systems reviewed & are unremarkable except as noted in HPI & below pt w/ multiple complaints Constitutional: + body aches, + fatigue, + anorexia and + weight loss (reports 30 lb wt loss in 8 days) Respiratory: + cough, + change in sputum (dark /rust tinge) and + pain with cough Cardiovascular: + edema; no chest pain Gastrointestinal: as per Subjective / HPI Genitourinary: no dysuria, no difficulty urinating, no urinary frequency and no urinary hesitancy Musculoskeletal: + neck pain (left neck) Integumentary: no non-healing lesions Neurologic: + generalized weakness and + headache(s) Hematologic / Lymphatic: + easy bleeding Physical Exam Constitutional: well developed and well nourished; no acute distress (sitting in bed on ra) has perhaps visibly lost wt since last evaluation in july Eyes: EOM intact bilaterally ENMT: Ears: no external ear abnormality Nose: no external nose abnormality Mouth: + dry oral mucous membranes Neck: no nuchal rigidity Respiratory: normal respiratory effort Auscultation: lungs clear to auscult ation bilaterally and + diminished lung sounds Cardiovascular: RRR, no murmur, no edema Gastrointestinal (Abdomen): Inspection/Auscultation: normal bowel sounds; abdomen not distended Percussion/Palpation: abdomen soft; abdomen nontender and no ascites Musculoskeletal: Extremities: strength 5/5 throughout Skin: no rashes, warm and dry Neurologic: hodges, fluent speech, no tremor Psychiatric: Orientation: alert, oriented x 3 and cooperative Speech: normal rate/rhythm/volume of speech Genitourinary: no bull Results & Data Vital Signs (Past 12 Hours) Vital Signs Temp Pulse Pulse Resp BP Pulse Ox 11/13/19 15:56 36.6 C 94 H 18 154/59 H 97 11/13/19 15:13 85 18 97 11/13/19 14:52 95 H 11/13/19 11:21 37.0 C 91 H 18 174/73 H 96 11/13/19 10:57 95 H 16 96 11/13/19 08:00 72 11/13/19 07:36 37.0 C 87 18 161/72 H 97 11/13/19 07:00 65 16 96 Laboratory Results 11/13/19 06:12 11/13/19 06:[address] chest non con 11/09 1. Emphysematous change. 2. No acute process the chest. 3. 7 mm nodule left lung base with appropriate follow-up recommended. CT abd /pelvis Lower chest: There is severe pulmonary emphysema. There is respiratory motion artifact. There is a small pericardial effusion. Liver: The unenhanced liver is normal in size, contour, and attenuation. There is no intrahepatic biliary ductal dilatation. Gallbladder: Unremarkable. Spleen: Normal in size and attenuation. Pancreas: Unremarkable. Adrenal glands: There is mild bilateral adrenal gland thickening Kidneys: There are multiple bilateral renal cysts. 5.9 cm upper pole right renal cyst demonstrates peripheral rim calcification. There is a 2 mm lower pole right renal calculus. There is no hydronephrosis. Bowel: There are no transition zones indicate bowel obstruction. There is colonic diverticulosis. There is no evidence of acute diverticulitis. The visualized portions of the appendix appear normal. Peritoneum: There is no intraperitoneal free air or abdominal ascites. Vasculature: There is no evidence of abdominal aortic aneurysm. There are moderately extensive atheromatous calcifications within the aorta iliac vessels. Adenopathy: None. Pelvic viscera: Prostate is prominent. There are multiple bladder diverticula present. There is an encysted hydrocele within the left inguinal canal.. Skeletal structures: No destructive osseous lesions are seen. There is an L5-S1 disc protrusion. There is multilevel spinal stenosis. IMPRESSION: 1. Examination limited due to lack of intravenous and oral contrast 2. No evidence of bowel obstruction. No evidence of free air 3. No acute inflammatory changes 4. Bilateral renal cysts 5. 2 mm lower pole right renal calculus. No hydronephrosis. No ureteral calculi identified. 6. Multiple bladder diverticula Renal bx 08/2019 14 glomeruli of which 7 globally sclerosed; no segmental sclerosis. severe IFTA, severe arterial intimal fibrosis/hyalinosis; IF negative; EM had no intact gloms
--- NOTE | 2019-11-13 17:12 | Hospitalist Progress Note ---
Date of Service November 13, 2019 Assessment & Plan (1) Sternocleidomastoid muscle tenderness: Nontraumatic, patient states waking up with neck pain several days ago. He has been on baclofen but is still having pain. We will switch to Valium as a muscle relaxing agent. NSAIDs contraindicated in setting of renal dysfunction. Continue massage. PT consulted to work with him on neck exercises and stretching modalities (2) Hypertensive urgency: Improving but not to goal. In setting of renal dysfunction consulted nephrology for additional assistance. Appreciate recommendations. (3) CKD (chronic kidney disease), stage IV: Around baseline. Continue low-salt diet. Nephrology seeing patient. Appreciate recommendations. (4) Chronic diastolic CHF (congestive heart failure): stable, euvolemic. Bumex on hold. (5) Chronic hepatitis C: -Continue Zepatier (6) BPH (benign prostatic hyperplasia): -Continue tamsulosin (7) Black stools: Protonix drip stopped after EGD revealed no evidence of active GI bleeding. He has remained hemodynamically stable and has had no further bloody stools. Resolved. (8) Intractable vomiting: Resolved and tolerating food (9) DVT prophylaxis: Heparin Full Code Dispo-cont hospitalization. Plan to DC when blood pressure is stable and he is feeling better. Possibly tomorrow. Melissa Morfin DO [facility] Hospitalist Subjective [place], emotional. Reports severe pain in his neck. BP still not under control, nephrology consulted. Patient tolerating p.o. No further black stools. H&H stable Review of Systems Review of Systems: All systems reviewed & are unremarkable except as noted in Subjective Physical Exam Physical Exam: CONSTITUTIONAL: WNWD, vitals as above, generally well- appearing EYES: normal conjunctivae, no scleral icterus ENT: MMM RESPIRATORY: clear to auscultation bilaterally, no crackles, rales or wheezes, normal respiratory effort CARDIOVASCULAR: regular rate and rhythm, S1 and 2 heard without murmurs, gallops or rubs, no JVD, no peripheral edema GASTROINTESTINAL: soft, nontender, nondistended MUSCULOSKELETAL: strength 5/5 throughout, head is normocephalic and atraumatic SKIN: warm and dry NEUROLOGIC: CN 2-12 grossly intact, normal cognition, normal speech PSYCHIATRIC: alert cooperative and oriented to person, place and time. Results & Data ([facility]) Vital Signs (Past 12 Hours) Vital Signs Temp Pulse Pulse Resp BP Pulse Ox 11/13/19 15:56 36.6 C 94 H 18 154/59 H 97 11/13/19 15:13 85 18 97 11/13/19 14:52 95 H 11/13/19 11:21 37.0 C 91 H 18 174/73 H 96 11/13/19 10:57 95 H 16 96 11/13/19 08:00 72 11/13/19 07:36 37.0 C 87 18 161/72 H 97 11/13/19 07:00 65 16 96 Laboratory Results Short CBC 11/13/19 Range/Units 06:12 WBC 6.30 (4.8-10.8) K/uL Hgb 11.2 L (14.0-18.0) g/dL Hct 31.7 L (42-52) % Plt Count 235 (130-400) K/uL BMP 11/13/19 06:12 Sodium 137 Potassium 3.8 Chloride 107 Carbon Dioxide 23 BUN 63 H Creatinine 3.02 H Glucose 104 H Calcium 8.8 Medications Administered Current Inpatient Medications Acetaminophen (Tylenol) 650 mg PO Q4H PRN PRN Reason: Pain or Fever Stop: 12/09/19 18:27 Last Admin: 11/12/19 08:16 Dose: 650 mg Documented by: Albuterol (Duoneb) 3 ml INH QIDR [facility] Stop: 12/12/19 18:59 Last Admin: 11/13/19 15:12 Dose: 3 ml Documented by: Amlodipine Besylate (Norvasc) 10 mg PO [facility] Stop: 12/13/19 08:59 Last Admin: 11/13/19 07:50 Dose: 10 mg Documented by: Baclofen (Lioresal) 10 mg PO TID PRN PRN Reason: neck pain Stop: 12/10/19 17:08 Last Admin: 11/13/19 07:53 Dose: 10 mg Documented by: Diazepam (Valium) 2 mg PO BID PRN PRN Reason: neck pain Stop: 12/13/19 12:36 Elbasvir/Grazoprevir (Zepatier) 1 ea PO [facility] Stop: 12/10/19 12:59 Last Admin: 11/13/19 07:50 Dose: 1 ea Documented by: Fluticasone Furoate (Arnuity Ellipta 200mcg) 1 puffs INH QAM [facility] Stop: 12/10/19 08:59 Last Admin: 11/13/19 07:49 Dose: 1 puffs Documented by: Guaifenesin/Dextromethorphan (Robitussin Cough-Chest Dm) 10 ml PO Q6H PRN PRN Reason: Cough Stop: 12/12/19 18:13 Last Admin: 11/13/19 15:27 Dose: 10 ml Documented by: Heparin Sodium (Porcine) (Heparin Sodium (Porcine)) 5,000 units SQ Q8 [facility] Stop: 12/13/19 05:59 Last Admin: 11/13/19 13:02 Dose: 5,000 units Documented by: Hydralazine HCl (Apresoline) 50 mg PO TID [facility] Stop: 12/09/19 20:59 Last Admin: 11/13/19 13:02 Dose: 50 mg Documented by: Hydrochlorothiazide (Hctz) 25 mg PO DAILY [facility] Stop: 12/11/19 08:59 Last Admin: 11/13/19 07:50 Dose: 25 mg Documented by: Promethazine HCl 12.5 mg/ (Sodium Chloride) 50.5 mls @ 202 mls/hr IV Q6H PRN PRN Reason: Nausea And Vomiting Stop: 12/10/19 10:12 Last Infusion: 11/10/19 11:09 Dose: Infused Documented by: Isosorbide Dinitrate (Isordil) 20 mg PO BID@0700,1200 [facility] Stop: 12/11/19 06:59 Last Admin: 11/13/19 11:20 Dose: 20 mg Documented by: Levalbuterol HCl (Xopenex Hfa) 2 puffs INH QID PRN PRN Reason: Shortness Of Breath Stop: 12/09/19 18:27 Ondansetron HCl (Zofran) 4 mg IV Q6H PRN PRN Reason: nausea Stop: 12/09/19 18:27 Last Admin: 11/10/19 08:23 Dose: 4 mg Documented by: Pantoprazole Sodium (Protonix) 40 mg PO QAM [facility] Stop: 12/10/19 17:14 Last Admin: 11/13/19 07:50 Dose: 40 mg Documented by: Tamsulosin HCl (Flomax) 0.4 mg PO HS [facility] Stop: 12/09/19 20:59 Last Admin: 11/12/19 20:59 Dose: 0.4 mg Documented by: Tramadol HCl (Ultram) 25 mg PO Q4H PRN PRN Reason: Pain Stop: 12/09/19 23:47 Last Admin: 11/10/19 20:50 Dose: 25 mg Documented by:
[2019-11-13] MEDS: carvediloL 12.5 MG TAB PO SCH (20:47)
[2019-11-13] MEDS: TAMSULOSIN HCL 0.4 MG CAP PO SCH (20:47)
[2019-11-13] MEDS: diazePAM 2 MG TABLET PO PRN (20:47)
[2019-11-14] MEDS: TRAMADOL HCL 50 MG TABLET PO PRN (02:46)
[2019-11-14] MEDS: HEPARIN SOD 5,000 UNIT/0.5 ML VIAL SQ SCH ×3 (06:24→21:02)
[2019-11-14] MEDS: ACETAMINOPHEN 325 MG TAB PO PRN (06:30)
[2019-11-14] MEDS: GUAIFENESIN/DEXTROM SYRUP 200MG/20MG 10ML UDC PO PRN ×2 (06:48→22:45)
[2019-11-14] MEDS: ISOSORBIDE DINITRATE 20 MG TAB PO SCH ×2 (06:49→12:27)
[2019-11-14] MEDS: ALBUT/IPRATROP 3MG/0.5MG NEB 3 ML VIAL INH SCH ×2 (06:59→11:16)
[2019-11-14 07:22] LABS: BUN Creatinine Ratio 23.3 (10-20); Creatinine Clr Calc Pharmacy 21.5 ml/min; Est GFR (African American) 23.4; Est GFR (Non-African American) 20.2; Potassium 3.7 mmol/L (3.5-5.1)
[2019-11-14] MEDS: FLUTICASONE FUROATE 200MCG 14 PUFFS/INHALER INH SCH (08:27)
[2019-11-14] MEDS: AMLODIPINE BESYLATE 5 MG TAB PO SCH (08:28)
[2019-11-14] MEDS: TORSEMIDE 10 MG TAB PO SCH (08:29)
[2019-11-14] MEDS: PANTOprazole 40 MG TAB PO SCH (08:29)
[2019-11-14] MEDS: carvediloL 12.5 MG TAB PO SCH ×2 (08:30→21:01)
[2019-11-14] MEDS: GRAZOPREVIR PO SCH (08:31)
[2019-11-14] MEDS: ELBASVIR PO SCH (08:31)
[2019-11-14] MEDS: diazePAM 2 MG TABLET PO PRN ×2 (08:36→21:09)
[2019-11-14] MEDS ORDERED: ALBUT/IPRATROP 3MG/0.5MG NEB 3 ML VIAL INH PRN (11:07)
--- NOTE | 2019-11-14 15:10 | Nephrology Progress Note ---
Date of Service November 14, 2019 Assessment & Plan (1) Hypertensive urgency: asymptomatic and w/o evidence of acute organ injury in setting of uncontrolled HTN w/ sbp generally in 150-180s, HR 80-90s for first days of stay; some improvement on change in meds after 1 day but monitor for pipo ance/complications - did have one reading sbp in 90s today -had been on amlodipine 10 mg daily; on hydralazine 75 mg tid; on hctz 25 mg daily >now on CCB 10 mg dialy, hydralazine 75 mg tid, coreg 12.5 mg bid; torsemide 5 mg daily > cont same -daily bmp -monitor bp q6hrs at least (2) CKD (chronic kidney disease), stage IV: baseline creatinine since fall appears to be low 3's from hypertensive nephrosclerosis (biopsy proven); high ESRD risk next 3 years -bp control as above -daily bmp -avoid nephrotoxins (3) Chronic hepatitis C: tx status not documented in shelter records received; states was tx'd for this Subjective seen on rounds 0940; c/o ongoing neck pain and generalized body aches; some N at times Review of Systems Review of Systems: All systems reviewed & are unremarkable except as noted in HPI & below Physical Exam Constitutional: well developed and well nourished; no acute distress (sitting in bed on ra) Eyes: EOM intact bilaterally ENMT: Ears: no external ear abnormality Nose: no external nose abnormality Mouth: + dry oral mucous membranes Neck: no nuchal rigidity Respiratory: normal respiratory effort Auscultation: lungs clear to auscultation bilaterally and + diminished lung sounds Cardiovascular: RRR, no murmur, no edema Gastrointestinal (Abdomen): Inspection/Auscultation: normal bowel sounds; abdomen not distended Percussion/Palpation: abdomen soft; abdomen nontender and no ascites Musculoskeletal: Extremities: strength 5/5 throughout Skin: no rashes, warm and dry Psychiatric: Orientation: alert, oriented x 3 and cooperative Speech: normal rate/rhythm/volume of speech Results & Data Vital Signs (Past 12 Hours) Vital Signs Temp Pulse Resp BP BP Pulse Ox 11/14/19 14:48 36.6 C 65 18 151/69 H 93 11/14/19 13:37 72 91/34 L 133/59 L 11/14/19 11:12 65 18 97 11/14/19 07:00 72 16 96 11/14/19 06:47 36.7 C 72 150/65 H 95 Laboratory Results 11/13/19 06:12 11/14/19 06:20 (1) Chronic hepatitis C Hepatic coma status: without hepatic coma Qualified Code(s): B18.2 - Chronic viral hepatitis C
--- NOTE | 2019-11-14 18:52 | Hospitalist Progress Note ---
Date of Service November 14, 2019 Assessment & Plan (1) Hypertensive urgency: Blood pressure is better controlled on current regimen per nephrology including hydralazine 75 p.o. 3 times daily, Coreg 12.5 p.o. twice daily, torsemide 5 mg p.o. daily, Isordil twice daily, Norvasc 10 mg every morning. Continue low-salt diet. (2) CKD (chronic kidney disease), stage IV: Functioning around baseline. Trend BMP while hospitalized. (3) Chronic diastolic CHF (congestive heart failure): stable, euvolemic. Bumex on hold. (4) Chronic hepatitis C: -Continue Zepatier (5) BPH (benign prostatic hyperplasia): -Continue tamsulosin (6) Black stools: Protonix drip stopped after EGD revealed no evidence of active GI bleeding. He has remained hemodynamically stable for the most part and has had no further bloody stools. Resolved. (7) Intractable vomiting: Resolved and tolerating food (8) DVT prophylaxis: Heparin Full Code Dispo-DC to [facility] better in a.m. pending BP stability and patient feeling better from a neck pain standpoint. Melissa Morfin DO [facility] Hospitalist Subjective Feels better today, Valium improved his tenderness in his neck. He is starting to move around more. He has had bowel movements. He is tolerating p.o. Starting to feel more back to baseline. He is less emotional today. Review of Systems Review of Systems: All systems reviewed & are unremarkable except as noted in Subjective Physical Exam Physical Exam: CONSTITUTIONAL: WNWD, vitals as above, generally well- appearing EYES: normal conjunctivae, no scleral icterus ENT: MMM RESPIRATORY: clear to auscultation bilaterally, no crackles, rales or wheezes, normal respiratory effort CARDIOVASCULAR: regular rate and rhythm, S1 and 2 heard without murmurs, gallops or rubs, no JVD, no peripheral edema GASTROINTESTINAL: soft, nontender, nondistended MUSCULOSKELETAL: strength 5/5 throughout, head is normocephalic and atraumatic SKIN: warm and dry NEUROLOGIC: CN 2-12 grossly intact, normal cognition, normal speech PSYCHIATRIC: alert cooperative and oriented to person, place and time. Results & Data ([facility]) Vital Signs (Past 12 Hours) Vital Signs Temp Pulse Resp BP BP Pulse Ox 11/14/19 15:51 94 11/14/19 14:48 36.6 C 65 18 151/69 H 93 11/14/19 13:37 72 91/34 L 133/59 L 11/14/19 11:12 65 18 97 11/14/19 07:00 72 16 96 Laboratory Results [facility] 11/14/19 06:20 Sodium 138 Potassium 3.7 Chloride 109 H Carbon Dioxide 23 BUN 70 H Creatinine 2.99 H Glucose 100 H Calcium 9.0 Medications Administered Current Inpatient Medications Acetaminophen (Tylenol) 650 mg PO Q4H PRN PRN Reason: Pain or Fever Stop: 12/09/19 18:27 Last Admin: 11/14/19 06:30 Dose: 650 mg Documented by: Albuterol (Duoneb) 3 ml INH QIDR PRN PRN Reason: SOB/wheezing Stop: 12/12/19 18:59 Last Admin: 11/14/19 11:11 Dose: 3 ml Documented by: [facility]) [facility]: 12/13/19 08:59 Last Admin: 11/14/19 08:28 Dose: 10 mg Documented by: Carvedilol (Coreg) 12.5 mg PO BID [facility] Stop: 12/13/19 20:59 Last Admin: 11/14/19 08:30 Dose: 12.5 mg Documented by: Diazepam (Valium) 2 mg PO BID PRN PRN Reason: neck pain Stop: 12/13/19 12:36 Last Admin: 11/14/19 08:36 Dose: 2 mg Documented by: Elbasvir/Grazoprevir (Zepatier) 1 ea PO QAM [facility] Stop: 12/10/19 12:59 Last Admin: 11/14/19 08:31 Dose: 1 ea Documented by: Fluticasone Furoate (Arnuity Ellipta 200mcg) 1 puffs INH QAM [facility] Stop: 12/10/19 08:59 Last Admin: 11/14/19 08:27 Dose: 1 puffs Documented by: Guaifenesin/Dextromethorphan (Robitussin Cough-Chest Dm) 10 ml PO Q6H PRN PRN Reason: Cough Stop: 12/12/19 18:13 Last Admin: 11/14/19 06:48 Dose: 10 ml Documented by: Heparin Sodium (Porcine) (Heparin Sodium (Porcine)) 5,000 units SQ Q8 [facility] Stop: 12/13/19 05:59 Last Admin: 11/14/19 13:47 Dose: 5,000 units Documented by: Hydralazine HCl (Apresoline) 75 mg PO TID [facility] Stop: 12/13/19 20:59 Last Admin: 11/14/19 13:46 Dose: 75 mg Documented by: Promethazine HCl 12.5 mg/ (Sodium Chloride) 50.5 mls @ 202 mls/hr IV Q6H PRN PRN Reason: Nausea And Vomiting Stop: 12/10/19 10:12 Last Infusion: 11/10/19 11:09 Dose: Infused Documented by: Isosorbide Dinitrate (Isordil) 20 mg PO BID@0700,1200 [facility] Stop: 12/11/19 06:59 Last Admin: 11/14/19 12:27 Dose: 20 mg Documented by: Levalbuterol HCl (Xopenex Hfa) 2 puffs INH QID PRN PRN Reason: Shortness Of Breath Stop: 12/09/19 18:27 Ondansetron HCl (Zofran) 4 mg IV Q6H PRN PRN Reason: nausea Stop: 12/09/19 18:27 Last Admin: 11/10/19 08:23 Dose: 4 mg Documented by: Pantoprazole Sodium (Protonix) 40 mg PO QAM [facility] Stop: 12/10/19 17:14 Last Admin: 11/14/19 08:29 Dose: 40 mg Documented by: Tamsulosin HCl (Flomax) 0.4 mg PO HS [facility] Stop: 12/09/19 20:59 Last Admin: 11/13/19 20:47 Dose: 0.4 mg Documented by: Torsemide (Demadex) 5 mg PO QAM [facility] Stop: 12/14/19 08:59 Last Admin: 11/14/19 08:29 Dose: 5 mg Documented by: Tramadol HCl (Ultram) 25 mg PO Q4H PRN PRN Reason: Pain Stop: 12/09/19 23:47 Last Admin: 11/14/19 02:46 Dose: 25 mg Documented by: (1) Chronic hepatitis C Hepatic coma status: without hepatic coma Qualified Code(s): B18.2 - Chronic viral hepatitis C (2) Intractable vomiting Nausea presence: unspecified Vomiting type: unspecified Qualified Code(s): R11.10 - Vomiting, unspecified
[2019-11-14] MEDS: TAMSULOSIN HCL 0.4 MG CAP PO SCH (21:01)
[2019-11-15] MEDS: ISOSORBIDE DINITRATE 20 MG TAB PO SCH ×2 (06:03→11:40)
[2019-11-15] MEDS: TRAMADOL HCL 50 MG TABLET PO PRN (06:03)
[2019-11-15] MEDS: HEPARIN SOD 5,000 UNIT/0.5 ML VIAL SQ SCH ×2 (06:03→13:32)
[2019-11-15 06:20] LABS: Hematocrit (blood only) 30.8 % (42-52); Hemoglobin 10.9 g/dL (14.0-18.0); Mean Corpuscular Hemoglobin 27.5 pg (25-34); Mean Corpuscular Hgb Conc 35.4 g/dL (32-36); Mean Corpuscular Volume 77.6 fL (80-100); Mean Platelet Volume 9.5 fL (7.4-10.4); Nucleated RBC # (auto) 0.02 K/uL (0-0); Nucleated RBC % (auto) 0.2 %; Platelet Count 227 K/uL (130-400); RDW Coefficient of Variation 14.2 % (11.5-14.5); RDW Standard Deviation 40.6 fL (36.4-46.3); Red Blood Count 3.97 M/uL (4.7-6.1); White Blood Count 7.33 K/uL (4.8-10.8)
[2019-11-15 06:56] LABS: BUN Creatinine Ratio 23.1 (10-20); Creatinine Clr Calc Pharmacy 20.3 ml/min; Est GFR (African American) 21.9; Est GFR (Non-African American) 18.9; Potassium 4.1 mmol/L (3.5-5.1)
[2019-11-15] MEDS: PANTOprazole 40 MG TAB PO SCH (08:20)
[2019-11-15] MEDS: carvediloL 12.5 MG TAB PO SCH (08:20)
[2019-11-15] MEDS: TORSEMIDE 10 MG TAB PO SCH (08:20)
[2019-11-15] MEDS: AMLODIPINE BESYLATE 5 MG TAB PO SCH (08:20)
[2019-11-15] MEDS: FLUTICASONE FUROATE 200MCG 14 PUFFS/INHALER INH SCH (08:20)
[2019-11-15] MEDS: GRAZOPREVIR PO SCH (08:21)
[2019-11-15] MEDS: ELBASVIR PO SCH (08:21)
[2019-11-15] MEDS: diazePAM 2 MG TABLET PO PRN (13:36)
--- NOTE | 2019-11-15 14:51 | Hospitalist Progress Note ---
Date of Service November 15, 2019 Assessment & Plan (1) Hypertensive urgency: Blood pressure is better controlled on current regimen Appreciate input from nephrology Discharge antihypertensives: Hydralazine 75 p.o. 3 times daily, Coreg 12.5 p.o. twice daily, torsemide 5 mg p.o. daily, Isordil 20 mg twice daily, Norvasc 10 mg every morning. Patient should have blood pressure check 13 times a week Stable to be discharged back to [facility] (2) CKD (chronic kidney disease), stage IV: Advanced CKD GFR approximately 20-due to hypertensive nephrosclerosis(biopsy-proven) High risk for developing end-stage renal deep disease dialysis dependent in next few years Patient been followed with trash collector via telemedicine at the present Baseline creatinine 2.5-3 Creatinine mildly elevated 3.1, No evidence of volume overload Nephrology consulted appreciate input from nephrology Stable to be discharged, Recommend weekly basic metabolic panel to be checked for 3 weeks, lab results should be sent to his outpatient trash collector Patient already been followed with trash collector at [facility] via telemedicine Labs follow-up, and medication changes updated to present physician Dr. Garcia (3) Chronic diastolic CHF (congestive heart failure): stable, euvolemic. Diuretics adjusted, started on torsemide 5 mg daily Needs good control of blood pressure to prevent CHF exacerbation (4) Chronic hepatitis C: -Continue Zepatier (5) BPH (benign prostatic hyperplasia): -Continue tamsulosin RIGHT NECK PAIN Likely musculoskeletal Symptom improved with Valium, patient will not be discharged on benzodiazepine secondary to risk of addiction/abuse Symptomatic management with warm compression as needed Baclofen not prescribed secondary to advanced CKD (6) DVT prophylaxis: Heparin Full Code Disposition: Stable to be discharged back to [facility] today Subjective Patient reports of feeling well, no complaint of chest pain, no shortness of breath no cough no fever chills Pain on right right side of neck, improved, but still having tenderness on neck movement No fever or chills, Review of Systems Review of Systems: ROS per HPI, all other systems reviewed and negative Physical Exam Constitutional: WD/WN, vitals as above + ill appearing and + thin; no acute distress Eyes: PERRL, conjunctivae normal, anicteric sclerae ENMT: external ear and nose normal, oropharynx normal Neck: trachea midline, no thyromegaly Respiratory: normal respiratory effort, lungs clear to auscultation Cardiovascular: RRR, no murmur, no edema Gastrointestinal (Abdomen): normal bowel sounds, soft, nontender, no hepatosplenomegaly Musculoskeletal: no cyanosis or clubbing, extremities motor strength 5/5 Skin: no rashes, warm and dry Neurologic: PERRL, EOMI, accommodation nl, no face palsy, no dysarthria Psychiatric: A+Ox3, euthymic affect Results & Data ([facility]) Vital Signs (Past 12 Hours) Vital Signs Temp Pulse Resp BP Pulse Ox 11/15/19 07:17 36.8 C 77 18 135/57 L 93 (1) Chronic hepatitis C Hepatic coma status: without hepatic coma Qualified Code(s): B18.2 - Chronic viral hepatitis C
--- NOTE | 2019-11-15 15:03 | Nephrology Progress Note ---
Date of Service November 15, 2019 Assessment & Plan (1) Hypertensive urgency: asymptomatic and w/o evidence of acute organ injury in setting of uncontrolled HTN w/ sbp generally in 150-180s, HR 80-90s for first days of stay; some improvement on change in meds to 130-150s systolic and no sx w/ one time drop to 90s -had been on amlodipine 10 mg daily; on hydralazine 75 mg tid; on hctz 25 mg d aily >now on CCB 10 mg dialy, hydralazine 75 mg tid, coreg 12.5 mg bid; torsemide 5 mg daily > cont same now and at d/c -the following was added to d/c recs: at hospital d/c recommend continue above meds; recommend bp check 1-3 times weekly; recommend weekly bmp x 3 checks 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 (2) CKD (chronic kidney disease), stage IV: baseline creatinine since fall appears to be low 3's from hypertensive nephrosclerosis (biopsy proven); high ESRD risk next 3 years -bp control as above -daily bmp -avoid nephrotoxins (3) Chronic hepatitis C: tx status not documented in nursing home records received; states was tx'd for this Subjective ongoing neck pain, ongoing mild N; tolerating po, no sob, no edema or voiding c/o Review of Systems Review of Systems: All systems reviewed & are unremarkable except as noted in HPI & below Physical Exam Constitutional: well developed and well nourished; no acute distress (sitting in bed on ra w/ heating pad) Eyes: EOM intact bilaterally ENMT: Ears: no external ear abnormality Nose: no external nose abnormality Mouth: + dry oral mucous membranes Neck: no nuchal rigidity Respiratory: normal respiratory effort Auscultation: lungs clear to auscultation bilaterally and + diminished lung sounds Cardiovascular: RRR, no murmur, no edema Gastrointestinal (Abdomen): Inspection/Auscultation: normal bowel sounds; abdomen not distended Percussion/Palpation: abdomen soft; abdomen nontender and no ascites Musculoskeletal: Extremities: strength 5/5 throughout Skin: no rashes, warm and dry Psychiatric: Orientation: alert, oriented x 3 and cooperative Speech: normal rate/rhythm/volume of speech Results & Data Vital Signs (Past 12 Hours) Vital Signs Temp Pulse Resp BP Pulse Ox 11/15/19 07:17 36.8 C 77 18 135/57 L 93 Laboratory Results 11/15/19 05:55 11/15/19 05:55 (1) Chronic hepatitis C Hepatic coma status: without hepatic coma Qualified Code(s): B18.2 - Chronic viral hepatitis C
--- NOTE | 2019-11-15 16:00 | Discharge Summary ---
Date of Service November 15, 2019 Admission HPI Per Admitting Provider 69-year-old male who was sent from [facility] for evaluation of vomiting. History was obtained from physician at [facility]. He reports the patient was admitted to the [facility] about 1 week ago for management of CHF. Patient had lower extremity edema and rales on exam. CXR showed left pleural effusion and pulmonary congestion. Patient also had a telemedicine consult with nephrology the same day. His diuretics were changed from Lasix 40 mg daily to Bumex 1 mg daily and HCTZ 25 mg daily was added. Patient responded well to the diuretic change with his weight going from 171 pounds to 135 pounds. Chest x-ray had cleared as well. With the quick response of diuresis, Bumex was titrated down to 0.5 mg Fridays. Patient was also found to be hypertensive and hydralazine 25 mg 3 times daily was initially started and increased eventually to 50 mg 3 times daily. Isosorbide dinitrate 20 mg twice daily was also started to help with blood pressure control. Patient was previously on hydralazine in the past however it was stopped by nephrology for arterial nephrosclerosis and patient was started on KHUSHI inhibitor however that ultimately had to be stopped as well secondary to worsening renal function. Patient also had been on Norvasc in the past however this was discontinued secondary to lower extremity edema. Additionally, patient was on metoprolol in the past however this was discontinued secondary to bradycardia. Upon arrival to the [facility], patient was also found to have low-grade fever and productive cough. He was empirically started on Levaquin. 2 days ago, patient started vomiting. He describes the emesis as brown is times however denies coffee-ground appearance or bright red blood. Yesterday he had a black bowel movement. He denies abdominal pain. No lightheadedness, dizziness, diaphoresis, syncopal events. Denies chest pain and shortness of breath. No urinary symptoms. In the ED, patient is found to be hypertensive at 223/102. Labs show stable hemoglobin at 11.9. BUN and creatinine 64/3.2 (baseline creatinine ~mid 2's, was 2.5 on 11/06 per [facility] labs). CXR and CT ABD/pelvis are negative for acute findings. Patient was given IV Tylenol, GI cocktail, albuterol treatment, p.o. famotidine, IV furosemide, glucagon, IV Reglan, topical nitro, IVF, p.o. sucralfate. Principal Diagnosis HYPERTENSIVE URGENCY /CKD stage 4 GASTRITIS /RIGHT NECK PAIN -Muskuloskeletal Discharge Exam Constitutional WD/WN, vitals as above + ill appearing and + thin; no acute distress Eyes PERRL, conjunctivae normal, anicteric sclerae ENMT external ear and nose normal, oropharynx normal Neck trachea midline, no thyromegaly Respiratory normal respiratory effort, lungs clear to auscultation Cardiovascular RRR, no murmur, no edema Gastrointestinal (Abdomen) normal bowel sounds, soft, nontender, no hepatosplenomegaly Musculoskeletal no cyanosis or clubbing, extremities motor strength 5/5 Skin no rashes, warm and dry Neurologic PERRL, EOMI, accommodation nl, no face palsy, no dysarthria Psychiatric A+Ox3, euthymic affect Discharge Data Allergies Allergy/AdvReac Type Severity Reaction Status Date / Time No Known Drug Allergies Allergy Unknown . Verified 11/09/19 12:40 Consultations 11/09/19 15:17 ED Decision to Admit Stat 11/09/19 18:28 Consult Case Management - Discharge Planning Routine Consult Gastroenterology Routine 11/13/19 12:13 Consult Nephrology Routine Procedures Performed Operation Date: 11/10/19 15:20 Actual Procedures p Esophagogastroduodenoscopy(Not Applicable) - Antwon Molina Ordered Studies 11/09/19 12:21 CT cervical spine wo con Stat 11/09/19 13:01 CT abd pelvis wo con Stat CT chest wo con Stat Hospital Course (1) Hypertensive urgency: Blood pressure is better controlled on current regimen Appreciate input from nephrology Discharge antihypertensives: Hydralazine 75 p.o. 3 times daily, Coreg 12.5 p.o. twice daily, torsemide 5 mg p.o. daily, Isordil 20 mg twice daily, Norvasc 10 mg every morning. Patient should have blood pressure check 13 times a week [facility] (2) CKD (chronic kidney disease), stage IV: Advanced CKD GFR approximately 20-due to hypertensive nephrosclerosis( biopsy-proven) High risk for developing end-stage renal deep disease dialysis dependent in next few years Patient been followed with hub cutter via telemedicine at the present Baseline creatinine 2.5-3 Creatinine mildly elevated 3.1, No evidence of volume overload Nephrology consulted appreciate input from nephrology Stable to be discharged, Recommend weekly basic metabolic panel to be checked for 3 weeks, lab results should be sent to his outpatient hub cutter Patient already been followed with hub cutter at [facility] via telemedicine Labs follow-up, and medication changes updated to present physician Dr. Garcia (3) Chronic diastolic CHF (congestive heart failure): stable, euvolemic. Diuretics adjusted, started on torsemide 5 mg daily Needs good control of blood pressure to prevent CHF exacerbation (4) Chronic hepatitis C: -Continue Zepatier (5) BPH (benign prostatic hyperplasia): -Continue tamsulosin RIGHT NECK PAIN Likely musculoskeletal Symptom improved with Valium, patient will not be discharged on benzodiazepine secondary to risk of addiction/abuse Symptomatic management with warm compression as needed Baclofen not prescribed secondary to advanced CKD (6) DVT prophylaxis: Heparin Full Code Disposition: Stable [facility] Total Time Total Time Spent Total Time Spent (In Minutes): approx 35 mins Total Time Includes: Examination of the Patient, Discharge Planning and Medication Reconciliation Discharge Plan Discharge Items [facility] Reason For Visit: HTN URGENCY Discharge Diagnosis: HYPERTENSIVE URGENCY /CKD stage 4 GASTRITIS /RIGHT NECK PAIN -Muskuloskeletal Activity: Resume your previous activity Non-emergency contact: Primary Care Provider Call non-emergency contact if: you have any medication questions Follow-up/Referrals: [facility] [Primary Care Provider] - Diet: Heart Healthy, Low Potassium (2gm) and Low Sodium (2gm) Addtl Attending Provider Instructions: TAKE PRILOSEC /OMEPRAZOLE 40 MG DAILY AVOID NSAID'S -NO MOTRIN , ALEVE , ADVIL, IBUPROPHEN , NAPROXEN OR HIGH DOSE ASPIRIN Can take Tylenol as needed for pain Please apply hot compression on right side of the neck area as needed for pain/muscle spasm lab: Basic metabolic panel every week for next 3 weeks Follow up with your current Spring Inspector in 1-2 weeks Addtl Chaperone Provider Instructions: >>>continue current meds (amlodipine 10 mg daily, hydralazine 75 mg tid, coreg 12.5 mg bid; torsemide 5 mg daily) >>>recommend blood pressure check 1-3 times weekly >>>recommend weekly bmp x 3 checks all to go to his outpatient hub cutter Pending Studies at Discharge: Yes Studies:: PULMONARY NODULE 7 mm nodule left lung base needs follow up CT in 6-12 months Stand-Alone Forms: My [facility] Skilled Items Patient informed of condition?: Yes Discharge Level of Care: Other Communicable Disease: No Discharge Prognosis: Stable Lines: None Urinary Catheter: No Medications and DC Order Prescriptions: New carvedilol 12.5 mg Tablet 12.5 mg PO BID 30 Days Qty: 0 RF: 0 torsemide 10 mg Tablet 5 mg PO QAM 30 Days Qty: 0 RF: 0 amlodipine [Norvasc] 5 mg Tablet 10 mg PO QAM 30 Days Qty: 60 RF: 0 omeprazole 40 mg capsule,delayed release(DR/EC) 40 mg PO DAILY Qty: 30 RF: 0 Continued tamsulosin 0.4 mg Capsule 0.4 mg PO HS RF: 0 aspirin 81 mg Tablet,Chewable 81 mg PO DAILY RF: 0 trazodone 100 mg Tablet 100 mg PO HS RF: 0 levalbuterol tartrate [Xopenex HFA] 45 mcg/actuation Hfa Aerosol Inhaler 2 inh INHALATION QID PRN (Reason: Shortness Of Breath) RF: 0 [place]ves[place] 160 mcg/actuation Hfa Aerosol Inhaler 1 puff INHALATION BID RF: 0 acetaminophen 325 mg Tablet 650 mg PO TID PRN (Reason: Pain) RF: 0 ipratropium-albuterol 0.5 mg-3 mg(2.5 mg base)/3 mL Solution For Nebulization 3 ml INHALATION QID RF: 0 vitamin A and D Ointment 1 applic TOPICAL BID PRN (Reason: PRN) RF: 0 baclofen 10 mg Tablet 10 mg PO TID PRN (Reason: neck pain) RF: 0 isosorbide dinitrate 20 mg Tablet 20 mg PO BID RF: 0 Zepatier 50-100 mg Tablet 1 tab PO DAILY RF: 0 Changed hydralazine 50 mg Tablet 75 mg PO TID Qty: 0 RF: 0 Discontinued bumetanide 0.5 mg Tablet 0.5 mg PO 3XWK RF: 0 hydrochlorothiazide 25 mg Tablet 25 mg PO DAILY RF: 0 levofloxacin 500 mg Tablet 500 mg PO DAILY RF: 0 Discharge Orders: Discharge Order (Routine); Ordered 11/15/19 Ordered By: Radha Ortega Admission Data Admit Date/Time: 11/10/19 10:14 Attending Provider: Radha Ortega Admit Provider: Edwin Dhaliwal Primary Care Provider: Matthew CONLEY Other Providers: Edwin Dhaliwal ; Antwon Molina ; Amira Urena Other Interventions: Discharge Summary Assessment (RN) Last Done: 11/15/19 16:05 Infection Control - Act 87 Hepatitis C Last Done: 11/10/19 11:03
== END 2019-11-15 18:27 | DRG 305 ==
LOC: ED 10:52 → 2S 10:52 → SUATTDRO 16:15 → 2S 17:15 → SUATTDRO 11-10 10:14 → 4W 11-13 18:32

== ENCOUNTER 2020-09-10 15:49 | Inpatient (IN) ==
[2020-09-10] MEDS ORDERED: DEXAMETHASONE SOD INJ 10 MG/ML VIAL IV ONE (16:16)
--- NOTE | 2020-09-10 16:19 | Emergency Department Note ---
Impression & Plan COVID-19, Hypoxia, AI (acute kidney injury), Elevated troponin, Sinus pause ED Provider Note NAME: NADINE Schaefer [id number] KEVIN AGE: 70 SEX: M : 1950 ARRIVES VIA: Ambulance INFORMANT: Patient ED PROVIDER(S): Tee Nuñez DO CHIEF COMPLAINT: Cough and shortness of breath HPI: Patient is a 70-year-old male from the shelter that presents to the ER for shortness of breath and a cough. This started yesterday. He notes multiple people on his block are sick and have been tested positive for Covid. He denies any fevers. He admits to 3 bouts of diarrhea. No chest pain. No belly pain, nausea or vomiting. Does have diarrhea. No dysuria urgency or frequency. Was a previous smoker and stopped 6 months ago. Does have a history of asthma as well. He does admit to coughing up a little blood. ROS: See above HPI for pertinent positives & negatives. A total of 10 systems reviewed and were otherwise negative. PAST MEDICAL HISTORY:See Below PAST SURGICAL HISTORY:See Below FAMILY HISTORY:See Below SOCIAL HISTORY:See Below HOME MEDICATIONS:See Below ALLERGIES:See Below VITALS:See Below PHYSICAL EXAMINATION: GENERAL: Sitting up in bed, alert, ill-appearing, moderate distress on nasal cannula EYE EXAM: normal conjunctiva. OROPHARYNX: Dry mucous membranes NECK: supple, no nuchal rigidity, no adenopathy, non-tender LUNGS: Diminished bilaterally. Normal chest wall mechanics HEART: no murmurs, S1 normal and S2 normal ABDOMEN: abdomen soft, non-tender, normo-active bowel sounds, no masses, no rebound or guarding. UPPER EXTREMITIES: upper extremities are grossly normal. LOWER EXTREMITIES: No pitting edema. Calves are equal bilateral NEURO EXAM: Normal sensorium, cranial nerves II-XII grossly intact, normal speech, no gross weakness of arms, no gross weakness of legs. MEDICAL DECISION MAKING: Patient is a 70-year-old male who presents the ER for cough and shortness of breath from the shelter with multiple contacts positive for Covid. IV was established blood work was obtained. Leukopenia was found at 4000. Mild anemia 10. BMP with a creatinine of 5.5 up from baseline of 2.3. LFTs bilirubin was unremarkable. Troponin was positive at 0.33. Lipase was normal. Patient was Covid positive. Chest x-ray with multifocal pneumonia. He was covered with IV Rocephin and oral azithromycin and given IV steroids. He was given IV fluids as well. He did have a sinus pause for an extended period of time. Pads were placed. Was monitored closely. He was discussed with hospitalist admit for hypoxia, Covid pneumonia and some hemoptysis. Triage Nursing notes reviewed. Prior medical records reviewed Vital Signs: reviewed and remarkable for toxic and hypertensive Differential diagnosis: Differential diagnoses includes but is not limited to pneumonia, bronchitis, COPD/Asthma exacerbation, pneumothorax, pulmonary embolism, congestive heart failure, acute coronary syndrome ER treatment provided: See below Diagnostics interpreted by me: ECG: Sinus rhythm rate of 54 T wave inversion in lead III QTC 422 No PVCs Cardiac Monitoring: An order was placed for continuous cardiac monitoring. The monitor shows a rate of 60 with sinus rhythm. Laboratory studies: As stated above and show below. Imaging studies: See below Consultation(s): Discussed with Dr. Jackson Ye for further evaluation ED COURSE: Procedures: none Critical Care: I have personally spent 35 minutes of critical care time in the direct management of this patient. This includes bedside care, interpretation of diagnostic studies, and testing, discussion with consultants, patient, and family members, and other required patient management activities. This 35 minutes is in excess of all separately billable procedures. Past Med/Surg History Medical History (Updated 09/10/20 @ 22:04 by Tee Nuñez DO) Arteriolar nephrosclerosis BPH (benign prostatic hyperplasia) Chronic diastolic CHF (congestive heart failure) Chronic hepatitis C CKD (chronic kidney disease), stage IV Hydrocele in adult Hypertension Surgical History H/O hernia repair History of laryngoscopy Family History Other Diabetes Hypertension Social History Smoking Status: Former smoker Second Hand Exposure: No; Hx Alcohol Use: No Hx Substance Use: No Preferred Language: Telugu Communication Ability: Effective Humanities Professor Required: No Beliefs That Will Affect Care: None Current Living Situation: Other Current Living Situation Comment: [facility] Feels Safe at Home: Yes Assistive Devices: Glasses Allergies Allergies Allergy/AdvReac Type Severity Reaction Status Date / Time No Known Drug Allergies Allergy Unknown . Verified 09/10/20 19:52 Home Meds Home Medications Medication Instructions Recorded Confirmed aspirin 81 mg PO DAILY 12/16/18 09/10/20 tamsulosin 0.4 mg PO HS 12/16/18 09/10/20 Alvesco 1 puff INHALATION BID 07/31/19 09/10/20 levalbuterol tartrate [Xopenex HFA] 2 inh INHALATION QID PRN 07/31/19 09/10/20 isosorbide dinitrate 20 mg PO BID 11/09/19 09/10/20 vitamin A and D 1 applic TOPICAL BID PRN 11/09/19 09/10/20 amlodipine 10 mg tablet 10 mg PO DAILY 01/31/20 09/10/20 atenolol 25 mg PO DAILY 09/10/20 09/10/20 bumetanide [Bumex] 1 mg PO DAILY 09/10/20 09/10/20 camphor-menthol [Icy Hot Advanced 1 applic TOPICAL BID PRN 09/10/20 09/10/20 Relief] ciclesonide [Alvesco] 1 puff INHALATION BID 09/10/20 09/10/20 ketotifen fumarate [Zaditor] 1 drp OPB BID 09/10/20 09/10/20 pantoprazole [Protonix] 40 mg PO DAILY 09/10/20 09/10/20 trazodone 150 mg PO HS 09/10/20 09/10/20 Previous Rx's Medication Instructions Recorded hydralazine 75 mg PO TID #0 tab 11/14/19 Results & Data (ED) Vital Signs Vital Signs - 24 hr 09/10/20 15:59 09/10/20 16:12 09/10/20 16:31 Temperature 36.8 C Temperature Source Oral Pulse Rate 54 L 52 L Pulse Rate [Left Finger] Pulse Rate from SpO2 Sensor 52 L Respiratory Rate 20 16 Respiratory Effort / Characteristics Non-Labored Respiratory Depth Normal Blood Pressure 176/74 H 164/67 H Blood Pressure Mean 108 107 Pulse Oximetry 96 97 97 Oxygen Delivery Method Nasal Cannula Nasal Cannula Nasal Cannula Oxygen Flow Rate 5 5 5 Fraction of Inspired Oxygen Sepsis Recent Fever Within 48 Hours No Sepsis New/Unexplained Change in Mental Status No Sepsis Action Taken by Nursing No Action Required 09/10/20 16:34 09/10/20 16:40 09/10/20 16:50 Temperature Temperature Source Pulse Rate 56 L Pulse Rate [Left Finger] Pulse Rate from SpO2 Sensor 56 L 57 L Respiratory Rate 27 H 16 Respiratory Effort / Characteristics Respiratory Depth Blood Pressure Blood Pressure Mean Pulse Oximetry 97 97 97 Oxygen Delivery Method Nasal Cannula Oxygen Flow Rate 5 Fraction of Inspired Oxygen Sepsis Recent Fever Within 48 Hours Sepsis New/Unexplained Change in Mental Status Sepsis Action Taken by Nursing 09/10/20 17:00 09/10/20 17:30 09/10/20 18:00 Temperature Temperature Source Pulse Rate 55 L 57 L 62 Pulse Rate [Left Finger] Pulse Rate from SpO2 Sensor 55 L 57 L 62 Respiratory Rate 23 16 22 Respiratory Effort / Characteristics Respiratory Depth Blood Pressure 170/73 H 151/71 H Blood Pressure Mean 118 108 Pulse Oximetry 95 97 93 Oxygen Delivery Method Nasal Cannula Nasal Cannula Oxygen Flow Rate 4 4 Fraction of Inspired Oxygen Sepsis Recent Fever Within 48 Hours Sepsis New/Unexplained Change in Mental Status Sepsis Action Taken by Nursing 09/10/20 18:06 09/10/20 18:30 09/10/20 19:00 Temperature 36.8 C Temperature Source Oral Pulse Rate 59 L 59 L Pulse Rate [Left Finger] Pulse Rate from SpO2 Sensor Respiratory Rate 19 16 Respiratory Effort / Characteristics Respiratory Depth Blood Pressure 172/78 H 173/75 H Blood Pressure Mean 94 118 Pulse Oximetry 93 91 Oxygen Delivery Method Nasal Cannula Nasal Cannula Oxygen Flow Rate 4 4 Fraction of Inspired Oxygen Sepsis Recent Fever Within 48 Hours Sepsis New/Unexplained Change in Mental Status Sepsis Action Taken by Nursing 09/10/20 19:10 09/10/20 19:20 09/10/20 19:31 Temperature Temperature Source Pulse Rate 61 Pulse Rate [Left Finger] Pulse Rate from SpO2 Sensor 60 Respiratory Rate 26 H 24 25 H Respiratory Effort / Characteristics Respiratory Depth Blood Pressure 182/73 H Blood Pressure Mean 127 Pulse Oximetry 86 L 91 96 Oxygen Delivery Method Nasal Cannula Nasal Cannula High Flow Nasal Cannula Oxygen Flow Rate 4 6 Fraction of Inspired Oxygen Sepsis Recent Fever Within 48 Hours Sepsis New/Unexplained Change in Mental Status Sepsis Action Taken by Nursing 09/10/20 19:35 09/10/20 20:00 Temperature Temperature Source Pulse Rate 53 L Pulse Rate [Left Finger] 59 L Pulse Rate from SpO2 Sensor Respiratory Rate 22 18 Respiratory Effort / Characteristics Spontaneous SOB on Exertion Respiratory Depth Blood Pressure 172/69 H Blood Pressure Mean 103 Pulse Oximetry 95 96 Oxygen Delivery Method High Flow Nasal Cannula High Flow Nasal Cannula Oxygen Flow Rate 30 Fraction of Inspired Oxygen 60 Sepsis Recent Fever Within 48 Hours Sepsis New/Unexplained Change in Mental Status Sepsis Action Taken by Nursing Laboratory Data Result diagrams: 09/10/20 16:24 09/10/20 16:24 Lab Results 09/10/20 09/10/20 09/10/20 Range/Units 16:24 16:24 16:24 WBC 4.38 L (4.8-10.8) K/uL RBC 4.48 L (4.7-6.1) M/uL Hgb 10.1 L (14.0-18.0) g/dL Hct 30.4 L (42-52) % MCV 67.9 L (80-100) fL MCH 22.5 L (25-34) pg MCHC 33.2 (32-36) g/dL RDW Std Deviation 45.2 (36.4-46.3) fL RDW Coeff of Ayanna 18.1 H (11.5-14.5) % Plt Count 160 (130-400) K/uL Immature Gran % (Auto) 0.2 % Neut % (Auto) 52.5 % Lymph % (Auto) 27.6 % [place] % (Auto) 18.7 % Eos % (Auto) 0.5 % Baso % (Auto) 0.5 % Neut # (Auto) 2.30 (1.4-6.5) K/uL Lymph # (Auto) 1.21 (1.2-3.4) K/uL [place] # (Auto) 0.82 H (0.11-0.59) K/uL Eos # (Auto) 0.02 (0-0.5) K/uL Baso # (Auto) 0.02 (0-0.2) K/uL Immature Gran # (Auto) 0.01 (0.00-0.02) K/uL Microcytosis Present Target Cells 1+ PT Cancelled INR Cancelled APTT Cancelled PTT Ratio Cancelled D-Dimer Cancelled Sodium 141 (136-145) mmol/L Potassium 4.0 (3.5-5.1) mmol/L Chloride 110 H (98-107) mmol/L Carbon Dioxide 22 (21-32) mmol/L Anion Gap 9.0 (3-11) BUN 63 H (7-18) mg/dl Creatinine 5.51 H* (0.6-1.4) mg/dl Est Cr Clr Drug Dosing 11.5 ml/min Est GFR ( Amer) 11.1 Est GFR (Non-Af Amer) 9.6 BUN/Creatinine Ratio 11.6 (10-20) Glucose 101 H (70-99) mg/dl Calcium 8.7 (8.5-10.1) mg/dl Total Bilirubin 0.3 (0.2-1) mg/dl AST 46 H (15-37) U/L ALT 18 (12-78) U/L Alkaline Phosphatase 87 (45-117) U/L Troponin I 0.337 H* (0-0.045) ng/ml Total Protein 7.8 (6.4-8.2) gm/dl Albumin 2.9 L (3.4-5.0) gm/dl Globulin 4.9 H (2.5-4.0) gm/dl Albumin/Globulin Ratio 0.6 L (0.9-2) Lipase 101 (73-393) U/L COVID-19 Eval Order SARS-CoV-2, RNA, NAAT (NEGATIVE) 09/10/20 09/10/20 09/10/20 Range/Units 16:50 16:50 18:05 WBC (4.8-10.8) K/uL RBC (4.7-6.1) M/uL Hgb (14.0-18.0) g/dL Hct (42-52) % MCV (80-100) fL MCH (25-34) pg MCHC (32-36) g/dL RDW Std Deviation (36.4-46.3) fL RDW Coeff of Ayanna (11.5-14.5) % Plt Count (130-400) K/uL Immature Gran % (Auto) % Neut % (Auto) % Lymph % (Auto) % [place] % (Auto) % Eos % (Auto) % Baso % (Auto) % Neut # (Auto) (1.4-6.5) K/uL Lymph # (Auto) (1.2-3.4) K/uL [place] # (Auto) (0.11-0.59) K/uL Eos # (Auto) (0-0.5) K/uL Baso # (Auto) (0-0.2) K/uL Immature Gran # (Auto) (0.00-0.02) K/uL Microcytosis Target Cells PT 11.9 INR 1.1 APTT 30.9 PTT Ratio 1.1 D-Dimer 2240 H* Sodium (136-145) mmol/L Potassium (3.5-5.1) mmol/L Chloride (98-107) mmol/L Carbon Dioxide (21-32) mmol/L Anion Gap (3-11) BUN (7-18) mg/dl Creatinine (0.6-1.4) mg/dl Est Cr Clr Drug Dosing ml/min Est GFR ( Amer) Est GFR (Non-Af Amer) BUN/Creatinine Ratio (10-20) Glucose (70-99) mg/dl Calcium (8.5-10.1) mg/dl Total Bilirubin (0.2-1) mg/dl AST (15-37) U/L ALT (12-78) U/L Alkaline Phosphatase (45-117) U/L Troponin I (0-0.045) ng/ml Total Protein (6.4-8.2) gm/dl Albumin (3.4-5.0) gm/dl Globulin (2.5-4.0) gm/dl Albumin/Globulin Ratio (0.9-2) Lipase (73-393) U/L COVID-19 Eval Order Covid19 IDNow at[facility] SARS-CoV-2, RNA, NAAT POSITIVE A* (NEGATIVE) Administered Medications Discontinued Medications Azithromycin (Azithromycin 250 Mg Tab) 500 mg PO NOW ONE Stop: 09/10/20 17:15 Last Admin: 09/10/20 18:03 Dose: 500 mg Documented by: [id number] Dexamethasone (Dexamethasone Sod Inj 10 Mg/Ml Vial) 6 mg IV NOW ONE Stop: 09/10/20 16:17 Last Admin: 09/10/20 16:51 Dose: 6 mg Documented by: [id number] Sodium Chloride (Nss 1000ml) 1,000 mls @ 999 mls/hr IV .Q1H1M RA Stop: 09/10/20 17:30 Last Infusion: 09/10/20 18:30 Dose: 0 mls/hr Documented by: [id number] Admin: 12/01/20 16:52 Dose: 999 mls/hr Documented by: [id number] Ceftriaxone Sodium (Rocephin) 1,000 mg in 50 mls @ 100 mls/hr IV NOW STA Stop: 09/10/20 17:43 Last Infusion: 09/10/20 18:32 Dose: 0 mls/hr Documented by: [id number] Admin: 09/10/20 18:02 Dose: 100 mls/hr Documented by: [id number] Sodium Chloride (Nss 1000ml) 1,000 mls @ 999 mls/hr IV .Q1H1M ONE Stop: 09/10/20 18:50 Last Admin: 09/10/20 19:51 Dose: Not Given Documented by: [id number] Discharge Plan Visit Data Chief Complaint: Shortness of Breath/Dyspnea Stated Complaint: breathing difficulty ED Provider: Tee Nuñez Discharge Problem: COVID-19, Hypoxia, AI (acute kidney injury), Elevated troponin, Sinus pause Patient Disposition: Admitted As Inpatient Discharge Instructions Interventions: ED Discharge Assessment Last Done: 09/10/20 21:23
[2020-09-10] MEDS ORDERED: SODIUM CHLORIDE 0.9% 1000ML 1,000 ML IV SCH (16:30)
[2020-09-10 16:45] LABS: Basophils # (auto) 0.02 K/uL (0-0.2); Basophils % (auto) 0.5 %; Eosinophils # (auto) 0.02 K/uL (0-0.5); Eosinophils % (auto) 0.5 %; Hematocrit (blood only) 30.4 % (42-52); Hemoglobin 10.1 g/dL (14.0-18.0); Immature Granulocytes # (auto) 0.01 K/uL (0.00-0.02); Immature Granulocytes % (auto) 0.2 %; Lymphocytes # (auto) 1.21 K/uL (1.2-3.4); Lymphocytes % (auto) 27.6 %; Mean Corpuscular Hemoglobin 22.5 pg (25-34); Mean Corpuscular Hgb Conc 33.2 g/dL (32-36); Mean Corpuscular Volume 67.9 fL (80-100); Monocytes # (auto) 0.82 K/uL (0.11-0.59); Monocytes % (auto) 18.7 %; Neutrophils % (auto) 52.5 %; Platelet Count 160 K/uL (130-400); RDW Coefficient of Variation 18.1 % (11.5-14.5); RDW Standard Deviation 45.2 fL (36.4-46.3); Red Blood Count 4.48 M/uL (4.7-6.1); White Blood Count 4.38 K/uL (4.8-10.8)
--- NOTE | 2020-09-10 17:13 | XRay Report ---
XR chest 1V portable HISTORY: 70 years-old Male Chest Pain acute atypical chest pain. COVID Positive. COMPARISON: Chest radiographs 11/12/2019, chest CT 11/09/2019 TECHNIQUE: Portable AP view of the chest FINDINGS: Enlarged cardiac silhouette. Calcified plaque of the thoracic aorta. Pulmonary vascular congestion. N o pneumothorax. Emphysema with hyperinflation. Bilateral mixed interstitial and alveolar opacities ar e noted within a mid and lower lung zone prominent distribution. No large pleural effusion. Degenerat olayinka changes of the shoulders and spine. IMPRESSION: 1. Cardiomegaly with mid and lower lung zone predominant mixed interstitial and alveolar opacities peng ggestive of pulmonary edema and/or multifocal pneumonia. 2. Emphysema. ACT 112: Negative or not required by law. The above report was generated using voice recognition software. It may contain grammatical, syntax o r spelling errors. Electronically signed by: Levy Gibbs M.D. 09/10/2020 5:12 PM
[2020-09-10] MEDS ORDERED: cefTRIAXone SODIUM 1,000 MG/50 ML BAG IV STA (17:14)
[2020-09-10] MEDS ORDERED: AZITHROMYCIN 250 MG TAB PO ONE (17:14)
[2020-09-10 17:15] LABS: Microcytosis Present; Target Cells 1+
[2020-09-10 17:48] LABS: Albumin Globulin Ratio 0.6 (0.9-2); Albumin Level 2.9 gm/dl (3.4-5.0); BUN Creatinine Ratio 11.6 (10-20); Bilirubin,Total 0.3 mg/dl (0.2-1); Calcium 8.7 mg/dl (8.5-10.1); Creatinine Clr Calc Pharmacy 11.5 ml/min; Est GFR (African American) 11.1; Est GFR (Non-African American) 9.6; Globulin 4.9 gm/dl (2.5-4.0); Total Protein 7.8 gm/dl (6.4-8.2); Troponin I 0.337 ng/ml (0-0.045)
[2020-09-10] MEDS ORDERED: SODIUM CHLORIDE 0.9% 1000ML 1,000 ML IV ONE (17:50)
[2020-09-10 18:34] LABS: INR 1.1 (0.9-1.1); Partial Thromboplastin Ratio 1.1; Partial Thromboplastin Time 30.9 Seconds (21.0-31.0); Prothrombin Time 11.9 Seconds (9.0-12.0)
--- NOTE | 2020-09-10 18:38 | History & Physical Report ---
Date of Service September 10, 2020 Assessment & Plan (1) Pneumonia due to COVID-19 virus: 70-year-old male prisoner from [facility] with past extensive medical history COPD, asthma, type 2 diabetes, tobacco abuse (quit 6 months ago), diastolic CHF, chronic hepatitis C, hypertension, BPH, GERD, hypertension, CKD stage IV, insomnia presents with concerns of shortness of breath and productive cough found to be Covid positive and have pneumonia on chest x-ray requiring HFNC. Pneumonia due to COVID-19 virus Chest x-ray: Cardiomegaly with mid and lower lung zone predominant mixed interstitial and alveolar opacities suggestive of pulmonary edema and/or multifocal pneumonia Admit to ICU Isolation precautions, airborne and contact Continue supplemental O2, goal saturation 90% in patient with COPD. Pt requiring HFNC from 4L NC in the ED. 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 D-dimer 2240 on admission Will check procalcitonin IV Rocephin and IV azithromycin IV dexamethasone 6 mg daily Convalescent plasmapatient consent obtained and placed in chart Remdesivir unfortunately not an option due to renal function Zinc 220 mg p.o. daily Vitamin D3 1,000 units p.o daily IV Pepcid 20 mg twice daily Melatonin nightly Holding Lovenox SQ in setting of hemoptysis Tylenol as needed for fever Acute on Chronic Respiratory Failure -In setting of PNA due to COVID-19, COPD, Asthma -Patient with significantly worsening pulmonary edema in the ED and as noted on CXR -Bumex 3 mg ordered -Patient currently requiring HFNC Elevated Troponin troponin 0.337 on admission. We will continue to trend x3 every 6 hours Likely secondary to demand ischemia Low concern for ACS, patient currently asymptomatic CKD stage IV Creatinine 5.51 on admission. Baseline creatinine 2.53 From hypertensive nephrosclerosis (biopsy proven); high ESRD risk next few years per nephrology (Dr. Amira Chao) Avoid nephrotoxins Continue to trend daily BMP Chronic Diastolic CHF Last ECHO Jul 2019: Severe concentric left ventricular hypertrophy, EF 55 to 60% Continue isosorbide dinitrate and atenolol as noted below -Patient appears volume overloaded on admission COPD Continue home inhaler regimen with Alvesco, Xopenex HFA, Combivent Hypertension Continue amlodipine 10 mg, hydralazine 75 mg 3 times daily, isosorbide dinitrate 20 mg twice daily, atenolol 20 mg Type 2 diabetes A1c 6.1 in December 2018 Patient not on any diabetic medications BSG on admission, will continue to monitor Chronic Hepatitis C -Continue Zepatier 1 tab daily Patient states he was treated for this, will need to obtain [facility] records documenting treatment status GERD Hold omeprazole 40 mg. IV Pepcid as above BPH -Continue tamsulosin 0.4 mg Idiopathic insomnia Continue trazodone 1 mg FEN/GI: DM 2 diet DVT prophylaxis: Holding Lovenox SQ in setting of hemoptysis, SCDs CODE STATUS: Full code Dispo: Admit to ICU for further management History of Present Illness Chief Complaint: Shortness of breath, cough Primary Care Provider: [facility] 70-year-old male prisoner from [facility] with past extensive medical history COPD, asthma, type 2 diabetes, tobacco abuse (quit 6 months ago), diastolic CHF, chronic hepatitis C, hypertension, BPH, GERD, hypertension, CKD stage IV, insomnia presents with concerns of shortness of breath and productive cough that started yesterday morning. Patient noted to have say red hemoptysis during examination and states this also started yesterday. Patient notes no previous occurrence like this severe ever before. 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 Symptoms are alleviated with rest, exacerbated with exertion. Patient notes associated chills, dyspnea on exertion, and diarrhea (loose NBNB, 34 BMs per day). Patient is unable to walk half of a person block without stopping to rest, which is unusual for him as he never has GALARZA. Patient with no baseline O2 needs. Patient otherwise denies any fevers, sweats, nausea, vomiting, chest pain, palpitations, orthopnea, edema, lightheadedness or dizziness, abdominal pain. Patient with no other acute concerns or complaints. Pertinent labs: Hemoglobin 10.1 with MCV 68, coags pending, BUN 63, creatinine 5.51, troponin 0.337, albumin 2.9. Covid positive Chest x-ray: Cardiomegaly with mid and lower lung zone predominant mixed interstitial and alveolar opacities suggestive of pulmonary edema and/or multifocal pneumonia. Emphysema. ER course: P.o. azithromycin 500 mg, IV ceftriaxone 1 g, IV dexamethasone 6 mg, NSS 2 L Allergies Allergy/AdvReac Type Severity Reaction Status Date / Time No Known Drug Allergies Allergy Unknown . Verified 09/10/20 19:52 Home Medications Medication Instructions Recorded Confirmed Type aspirin 81 mg PO DAILY 12/16/18 09/10/20 History tamsulosin 0.4 mg PO HS 12/16/18 09/10/20 History Alvesco 1 puff INHALATION BID 07/31/19 09/10/20 History levalbuterol tartrate [Xopenex HFA] 2 inh INHALATION QID PRN 07/31/19 09/10/20 History isosorbide dinitrate 20 mg PO BID 11/09/19 09/10/20 History vitamin A and D 1 applic TOPICAL BID PRN 11/09/19 09/10/20 History hydralazine 75 mg PO TID #0 tab 11/14/19 09/10/20 Rx amlodipine 10 mg tablet 10 mg PO DAILY 01/31/20 09/10/20 History atenolol 25 mg PO DAILY 09/10/20 09/10/20 History bumetanide [Bumex] 1 mg PO DAILY 09/10/20 09/10/20 History camphor-menthol [Icy Hot Advanced 1 applic TOPICAL BID PRN 09/10/20 09/10/20 History Relief] ciclesonide [Alvesco] 1 puff INHALATION BID 09/10/20 09/10/20 History ketotifen fumarate [Zaditor] 1 drp OPB BID 09/10/20 09/10/20 History pantoprazole [Protonix] 40 mg PO DAILY 09/10/20 09/10/20 History trazodone 150 mg PO HS 09/10/20 09/10/20 History Past Med/Surg History Medical History (Updated 09/11/20 @ 05:18 by Mike Ash PA-C) Arteriolar nephrosclerosis BPH (benign prostatic hyperplasia) Chronic diastolic CHF (congestive heart failure) Chronic hepatitis C CKD (chronic kidney disease), stage IV Hydrocele in adult Hypertension Surgical History H/O hernia repair History of laryngoscopy Family History Other Diabetes Hypertension Social History Smoking Status: Former smoker Cigarettes Per Day: 03/11/20; Second Hand Exposure: No; Hx Alcohol Use: No Hx Substance Use: No Preferred Language: Lithuanian Communication Ability: Effective Lcsw Required: No Beliefs That Will Affect Care: None Current Living Situation: Other Current Living Situation Comment: [facility] [email or web address] Other Information That Helps Us Care for You: No Feels Safe at Home: Yes Safety Concerns: Feels Safe At This Time Assistive Devices: None Review of Systems Review of Systems: All systems reviewed & are unremarkable except as noted in HPI & below Physical Exam Constitutional: + ill appearing Eyes: PERRL, conjunctivae normal, anicteric sclerae ENMT: external ear and nose normal, oropharynx normal Respiratory: + labored breathing and + uses accessory muscles Auscultation: + diminished lung sounds and + crackles (Lower lung zones) Cardiovascular: Rate/Rhythm: regular rhythm and + bradycardic Gastrointestinal (Abdomen): normal bowel sounds, soft, nontender, no hepatosplenomegaly Skin: no rashes, warm and dry Psychiatric: A+Ox3, euthymic affect Results & Data Results & Data ([facility]) Vital Signs (Past 12 Hours) Vital Signs Temp Pulse Resp BP Pulse Ox 09/10/20 18:06 36.8 C 09/10/20 18:00 62 22 93 09/10/20 17:30 57 L 16 151/71 H 97 09/10/20 17:00 55 L 23 170/73 H 95 09/10/20 16:50 56 L 16 97 09/10/20 16:40 27 H 97 09/10/20 16:34 97 09/10/20 16:31 52 L 16 164/67 H 97 09/10/20 16:12 97 09/10/20 15:59 36.8 C 54 L 20 176/74 H 96 Laboratory Results Laboratory Results - last 24 hr 09/10/20 09/10/20 09/10/20 16:24 16:24 16:24 WBC 4.38 L RBC 4.48 L Hgb 10.1 L Hct 30.4 L MCV 67.9 L MCH 22.5 L MCHC 33.2 RDW Std Deviation 45.2 RDW Coeff of Ayanna 18.1 H Plt Count 160 Immature Gran % (Auto) 0.2 Neut % (Auto) 52.5 Lymph % (Auto) 27.6 Solano % (Auto) 18.7 Eos % (Auto) 0.5 Baso % (Auto) 0.5 Neut # (Auto) 2.30 Lymph # (Auto) 1.21 Solano # (Auto) 0.82 H Eos # (Auto) 0.02 Baso # (Auto) 0.02 Immature Gran # (Auto) 0.01 Microcytosis Present Target Cells 1+ PT Cancelled INR Cancelled APTT Cancelled PTT Ratio Cancelled D-Dimer Cancelled Sodium 141 Potassium 4.0 Chloride 110 H Carbon Dioxide 22 Anion Gap 9.0 BUN 63 H Creatinine 5.51 H* Est Cr Clr Drug Dosing 11.5 Est GFR ( Amer) 11.1 Est GFR (Non-Af Amer) 9.6 BUN/Creatinine Ratio 11.6 Glucose 101 H Calcium 8.7 Total Bilirubin 0.3 AST 46 H ALT 18 Alkaline Phosphatase 87 Troponin I 0.337 H* Total Protein 7.8 Albumin 2.9 L Globulin 4.9 H Albumin/Globulin Ratio 0.6 L Lipase 101 COVID-19 Eval Order SARS-CoV-2, RNA, NAAT 09/10/20 09/10/20 09/10/20 16:50 16:50 18:05 WBC RBC Hgb Hct MCV MCH MCHC RDW Std Deviation RDW Coeff of Ayanna Plt Count Immature Gran % (Auto) Neut % (Auto) Lymph % (Auto) Solano % (Auto) Eos % (Auto) Baso % (Auto) Neut # (Auto) Lymph # (Auto) Solano # (Auto) Eos # (Auto) Baso # (Auto) Immature Gran # (Auto) Microcytosis Target Cells PT 11.9 INR 1.1 APTT 30.9 PTT Ratio 1.1 D-Dimer 2240 H* Sodium Potassium Chloride Carbon Dioxide Anion Gap BUN Creatinine Est Cr Clr Drug Dosing Est GFR ( Amer) Est GFR (Non-Af Amer) BUN/Creatinine Ratio Glucose Calcium Total Bilirubin AST ALT Alkaline Phosphatase Troponin I Total Protein Albumin Globulin Albumin/Globulin Ratio Lipase COVID-19 Eval [facility] SARS-CoV-2, RNA, NAAT POSITIVE A* Medications Administered Current Inpatient Medications Sodium Chloride (Nss 1000ml) 1,000 mls @ 999 mls/hr IV .[id number] ONE Stop: 09/10/20 18:50 Code Status & VTE Plan Code Status Full Supervising Physician Co-Signing Physician Notes Attending Attestation & Admission Note: Pt seen/examined, chart reviewed, admission care plan d/w Dr Omer Godinez, [facility] Med resident. I agree w/ the carrera components of his admission documentation except respiratory failure is ACUTE hypoxic resp failure ([facility] at [facility]). 70yo AA male - numerous medical problems as delineated in this H&P including CKD stage 4 (baseline Cr ~3), COPD, h/o prostate ca, and prior tobacco use - presents with hemoptysis beginning sometime yesterday along with worsening cough & dyspnea. Dx with COVID-19 upon arrival to [facility] today. Before my assessment had received IV decadron and IV fluids. When I arrived to his room the patient was in distress with tachypnea, retractions, and accessory muscle use. He was tachypneic, coughing, and visibly dyspneic. He was holding an emesis basis and there were 2 large amounts of say hemoptysis (not pink, frothy sputum). He stated he had [facility] several [facility] of [facility] the [facility]. He mentioned he follows with Dr Chao from [facility] for his CKD. After finishing my assessment I asked the nursing staff to page respiratory to place him on HFNC. Also gave order for bumex 3mg IV x 1. Garay to be placed. After HFNC was placed (30L, 60% FIO2) he was more comfortable with less distress. PMH, PSH, allergies, meds, sochx, famhx - reviewed vitals - tachypneic, hypoxic, BP elevated, afebrile gen - ill appearing, distressed mouth - no oral lesions to account for hemoptysis; nose w/o blood neck - JVD 2/3 way up neck heart - bety, s1 s2 lungs - retractions, cough, basilar rales b/l, accessory muscle usage abd - soft ext - no edema labs reviewed cxr reviewed - pneumonia and/or edema (vs both) EKG reviewed during ER stay had 4-second sinus pause A/P: 1. acute hypoxic resp failure 2nd to COVID-19 pneumonia and concern for acute/chronic diastolic CHF & acute kidney failure on top of CKD. HFNC has helped symptoms and distress. 2. say hemoptysis - endobronchial lesion? due to pulmonary hemorrhage? due to pulmonary edema? other?? only takes aspirin daily - no AC. 3. acute kidney injury in setting of CKD stage 4. 4. acute/chronic diastolic CHF. 5. COPD with exacerbation. 6. h/o prostate ca. 7. sinus pause. ADMIT to ICU - Discussed care with Mike MORAN. Decadron x 10 days for COVID-19. Plasma consent obtained; volume status will need to improve before giving, however. Bumex 3mg IV x 1 now for suspected volume overload in setting of #3 and #4. Hold atenolol due to sinus pause. Hemoptysis - hold asa, hold anticoagulation, trend H/H's, pulmonary/critical care consultation. Poor candidate for bronch due to COVID-19 infection. Low threshold for intubation with large-volume hemoptysis, worsening resp status, etc. IV abx for possible superimposed bacterial pneumonia. Unfortunately not remdesivir candidate for COVID due to renal function. If renal function does not improve with supportive care then [facility] Nephrology consultation. total critical care time 60 minutes Jackson Ye MD
[2020-09-10 18:39] LABS: D Dimer 2240 ug/L FEU (0-500)
[2020-09-10] MEDS ORDERED: BUMETANIDE 1 MG TAB PO ONE (20:01)
[2020-09-10] MEDS ORDERED: LEVALBUTEROL TARTRATE 15 GM HFA.AER.AD INH PRN (22:28)
[2020-09-10] MEDS ORDERED: BACLOFEN 10 MG TAB PO PRN (22:28)
[2020-09-10] MEDS ORDERED: ACETAMINOPHEN 325 MG TAB PO PRN (22:28)
[2020-09-10] MEDS ORDERED: ICU PROTOCOL FOR HYPERGLYCEMIA PRN (22:28)
[2020-09-10] MEDS ORDERED: TXA 10% Non-IV Routes 100 MG/ML VIAL NEB ONE (22:30)
[2020-09-10] MEDS ORDERED: ALBUT/IPRATROP 3MG/0.5MG NEB 3 ML VIAL ONE (22:44)
[2020-09-10] MEDS ORDERED: traZODone HCL 100 MG TAB PO SCH (23:00)
[2020-09-10] MEDS ORDERED: MELATONIN 3 MG TAB PO SCH (23:00)
[2020-09-10] MEDS ORDERED: TAMSULOSIN HCL 0.4 MG CAP PO SCH (23:00)
[2020-09-10] MEDS ORDERED: FAMOTIDINE 20 MG in SYRINGE 3 ML IV SCH (23:00)
[2020-09-10] MEDS: ALBUT/IPRATROP 3MG/0.5MG NEB 3 ML VIAL INH SCH (23:20)
[2020-09-10 23:38] LABS: C Reactive Protein 3.41 mg/dl (0-0.29); Ferritin 78.1 ng/ml (8-388); Troponin I 0.287 ng/ml (0-0.045)
[2020-09-11] MEDS: hydrALAZINE HCL 25 MG TAB PO SCH ×4 (00:38→19:58)
[2020-09-11] MEDS: traZODone HCL 100 MG TAB PO SCH ×2 (00:39→19:58)
[2020-09-11] MEDS: TAMSULOSIN HCL 0.4 MG CAP PO SCH ×2 (00:39→19:57)
[2020-09-11] MEDS: MELATONIN 3 MG TAB PO SCH ×2 (00:40→19:57)
[2020-09-11 05:19] LABS: iSTAT Allen Test Pass; iSTAT Art Bld Gas pCO2 Correct 31 mmHg (35-46); iSTAT Art Bld Gas pH Corrected 7.356 (7.35-7.45); iSTAT Arterial Blood Gas HCO3 18 meg/L (19-24); iSTAT Arterial Blood Gas pCO2 32 mmHg (35-46); iSTAT Arterial Blood Gas pH 7.35 (7.35-7.45); iSTAT Arterial Blood Gas pO2 86 mmHg (80-95); iSTAT Arterial Blood Gas pO2 C 85; iSTAT Carbon Dioxide 18 mmol/L (24-31); iSTAT FiO2 45 %; iSTAT Hematocrit 32 % (42-52); iSTAT Hemoglobin 10.9 g/dl (14.0-18.0); iSTAT Potassium 4.1 mmol/L (3.3-5.0); iSTAT Site R Radial; iSTAT Sodium 141 mmol/L (135-144)
--- NOTE | 2020-09-11 05:34 | Critical Care Consultation ---
Date of Consultation September 11, 2020 Assessment & Plan (1) Admitted to intensive care unit: Reason Critically Ill: 70-year-old male with multifocal pneumonia concerning for COVID-19 pneumonia with COVID-19 testing positive requiring escalating levels of oxygen replacement. Complicated by hemoptysis. AI on CKD. Requiring close monitoring with low threshold for emergent endotracheal intubation for airway protection/ventilation/oxygenation. NEURO - * CAM ICU: NEGATIVE CARDIAC/VASCULAR - * NSTEMI: * Likely demand ischemia in the setting of acute illness with hypoxia. * No significant ST changes suggestive of significant ACS. * Trend troponins. * Sinus Pause: * One episode of transient sinus pause. * Without symptoms. * Continue to monitor for any further ectopy. * ??Significant beta blockade in the AI patient w/ ongoing BB use. * EKG: Sinus Bradycardia @ 54bpm. No ST/T-wave changes. QTc 422 ms. * Monitor on telemetry. RESPIRATORY - * COVID-19 Pneumonia, Hypoxis, Hemoptysis: * ABG appears appropriate. * Requiring High flow nasal cannula. Titrate as needed. * 3-4 episodes of say hemoptysis described as "silver dollar" in size. Less than 200 mL. * Will treat w/ TXA neb for now. * Order CT chest for say lesion/bleeding area. Refrain from CTA given poor renal function. * Home nebs as needed. * Prognosis worsened w/ underlying COPD. * Extensive conversation w/ patient regarding intubation. Wishes to be FULL CODE. * COPD: * Continue w/ home Rx * Titrate high flow to SaO2 85-90% GI/NUTRITION - * Clear liquid overnight pending respiratory status. * Prophylaxis: Famotidine RENAL/LYTES - * AI on CKD IV: * Initially received 1L IVF in the ED. * Will trend PRP/Lytes. * No significant electrolyte derangements at this time. * Does not appear to be requiring emergent HD. * Will hold on further IVF given CXR/CT findings of ??pulmonary edema. * Agree w/ Bumex dose. * Diureses as needed. * Patient follows w/ [facility]. - * Garay in place - Strict I&Os. * h/o BPH ENDO - * DM II * BSGs per unit protocol. ISS --> gtt per unit policy. HEME - * Stable Anemia of Chronic Disease. * Continue to trend. * Monitor for any other ??bleeding dyscrasias in the setting of say hemoptysis. ID - * COVID-19 Pneumonia: * Received Decadron in the ED. Would continue entire course at this time. Will also benefit COPD Dx. * Likely not Remdesivir candidate 2/2 poor creatinine clearance. * Orders placed for convalescent plasma. Will hold on administration overnight as patient initially w/ concerning CXR for pulmonary edema. Question how he might tolerate further volume. Will see how well he diureses. * Agree w/ Abx coverage for ?? superimposed infection. * w/o significant findings of source of bleeding on CT, ??Klebsiella PNA w/ currant jelly sputum? * Will send sputum cultures. LINES/IV ACCESS - * PIVs x2 * Garay DVT PROPHYLAXIS - * Hold on chemoprophylaxis in the setting of hemoptysis. * SCDs I have personally spent 55 minutes of critical care time in the direct management of this patient. This is a life/limb threatening event. This includes time spent evaluating patient, direct bedside care, chart review, placing orders, interpretation of diagnostic studies, discussion with consultants, patient, and family members, as well as other required patient management activities. This time is exclusive of all separately billable procedures, and teaching time and separate from and in addition to any other critical care service time. Thank you for allowing us to participate in the care of this patient. Please refer to my attending physician's documentation for any further recommendations. (2) Pneumonia due to COVID-19 virus: (3) COVID-19: (4) Hypoxia: (5) Hemoptysis: (6) AI (acute kidney injury): (7) NSTEMI (non-ST elevated myocardial infarction): (8) Sinus pause: (9) COPD (chronic obstructive pulmonary disease): (10) Diabetes mellitus type 2, uncomplicated: (11) CKD (chronic kidney disease), stage IV: (12) Acute kidney injury superimposed on CKD: (13) Chronic diastolic CHF (congestive heart failure): (14) Chronic hepatitis C: (15) BPH (benign prostatic hyperplasia): (16) Hypertension: History of Present Illness Attending Physician: Jackson Ye History of Present Illness Patient is a 70-year-old male with a significant past medical history of, chronic kidney disease stage IV, hypertension, BPH, chronic hepatitis [facility], smoking history, diabetes, COPD. Patient is currently incarcerated at [facility]. Multiple individuals on his block tested positive for COVID-19. Patient personally reports that he developed diarrhea x2 yesterday and shortness of breath today which prompted visit to the emergency department. Patient was found to be hypoxic in the emergency department requiring initially OxiMax followed by high flow nasal cannula. Patient was noted to cough up blood in silver dollar sized amounts. Patient was noted to have no change in his baseline anemia. D-dimer was greater than 2000. He was noted to have AI on CKD 4 with a creatinine of greater than 5 with a baseline of 2-3. BUN remained stable in the 60s. Troponin was elevated 0.33. No EKG changes appreciated. Procalcitonin not elevated. Chest x-ray concerning for pulmonary edema and/or multifocal pneumonia with emphysematous changes. CT of the chest was obtained in route to the ICU which demonstrated extensive emphysema and groundglass opacities with possible superimposed infectious/inflammatory process. No other significant findings noted. Upon arrival in the ICU, the patient is awake, alert, and oriented. He states that he is breathing much better with high flow in place. Other than some shortness of breath with exertion, he denies any other significant complaints. Patient specifically denies any complaints of headaches, dizziness, chest pain, palpitations, pleuritic pain, nausea, vomiting, abdominal pain, hematochezia, melena, hematuria, or dysuria. Allergies Allergy/AdvReac Type Severity Reaction Status Date / Time No Known Drug Allergies Allergy Unknown . Verified 09/10/20 19:52 Home Medications Medication Instructions Recorded Confirmed Type aspirin 81 mg PO DAILY 12/16/18 09/10/20 History tamsulosin 0.4 mg PO HS 12/16/18 09/10/20 History Alvesco 1 puff INHALATION BID 07/31/19 09/10/20 History levalbuterol tartrate [Xopenex HFA] 2 inh INHALATION QID PRN 07/31/19 09/10/20 History isosorbide dinitrate 20 mg PO BID 11/09/19 09/10/20 History vitamin A and D 1 applic TOPICAL BID PRN 11/09/19 09/10/20 History hydralazine 75 mg PO TID #0 tab 11/14/19 09/10/20 Rx amlodipine 10 mg tablet 10 mg PO DAILY 01/31/20 09/10/20 History atenolol 25 mg PO DAILY 09/10/20 09/10/20 History bumetanide [Bumex] 1 mg PO DAILY 09/10/20 09/10/20 History camphor-menthol [Icy Hot Advanced 1 applic TOPICAL BID PRN 09/10/20 09/10/20 History Relief] ciclesonide [Alvesco] 1 puff INHALATION BID 09/10/20 09/10/20 History ketotifen fumarate [Zaditor] 1 drp OPB BID 09/10/20 09/10/20 History pantoprazole [Protonix] 40 mg PO DAILY 09/10/20 09/10/20 History trazodone 150 mg PO HS 09/10/20 09/10/20 History Patient History Medical History (Updated 09/11/20 @ 05:18 by Mike Ash PA-C) Arteriolar nephrosclerosis BPH (benign prostatic hyperplasia) Chronic diastolic CHF (congestive heart failure) Chronic hepatitis C CKD (chronic kidney disease), stage IV Hydrocele in adult Hypertension Surgical History H/O hernia repair History of laryngoscopy Family History Other Diabetes Hypertension Social History Smoking Status: Former smoker Cigarettes Per Day: 03/11/20; Second Hand Exposure: No; Hx Alcohol Use: No Hx Substance Use: No Preferred Language: Mauritanian Communication Ability: Effective Cornetist Required: No Beliefs That Will Affect Care: None Current Living Situation: Other Current Living Situation Comment: [facility] Other Information That Helps Us Care for You: No Feels Safe at Home: Yes Safety Concerns: Feels Safe At This Time Assistive Devices: None Review of Systems Review of Systems: A complete 10 point review of systems was reviewed with the patient with pertinent positives and negatives as per history of present illness. All else were negative. Physical Exam Physical Exam: VITAL SIGNS - Vital signs and nursing notes were reviewed. GENERAL - 70-year-old male appearing his stated age who is in no acute distress. Communicates well with provider and answers questions appropriately. SKIN - Without rashes. HEAD - NC/AT. EYES - PERRL with EOMI bilaterally. Sclera anicteric. EARS - No deformities of external structures noted on gross examination bilaterally. NOSE - Midline and without cyanosis. No epistaxis or purulent drainage noted. MOUTH/OROPHARYNX - Without perioral cyanosis. Buccal mucosa pink and moist and without leukoplakia. Tongue midline with equal elevation of palate bilaterally. NECK - Neck with FROM. Supple to palpation. No lymphadenopathy noted. No nuchal rigidity. LUNGS - Difficult to assess w/ PAPR. Distant breath sounds noted. CARDIAC - RRR with S1/S2. No murmur, rubs, or gallops appreciated. ABDOMEN - Abdominal contour flat without pulsations or visible masses. BS normoactive all four quadrants. No tenderness, palpable masses, hepatosplenomegaly, or ascites noted. EXTREMITIES - No clubbing or peripheral cyanosis. No pretibial edema present. +3/5 radial, posterior tibial, and dorsalis pedis pulses palpated throughout. +5/5 strength noted in UE/LE bilaterally. NEUROLOGIC - Cranial nerves II through XII grossly intact. Sensory intact to light touch throughout. PSYCH - A&Ox3 and cooperates fully with examiner. Pt is very pleasant and interacts well with examiner. Results & Data Results & Data ([facility]) Vital Signs (Past 12 Hours) Vital Signs Temp Pulse Pulse Pulse Resp BP BP 09/11/20 03:00 55 L 20 09/10/20 23:05 56 L 22 09/10/20 22:40 56 L 22 09/10/20 22:30 56 L 22 09/10/20 21:55 36.8 C 56 L 24 174/85 H 09/10/20 21:06 59 L 24 09/10/20 20:55 62 22 09/10/20 20:31 58 L 1 L 09/10/20 20:30 57 L 18 154/66 H 09/10/20 20:00 53 L 18 172/69 H 09/10/20 19:35 59 L 22 09/10/20 19:31 61 25 H 182/73 H 09/10/20 19:20 24 09/10/20 19:10 26 H 09/10/20 19:00 59 L 16 173/75 H 09/10/20 18:30 59 L 19 172/78 H 09/10/20 18:06 36.8 C 09/10/20 18:00 62 22 09/10/20 17:30 57 L 16 151/71 H Pulse Ox 09/11/20 03:00 94 09/10/20 23:05 94 09/10/20 22:40 94 09/10/20 22:30 94 09/10/20 21:55 98 09/10/20 21:06 97 09/10/20 20:55 91 09/10/20 20:31 96 09/10/20 20:30 96 09/10/20 20:00 96 09/10/20 19:35 95 09/10/20 19:31 96 09/10/20 19:20 91 09/10/20 19:10 86 L 09/10/20 19:00 91 09/10/20 18:30 93 09/10/20 18:06 09/10/20 18:00 93 09/10/20 17:30 97 Coding Level of Care Code Critical Care 1st 30-74 mins Diagnoses Admitted to intensive care unit Z78.9 Pneumonia due to COVID-19 virus U07.1; J12.89 COVID-19 U07.1 Hypoxia R09.02 Hemoptysis R04.2 AI (acute kidney injury) N17.9 NSTEMI (non-ST elevated myocardial infarction) I21.4 Sinus pause I45.5 COPD (chronic obstructive pulmonary disease) J44.9 Diabetes mellitus type 2, uncomplicated E11.9 CKD (chronic kidney disease), stage IV N18.4 Acute kidney injury superimposed on CKD N17.9; N18.9 Chronic diastolic CHF (congestive heart failure) I50.32 Chronic hepatitis C B18.2 Hepatic coma status: without hepatic coma BPH (benign prostatic hyperplasia) N40.0 Hypertension I10 Hypertension type: unspecified Time Spent (min) 55 (1) Chronic hepatitis C Hepatic coma status: without hepatic coma Qualified Code(s): B18.2 - Chronic viral hepatitis C (2) Hypertension Hypertension type: unspecified Qualified Code(s): I10 - Essential (primary) hypertension
[2020-09-11 06:02] LABS: Basophils # (auto) 0.01 K/uL (0-0.2); Basophils % (auto) 0.2 %; Eosinophils # (auto) 0.01 K/uL (0-0.5); Eosinophils % (auto) 0.2 %; Hematocrit (blood only) 31.9 % (42-52); Hemoglobin 10.5 g/dL (14.0-18.0); Immature Granulocytes # (auto) 0.03 K/uL (0.00-0.02); Immature Granulocytes % (auto) 0.7 %; Lymphocytes # (auto) 0.85 K/uL (1.2-3.4); Lymphocytes % (auto) 19.7 %; Mean Corpuscular Hemoglobin 22.5 pg (25-34); Mean Corpuscular Hgb Conc 32.9 g/dL (32-36); Mean Corpuscular Volume 68.5 fL (80-100); Monocytes # (auto) 0.18 K/uL (0.11-0.59); Monocytes % (auto) 4.2 %; Neutrophils # (auto) 3.23 K/uL (1.4-6.5); Platelet Count 178 K/uL (130-400); RDW Standard Deviation 45.2 fL (36.4-46.3); Red Blood Count 4.66 M/uL (4.7-6.1); White Blood Count 4.31 K/uL (4.8-10.8)
[2020-09-11 06:21] LABS: Microcytosis Present; Target Cells 1+
[2020-09-11 06:51] LABS: BUN Creatinine Ratio 13.7 (10-20); Calcium 8.2 mg/dl (8.5-10.1); Creatinine Clr Calc Pharmacy 13.2 ml/min; Est GFR (African American) 13.1; Est GFR (Non-African American) 11.3; Magnesium 2.2 mg/dl (1.8-2.4); Phosphorus 5.4 mg/dl (2.5-4.9); Potassium 4.4 mmol/L (3.5-5.1); Troponin I 0.215 ng/ml (0-0.045)
--- NOTE | 2020-09-11 07:30 | Billing Data ---
Date of Service September 10, 2020 Coding Level of Care Code Critical Care 1st 30-74 mins Time Spent (min) 60
--- NOTE | 2020-09-11 07:58 | CT Scan Report ---
CT chest wo con CT DOSE: 745.88 mGycm HISTORY: Worsening shortness of breath. say hemoptysis, covid pna TECHNIQUE: Multiaxial CT images of the chest were performed without contrast. A dose lowering techni que was utilized adhering to the principles of ALARA. COMPARISON: Chest CT 11/09/2019. FINDINGS: The central airways are patent. There is mild central bronchial wall thickening. No pneumot horax. Trace left pleural effusion. Severe emphysema. Stable 7 mm nodule within the left lower lobe o n image 251. Mild to moderate patchy groundglass and linear densities seen within the periphery of th e mid to lower lung zones. This favors a viral pneumonia. No suspicious lytic or blastic osseous lesi ons. The visualized liver, spleen, and adrenal glands are unremarkable. Partially visualized bilatera l renal hypodense lesions are again noted. These favor cysts. A few prominent mediastinal and bilater al hilar lymph nodes are likely reactive. The heart remains mildly enlarged. Trace pericardial effusi on. Normal caliber thoracic aorta demonstrating moderate calcified plaque. Normal caliber esophagus. The pericardial effusion has improved in the interval. IMPRESSION: 1. Interval development of mild to moderate patchy groundglass and linear densities seen within the p eriphery of the bilateral mid to lower lung zones. This favors a viral pneumonia. 2. Severe emphysema. 3. Mild mediastinal and bilateral hilar lymphadenopathy which is likely reactive. 4. Trace pericardial effusion. This has improved. 5. Trace left pleural effusion. ACT 112: Negative or not required by law. Electronically signed by: Lan Eagle M.D. 09/11/2020 7:56 AM
[2020-09-11] MEDS ORDERED: ATENOLOL 25 MG TABLET PO SCH (08:00)
[2020-09-11] MEDS ORDERED: AZITHROMYCIN 250 MG TAB PO SCH (08:00)
[2020-09-11] MEDS ORDERED: FAMOTIDINE 20 MG in SYRINGE 3 ML IV SCH (08:00)
[2020-09-11] MEDS ORDERED: ASPIRIN 81 MG ECTAB PO SCH ×2 (08:00→09:00)
[2020-09-11] MEDS ORDERED: FLUTICASONE FUROATE 200MCG 14 PUFFS/INHALER INH SCH (08:00)
[2020-09-11] MEDS: ALBUT/IPRATROP 3MG/0.5MG NEB 3 ML VIAL INH SCH (08:15)
[2020-09-11] MEDS ORDERED: dexAMETHasone 6 MG in SYRINGE 0 ML IV SCH (09:00)
[2020-09-11] MEDS ORDERED: ZINC SULFATE 220 MG CAPSULE PO SCH (09:00)
[2020-09-11] MEDS ORDERED: CHOLECALCIFEROL 1,000 UNITS 25 MCG TAB PO SCH (09:00)
[2020-09-11] MEDS ORDERED: PNEUMOCOCCAL Polysaccharide Vaccine 25mcg/0.5mL vial/Syr IM ONE (09:00)
[2020-09-11] MEDS ORDERED: INFLUENZA VACCINE HIGH DOSE 65+ 0.7 ML SYR IM ONE (09:00)
--- NOTE | 2020-09-11 09:02 | XRay Report ---
XR chest 1V portable CLINICAL HISTORY: Shortness of breath. Abnormal chest x-ray COMPARISON STUDY: 09/10/2020 FINDINGS: The heart remains enlarged. There are persistent bilateral interstitial pulmonary opacities , similar to the preceding study. A multifocal pneumonia is favored over pulmonary edema. There are n o pleural effusions. Clinical and radiographic follow-up is recommended.[ IMPRESSION: Persistent bilateral interstitial pulmonary opacities, similar to the prior study ACT 112: Negative or not required by law. Electronically signed by: Ulysses Pereyra M.D. 09/11/2020 9:01 AM
--- NOTE | 2020-09-11 09:13 | Critical Care Progress Note ---
Date of Service September 11, 2020 Assessment & Plan (1) Admitted to intensive care unit: Reason Critically Ill: 70-year-old male with multifocal pneumonia concerning for COVID-19 pneumonia with COVID-19 testing positive requiring escalating levels of oxygen replacement. Complicated by hemoptysis. AI on CKD. NEURO - * CAM ICU: NEGATIVE CARDIAC/VASCULAR - * NSTEMI: * Likely demand ischemia in the setting of acute illness with hypoxia. * No significant ST changes suggestive of significant ACS. * Troponin has peaked. No further trending needed. * Sinus Pause: * One episode of transient sinus pause. * Without symptoms. * Continue to monitor for any further ectopy. * ??Significant beta blockade in the AI patient w/ ongoing BB use. * Monitor on telemetry. RESPIRATORY - * COVID-19 Pneumonia, Hypoxis, Hemoptysis: * He does have evidence of ongoing mild hemoptysis. Likely related to viral pneumonia. His procalcitonin was negative. However, recommending continuing Rocephin/azithromycin for 5 to 7 days given his hemoptysis. GI/NUTRITION - * We can advance his diet to regular diet today.. * Prophylaxis: Protonix RENAL/LYTES - * AI on CKD IV: * His AI appears to be improving. * No significant electrolyte derangement seen. * Diureses as needed. * Patient follows w/ [facility] - * Garay in place - Strict I&Os. * h/o BPH ENDO - * DM II * BSGs per unit protocol. ISS --> gtt per unit policy. HEME - * Stable Anemia of Chronic Disease. * Continue to trend. * Will hold anticoagulation today given his ongoing hemoptysis. ID - * COVID-19 Pneumonia: * Continue antibiotics. Obtain sputum culture. Not a candidate for remdesivir given his renal failure. Continue Decadron 6 mg for total of 10 days or until discharge. LINES/IV ACCESS - * PIVs x2 * Garay DVT PROPHYLAXIS - * Hold on chemoprophylaxis in the setting of hemoptysis. * SCDs Patient is stable for downgrade to the floor with telemetry. (2) Pneumonia due to COVID-19 virus: (3) COVID-19: (4) Hypoxia: (5) Hemoptysis: (6) AI (acute kidney injury): (7) NSTEMI (non-ST elevated myocardial infarction): (8) Sinus pause: (9) COPD (chronic obstructive pulmonary disease): (10) Diabetes mellitus type 2, uncomplicated: (11) CKD (chronic kidney disease), stage IV: (12) Acute kidney injury superimposed on CKD: (13) Chronic diastolic CHF (congestive heart failure): (14) Chronic hepatitis C: (15) BPH (benign prostatic hyperplasia): (16) Hypertension: Admission and Anticipated Discharge Date Admission Date: September 10, 2020 Subjective Patient is sitting up in bed today. He is on 30 L and 45% FiO2 saturating at 92 to 94%. He endorses mild cough with some scant hemoptysis. He denies any chest pain. No current fevers or chills. His shortness of breath is improved with high flow nasal cannula. Review of Systems Review of Systems: All systems reviewed & are unremarkable except as noted in HPI & below Physical Exam Constitutional: WD/WN, vitals as above + ill appearing Eyes: PERRL, conjunctivae normal, anicteric sclerae ENMT: external ear and nose normal, oropharynx normal Neck: normal visual inspection Respiratory: Diffuse expiratory wheeze noted bilaterally. Cardiovascular: RRR, no murmur, no edema Gastrointestinal (Abdomen): normal bowel sounds, soft, nontender, no hepatosplenomegaly Musculoskeletal: no cyanosis or clubbing, extremities motor strength 5/5 Skin: no rashes, warm and dry Neurologic: PERRL, EOMI, accommodation nl, no face palsy, no dysarthria Psychiatric: A+Ox3, euthymic affect Results & Data Results & Data ([facility]) Vital Signs (Past 12 Hours) Vital Signs Temp Pulse Resp BP Pulse Ox 09/11/20 03:00 55 L 20 94 09/10/20 23:05 56 L 22 94 09/10/20 22:40 56 L 22 94 09/10/20 22:30 56 L 22 94 09/10/20 21:55 98.2 F 56 L 24 174/85 H 98 I reviewed the vital signs, labs and imaging Coding Level of Care Code 94294 Subseq Hosp Care Lvl 3 Diagnoses Admitted to intensive care unit Z78.9 Pneumonia due to COVID-19 virus U07.1; J12.89 COVID-19 U07.1 Hypoxia R09.02 Hemoptysis R04.2 AI (acute kidney injury) N17.9 NSTEMI (non-ST elevated myocardial infarction) I21.4 Sinus pause I45.5 COPD (chronic obstructive pulmonary disease) J44.9 Diabetes mellitus type 2, uncomplicated E11.9 CKD (chronic kidney disease), stage IV N18.4 Acute kidney injury superimposed on CKD N17.9; N18.9 Chronic diastolic CHF (congestive heart failure) I50.32 Chronic hepatitis C B18.2 Hepatic coma status: without hepatic coma BPH (benign prostatic hyperplasia) N40.0 Hypertension I10 Hypertension type: unspecified (1) Chronic hepatitis C Hepatic coma status: without hepatic coma Qualified Code(s): B18.2 - Chronic viral hepatitis C (2) Hypertension Hypertension type: unspecified Qualified Code(s): I10 - Essential (primary) hypertension
[2020-09-11] MEDS: AZITHROMYCIN 500 MG in DEXTROSE 5% 250 ML IV SCH (09:19)
[2020-09-11] MEDS: dexAMETHasone 6 MG in SYRINGE 0 ML IV SCH (09:20)
[2020-09-11] MEDS: amLODIPine BESYLATE 5 MG TAB PO SCH (09:20)
[2020-09-11] MEDS: ISOSORBIDE DINITRATE 20 MG TAB PO SCH ×2 (09:20→12:25)
[2020-09-11] MEDS: ZINC SULFATE 220 MG CAPSULE PO SCH (09:22)
[2020-09-11] MEDS: CHOLECALCIFEROL 1,000 UNITS 25 MCG TAB PO SCH (09:23)
[2020-09-11] MEDS ORDERED: ALBUT/IPRATROP 3MG/0.5MG NEB 3 ML VIAL INH PRN (09:30)
[2020-09-11] MEDS: PANTOprazole 40 MG TAB PO SCH (10:04)
[2020-09-11] MEDS: FLUTICASONE/VILANTEROL 100/25MCG 14 PUFFS/INHALER INH SCH (10:04)
--- NOTE | 2020-09-11 14:13 | Electrocardiogram Report ---
Test Reason : Blood Pressure : / mmHG Vent. Rate : 054 BPM Atrial Rate : 054 BPM P-R Int : 170 ms QRS Dur : 094 ms QT Int : 446 ms P-R-T Axes : 056 049 041 degrees QTc Int : 422 ms Sinus bradycardia When compared with ECG of 09-NOV-2019 11:02, Questionable change in initial forces of Anteroseptal leads Confirmed by Isaiah Hays ([id number]) on 09/11/2020 2:12:44 PM Referred By: [facility] Confirmed By:Michel Hays
[2020-09-11] MEDS: cefTRIAXone SODIUM 1,000 MG in DEXTROSE 5% 50 ML IV SCH (17:22)
--- NOTE | 2020-09-11 19:06 | Hospitalist Progress Note ---
Date of Service September 11, 2020 Assessment & Plan (1) Pneumonia due to COVID-19 virus: Acute on Respiratory Failure Present on admission with worsening SOB and hypoxia CXR showed cardiomegaly with mid and lower lung zone predominant mixed interstitial and alveolar opacities suggestive of pulmonary edema and/or multifocal pneumonia. CT chest showed interval development of mild to moderate patchy groundglass and linear densities seen within the periphery of the bilateral mid to lower lung zones. Continue IV Rocephin and Azithromycin No a candidate for Remdesivir due to CKD stage 4 Plasma convalescent did not administer due to pulmonary edema Continue dexamethasone Will consider to give additional diuretic Continue oxygen supplement Elevated Troponin Mostly due to demand ischemia from hypoxia Troponin 0.337 on admission, then trending down to 0.215 Currently denies any chest pain Continue aspirin, atenolol Stable CKD stage IV Creatinine 5.51 on admission. Baseline creatinine 2.53 From hypertensive nephrosclerosis (biopsy proven); high ESRD risk next few years per nephrology (Dr. Amira Chao) Continue to avoid nephrotoxins Continue monitor BMP Chronic Diastolic CHF Last ECHO Jul 2019: Severe concentric left ventricular hypertrophy, EF 55 to 60% Continue isosorbide dinitrate and atenolol as noted below continue monitor COPD Continue home inhaler regimen with Alvesco, Xopenex HFA, Combivent Hypertension Continue amlodipine 10 mg, hydralazine 75 mg 3 times daily, isosorbide dinitrate 20 mg twice daily, atenolol 20 mg Type 2 diabetes Will check Hba1c Patient not on any diabetic medications Continue monitor BS Chronic Hepatitis C Continue Zepatier 1 tab daily Will confirm with the fpc BPH Continue tamsulosin 0.4 mg Idiopathic insomnia Continue trazodone 1 mg DVT px will add heparin (will monitor closely since pt had a positive FOBT on 11/2019) Code status Full code Admission and Anticipated Discharge Date Admission Date: September 10, 2020 Subjective Pt was seen and examined Lying in bed with no acute distress with guard at bedside Pt said that his feels much better He said that his breathing is a lot better H said that he continues to cough and have a hard time to cough it out Denies any chest pain, palpitation, dizziness and SOB Physical Exam Physical Exam: General- No acute distress Head- atraumatic Eyes- PERRL, EOMI, ENT- oropharynx clear Neck- supple, no JVD Lungs- +coarse BS Heart- +bradycardia, no murmur Abdomen- normal bowel sounds, soft, nontender Extremities- no calf tenderness Neuro- alert, oriented x 3; PERRL, EOMI; no facial palsy; no dysarthria Skin- warm & dry Results & Data Results & Data ([facility]) Vital Signs (Past 12 Hours) Vital Signs Pulse Pulse Resp BP Pulse Ox 09/11/20 18:05 56 L 13 158/59 H 94 09/11/20 17:31 58 L 21 150/66 H 92 09/11/20 16:06 58 L 23 154/64 H 91 09/11/20 16:00 56 L 09/11/20 15:06 56 L 15 162/64 H 94 09/11/20 14:04 55 L 15 144/70 H 95 09/11/20 13:05 57 L 22 146/68 H 95 09/11/20 12:06 57 L 145/69 H 95 09/11/20 12:05 62 22 96 09/11/20 11:05 67 156/72 H 92 09/11/20 11:00 58 L 94 09/11/20 10:04 59 L 167/67 H 96 09/11/20 09:42 74 162/72 H 90 09/11/20 08:15 55 L 20 97 09/11/20 08:04 60 156/74 H 96 09/11/20 08:00 53 L
[2020-09-12] MEDS: dexAMETHasone 6 MG in SYRINGE 0 ML IV SCH (08:55)
[2020-09-12] MEDS: ZINC SULFATE 220 MG CAPSULE PO SCH (08:56)
[2020-09-12] MEDS: CHOLECALCIFEROL 1,000 UNITS 25 MCG TAB PO SCH (08:57)
[2020-09-12] MEDS: ISOSORBIDE DINITRATE 20 MG TAB PO SCH ×2 (08:57→12:21)
[2020-09-12] MEDS: hydrALAZINE HCL 25 MG TAB PO SCH ×3 (08:57→20:29)
[2020-09-12] MEDS: amLODIPine BESYLATE 5 MG TAB PO SCH (08:58)
[2020-09-12] MEDS: PANTOprazole 40 MG TAB PO SCH (08:58)
[2020-09-12] MEDS: AZITHROMYCIN 500 MG in DEXTROSE 5% 250 ML IV SCH (08:59)
[2020-09-12] MEDS: FLUTICASONE/VILANTEROL 100/25MCG 14 PUFFS/INHALER INH SCH (09:12)
[2020-09-12] MEDS ORDERED: HEPARIN SOD 5,000 UNIT/0.5 ML VIAL SQ SCH (14:00)
[2020-09-12] MEDS: cefTRIAXone SODIUM 1,000 MG in DEXTROSE 5% 50 ML IV SCH (16:29)
--- NOTE | 2020-09-12 19:43 | Hospitalist Progress Note ---
Date of Service September 12, 2020 Assessment & Plan (1) Pneumonia due to COVID-19 virus: Acute on Respiratory Failure Present on admission with worsening SOB and hypoxia CXR showed cardiomegaly with mid and lower lung zone predominant mixed interstitial and alveolar opacities suggestive of pulmonary edema and/or multifocal pneumonia. CT chest showed interval development of mild to moderate patchy groundglass and linear densities seen within the periphery of the bilateral mid to lower lung zones. Continue IV Rocephin and Azithromycin No a candidate for Remdesivir due to CKD stage 4 Plasma convalescent did not administer due to pulmonary edema Continue dexamethasone Will consider to give additional diuretic if SOB worsening Continue oxygen supplement Will repeat CXR in am Elevated Troponin Mostly due to demand ischemia from hypoxia Troponin 0.337 on admission, then trending down to 0.215 Currently denies any chest pain Continue aspirin, atenolol Stable CKD stage IV Creatinine 5.51 on admission. Baseline creatinine 2.53 From hypertensive nephrosclerosis (biopsy proven); high ESRD risk next few years per nephrology (Dr. Amira Chao) Continue to avoid nephrotoxins Continue monitor BMP Chronic Diastolic CHF Last ECHO Jul 2019: Severe concentric left ventricular hypertrophy, EF 55 to 60% Continue isosorbide dinitrate and atenolol as noted below continue monitor COPD Continue home inhaler regimen with Alvesco, Xopenex HFA, Combivent Hypertension Continue amlodipine 10 mg, hydralazine 75 mg 3 times daily, isosorbide dinitrate 20 mg twice daily, atenolol 20 mg Type 2 diabetes Will check Hba1c Patient not on any diabetic medications Continue monitor BS Chronic Hepatitis C Pt said that he completed the course of Zepatier Will confirm with the [facility] BPH Continue tamsulosin 0.4 mg Idiopathic insomnia Continue trazodone 1 mg DVT px will add heparin (will monitor closely since pt had a positive FOBT on 11/2019) Code status Full code Admission and Anticipated Discharge Date Admission Date: September 10, 2020 Subjective Follow up with respiratory failure due to Covid 19 Pt was seen and examined Lying in bed with mild respiratory distress with 2 guards at bedside Pt said that his breathing feels much better Denies any chest pain, palpitation, dizziness and fever Physical Exam Physical Exam: General- No acute distress Head- atraumatic Eyes- PERRL, EOMI, ENT- oropharynx clear Neck- supple, no JVD Lungs- +coarse BS Heart- +bradycardia, no murmur Abdomen- normal bowel sounds, soft, nontender Extremities- no calf tenderness Neuro- alert, oriented x 3; PERRL, EOMI; no facial palsy; no dysarthria Skin- warm & dry Results & Data Results & Data ([facility]) Vital Signs (Past 12 Hours) Vital Signs Temp Pulse Pulse Pulse Resp BP BP 09/12/20 18:18 149/61 H 09/12/20 16:16 36.7 C 58 L 18 157/99 H 09/12/20 15:15 09/12/20 15:02 53 L 09/12/20 12:20 158/72 H 09/12/20 12:08 36.5 C 55 L 20 181/97 H 09/12/20 07:50 36.3 C L 57 L 17 147/65 H Pulse Ox 09/12/20 18:18 94 09/12/20 16:16 95 09/12/20 15:15 93 09/12/20 15:02 09/12/20 12:20 09/12/20 12:08 95 09/12/20 07:50 93
[2020-09-12] MEDS: TAMSULOSIN HCL 0.4 MG CAP PO SCH (20:29)
[2020-09-12] MEDS: traZODone HCL 100 MG TAB PO SCH (20:29)
[2020-09-12] MEDS: HEPARIN SOD 5,000 UNIT/0.5 ML VIAL SQ SCH (20:30)
[2020-09-12] MEDS: MELATONIN 3 MG TAB PO SCH (20:37)
[2020-09-13 07:03] LABS: Hematocrit (blood only) 30.1 % (42-52); Mean Corpuscular Hemoglobin 22.2 pg (25-34); Mean Corpuscular Hgb Conc 33.2 g/dL (32-36); Mean Corpuscular Volume 66.7 fL (80-100); Nucleated RBC # (auto) 0.03 K/uL (0-0); Nucleated RBC % (auto) 0.3 %; Platelet Count 218 K/uL (130-400); RDW Coefficient of Variation 17.8 % (11.5-14.5); RDW Standard Deviation 43.5 fL (36.4-46.3); Red Blood Count 4.51 M/uL (4.7-6.1)
[2020-09-13 07:34] LABS: Est GFR (African American) 12.8; Est GFR (Non-African American) 11.1; Potassium 4.4 mmol/L (3.5-5.1)
[2020-09-13 07:35] LABS: Albumin Globulin Ratio 0.5 (0.9-2); Albumin Level 2.4 gm/dl (3.4-5.0); BUN Creatinine Ratio 16.5 (10-20); Bilirubin,Total 0.2 mg/dl (0.2-1); C Reactive Protein 1.4 mg/dl (0-0.29); Calcium 7.7 mg/dl (8.5-10.1); Creatinine Clr Calc Pharmacy 14.1 ml/min; Globulin 4.8 gm/dl (2.5-4.0); Total Protein 7.2 gm/dl (6.4-8.2)
[2020-09-13] MEDS: AZITHROMYCIN 500 MG in DEXTROSE 5% 250 ML IV SCH (08:39)
[2020-09-13] MEDS: dexAMETHasone 6 MG in SYRINGE 0 ML IV SCH (08:40)
[2020-09-13] MEDS: CHOLECALCIFEROL 1,000 UNITS 25 MCG TAB PO SCH (08:40)
[2020-09-13] MEDS: ZINC SULFATE 220 MG CAPSULE PO SCH (08:40)
[2020-09-13] MEDS: amLODIPine BESYLATE 5 MG TAB PO SCH (08:41)
[2020-09-13] MEDS: hydrALAZINE HCL 25 MG TAB PO SCH ×3 (08:41→20:38)
[2020-09-13] MEDS: PANTOprazole 40 MG TAB PO SCH (08:41)
[2020-09-13] MEDS: ISOSORBIDE DINITRATE 20 MG TAB PO SCH ×2 (08:42→12:29)
[2020-09-13] MEDS: FLUTICASONE/VILANTEROL 100/25MCG 14 PUFFS/INHALER INH SCH (08:42)
[2020-09-13] MEDS: HEPARIN SOD 5,000 UNIT/0.5 ML VIAL SQ SCH ×2 (08:43→20:38)
--- NOTE | 2020-09-13 10:29 | XRay Report ---
SINGLE VIEW CHEST CLINICAL HISTORY: Covid. Dyspnea. FINDINGS: An AP, portable, upright chest radiograph is compared to study dated 09/11/2020 and correlat ed with chest CT dated 09/10/2020. The examination is degraded by portable technique and apical orthot ic positioning. The heart is enlarged noting atherosclerotic calcification of the thoracic aorta. The pulmonary vasculature is noncongested. Emphysema and chronic interstitial thickening is similar to p revious. There are small pleural effusions, left larger than right. Subtle hazy airspace opacities ar e seen bilaterally No pneumothorax is seen. The skeletal structures are osteopenic. The bony thorax i s grossly intact. IMPRESSION: 1. Cardiomegaly and emphysema. 2. Subtle hazy airspace opacities are seen bilaterally and may represent a mild infectious/inflammato ry pneumonitis. 3. Small pleural effusions, left larger than right. ACT 112: Negative or not required by law. Electronically signed by: Jakub Smith M.D. 09/13/2020 10:27 AM
[2020-09-13] MEDS: cefTRIAXone SODIUM 1,000 MG in DEXTROSE 5% 50 ML IV SCH (16:07)
[2020-09-13] MEDS: traZODone HCL 100 MG TAB PO SCH (20:38)
[2020-09-13] MEDS: TAMSULOSIN HCL 0.4 MG CAP PO SCH (20:38)
[2020-09-13] MEDS: MELATONIN 3 MG TAB PO SCH (20:38)
--- NOTE | 2020-09-13 21:04 | Hospitalist Progress Note ---
Date of Service September 13, 2020 Assessment & Plan (1) Pneumonia due to COVID-19 virus: Acute on Respiratory Failure Present on admission with worsening SOB and hypoxia CXR showed cardiomegaly with mid and lower lung zone predominant mixed interstitial and alveolar opacities suggestive of pulmonary edema and/or multifocal pneumonia. CT chest showed interval development of mild to moderate patchy groundglass and linear densities seen within the periphery of the bilateral mid to lower lung zones. Continue IV Rocephin and Azithromycin No a candidate for Remdesivir due to CKD stage 4 Received Plasma convalescent on 09/12 Continue dexamethasone ESR and CRP trending down Repeat CXR showed subtle hazy airspace opacities are seen bilaterally and may represent a mild infectious/inflammatory pneumonitis. Small pleural effusions, left larger than right. Will consider to give additional diuretic if SOB worsening Continue titrate off oxygen supplement Elevated Troponin Mostly due to demand ischemia from hypoxia Troponin 0.337 on admission, then trending down to 0.215 Currently denies any chest pain Continue aspirin, atenolol Stable CKD stage IV Creatinine 5.51 on admission. Baseline creatinine 2.53 From hypertensive nephrosclerosis (biopsy proven); high ESRD risk next few years per nephrology (Dr. Amira Chao) Continue to avoid nephrotoxins Continue monitor BMP Chronic Diastolic CHF Last ECHO Jul 2019: Severe concentric left ventricular hypertrophy, EF 55 to 60% Continue isosorbide dinitrate and atenolol as noted below continue monitor COPD Continue home inhaler regimen with Alvesco, Xopenex HFA, Combivent Hypertension Continue amlodipine 10 mg, hydralazine 75 mg 3 times daily, isosorbide dinitrate 20 mg twice daily, atenolol 20 mg Type 2 diabetes Will check Hba1c Patient not on any diabetic medications Continue monitor BS Chronic Hepatitis C Pt said that he completed the course of Zepatier Will confirm with the [facility] BPH Continue tamsulosin 0.4 mg Idiopathic insomnia Continue trazodone 1 mg DVT px on heparin subq (will monitor closely since pt had a positive FOBT on 11/2019) Code status Full code Disposition Discharge tomorrow Admission and Anticipated Discharge Date Admission Date: September 10, 2020 Subjective Follow up with respiratory failure due to Covid 19 Pt was seen and examined Lying in bed with mild respiratory distress with 2 guards at bedside Pt said that he feels much better today compared to yesterday He continues to cough He is on 1L NC for now denies any chest pain, palpitation and fever Physical Exam Physical Exam: General- No acute distress Head- atraumatic Eyes- PERRL, EOMI, ENT- oropharynx clear Neck- supple, no JVD Lungs- +coarse BS Heart- +bradycardia, no murmur Abdomen- normal bowel sounds, soft, nontender Extremities- no calf tenderness Neuro- alert, oriented x 3; PERRL, EOMI; no facial palsy; no dysarthria Skin- warm & dry Results & Data Results & Data ([facility]) Vital Signs (Past 12 Hours) Vital Signs Temp Pulse Pulse Resp BP Pulse Ox 09/13/20 20:37 75 146/62 H 09/13/20 19:28 36.6 C 62 20 144/64 H 94 09/13/20 16:41 62 09/13/20 15:35 36.5 C 57 L 20 153/60 H 93 09/13/20 11:05 36.4 C L 54 L 16 136/56 L 92
[2020-09-14] MEDS: cefTRIAXone SODIUM 1,000 MG in DEXTROSE 5% 50 ML IV SCH (17:57)
[2020-09-14] MEDS: hydrALAZINE HCL 25 MG TAB PO SCH ×3 (18:22→20:46)
[2020-09-14] MEDS: dexAMETHasone 6 MG in SYRINGE 0 ML IV SCH (18:22)
[2020-09-14] MEDS: ISOSORBIDE DINITRATE 20 MG TAB PO SCH ×2 (18:22→18:25)
[2020-09-14] MEDS: FLUTICASONE/VILANTEROL 100/25MCG 14 PUFFS/INHALER INH SCH (18:22)
[2020-09-14] MEDS: amLODIPine BESYLATE 5 MG TAB PO SCH (18:22)
[2020-09-14] MEDS: CHOLECALCIFEROL 1,000 UNITS 25 MCG TAB PO SCH (18:22)
[2020-09-14] MEDS: ZINC SULFATE 220 MG CAPSULE PO SCH (18:22)
[2020-09-14] MEDS: HEPARIN SOD 5,000 UNIT/0.5 ML VIAL SQ SCH ×2 (18:23→20:46)
[2020-09-14] MEDS: PANTOprazole 40 MG TAB PO SCH (18:24)
[2020-09-14] MEDS: AZITHROMYCIN 500 MG in DEXTROSE 5% 250 ML IV SCH (18:24)
--- NOTE | 2020-09-14 18:53 | Hospitalist Progress Note ---
Date of Service September 14, 2020 Assessment & Plan (1) Pneumonia due to COVID-19 virus: Acute on Respiratory Failure Present on admission with worsening SOB and hypoxia CXR showed cardiomegaly with mid and lower lung zone predominant mixed interstitial and alveolar opacities suggestive of pulmonary edema and/or multifocal pneumonia. CT chest showed interval development of mild to moderate patchy groundglass and linear densities seen within the periphery of the bilateral mid to lower lung zones. Continue IV Rocephin and Azithromycin No a candidate for Remdesivir due to CKD stage 4 Received Plasma convalescent on 09/12 Continue dexamethasone ESR and CRP trending down Repeat CXR showed subtle hazy airspace opacities are seen bilaterally and may represent a mild infectious/inflammatory pneumonitis. Small pleural effusions, left larger than right. Will consider to give additional diuretic if SOB worsening Continue titrate off oxygen supplement Elevated Troponin Mostly due to demand ischemia from hypoxia Troponin 0.337 on admission, then trending down to 0.215 Currently denies any chest pain Continue aspirin, atenolol Stable CKD stage IV Creatinine 5.51 on admission. Baseline creatinine 2.53 From hypertensive nephrosclerosis (biopsy proven); high ESRD risk next few years per nephrology (Dr. Amira Chao) Creatinine 4.7 today Will consult nephrology Continue to avoid nephrotoxins Continue monitor BMP Chronic Diastolic CHF Last ECHO Jul 2019: Severe concentric left ventricular hypertrophy, EF 55 to 60% Continue isosorbide dinitrate and atenolol as noted below continue monitor COPD Continue home inhaler regimen with Alvesco, Xopenex HFA, Combivent Hypertension Continue amlodipine 10 mg, hydralazine 75 mg 3 times daily, isosorbide dinitrate 20 mg twice daily Will resume atenolol in am Type 2 diabetes Will check Hba1c Patient not on any diabetic medications Continue monitor BS Chronic Hepatitis C Pt said that he completed the course of Zepatier [facility] BPH Continue tamsulosin 0.4 mg Idiopathic insomnia Continue trazodone 1 mg DVT px on heparin subq (will monitor closely since pt had a positive FOBT on 11/2019) Code status Full code Disposition Possible discharge tomorrow Admission and Anticipated Discharge Date Admission Date: September 10, 2020 Subjective Follow up with respiratory failure due to Covid 19 Pt was seen and examined Lying in bed with mild respiratory distress with 2 guards at bedside Pt said that he feels a lot better today compared to yesterday He said that his cough improves significantly Denies any chest pain, palpitation and fever Physical Exam Physical Exam: General- No acute distress Head- atraumatic Eyes- PERRL, EOMI, ENT- oropharynx clear Neck- supple, no JVD Lungs- Regular, no murmur Abdomen- normal bowel sounds, soft, nontender Extremities- no calf tenderness Neuro- alert, oriented x 3; PERRL, EOMI; no facial palsy; no dysarthria Skin- warm & dry Results & Data Results & Data ([facility]) Vital Signs (Past 12 Hours) Vital Signs Temp Pulse Resp BP Pulse Ox 09/14/20 15:00 36.6 C 64 21 167/68 H 90
[2020-09-14 19:18] LABS: BUN Creatinine Ratio 17.1 (10-20); Calcium 8.5 mg/dl (8.5-10.1); Creatinine Clr Calc Pharmacy 14.7 ml/min; Est GFR (African American) 13.2; Est GFR (Non-African American) 11.4; Potassium 4.5 mmol/L (3.5-5.1)
[2020-09-14] MEDS: TAMSULOSIN HCL 0.4 MG CAP PO SCH (20:46)
[2020-09-14] MEDS: traZODone HCL 100 MG TAB PO SCH (22:13)
[2020-09-14] MEDS: MELATONIN 3 MG TAB PO SCH (22:14)
[2020-09-15 07:53] LABS: BUN Creatinine Ratio 18.3 (10-20); Calcium 8.5 mg/dl (8.5-10.1); Creatinine Clr Calc Pharmacy 16.6 ml/min; Est GFR (African American) 15.5; Est GFR (Non-African American) 13.4; Potassium 4.1 mmol/L (3.5-5.1)
[2020-09-15 07:54] LABS: Estimated Average Glucose 120 mg/dl; Hemoglobin A1C 5.8 % (4.5-5.6)
[2020-09-15] MEDS: dexAMETHasone 6 MG in SYRINGE 0 ML IV SCH (08:23)
[2020-09-15] MEDS: FLUTICASONE/VILANTEROL 100/25MCG 14 PUFFS/INHALER INH SCH (08:24)
[2020-09-15] MEDS: amLODIPine BESYLATE 5 MG TAB PO SCH (08:25)
[2020-09-15] MEDS: ISOSORBIDE DINITRATE 20 MG TAB PO SCH ×2 (08:25→11:45)
[2020-09-15] MEDS: CHOLECALCIFEROL 1,000 UNITS 25 MCG TAB PO SCH (08:25)
[2020-09-15] MEDS: ZINC SULFATE 220 MG CAPSULE PO SCH (08:25)
[2020-09-15] MEDS: PANTOprazole 40 MG TAB PO SCH (08:26)
[2020-09-15] MEDS: HEPARIN SOD 5,000 UNIT/0.5 ML VIAL SQ SCH ×2 (08:26→20:25)
[2020-09-15] MEDS: hydrALAZINE TAB 50 MG TAB PO SCH ×3 (08:26→20:25)
[2020-09-15] MEDS: AZITHROMYCIN 500 MG in DEXTROSE 5% 250 ML IV SCH (09:37)
--- NOTE | 2020-09-15 10:13 | Nephrology Consultation ---
Date of Consultation September 15, 2020 Assessment & Plan (1) Acute kidney injury superimposed on CKD: presented 09/10 w/ creatinine 5.5; baseline in 10/2019 had been low 3's and no interval labs available. trending down to 4.2 today. renal bx 08/2019 c/w longstanding ischemic/hypertensive changes w/ 70% IFTA and stains negative for hepatitis related GN or active GN attributable to drug related lupus. Hx of + anithistone Abs however and elevated JENNIFER in the setting of 1.6-3.8 gm proteinuri a on spot ratios. currently chemistries acceptable, though acidosis noted it is improving. He had hemoptysis at admission but doubt this relates to renal disease. -daily bmp -ordered UACM, repeat prot/creat ratio, repeat targeted serology for drug induced SLE (if still + may opt to avoid hydralazine) -would not do renal imaging unless new sx or renal recovery slows inexplicably: will need repeat renal imaging at some point next few mos (likely OP) d/t complex renal cyst -no current indication for dialysis; he will need it likely in 1-2 years depending on clinical course -he absolutely needs specialized OP renal follow up care with us or in DOC system Present on Admission?: Yes (2) Hypertension: suboptimal control on hydralazine 100 mg tid, amlodipine 10 mg daily; OP bumex and atenolol currently not ordered or held respectively. bradycardia noted; OP atenolol dose not unreasonable for hsi CKD status. -low threshold to resume bumex prn -recheck serologies as above > may need to reconsider hydralazine rx -cont current meds Present on Admission?: Yes (3) Pneumonia due to COVID-19 virus: clinically improving; on RA now; s/p convalescent plasma; on rocephin, azithromycin, dexamethazone; not a remdesivir candidate d/t advanced CKD; ESR and CRP trending down -per primary service Present on Admission?: Yes History of Present Illness Reason for Consultation: CKD4 Requesting Physician: Dr Rey Attending Physician: Jarod Rey MD History of Present Illness 70 y/o M prisoner whom I'm asked to see for CKD 4 after he was admitted on 09/10 for C19. PMH includes longstanding HTN, HCV s/p reported course of tx, CKD4, longstanding resistant htn, complex L hydrocele, complex renal cyst. Admitted [facility] 12/2018 for HTN urgency; admitted [facility] 07/2019 for acute diastolic HF. His presenting creatinine on this admission for covid PNA was 5.5; has trended down since then to 4.2 today. OP baseline appears to be about 3 still, though records limited; has been at this baseline for at least a year, though creat as recently as spring 2018 in 1.7 baseline range. No OP labs sent with [facility] records at admission. Had renal bx 08/2019 (results below) most consistent on my review of result w/ hypertensive nephrosclerosis, though serologies at the time also remarkable for anti histone Ab +. He was to f/u in CKD clinic after d/c. However, [facility] opted instead to arrange other f/u per their report at the time. Had EGD 11/10/19 per GI recommendations: c/w localized moderate gastritis, possibly from gastroenteritis. Allergies Allergy/AdvReac Type Severity Reaction Status Date / Time No Known Drug Allergies Allergy Unknown . Verified 09/10/20 19:52 Home Medications Medication Instructions Recorded Confirmed Type aspirin 81 mg PO DAILY 12/16/18 09/10/20 History tamsulosin 0.4 mg PO HS 12/16/18 09/10/20 History Alvesco 1 puff INHALATION BID 07/31/19 09/10/20 History levalbuterol tartrate [Xopenex HFA] 2 inh INHALATION QID PRN 07/31/19 09/10/20 History isosorbide dinitrate 20 mg PO BID 11/09/19 09/10/20 History vitamin A and D 1 applic TOPICAL BID PRN 11/09/19 09/10/20 History hydralazine 75 mg PO TID #0 tab 11/14/19 09/10/20 Rx amlodipine 10 mg tablet 10 mg PO DAILY 01/31/20 09/10/20 History atenolol 25 mg PO DAILY 09/10/20 09/10/20 History bumetanide [Bumex] 1 mg PO DAILY 09/10/20 09/10/20 History camphor-menthol [Icy Hot Advanced 1 applic TOPICAL BID PRN 09/10/20 09/10/20 History Relief] ciclesonide [Alvesco] 1 puff INHALATION BID 09/10/20 09/10/20 History ketotifen fumarate [Zaditor] 1 drp OPB BID 09/10/20 09/10/20 History pantoprazole [Protonix] 40 mg PO DAILY 09/10/20 09/10/20 History trazodone 150 mg PO HS 09/10/20 09/10/20 History Patient History Medical History BPH (benign prostatic hyperplasia) Chronic diastolic CHF (congestive heart failure) Chronic hepatitis C CKD (chronic kidney disease), stage IV COPD (chronic obstructive pulmonary disease) Hydrocele in adult Hypertension Renal cyst, acquired Tobacco abuse, in remission Surgical History H/O hernia repair History of laryngoscopy Family History Other Diabetes Hypertension Social History Smoking Status: Former smoker Cigarettes Per Day: 03/11/20; Second Hand Exposure: No; Hx Alcohol Use: No Hx Substance Use: No Preferred Language: Angolan Communication Ability: Effective Vp Product Required: No Beliefs That Will Affect Care: None Current Living Situation: Other Current Living Situation Comment: [employer] Other Information That Helps Us Care for You: No Feels Safe at Home: Yes Safety Concerns: Feels Safe At This Time Assistive Devices: None Review of Systems Review of Systems: All systems reviewed & are unremarkable except as noted in HPI & below Respiratory: + cough, + dyspnea on exertion and + hemoptysis (earlier in admission; resolved now); no dyspnea Physical Exam Constitutional: well developed and well nourished; no acute distress on RA Eyes: EOM intact bilaterally ENMT: Ears: no external ear abnormality Nose: no external nose abnormality Mouth: + dry oral mucous membranes Neck: no nuchal rigidity Respiratory: normal respiratory effort and + labored breathing (with speech/exam maneuvers) Auscultation: lungs clear to auscultation bilaterally and + diminished lung sounds Cardiovascular: Rate/Rhythm: regular rate and regular rhythm Extremities: no edema Gastrointestinal (Abdomen): Inspection/Auscultation: normal bowel sounds Percussion/Palpation: abdomen soft; abdomen nontender Musculoskeletal: Extremities: strength 5/5 throughout Skin: no rashes, warm and dry Neurologic: hodges, fluent speech, no tremor Psychiatric: A+Ox3, euthymic affect Genitourinary: no bull Results & Data ([facility]) Vital Signs (Past 12 Hours) Vital Signs Temp Pulse Pulse Pulse Resp BP Pulse Ox 09/15/20 07:55 36.7 C 58 L 18 179/83 H 90 09/15/20 03:14 86 L 09/15/20 03:13 36.9 C 72 19 175/79 H 94 09/15/20 00:00 83 09/14/20 23:28 36.6 C 60 18 163/69 H 93 Laboratory Results 09/13/20 06:13 09/15/20 06:[address] 09/10/20 chest non con 1. Interval development of mild to moderate patchy groundglass and linear densities seen within the periphery of the bilateral mid to lower lung zones. This favors a viral pneumonia. 2. Severe emphysema. 3. Mild mediastinal and bilateral hilar lymphadenopathy which is likely reactive. 4. Trace pericardial effusion. This has improved. 5. Trace left pleural effusion. cxr 09/13 1. Cardiomegaly and emphysema. 2. Subtle hazy airspace opacities are seen bilaterally and may represent a mild infectious/inflammatory pneumonitis. 3. Small pleural effusions, left larger than right. CT AP no con 10/2019 Lower chest: There is severe pulmonary emphysema. There is respiratory motion artifact. There is a small pericardial effusion. Liver: The unenhanced liver is normal in size, contour, and attenuation. There is no intrahepatic biliary ductal dilatation. Gallbladder: Unremarkable. Spleen: Normal in size and attenuation. Pancreas: Unremarkable. Adrenal glands: There ismild bilateral adrenal gland thickening Kidneys: There are multiple bilateral renal cysts. 5.9 cm upper pole right renal cyst demonstrates peripheral rim calcification. There is a 2 mm lower pole right renal calculus. There is no hydronephrosis. Bowel: There are no transition zones indicate bowel obstruction. There is colonic diverticulosis. There is no evidence of acute diverticulitis. The visualized portions of the appendix appear normal. Peritoneum: There is no intraperitoneal free air or abdominal ascites. Vasculature: There is no evidence of abdominal aortic aneurysm. There are moderately extensive atheromatous calcifications within the aorta iliac vessels. Adenopathy: None. Pelvic viscera: Prostate is prominent. There are multiple bladder diverticula present. There is an encysted hydrocele within the left inguinal canal.. Skeletal structures: No destructive osseous lesions are seen. There is an L5-S1 disc protrusion. There is multilevel spinal stenosis. IMPRESSION: 1. Examination limited due to lack of intravenous and oral contrast 2. No evidence of bowel obstruction. No evidence of free air 3. No acute inflammatory changes 4. Bilateral renal cysts 5. 2 mm lower pole right renal calculus. No hydronephrosis. No ureteral calculi identified. 6. Multiple bladder diverticula TTE 07/2019 severe CLVH; EF 55-60%; nl RV fnxn; nl Biatrial size; all 4 valves w/ mild rgg renal bx 08/2019 severe IFTA 70% 7 of 14 gloms totally sclerosed severe arteriolar hyalinosis with moderate to severe arterial intimal fibrosis no necrosis endocapillary proliferation or crescent formation immunoflourescence stains completely negative no gloms on EM blocks (1) Hypertension Hypertension type: unspecified Qualified Code(s): I10 - Essential (primary) hypertension
[2020-09-15] MEDS: cefTRIAXone SODIUM 1,000 MG in DEXTROSE 5% 50 ML IV SCH (16:20)
--- NOTE | 2020-09-15 17:30 | Hospitalist Progress Note ---
Date of Service September 15, 2020 Assessment & Plan (1) Pneumonia due to COVID-19 virus: Acute on Respiratory Failure Present on admission with worsening SOB and hypoxia CXR showed cardiomegaly with mid and lower lung zone predominant mixed interstitial and alveolar opacities suggestive of pulmonary edema and/or multifocal pneumonia. CT chest showed interval development of mild to moderate patchy groundglass and linear densities seen within the periphery of the bilateral mid to lower lung zones. Continue IV Rocephin and Azithromycin No a candidate for Remdesivir due to CKD stage 4 Received Plasma convalescent on 09/12 Continue dexamethasone ESR and CRP trending down Repeat CXR showed subtle hazy airspace opacities are seen bilaterally and may represent a mild infectious/inflammatory pneumonitis. Small pleural effusions, left larger than right. Continue titrate off oxygen supplement Elevated Troponin Mostly due to demand ischemia from hypoxia Troponin 0.337 on admission, then trending down to 0.215 Currently denies any chest pain Continue aspirin, atenolol Stable CKD stage IV Creatinine 5.51 on admission. Baseline creatinine 2.53 From hypertensive nephrosclerosis (biopsy proven); high ESRD risk next few years per nephrology (Dr. Amira Chao) Creatinine 4.7 today Nephrology consulted- pending Continue to avoid nephrotoxins Continue monitor BMP Chronic Diastolic CHF Last ECHO Jul 2019: Severe concentric left ventricular hypertrophy, EF 55 to 60% Continue isosorbide dinitrate and atenolol as noted below continue monitor COPD Continue home inhaler regimen with Alvesco, Xopenex HFA, Combivent Hypertension Continue amlodipine 10 mg, hydralazine 75 mg 3 times daily, isosorbide dinitrate 20 mg twice daily Will resume atenolol in am Type 2 diabetes Hba1c 5.8 Patient not on any diabetic medications Continue monitor BS Chronic Hepatitis C Pt said that he completed the course of Zepatier Will confirm with the halfway BPH Continue tamsulosin 0.4 mg Idiopathic insomnia Continue trazodone 1 mg DVT px on heparin subq (will monitor closely since pt had a positive FOBT on 11/2019) Code status Full code Disposition Possible discharge tomorrow Admission and Anticipated Discharge Date Admission Date: September 10, 2020 Subjective Follow up with respiratory failure due to Covid 19 Pt was seen and examined Lying in bed with mild respiratory distress with 2 guards at bedside Pt said that he feels ok but continues to cough Denies any chest pain, palpitation and fever Physical Exam Physical Exam: General- No acute distress Head- atraumatic Eyes- PERRL, EOMI, ENT- oropharynx clear Neck- supple, no JVD Lungs- Regular, no murmur Abdomen- normal bowel sounds, soft, nontender Extremities- no calf tenderness Neuro- alert, oriented x 3; PERRL, EOMI; no facial palsy; no dysarthria Skin- warm & dry Results & Data Results & Data ([facility]) Vital Signs (Past 12 Hours) Vital Signs Temp Pulse Pulse Resp BP Pulse Ox 09/15/20 15:34 36.8 C 64 22 167/76 H 91 09/15/20 11:41 36.6 C 58 L 18 167/67 H 98 09/15/20 07:55 36.7 C 58 L 18 179/83 H 90
[2020-09-15] MEDS: traZODone HCL 100 MG TAB PO SCH (20:25)
[2020-09-15] MEDS: TAMSULOSIN HCL 0.4 MG CAP PO SCH (20:26)
[2020-09-15 20:32] LABS: Appearance Urine Clear (Clear); Bacteria Urine Automated Negative (Negative); Bilirubin Urine Negative (Negative); Blood Urine Negative (Negative); Color Urine Yellow; Glucose Urine UA Negative (Negative); Ketones Urine Negative (Negative); Leukocyte Esterase Urine Negative (Negative); Nitrite Urine Negative (Negative); Protein Urine 3+ (Negative); RBC Urine Automated 0-4 /hpf (0-4); Urobilinogen Urine Negative (Negative)
[2020-09-15] MEDS: MELATONIN 3 MG TAB PO SCH (20:43)
[2020-09-15 20:58] LABS: Protein Creatinine Ratio Urine 2.9 (0-0.2); Total Protein Urine Random 326.3 mg/dl (0-11.9)
[2020-09-16] MEDS: ZINC SULFATE 220 MG CAPSULE PO SCH (07:43)
[2020-09-16] MEDS: HEPARIN SOD 5,000 UNIT/0.5 ML VIAL SQ SCH (07:43)
[2020-09-16] MEDS: amLODIPine BESYLATE 5 MG TAB PO SCH (07:44)
[2020-09-16] MEDS: hydrALAZINE TAB 50 MG TAB PO SCH ×2 (07:44→11:40)
[2020-09-16] MEDS: ISOSORBIDE DINITRATE 20 MG TAB PO SCH ×2 (07:44→11:40)
[2020-09-16] MEDS: dexAMETHasone 6 MG in SYRINGE 0 ML IV SCH (07:45)
[2020-09-16] MEDS: CHOLECALCIFEROL 1,000 UNITS 25 MCG TAB PO SCH (07:45)
[2020-09-16] MEDS: FLUTICASONE/VILANTEROL 100/25MCG 14 PUFFS/INHALER INH SCH (07:45)
[2020-09-16] MEDS: PANTOprazole 40 MG TAB PO SCH (07:45)
[2020-09-16 08:15] LABS: BUN Creatinine Ratio 18.1 (10-20); Calcium 8.7 mg/dl (8.5-10.1); Creatinine Clr Calc Pharmacy 17.8 ml/min; Est GFR (African American) 16.9; Est GFR (Non-African American) 14.5
[2020-09-16] MEDS: AZITHROMYCIN 500 MG in DEXTROSE 5% 250 ML IV SCH (09:32)
[2020-09-16] MEDS: cefTRIAXone SODIUM 1,000 MG in DEXTROSE 5% 50 ML IV SCH (15:52)
--- NOTE | 2020-09-16 16:55 | Hospitalist Progress Note ---
Date of Service September 16, 2020 Assessment & Plan (1) Pneumonia due to COVID-19 virus: Acute on Respiratory Failure Present on admission with worsening SOB and hypoxia CXR showed cardiomegaly with mid and lower lung zone predominant mixed interstitial and alveolar opacities suggestive of pulmonary edema and/or multifocal pneumonia. CT chest showed interval development of mild to moderate patchy groundglass and linear densities seen within the periphery of the bilateral mid to lower lung zones. Completed the course of the abx with Rocephin and Azithromycin No a candidate for Remdesivir due to CKD stage 4 Received Plasma convalescent on 09/12 Has been getting IV dexamethasone 6mg, will transition to PO prednisone 20mg for 3 more days ESR and CRP trending down Repeat CXR showed subtle hazy airspace opacities are seen bilaterally and may represent a mild infectious/inflammatory pneumonitis. Small pleural effusions, left larger than right. Saturated well on RA above 91% We tried to do a 2 step exercise, but when patient got up to walk he felt dizzy and the test had to stop; But pt is saturated above 91% at rest Will recommended to continue 2LNC for now with ambulation, then repeat 2 step exercise tomorrow or in the next few days Elevated Troponin Mostly due to demand ischemia from hypoxia Troponin 0.337 on admission, then trending down to 0.215 Currently denies any chest pain Continue aspirin, atenolol Stable CKD stage IV Creatinine 5.51 on admission (Last outpatient creatinine was 4.1 as [facility]) From hypertensive nephrosclerosis (biopsy proven); high ESRD risk next few years per nephrology (Dr. Amira Chao) Creatinine 3.9 today Nephrology consulted JENNIFER and antihistone pending to r/o drug induce SLE (if positive, will need to stop hydralazine) No current indication for dialysis; he will need it likely in 1-2 years depending on clinical course Continue to avoid nephrotoxins Ok to resume Bumex once creatinine at baseline as per Nephrology Check BMP in 1 week Follow up with nephrology Chronic Diastolic CHF Last ECHO Jul 2019: Severe concentric left ventricular hypertrophy, EF 55 to 60% Continue isosorbide dinitrate Atenolol was held due to Bradycardia Will resume Atenolol since HR has been stable, will monitor COPD Continue home inhaler regimen with Alvesco, Xopenex HFA, Combivent Stable Hypertension Continue amlodipine 10 mg, isosorbide dinitrate 20 mg twice daily Hydralazine increased to 100mg TID, but if suspicious for drug induced SLE, will need to D/C Hydralazine Ok to resume Atenolol, but monitor HR Type 2 diabetes Hba1c 5.8 Patient not on any diabetic medications Continue monitor BS Chronic Hepatitis C Pt said that he completed the course of Zepatier LFT stable BPH Continue tamsulosin 0.4 mg Idiopathic insomnia Continue trazodone 1 mg DVT px on heparin subq (will monitor closely since pt had a positive FOBT on 11/2019) Code status Full code Disposition Possible discharge today Case discussed with Dr. Garcia at the [facility] Admission and Anticipated Discharge Date Admission Date: September 10, 2020 Subjective Pt was seen and examined for follow up with respiratory failure due to Covid 19 Lying in bed with mild respiratory distress with 2 guards at bedside His breathing feels alot of better today compare to yesterday He is coughing less today I spoke to dr. Garcia at [facility] today and provided update We tried to do a 2 step exercise, but when patient go up to walk he feels dizzy and the test had to stop; But pt is saturated above 91% at rest Denies any chest pain, palpitation and fever Physical Exam Physical Exam: General- No acute distress Head- atraumatic Eyes- PERRL, EOMI, ENT- oropharynx clear Neck- supple, no JVD Lungs- Regular, no murmur Abdomen- normal bowel sounds, soft, nontender Extremities- no calf tenderness Neuro- alert, oriented x 3; PERRL, EOMI; no facial palsy; no dysarthria Skin- warm & dry Results & Data Results & Data ([facility]) Vital Signs (Past 12 Hours) Vital Signs Temp Pulse Pulse Pulse Pulse Pulse Resp 09/16/20 15:46 36.7 C 77 17 09/16/20 12:39 90 81 73 09/16/20 11:06 37.0 C 64 16 09/16/20 08:01 37.0 C 65 16 09/16/20 08:00 67 Resp Resp Resp BP Pulse Ox Pulse Ox Pulse Ox 09/16/20 15:46 149/64 H 93 09/16/20 12:39 28 H 24 18 89 L 94 09/16/20 11:06 149/64 H 92 09/16/20 08:01 165/69 H 91 09/16/20 08:00 Pulse Ox 09/16/20 15:46 09/16/20 12:39 96 09/16/20 11:06 09/16/20 08:01 09/16/20 08:00
--- NOTE | 2020-09-17 09:06 | Discharge Summary ---
Date of Service September 16, 2020 Admission HPI Per Admitting Provider 70-year-old male prisoner from [facility] with past extensive medical history COPD, asthma, type 2 diabetes, tobacco abuse (quit 6 months ago), diastolic CHF, chronic hepatitis C, hypertension, BPH, GERD, hypertension, CKD stage IV, insomnia presents with concerns of shortness of breath and productive cough that started yesterday morning. Patient noted to have say red hemoptysis during examination and states this also started yesterday. Patient notes no previous occurrence like this severe ever before. 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 Symptoms are alleviated with rest, exacerbated with exertion. Patient notes associated chills, dyspnea on exertion, and diarrhea (loose NBNB, 34 BMs per day). Patient is unable to walk half of a person block without stopping to rest, which is unusual for him as he never has GALARZA. Patient with no baseline O2 needs. Patient otherwise denies any fevers, sweats, nausea, vomiting, chest pain, palpitations, orthopnea, edema, li ghtheadedness or dizziness, abdominal pain. Patient with no other acute concerns or complaints. Pertinent labs: Hemoglobin 10.1 with MCV 68, coags pending, BUN 63, creatinine 5.51, troponin 0.337, albumin 2.9. Covid positive Chest x-ray: Cardiomegaly with mid and lower lung zone predominant mixed interstitial and alveolar opacities suggestive of pulmonary edema and/or multifocal pneumonia. Emphysema. ER course: P.o. azithromycin 500 mg, IV ceftriaxone 1 g, IV dexamethasone 6 mg, NSS 2 L Admission Exam Per Admitting Provider Constitutional: + ill appearing Eyes: PERRL, conjunctivae normal, anicteric sclerae ENMT: external ear and nose normal, oropharynx normal Respiratory: + labored breathing and + uses accessory muscles Auscultation: + diminished lung sounds and + crackles (Lower lung zones) Cardiovascular: regular rhythm and + bradycardic Gastrointestinal: normal bowel sounds, soft, nontender, no hepatosplenomegaly Skin: no rashes, warm and dry Psychiatric: A+Ox3, euthymic affect Principal Diagnosis Pneumonia due to COVID-19 virus: Acute on Respiratory Failure Elevated Troponin CKD stage IV Chronic Diastolic CHF COPD Hypertension Type 2 diabetes Chronic Hepatitis C BPH Discharge Exam General- No acute distress Head- atraumatic Eyes- PERRL, EOMI, ENT- oropharynx clear Neck- supple, no JVD Lungs- Regular, no murmur Abdomen- normal bowel sounds, soft, nontender Extremities- no calf tenderness Neuro- alert, oriented x 3; PERRL, EOMI; no facial palsy; no dysarthria Skin- warm & dry Discharge Data Allergies Allergy/AdvReac Type Severity Reaction Status Date / Time No Known Drug Allergies Allergy Unknown . Verified 09/10/20 19:52 Consultations 09/10/20 17:17 ED Decision to Admit Stat 09/10/20 22:28 Consult Case Management - Discharge Planning Routine Consult [employer] Consultant Routine 09/14/20 23:35 Consult Nephrology Routine Ordered Studies 09/10/20 20:24 CT chest wo con Urgent SINGLE VIEW CHEST CLINICAL HISTORY: Covid. Dyspnea. FINDINGS: An AP, portable, upright chest radiograph is compared to study dated 09/11/2020 and correlated with chest CT dated 09/10/2020. The examination is degraded by portable technique and apical orthotic positioning. The heart is enlarged noting atherosclerotic calcification of the thoracic aorta. The pulmonary vasculature is noncongested. Emphysema and chronic interstitial thickening is similar to previous. There are small pleural effusions, left larger than right. Subtle hazy airspace opacities are seen bilaterally No pneumothorax is seen. The skeletal structures are osteopenic. The bony thorax is grossly intact. IMPRESSION: 1. Cardiomegaly and emphysema. 2. Subtle hazy airspace opacities are seen bilaterally and may represent a mild infectious/inflammatory pneumonitis. 3. Small pleural effusions, left larger than right. ACT 112: Negative or not required by law. Electronically signed by: Jakub Smith M.D. 09/13/2020 10:27 AM Dictated: 09/13/20 1025Transcribed: 09/13/20 1025 XR chest 1V portable CLINICAL HISTORY: Shortness of breath. Abnormal chest x-ray COMPARISON STUDY: 09/10/2020 FINDINGS: The heart remains enlarged. There are persistent bilateral interstitial pulmonary opacities, similar to the preceding study. A multifocal pneumonia is favored over pulmonary edema. There are no pleural effusions. Clinical and radiographic follow-up is recommended.[ IMPRESSION: Persistent bilateral interstitial pulmonary opacities, similar to the prior study ACT 112: Negative or not required by law. Electronically signed by: Ulysses Pereyra M.D. 09/11/2020 9:01 AM Dictated: 09/11/20 0859Transcribed: 09/11/[address] chest wo con CT DOSE: 745.88 mGycm HISTORY: Worsening shortness of breath. say hemoptysis, covid pna TECHNIQUE: Multiaxial CT images of the chest were performed without contrast. A dose lowering technique was utilized adhering to the principles of ALARA. COMPARISON: Chest CT 11/09/2019. FINDINGS: The central airways are patent. There is mild central bronchial wall thickening. No pneumothorax. Trace left pleural effusion. Severe emphysema. Stable 7 mm nodule within the left lower lobe on image 251. Mild to moderate patchy groundglass and linear densities seen within the periphery of the mid to lower lung zones. This favors a viral pneumonia. No suspicious lytic or blastic osseous lesions. The visualized liver, spleen, and adrenal glands are unremarkable. Partially visualized bilateral renal hypodense lesions are again noted. These favor cysts. A few prominent mediastinal and bilateral hilar lymph nodes are likely reactive. The heart remains mildly enlarged. Trace pericardial effusion. Normal caliber thoracic aorta demonstrating moderate calcified plaque. Normal caliber esophagus. The pericardial effusion has improved in the interval. IMPRESSION: 1. Interval development of mild to moderate patchy groundglass and linear densities seen within the periphery of the bilateral mid to lower lung zones. This favors a viral pneumonia. 2. Severe emphysema. 3. Mild mediastinal and bilateral hilar lymphadenopathy which is likely reactive. 4. Trace pericardial effusion. This has improved. 5. Trace left pleural effusion. ACT 112: Negative or not required by law. Electronically signed by: Lan Eagle M.D. 09/11/2020 7:56 AM Dictated: 09/11/20 0751Transcribed: 09/11/20 0751 XR chest 1V portable HISTORY: 70 years-old Male Chest Pain acute atypical chest pain. COVID Positive. COMPARISON: Chest radiographs 11/12/2019, chest CT 11/09/2019 TECHNIQUE: Portable AP view of the chest FINDINGS: Enlarged cardiac silhouette. Calcified plaque of the thoracic aorta. Pulmonary vascular congestion. No pneumothorax. Emphysema with hyperinflation. Bilateral mixed interstitial and alveolar opacities are noted within a mid and lower lung zone prominent distribution. No large pleural effusion. Degenerative changes of the shoulders and spine. IMPRESSION: 1. Cardiomegaly with mid and lower lung zone predominant mixed interstitial and alveolar opacities suggestive of pulmonary edema and/or multifocal pneumonia. 2. Emphysema. ACT 112: Negative or not required by law. The above report was generated using voice recognition software. It may contain grammatical, syntax or spelling errors. Electronically signed by: Levy Gibbs M.D. 09/10/2020 5:12 PM Dictated: 09/10/201709Transcribed: 09/10/201709 Hospital Course (1) Pneumonia due to COVID-19 virus: Acute on Respiratory Failure Present on admission with worsening SOB and hypoxia CXR showed cardiomegaly with mid and lower lung zone predominant mixed interstitial and alveolar opacities suggestive of pulmonary edema and/or multifocal pneumonia. CT chest showed interval development of mild to moderate patchy groundglass and linear densities seen within the periphery of the bilateral mid to lower lung zones. Completed the course of the abx with Rocephin and Azithromycin No a candidate for Remdesivir due to CKD stage 4 Received Plasma convalescent on 09/12 Has been getting IV dexamethasone 6mg, will transition to PO prednisone 20mg for 3 more days ESR and CRP trending down Repeat CXR showed subtle hazy airspace opacities are seen bilaterally and may represent a mild infectious/inflammatory pneumonitis. Small pleural effusions, left larger than right. Saturated well on RA above 91% We tried to do a 2 step exercise, but when patient got up to walk he felt dizzy and the test had to stop; But pt is saturated above 91% at rest Will recommended to continue 2LNC for now with ambulation, then repeat 2 step exercise tomorrow or in the next few days Elevated Troponin Mostly due to demand ischemia from hypoxia Troponin 0.337 on admission, then trending down to 0.215 Currently denies any chest pain Continue aspirin, atenolol Stable CKD stage IV Creatinine 5.51 on admission (Last outpatient creatinine was 4.1 as per provider from the [facility]) From hypertensive nephrosclerosis (biopsy proven); high ESRD risk next few years per nephrology (Dr. Amira Chao) Creatinine 3.9 today Nephrology consulted JENNIFER and antihistone pending to r/o drug induce SLE (if positive, will need to stop hydralazine) No current indication for dialysis; he will need it likely in 1-2 years depending on clinical course Continue to avoid nephrotoxins Ok to resume Bumex once creatinine at baseline as per Nephrology Check BMP in 1 week Follow up with nephrology Chronic Diastolic CHF Last ECHO Jul 2019: Severe concentric left ventricular hypertrophy, EF 55 to 60% Continue isosorbide dinitrate Atenolol was held due to Bradycardia Will resume Atenolol since HR has been stable, will monitor COPD Continue home inhaler regimen with Alvesco, Xopenex HFA, Combivent Stable Hypertension Continue amlodipine 10 mg, isosorbide dinitrate 20 mg twice daily Hydralazine increased to 100mg TID, but if suspicious for drug induced SLE, will need to D/C Hydralazine Ok to resume Atenolol, but monitor HR Type 2 diabetes Hba1c 5.8 Patient not on any diabetic medications Continue monitor BS Chronic Hepatitis C Pt said that he completed the course of Zepatier LFT stable BPH Continue tamsulosin 0.4 mg Idiopathic insomnia Continue trazodone 1 mg DVT px on heparin subq (will monitor closely since pt had a positive FOBT on 11/2019) Code status Full code Disposition Possible discharge today Case discussed with Dr. Garcia at the [facility] Total Time Total Time Spent Total Time Spent (In Minutes): 35 minutes Total Time Includes: Examination of the Patient, Discharge Planning, Medication Reconciliation, Communication With Other Providers and Other Discharge Plan Discharge Items [facility] Disposition: [facility] Reason For Visit: COVID, ACUTE RESPIRATORY FAILURE Discharge Diagnosis: Pneumonia due to COVID-19 virus: Acute on Respiratory Failure Elevated Troponin CKD stage IV Chronic Diastolic CHF COPD Hypertension Type 2 diabetes Chronic Hepatitis C BPH Activity: Resume your previous activity Non-emergency contact: Primary Care Provider Call non-emergency contact if: you have any medication questions and your temperature is above 101 Follow-up[facility]Referrals: [facility] [Primary Care Provider] - Diet: Carb Consistent or DM2 Addtl Attending Provider Instructions: Follow up with your primary care provider at [facility] Follow up with nephrology Continue 2L NC oxygen supplement with ambulation for now since patient could complete the 2 step exercise Please get a 2 step exercise tomorrow or in the next few days to assess for oxygen requirement Check BMP in 1 week to monitor renal function Follow up markers for JENNIFER and Antihistone (If positive consider to discontinue Hydralazine for possible drug induced Lupus) monitor your heart rate while on Atenolol Continue monitor your blood pressure Seek medical attention if you develop any shortness of breath Home Isolation COVID-19 Instructions The following information about Home Isolation is from the CDC Website: https://www.cdc.gov/coronavirus/2019-ncov/hcp/kmodmkdb-nacuxzx-htfewj.html Stay home except to get medical care People who are mildly ill with COVID-19 are able to isolate at home during their illness. You should restrict activities outside your home, except for getting medical care. Do not go to work, school, or public areas. Avoid using public transportation, ride-sharing, or taxis. Separate yourself from other people and animals in your home People: As much as possible, you should stay in a specific room and away from other people in your home. Also, you should use a separate bathroom, if available. Animals: You should restrict contact with pets and other animals while you are sick with COVID-19, just like you would around other people. Although there have not been reports of pets or other animals becoming sick with COVID-19, it is still recommended that people sick with COVID-19 limit contact with animals un til more information is known about the virus. When possible, have another member of your household care for your animals while you are sick. If you are sick with COVID-19, avoid contact with your pet, including petting, snuggling, being kissed or licked, and sharing food. If you must care for your pet or be around animals while you are sick, wash your hands before and after you interact with pets and wear a face mask. Call ahead before visiting your doctor If you have a medical appointment, call the healthcare provider and tell them that you have or may have COVID-19. This will help the healthcare providers office take steps to keep other people from getting infected or exposed. Wear a face mask You should wear a face mask when you are around other people (e.g., sharing a room or vehicle) or pets and before you enter a healthcare providers office. If you are not able to wear a face mask (for example, because it causes trouble breathing), then people who live with you should not stay in the same room with you, or they should wear a face mask if they enter your room. Cover your coughs and sneezes Cover your mouth and nose with a tissue when you cough or sneeze. Throw used tissues in a lined trash can. Immediately wash your hands with soap and water for at least 20 seconds or, if soap and water are not available, clean your hands with an alcohol-based hand manager port that contains at least 60% alcohol. Clean your hands often Wash your hands often with soap and water for at least 20 seconds, especially after blowing your nose, coughing, or sneezing; going to the bathroom; and before eating or preparing food. If soap and water are not readily available, use an alcohol-based hand manager port with at least 60% alcohol, covering all surfaces of your hands and rubbing them together until they feel dry. Soap and water are the best option if hands are visibly dirty. Avoid touching your eyes, nose, and mouth with unwashed hands. Avoid sharing personal household items You should not share dishes, drinking glasses, cups, eating utensils, towels, or bedding with other people or pets in your home. After using these items, they should be washed thoroughly with soap and water. Clean all high-touch surfaces everyday High touch surfaces include counters, tabletops, doorknobs, bathroom fixtures, toilets, phones, keyboards, tablets, and bedside tables. Also, clean any surfaces that may have blood, stool, or body fluids on them. Use a household cleaning spray or wipe, according to the label instructions. Labels contain instructions for safe and effective use of the cleaning product including precautions you should take when applying the product, such as wearing gloves and making sure you have good ventilation during use of the product. Monitor your symptoms Seek prompt medical attention if your illness is worsening (e.g., difficulty breathing).Beforeseeking care, call your healthcare provider and tell them that you have, or are being evaluated for, COVID-19. Put on a face mask before you enter the facility. These steps will help the healthcare providers office to keep other people in the office or waiting room from getting infected or exposed. Ask your healthcare provider to call the local or state health department. Persons who are placed under active monitoring or facilitated self- monitoring should follow instructions provided by their local health department or occupational health professionals, as appropriate. When working with your local health department check their available hours. If you have a medical emergency and need to call 911, notify the dispatch personnel that you have, or are being evaluated for COVID-19. If possible, put on a face mask before emergency medical services arrive. Discontinuing home isolation Patients with confirmed COVID-19 should remain under home isolation precautions until the risk of secondary transmission to others is thought to be low. The decision to discontinue home isolation precautions should be made on a twaq-gk-mize basis, in consultation with healthcare providers and state and local health departments. Coronavirus disease 2019 (COVID-19) is a virus that causes a respiratory illness. It is caused by a coronavirus called 2019 novel coronavirus (2019- nCoV). There are many types of coronavirus. Coronaviruses are a very common cause of bronchitis. They may sometimes cause lung infection(pneumonia). Symptoms can range from mild to severe respiratory illness. These viruses are also foundin some animals. COVID-19 was first found in people in [facility], in late 2018. In 2020, several cases of COVID-19 have been confirmed in the [place] Public health officials are working to find the source. How the virus spreads is not yet fully known. It may be spread through droplets of fluid that a person coughs or sneezes into the air. It may be spread if you touch a surface with virus on it, such as a handle or object, and then touch your mouth. What are the symptoms of COVID-19? Some people have no symptoms or mild symptoms. Symptoms may appear 2 to 14 days after contact with the virus. Symptoms can include: Fever Coughing Trouble breathing What are possible complications from COVID-19? In many cases, this virus can cause infection (pneumonia) in both lungs. In some cases, this can cause . How is COVID-19 diagnosed? Your healthcare provider will ask about your symptoms. He or she will also ask about your recent travel and contact with sick people. Testing for the virus is only done through the CDC. If yourhealthcare provider thinks you may have COVID- 19, he or she will work with your local health department and the CDC on testing. Follow all instructions from your healthcare provider. COVID-19 is diagnosed by: Nasal and throat swab. A cotton-tipped swab is wiped inside your nose or throat. This is done to check for viruses in your nasal mucus. Sputum culture. A small sample of mucus coughed from your lungs (sputum) is collected if you have a cough. It is checked for the virus. How is COVID-19 treated? There is currently no medicine to treat the virus. Treatment is done to help your body while it fights the virus. This is known as supportive care. Supportive care may include: Pain medicine. These include acetaminophen and ibuprofen. They are used to help ease pain and reduce fever. Bed rest. This helps your body fight the illness. For severe illness, you may need to stay in the hospital. Care during severe illness may include: IV (intravenous) fluids.These are given through a vein to help keep your body hydrated. Oxygen. Supplemental oxygen or ventilation with a breathing machine (ventilator) may be given. This is done to keep enough oxygen in your body. Are you at risk for COVID-19? If youve been to a place where people have been sick with this virus, you are at risk for infection. You are at risk if you: Recently traveled to an affected area Had contact with a sick person who recently traveled to this area Had contact with a person who was diagnosed with COVID-19 How can COVID-19 be prevented? There is no vaccine yet. The best prevention is to not have contact with the virus. The CDC advises that people should not travel to areas where there are COVID-19 outbreaks right now for any reason that is not urgent. To help prevent spreading the infection, wash your hands often, or use an alcohol-basedhand manager port. If you are in an area with COVID-19: Wash your hands often. Or use an alcohol-based hand manager port often. Only touch your eyes, nose, or mouth with clean hands. Dont have contact with people who are sick. Follow local instructions about being in public. For example, you may be told to not use public transport for a period of time. Stay away from markets that have live or animals. Wash your hands after touching any animals. Don't touch animals that may be sick. Dont share eating or drinking tools with sick people. Dont kiss someone who is sick. Clean surfaces often with disinfectant. If you were in an area with COVID-19 in the last 14 days: Call your healthcare provider. He or she can talk with local health staff to see what action may be needed. Follow all instructions from your provider. Take your temperature every morning and evening for at least 14 days. This is to check for fever. Keep a record of the readings. Keep watch for symptoms of the virus. Tell your provider right away if you have symptoms. If you were in an area with COVID-19 and have a fever or other symptoms: Dont panic. Keep in mind that other illnesses can cause similar symptoms. Stay away from work, school, and public places. Limit physical contact with family members. Don't kiss anyone or share eating or drinking utensils. Clean surfaces you touch with disinfectant. This is to help prevent the virus from spreading. Call your healthcare provider. Explain that you have been exposed to COVID-19 and have symptoms. Do this before going to any hospital. Wait for instructions. Keep in mind that healthcare staff may wear protective equipment such as masks, gowns, gloves, and eye protection. You may be put in a separate room. This is to prevent the possible virus from spreading. Tell the healthcare staff about recent travel. This includes local travel on public transport. Staff may need to find other people you have been in contact with. Follow all instructions the healthcare staff give you. If you have been diagnosed with COVID-19 Follow all instructions from your healthcare provider. Dont leave your home, except to get medical care. Call your healthcare providers office before going. They can prepare and give you instructions. This will help prevent the virus from spreading. Dont go to work, school, or public areas. Dont use public transport or taxis. Stay away from other people in your home. Have them wear face masks around you. Dont share household items or food. Wear a face mask if you can. This includes at home or in a medical facility. Cover your face with a tissue when you cough or sneeze. Throw the tissue away. Wash your hands. Wash your hands often. Caregivers should: Follow all instructions from healthcare staff. Wear a face mask and protective clothing as advised. Wash hands often. Keep track of the sick persons symptoms. Clean surfaces, fabrics, and laundry thoroughly. Keep other people away from the sick person. When to call your healthcare provider Call your healthcare provider: If youve recently traveled and have symptoms If you have been diagnosed with COVID-19 and your symptoms are worse To learn more To find out more about COVID-19, visit the CDC website at www.cdc.gov/coronavirus/2019-ncov/index.html. [employer]. [address] [place] [address], [place] [address]. All rights reserved. This information is not intended as a substitute for professional medical care. Always follow your healthcare professional's instructions. This information has been adapted from [employer] . Pending Studies at Discharge: No Stand-Alone Forms: [facility] [place] Skilled Items Patient informed of condition?: Yes Discharge Level of Care: Other Communicable Disease: Yes Discharge Prognosis: Stable Lines: None Urinary Catheter: No Medications and DC Order Prescriptions: New Breo Ellipta 100-25 mcg/dose Blister With Device 1 puff inhalation DAILY 30 Days Qty: 1 RF: 0 hydralazine 100 mg tablet 100 mg PO TID 30 Days Qty: 90 RF: 0 prednisone 20 mg tablet 20 mg PO DAILY 3 Days Qty: 3 RF: 0 guaifenesin 200 mg tablet 200 mg PO TID PRN (Reason: cough) Qty: 15 RF: 0 Continued amlodipine 10 mg tablet 10 mg PO DAILY RF: 0 tamsulosin 0.4 mg Capsule 0.4 mg PO HS RF: 0 aspirin 81 mg Tablet,Chewable 81 mg PO DAILY RF: 0 levalbuterol tartrate [Xopenex HFA] 45 mcg/actuation Hfa Aerosol Inhaler 2 inh INHALATION QID PRN (Reason: Shortness Of Breath) RF: 0 ketotifen fumarate [Zaditor] 0.025 % (0.035 %) Drops 1 drp OPB BID RF: 0 atenolol 25 mg Tablet 25 mg PO DAILY RF: 0 pantoprazole [Protonix] 40 mg Tablet,Delayed Release (Dr/Ec) 40 mg PO DAILY RF: 0 bumetanide 1 mg Tablet 1 mg PO DAILY RF: 0 trazodone 150 mg Tablet Extended Release 24 Hr 150 mg PO HS RF: 0 Icy Hot Advanced Relief 11-16 % Cream 1 applic TOPICAL BID PRN (Reason: Pain) RF: 0 vitamin A and D Ointment 1 applic TOPICAL BID PRN (Reason: PRN) RF: 0 isosorbide dinitrate 20 mg Tablet 20 mg PO BID RF: 0 Discontinued Alvesco 160 mcg/actuation Hfa Aerosol Inhaler 1 puff INHALATION BID RF: 0 Alvesco 80 mcg/actuation Hfa Aerosol Inhaler 1 puff INHALATION BID RF: 0 hydralazine 50 mg Tablet 75 mg PO TID Qty: 0 RF: 0 Discharge Orders: Discharge Order (Routine); Ordered 09/16/20 Ordered By: Jarod Rey Admission Data Admit Date/Time: 09/10/20 20:01 Attending Provider: Jarod Rey Admit Provider: Aman Godinez Primary Care Provider: JARVISNaylorlizz Other Providers: Jackson Ye Vyacheslav ; Amira Urena Other Interventions: Discharge Summary Assessment (RN) Last Done: 09/16/20 18:09
[2020-09-20 01:28] LABS: Anti Nuclear Antibody Screen POSITIVE (NEGATIVE); Anti-Histone Ab 1.4 U (<1.0)
[2020-09-20 13:44] LABS: ANA Pattern Nuclear, Homogeneous
== END 2020-09-16 19:30 | DRG 177 ==
LOC: ED 15:49 → SUATTDRO 20:01 → 1E 20:01 → 2S 09-11 19:07

== ENCOUNTER 2021-01-12 08:11 | Inpatient (IN) ==
[2021-01-12] MEDS ORDERED: SODIUM CHLORIDE 0.9% 1000ML 500 ML IV ONE (08:23)
[2021-01-12] MEDS ORDERED: HYDROmorphone INJ 0.5 MG/0.5 ML SYR IV PRN (08:23)
[2021-01-12] MEDS ORDERED: ACETAMINOPHEN 1,000 MG/100 ML VIAL IV STA (08:23)
[2021-01-12] MEDS ORDERED: methylPREDNISolone 125 MG/2 ML VIAL IV STA (08:23)
[2021-01-12] MEDS ORDERED: ONDANSETRON INJ 2 MG/ML 2 ML VIAL IV STA (08:23)
[2021-01-12] MEDS ORDERED: MAGNESIUM SULFATE / D5W 1 GM/100 ML BAG IV STA (08:25)
[2021-01-12] MEDS ORDERED: ALBUT/IPRATROP 3MG/0.5MG NEB 3 ML VIAL NEB ONE (08:38)
[2021-01-12 08:47] LABS: Basophils # (auto) 0.01 K/uL (0-0.2); Basophils % (auto) 0.2 %; Eosinophils # (auto) 0.03 K/uL (0-0.5); Eosinophils % (auto) 0.5 %; Hematocrit (blood only) 28.2 % (42-52); Hemoglobin 9.3 g/dL (14.0-18.0); Immature Granulocytes # (auto) 0.01 K/uL (0.00-0.02); Immature Granulocytes % (auto) 0.2 %; Lymphocytes % (auto) 10.7 %; Mean Corpuscular Hemoglobin 22.7 pg (25-34); Mean Corpuscular Volume 68.9 fL (80-100); Mean Platelet Volume 8.8 fL (7.4-10.4); Monocytes # (auto) 0.16 K/uL (0.11-0.59); Monocytes % (auto) 2.9 %; Neutrophils % (auto) 85.5 %; Platelet Count 227 K/uL (130-400); RDW Standard Deviation 43.2 fL (36.4-46.3); Red Blood Count 4.09 M/uL (4.7-6.1); White Blood Count 5.61 K/uL (4.8-10.8)
[2021-01-12 08:52] LABS: iSTAT Creatinine 5.4 mg/dl (0.6-1.3); iSTAT Hemoglobin 9.2 g/dl (14.0-18.0); iSTAT Ionized Calcium 1.23 mmol/l (1.12-1.32); iSTAT Potassium 4.6 mmol/L (3.3-5.0)
--- NOTE | 2021-01-12 09:08 | XRay Report ---
SINGLE VIEW CHEST CLINICAL HISTORY: Atypical chest pain. FINDINGS: An AP, portable, upright chest radiograph is compared to study dated 01/11/2021 and correlate d with chest CT dated 09/10/2020. The examination is degraded by portable technique, patient rotation, and apical lordotic positioning. The heart is enlarged noting atherosclerotic calcification of the t horacic aorta. There is pulmonary vascular congestion as well as bilateral patchy airspace opacities. Emphysema and chronic interstitial thickening is similar to previous. There are small pleural effusi ons with bibasilar consolidation No pneumothorax is seen. The skeletal structures are osteopenic. The bony thorax is grossly intact. IMPRESSION: 1. Cardiomegaly and emphysema with pulmonary vascular congestion. 2. There are small pleural effusions with bibasilar consolidation. 3. There are increasing bilateral patchy airspace opacities. This could represent mild pulmonary dylon a versus an infectious/inflammatory pneumonitis. Clinical correlation will be required. ACT 112: Negative or not required by law. Electronically signed by: Jakub Smith M.D. 01/12/2021 9:06 AM
[2021-01-12 09:09] LABS: Microcytosis Present; Polychromasia 1+; Target Cells 1+
[2021-01-12 09:13] LABS: Alanine Aminotransferase 8 U/L (12-78); Albumin Globulin Ratio 0.6 (0.9-2); Albumin Level 2.6 gm/dl (3.4-5.0); Alkaline Phosphatase 84 U/L (45-117); Aspartate Aminotransferase 8 U/L (15-37); BUN Creatinine Ratio 8.9 (10-20); Bilirubin,Total 0.4 mg/dl (0.2-1); Blood Urea Nitrogen 43 mg/dl (7-18); Calcium 8.4 mg/dl (8.5-10.1); Carbon Dioxide 23 mmol/L (21-32); Chloride 110 mmol/L (98-107); Est GFR (African American) 13.1; Est GFR (Non-African American) 11.3; Globulin 4.6 gm/dl (2.5-4.0); Glucose 128 mg/dl (70-99); Lipase 43 U/L (73-393); Potassium 4.6 mmol/L (3.5-5.1); Sodium 139 mmol/L (136-145); Total Protein 7.2 gm/dl (6.4-8.2); Troponin I < 0.015 ng/ml (0-0.045)
[2021-01-12] MEDS ORDERED: BUMETANIDE 3 MG in SYRINGE 0 ML IV SCH (09:45)
[2021-01-12 10:27] LABS: Influenza A virus by PCR Negative (Neg); Influenza B virus by PCR Negative (Neg); RSV by PCR Negative (Neg); SARS CoV2 RNA(COVID-19) InHosp NEGATIVE (Negative)
[2021-01-12 11:57] LABS: Allen Test Pos (Pos); Base Excess ABG -3.9 mEq/L (-9-1.8); HCO3 ABG 21 mmol/L (19-24); Oxygen Saturation ABG 96.9 % (90-95); PCO2 ABG 40 mmHg (35-46); PO2 ABG 92 mmHg (80-95); pH ABG 7.35 (7.35-7.45)
[2021-01-12] MEDS ORDERED: PIPERACILL/TAZOBAC CONSULT ACTIVE PRN (12:01)
[2021-01-12] MEDS ORDERED: PIPERACILLIN/TAZOBACTAM 3.375 GM in DEXTROSE 5% 100 ML IV ONE (12:30)
--- NOTE | 2021-01-12 13:48 | Electrocardiogram Report ---
Test Reason : Blood Pressure : / mmHG Vent. 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
--- NOTE | 2021-01-12 14:11 | History & Physical Report ---
Date of Service January 12, 2021 Assessment & Plan (1) Acute respiratory failure with hypoxia: (2) Volume overload: (3) CKD (chronic kidney disease), stage IV: (4) Acute on chronic diastolic CHF (congestive heart failure): (5) COPD (chronic obstructive pulmonary disease): -Admit to telemetry -Patient presenting from [facility] for evaluation of shortness of breath and hypoxia. Hypoxic on room air in the 80s, currently requiring 4 L of oxygen via NC to maintain saturation -Hypoxia likely multifactorial -due to CKD stage IV /acute on chronic diastolic CHF / ? COPD exacerbation / ? Pneumonia -History of hypertensive CKD stage IV -baseline creatinine ~ 4.0 -S/p Bumex 3 mg IV in the ED. Diuresis may be difficult due to underlying advanced CKD. -Nephrology consult, case discussed with Dr. Quiroz. Hold on further diuretics at this time. -Garay placed for strict I's and O's, daily weights -Noted normal procalcitonin however will start empiric IV Zosyn. Check MRSA nasal swab and if positive add linezolid. No wheezing, will hold on steroids. PRN nebs. -CT chest without contrast to further evaluate -Consider VQ scan if not improving with above treatments -Update echo (6) Hypertension: -BP controlled, continue amlodipine, carvedilol, hydralazine, HCTZ, isosorbide (7) Anemia: -Hgb 9.3, slightly below recent baseline -Likely due to underlying CKD -No obvious signs of bleeding -Monitor CBC (8) DVT prophylaxis: -SQ heparin Admission and Anticipated Discharge Date Admission Date: January 12, 2021 History of Present Illness Chief Complaint: Shortness of breath Primary Care Provider: [facility] 70-year-old male inmate from [facility] with PMH COPD, CKD stage IV, HTN, chronic hepatitis C, chronic diastolic CHF, and other problems listed below who presents to the ED for evaluation of shortness of breath. Patient was diagnosed with COVID-19 09/2020. Patient reports his breathing has not improved since the diagnosis. He reports shortness of breath with minimal exertion. He reports a cough productive for aguero sputum. Reports sputum is typically white in color. He denies fevers. Patient also reports an intermittent substernal chest pain. Denies any specific causative or relieving factors. He reports orthopnea and abdominal fullness. No lower extremity edema. Does not weigh himself on a day-to-day basis. Follows with telehealth nephrology. Dialysis has been discussed however not arranged yet. Patient was complaining of left flank pain last evening. He was also found to be hypoxic in the 80s on room air. He was evaluated in the ED yesterday and underwent CT ABD/pelvis and lumbar spine CT. Results showed small bilateral pleural effusions, otherwise unremarkable for other findings. Patient was discharged back to the [facility]. He continued to be hypoxic overnight. He was placed on 2 L of oxygen via nasal cannula, given a nebulizer treatment, and prednisone 60 mg. This morning, patient symptoms persisted. He was given another DuoNeb without much improvement and was sent back to the ED for further evaluation. Patient denies abdominal pain, nausea, vomiting, diarrhea. No fevers or chills. Denies urinary symptoms. In the ED, patient is requiring 4 L of oxygen via nasal cannula to maintain saturations > 92%. CXR shows pulmonary edema vs. pneumonitis. Labs show creatinine 4.7, proBNP 2600, Hgb 9.3. Patient was given IV Tylenol, nebulizer, IV Bumex 3 mg, IV Dilaudid, IV magnesium, Solu-Medrol 60 mg, IVF. Allergies Allergy/AdvReac Type Severity Reaction Status Date / Time No Known Drug Allergies Allergy Unknown . Verified 01/12/21 08:55 Home Medications Medication Instructions Recorded Confirmed Type aspirin 81 mg PO DAILY 12/16/18 01/12/21 History tamsulosin 0.4 mg PO HS 12/16/18 01/12/21 History levalbuterol tartrate [Xopenex HFA] 2 inh INHALATION QID PRN 07/31/19 01/12/21 History isosorbide dinitrate 20 mg PO BID 11/09/19 01/12/21 History vitamin A and D 1 applic TOPICAL BID PRN 11/09/19 01/12/21 History amlodipine 10 mg tablet 10 mg PO DAILY 01/31/20 01/12/21 History Icy Hot Advanced Relief 1 applic TOPICAL BID PRN 09/10/20 01/12/21 History bumetanide 1 mg PO DAILY 09/10/20 01/12/21 History ketotifen fumarate [Zaditor] 1 drp OPB BID 09/10/20 01/12/21 History pantoprazole [Protonix] 40 mg PO DAILY 09/10/20 01/12/21 History trazodone 150 mg PO HS 09/10/20 01/12/21 History carvedilol 25 mg PO BID 01/12/21 01/12/21 History ciclesonide [Alvesco] 1 puff INHALATION BID 01/12/21 01/12/21 History hydralazine 100 mg PO TID 01/12/21 01/12/21 History hydrochlorothiazide 12.5 mg PO DAILY 01/12/21 01/12/21 History Past Med/Surg History Medical History BPH (benign prostatic hyperplasia) Chronic diastolic CHF (congestive heart failure) Chronic hepatitis C CKD (chronic kidney disease), stage IV COPD (chronic obstructive pulmonary disease) COVID-19 Hydrocele in adult Hypertension Renal cyst, acquired Tobacco abuse, in remission Surgical History H/O hernia repair History of laryngoscopy Family History Other Diabetes Hypertension Social History Smoking Status: Former smoker Cigarettes Per Day: 03/11/20; Second Hand Exposure: No; Do You Dip or Chew Tobacco: No; Tobacco Cessation Education Requested by Patient: No Hx Alcohol Use: No Hx Substance Use: No Preferred Language: Hungarian Communication Ability: Effective [employer] Required: No Beliefs That Will Affect Care: Gnosticist Gnosticist Beliefs: hoahaoism Current Living Situation: Other Current Living Situation Comment: [facility] Other Information That Helps Us Care for You: No Feels Safe at Home: Yes Safety Concerns: Feels Safe At This Time Assistive Devices: Oxygen - Continuous Review of Systems Review of Systems: ROS per HPI, all other systems reviewed and negative Physical Exam Constitutional: WD/WN, vitals as above + ill appearing; no acute distress Eyes: PERRL, conjunctivae normal, anicteric sclerae ENMT: external ear and nose normal, oropharynx normal Respiratory: + tachypneic; no respiratory distress Auscultation: + diminished lung sounds and + crackles (Bilateral bases) Cardiovascular: Rate/Rhythm: regular rate and regular rhythm Vessels: normal peripheral pulses Extremities: no edema Gastrointestinal (Abdomen): normal bowel sounds, soft, nontender, no hepatosplenomegaly Musculoskeletal: no cyanosis or clubbing, extremities motor strength 5/5 Skin: no rashes, warm and dry Neurologic: PERRL, EOMI, accommodation nl, no face palsy, no dysarthria Psychiatric: A+Ox3, euthymic affect Results & Data Results & Data ([facility]) Vital Signs (Past 12 Hours) Vital Signs Temp Pulse Pulse Resp BP BP Pulse Ox 01/12/21 12:01 36.4 C L 63 28 H 158/79 H 94 01/12/21 11:30 52 L 96 01/12/21 11:00 54 L 97 01/12/21 10:30 56 L 15 100 01/12/21 10:00 52 L 98 01/12/21 09:30 55 L 99 01/12/21 09:22 57 L 20 94 01/12/21 09:00 55 L 12 99 01/12/21 08:30 53 L 15 98 01/12/21 08:24 71 23 95 01/12/21 08:23 98 01/12/21 08:15 36.8 C 62 29 H 134/53 L 97 Pulse Ox 01/12/21 12:01 94 01/12/21 11:30 01/12/21 11:00 01/12/21 10:30 01/12/21 10:00 01/12/21 09:30 01/12/21 09:22 01/12/21 09:00 01/12/21 08:30 01/12/21 08:24 01/12/21 08:23 01/12/21 08:15 Laboratory Results Short CBC 01/12/21 01/12/21 Range/Units 08:35 08:35 WBC 5.61 (4.8-10.8) K/uL Hgb 9.3 L (14.0-18.0) g/dL Hct 28.2 L (42-52) % Plt Count 227 (130-400) K/uL Troponin I < 0.015 (0-0.045) ng/ml BMP 01/12/21 08:35 Sodium 139 Potassium 4.6 Chloride 110 H Carbon Dioxide 23 BUN 43 H Creatinine 4.79 H* Glucose 128 H Calcium 8.4 L Cardiac Enzymes 01/12/21 Range/Units 08:35 Troponin I < 0.015 (0-0.045) ng/ml Liver Function 01/12/21 Range/Units 08:35 Total Bilirubin 0.4 (0.2-1) mg/dl AST 8 L (15-37) U/L ALT 8 L (12-78) U/L Alkaline Phosphatase 84 (45-117) U/L Albumin 2.6 L (3.4-5.0) gm/dl Diagnostic Findings CXR IMPRESSION: 1. Cardiomegaly and emphysema with pulmonary vascular congestion. 2. There are small pleural effusions with bibasilar consolidation. 3. There are increasing bilateral patchy airspace opacities. This could re present mild pulmonary edema versus an infectious/inflammatory pneumonitis. Clinical correlation will be required. Code Status & VTE Plan Code Status Patient is a full code as per my discussion with him. VTE Prophylaxis Plan VTE Prophylaxis will be ordered: Yes Supervising Physician Co-Signing Physician Notes Patient seen and examined by me, care coordinated with ANDRE Stuart, please refer to her note above for further detail. Patient is a 70-year-old male, with advanced CKD, recently admitted for COVID-19 infection, who became hypoxic and developed left flank pain, was evaluated by ED, and returned to present. Now presents back with oxygen requirement of 4 L. Concern for fluid overload on imaging. Elevated proBNP. Received 3 mg of IV Bumex in the ED. Garay catheter was placed. Nephrology was contacted, recommended to hold further Bumex. Patient was started on empiric IV antibiotics as above. Currently he is stable in bed, appears in no acute distress. Reports feeling s omewhat better but still short of breath. Checked his Garay catheter which is draining clear yellow urine, patient is responding to diuretics well. He has somewhat diminished breath sounds, with some mild crackles at the bases. No wheezing noted. Heart sounds regular. Abdomen soft, nontender, however he has tenderness at left flank/back area. There is no lower extremity edema or tenderness to palpation. And he is moving extremities spontaneously. He is alert and oriented answering questions appropriately. Currently actually eating lunch. Denies any fevers or chills. Patient also has anemia. Denies any bleeding or blood in the stool. FOBT ordered, also iron panel ordered and peripheral smear. Anemia possibly secondary to CKD, need to rule out any acute bleed or iron deficiency anemia. Monitor H&H. Continue current treatment, will discuss further with nephrology tomorrow. Monitor I's and O's. If possible try to wean off oxygen. Julio Pastor MD (1) Hypertension Hypertension type: unspecified Qualified Code(s): I10 - Essential (primary) hypertension
[2021-01-12] MEDS: hydrALAZINE TAB 50 MG TAB PO SCH ×2 (14:57→21:01)
[2021-01-12] MEDS: ISOSORBIDE DINITRATE 20 MG TAB PO SCH (14:57)
[2021-01-12] MEDS: HEPARIN SOD 5,000 UNIT/0.5 ML VIAL SQ SCH ×2 (14:58→21:04)
[2021-01-12] MEDS ORDERED: ALBUT/IPRATROP 3MG/0.5MG NEB 3 ML VIAL NEB SCH (15:00)
--- NOTE | 2021-01-12 15:04 | CT Scan Report ---
CT SCAN OF THE CHEST WITHOUT IV CONTRAST CLINICAL HISTORY: Hypoxia. COMPARISON STUDY: Chest x-ray dated 01/12/2021. Chest CT dated 09/10/2020. Abdominal CT dated 01/11/2021. TECHNIQUE: CT scan of the thorax was performed from the thoracic inlet to the upper abdomen. Images are reviewed in the axial, sagittal, and coronal planes. IV contrast was not administered for this ex amination as per the referring clinician. A dose lowering technique was utilized adhering to the cindy mistry of REMIGIO. CT DOSE: 444.43 mGy.cm FINDINGS: Thyroid: The thyroid gland is mildly enlarged and heterogeneous. Thoracic aorta: There is advanced atherosclerotic calcification of the thoracic aorta, which is juaquni l in caliber and demonstrates standard 3-vessel arch anatomy. Heart: The heart is enlarged noting a small to moderate pericardial effusion. The coronary arteries a re densely calcified. Lungs and pleural spaces: Advanced as evidenced change is noted. Foci of parenchymal scarring are see n throughout both lungs. There are small pleural effusions with bibasilar consolidation. This is unch anged from yesterday's abdominal CT. Mediastinum: There are scattered subcentimeter mediastinal lymph nodes. Erma: Not well assessed without IV contrast. Axillae: There is no axillary lymphadenopathy. Upper abdomen: A 5 cm peripherally calcified cyst is again seen arising from the upper pole of the ri ght kidney. Partially visualized upper abdominal viscera is otherwise grossly unremarkable. See repor t of abdominal CT performed yesterday for detailed intra-abdominal findings. Skeletal structures: The skeletal structures are osteopenic. No lytic or blastic bony lesions are see n. Soft tissues: There is body wall edema. IMPRESSION: 1. Advanced emphysema. 2. Cardiomegaly noting a small to moderate pericardial effusion. 3. There are small pleural effusions with bibasilar consolidation. This likely represents atelectasis and clinical correlation will be required. 4. Additional findings as above. ACT 112: Negative or not required by law. Electronically signed by: Jakub Smith M.D. 01/12/2021 3:03 PM
[2021-01-12] MEDS ORDERED: ALBUT/IPRATROP 3MG/0.5MG NEB 3 ML VIAL NEB PRN (18:20)
[2021-01-12] MEDS: PIPERACILLIN/TAZOBACTAM 3.375 GM in DEXTROSE 5% 100 ML IV SCH (21:00)
[2021-01-12] MEDS: TAMSULOSIN HCL 0.4 MG CAP PO SCH (21:02)
[2021-01-12] MEDS: carvediloL 25 MG TAB PO SCH (21:04)
[2021-01-12] MEDS: traZODone HCL 100 MG TAB PO SCH (21:04)
[2021-01-13] MEDS: HEPARIN SOD 5,000 UNIT/0.5 ML VIAL SQ SCH ×3 (05:59→21:10)
[2021-01-13 06:45] LABS: Hematocrit (blood only) 26.4 % (42-52); Hemoglobin 8.9 g/dL (14.0-18.0); Mean Corpuscular Hemoglobin 22.9 pg (25-34); Mean Corpuscular Hgb Conc 33.7 g/dL (32-36); Mean Platelet Volume 9.7 fL (7.4-10.4); Platelet Count 234 K/uL (130-400); RDW Standard Deviation 42.4 fL (36.4-46.3); Red Blood Count 3.88 M/uL (4.7-6.1); White Blood Count 6.93 K/uL (4.8-10.8)
[2021-01-13 07:30] LABS: Calcium 8.3 mg/dl (8.5-10.1); Creatinine Clr Calc Pharmacy 11.6 ml/min; Est GFR (Non-African American) 8.7
[2021-01-13] MEDS: PANTOprazole 40 MG TAB PO SCH (07:50)
[2021-01-13] MEDS: amLODIPine BESYLATE 5 MG TAB PO SCH (07:50)
[2021-01-13] MEDS: carvediloL 25 MG TAB PO SCH (07:51)
[2021-01-13] MEDS: hydrALAZINE TAB 50 MG TAB PO SCH ×3 (07:51→21:11)
[2021-01-13] MEDS: ISOSORBIDE DINITRATE 20 MG TAB PO SCH ×2 (07:51→13:38)
[2021-01-13] MEDS: ASPIRIN 81 MG ECTAB PO SCH (07:51)
--- NOTE | 2021-01-13 08:35 | Ultrasound Report ---
ULTRASOUND BILATERAL LOWER EXTREMITY VENOUS CLINICAL HISTORY: Lower extremity edema. COMPARISON STUDY: Right lower extremity venous ultrasound dated 03/21/2018. TECHNIQUE: Real-time, grayscale, and color Doppler sonography of the deep veins of the right and left lower extremity was performed from the inguinal crease to the calf. Compression and augmentation wer e utilized. FINDINGS: There is no sonographic evidence of deep venous thrombosis identified in the right or left lower extremity. The common femoral, superficial femoral, and popliteal veins are patent and normally compressible bilaterally. The greater saphenous vein and the profunda femoris vein at the junction w ith the common femoral vein are clear in both legs. The visualized calf veins are patent bilaterally. IMPRESSION: There is no sonographic evidence of deep venous thrombosis identified in the right or lef t lower extremity. ACT 112: Negative or not required by law. Electronically signed by: Jakub Smith M.D. 01/13/2021 8:33 AM
[2021-01-13] MEDS ORDERED: hydroCHLOROthiazide 25 MG TAB PO SCH (09:00)
[2021-01-13] MEDS: PIPERACILLIN/TAZOBACTAM 3.375 GM in DEXTROSE 5% 100 ML IV SCH ×2 (09:20→21:09)
[2021-01-13] MEDS: DOXYCYCLINE HYCLATE 100 MG CAP PO SCH ×2 (09:21→21:11)
[2021-01-13] MEDS: BUMETANIDE 1 MG TAB PO SCH (09:21)
--- NOTE | 2021-01-13 11:24 | Hospitalist Progress Note ---
Date of Service January 13, 2021 Assessment & Plan (1) Acute respiratory failure with hypoxia: (2) Volume overload: (3) CKD (chronic kidney disease), stage IV: (4) Acute on chronic diastolic CHF (congestive heart failure): (5) COPD (chronic obstructive pulmonary disease): -Patient presenting from [facility] for evaluation of shortness of breath and hypoxia. Hypoxic on room air in the 80s, on admission requiring 4 L of oxygen via NC to maintain saturation -Hypoxia likely multifactorial -due to CKD stage IV /acute on chronic diastolic CHF / ? COPD exacerbation / ? Pneumonia -History of hypertensive CKD stage IV -baseline creatinine ~ 4.0 -S/p Bumex 3 mg IV in the ED. Diuresis may be difficult due to underlying advanced CKD. -Nephrology consult, case discussed with Dr. Quiroz. Hold on further diuretics at this time. -Garay placed for strict I's and O's, daily weights -Noted normal procalcitonin however will start empiric IV Zosyn, doxy. Check MRSA nasal swab and if positive add linezolid. No wheezing, will hold on steroids. PRN nebs. -CT chest without contrast to further evaluate - shows advanced emphysema, cardiomegaly noting a small to moderate pericardial effusion. There are small pleural effusions with bibasilar consolidation. This likely represents atelectasis and clinical correlation required. -Consider VQ scan if not improving with above treatments -Updated Echo - severe concentric LVH. LVEF 55 to 60%. No regional wall motion abnormalities noted. There is mild mitral regurg. There is mild tricuspid regurg. Moderate to severe pulmonary hypertension is present. The estimated pulmonary systolic pressure 63 mmHg. There is a small circumferential pericardial effusion. Small left pleural effusion. Compared to study obtained in July 2019, there has been a subtle increase in the pericardial effusion. The estimated pulmonary artery systolic pressure is relatively unchanged. A left pleural effusion is now noted. Today patient seems to be somewhat improved, will try to wean off oxygen as tolerated. (6) Hypertension: -BP controlled, continue amlodipine, carvedilol, hydralazine, HCTZ, isosorbide (7) Anemia: -Hgb 9.3, slightly below recent baseline -Likely due to underlying CKD -No obvious signs of bleeding -Monitor CBC -We will obtain iron panel, FOBT, peripheral smear (8) DVT prophylaxis: -SQ heparin Admission and Anticipated Discharge Date Admission Date: January 12, 2021 Subjective Patient seen in follow-up of hypoxic failure Recent COVID-19 infection Advanced CKD Currently patient sitting up in bed, in no acute distress, using supplemental oxygen, was on 4 L, I turned it down to 3 L, nursing staff at the bedside notified and will continue to closely monitor oxygen needs, as now patient is satting in high 90s. He continues to cough up a white/aguero sputum, however no sample was obtained for sputum culture. Patient is able to speak in full sentences without difficulty. No accessory muscle use. Denies fever chills. Ate well this morning. No abdominal pain, no nausea vomiting. No chest pain. Breathing better today. Continues to have left flank pain. No BM. No signs of bleeding. Review of Systems Review of Systems: All systems reviewed & are unremarkable except as noted in HPI & below Constitutional: no fever and no chills Respiratory: + cough and + dyspnea (improved) Cardiovascular: no chest pain and no palpitations Gastrointestinal: no abdominal pain, no nausea and no vomiting Genitourinary: + flank pain (Left) Musculoskeletal: Left flank /back pain Physical Exam Physical Exam: Constitutional: WD/WN, vitals as above + chronically ill appearing; no acute distress Eyes: PERRL, EOMI, conjunctivae normal, anicteric sclerae ENMT: external ear and nose normal, oropharynx normal Respiratory: no respiratory distress Auscultation: + diminished lung sounds and + bibasilar crackles, no wheezing Cardiovascular: Rate/Rhythm: regular rate and regular rhythm Vessels: normal peripheral pulses Extremities: no edema Gastrointestinal (Abdomen): normal bowel sounds, soft, nontender Musculoskeletal: no cyanosis or clubbing, extremities motor strength 5/5, + left flank/ back pain Skin: no rashes, warm and dry Neurologic: PERRL, EOMI, no face palsy, no dysarthria, moves extremities Psychiatric: A+Ox3, euthymic affect Results & Data Results & Data ([facility]) Vital Signs (Past 12 Hours) Vital Signs Temp Pulse Pulse Resp BP Pulse Ox 01/13/21 08:00 47 L 01/13/21 07:05 36.7 C 51 L 18 137/67 99 01/13/21 03:25 36.7 C 51 L 22 144/54 H 92 01/12/21 23:36 36.4 C L 52 L 20 157/68 H 95 Laboratory Results 01/13/21 01/13/21 01/13/21 Range/Units 05:49 05:49 05:49 WBC 6.93 (4.8-10.8) K/uL RBC 3.88 L (4.7-6.1) M/uL Hgb 8.9 L (14.0-18.0) g/dL Hct 26.4 L (42-52) % MCV 68.0 L (80-100) fL MCH 22.9 L (25-34) pg MCHC 33.7 (32-36) g/dL RDW Std Deviation 42.4 (36.4-46.3) fL RDW Coeff of Ayanna 17.0 H (11.5-14.5) % Plt Count 234 (130-400) K/uL MPV 9.7 (7.4-10.4) fL Absolute Nucleated RBC (0-0) K/uL Nucleated RBC % (auto) % Peripher Smr Path Cons ABG pH (7.35-7.45) ABG pCO2 (35-46) mmHg ABG pO2 (80-95) mmHg ABG HCO3 (19-24) mmol/L ABG O2 Saturation (90-95) % ABG Base Excess (-9-1.8) mEq/L Faraz Test (Pos) Barometric Pressure mm/Hg Oxygen Given Sodium 135 L (136-145) mmol/L Potassium 5.0 (3.5-5.1) mmol/L Chloride 104 (98-107) mmol/L Carbon Dioxide 23 (21-32) mmol/L Anion Gap 8.0 (3-11) BUN 59 H (7-18) mg/dl Creatinine 5.99 H* D (0.6-1.4) mg/dl Est Cr Clr Drug Dosing 11.6 ml/min Est GFR ( Amer) 10.0 Est GFR (Non-Af Amer) 8.7 BUN/Creatinine Ratio 10.0 (10-20) Glucose 109 H (70-99) mg/dl Calcium 8.3 L (8.5-10.1) mg/dl Iron (35-175) mcg/dl TIBC (250-450) mcg/dl Transferrin (200-360) mg/dl Ferritin (8-388) ng/ml Troponin I (0-0.045) ng/ml NT-Pro-B Natriuret Pep (0-900) pg/ml Procalcitonin 0.31 (0-0.5) ng/ml Nasal Screen MRSA (PCR) (Negative) 01/12/21 01/12/21 01/12/21 Range/Units 19:48 14:30 12:50 WBC (4.8-10.8) K/uL RBC (4.7-6.1) M/uL Hgb (14.0-18.0) g/dL Hct (42-52) % MCV (80-100) fL MCH (25-34) pg MCHC (32-36) g/dL RDW Std Deviation (36.4-46.3) fL RDW Coeff of Ayanna (11.5-14.5) % Plt Count (130-400) K/uL MPV (7.4-10.4) fL Absolute Nucleated RBC (0-0) K/uL Nucleated RBC % (auto) % Peripher Smr Path Cons ABG pH (7.35-7.45) ABG pCO2 (35-46) mmHg ABG pO2 (80-95) mmHg ABG HCO3 (19-24) mmol/L ABG O2 Saturation (90-95) % ABG Base Excess (-9-1.8) mEq/L Faraz Test (Pos) Barometric Pressure mm/Hg Oxygen Given Sodium (136-145) mmol/L Potassium (3.5-5.1) mmol/L Chloride (98-107) mmol/L Carbon Dioxide (21-32) mmol/L Anion Gap (3-11) BUN (7-18) mg/dl Creatinine (0.6-1.4) mg/dl Est Cr Clr Drug Dosing ml/min Est GFR ( Amer) Est GFR (Non-Af Amer) BUN/Creatinine Ratio (10-20) Glucose (70-99) mg/dl Calcium (8.5-10.1) mg/dl Iron (35-175) mcg/dl TIBC (250-450) mcg/dl Transferrin (200-360) mg/dl Ferritin (8-388) ng/ml Troponin I < 0.015 < 0.015 (0-0.045) ng/ml NT-Pro-B Natriuret Pep (0-900) pg/ml Procalcitonin (0-0.5) ng/ml Nasal Screen MRSA (PCR) Negative (Negative) 01/12/21 01/12/21 01/12/21 Range/Units 11:47 11:38 08:35 WBC (4.8-10.8) K/uL RBC (4.7-6.1) M/uL Hgb (14.0-18.0) g/dL Hct (42-52) % MCV (80-100) fL MCH (25-34) pg MCHC (32-36) g/dL RDW Std Deviation (36.4-46.3) fL RDW Coeff of Ayanna (11.5-14.5) % Plt Count (130-400) K/uL MPV (7.4-10.4) fL Absolute Nucleated RBC (0-0) K/uL Nucleated RBC % (auto) % Peripher Smr Path Cons ABG pH 7.35 (7.35-7.45) ABG pCO2 40 (35-46) mmHg ABG pO2 92 (80-95) mmHg ABG HCO3 21 (19-24) mmol/L ABG O2 Saturation 96.9 H (90-95) % ABG Base Excess -3.9 (-9-1.8) mEq/L Faraz Test Pos (Pos) Barometric Pressure 733.9 mm/Hg Oxygen Given 4 Sodium (136-145) mmol/L Potassium (3.5-5.1) mmol/L Chloride (98-107) mmol/L Carbon Dioxide (21-32) mmol/L Anion Gap (3-11) BUN (7-18) mg/dl Creatinine (0.6-1.4) mg/dl Est Cr Clr Drug Dosing ml/min Est GFR ( Amer) Est GFR (Non-Af Amer) BUN/Creatinine Ratio (10-20) Glucose (70-99) mg/dl Calcium (8.5-10.1) mg/dl Iron 22 L (35-175) mcg/dl TIBC 231 L (250-450) mcg/dl Transferrin 187 L (200-360) mg/dl Ferritin 27.0 (8-388) ng/ml Troponin I (0-0.045) ng/ml NT-Pro-B Natriuret Pep (0-900) pg/ml Procalcitonin 0.14 (0-0.5) ng/ml Nasal Screen MRSA (PCR) (Negative) 01/12/21 01/12/21 Range/Units 08:35 08:35 WBC (4.8-10.8) K/uL RBC (4.7-6.1) M/uL Hgb (14.0-18.0) g/dL Hct (42-52) % MCV (80-100) fL MCH (25-34) pg MCHC (32-36) g/dL RDW Std Deviation (36.4-46.3) fL RDW Coeff of Ayanna (11.5-14.5) % Plt Count (130-400) K/uL MPV (7.4-10.4) fL Absolute Nucleated RBC 0.00 (0-0) K/uL Nucleated RBC % (auto) 0.0 % Peripher Smr Path Cons ABG pH (7.35-7.45) ABG pCO2 (35-46) mmHg ABG pO2 (80-95) mmHg ABG HCO3 (19-24) mmol/L ABG O2 Saturation (90-95) % ABG Base Excess (-9-1.8) mEq/L Faraz Test (Pos) Barometric Pressure mm/Hg Oxygen Given Sodium (136-145) mmol/L Potassium (3.5-5.1) mmol/L Chloride (98-107) mmol/L Carbon Dioxide (21-32) mmol/L Anion Gap (3-11) BUN (7-18) mg/dl Creatinine (0.6-1.4) mg/dl Est Cr Clr Drug Dosing ml/min Est GFR ( Amer) Est GFR (Non-Af Amer) BUN/Creatinine Ratio (10-20) Glucose (70-99) mg/dl Calcium (8.5-10.1) mg/dl Iron (35-175) mcg/dl TIBC (250-450) mcg/dl Transferrin (200-360) mg/dl Ferritin (8-388) ng/ml Troponin I (0-0.045) ng/ml NT-Pro-B Natriuret Pep 2616 H (0-900) pg/ml Procalcitonin (0-0.5) ng/ml Nasal Screen MRSA (PCR) (Negative) Medications Administered Current Inpatient Medications Acetaminophen (Acetaminophen 325 Mg Tab) 650 mg PO Q4H PRN PRN Reason: Pain or Fever Stop: 02/11/21 12:00 Albuterol (Albut/Ipratrop 3mg/0.5mg Neb 3 Ml Vial) 3 ml NEB QIDR PRN PRN Reason: Shortness Of Breath Or Wheezing Stop: 02/11/21 14:59 Amlodipine Besylate (Amlodipine Besylate 5 Mg Tab) 10 mg PO DAILY [facility] Stop: 02/12/21 08:59 Last Admin: 01/13/21 07:50 Dose: 10 mg Documented by: Aspirin (Aspirin 81 Mg Ectab) 81 mg PO DAILY [facility] Stop: 02/12/21 08:59 Last Admin: 01/13/21 07:51 Dose: 81 mg Documented by: Bumetanide (Bumetanide 1 Mg Tab) 1 mg PO DAILY [facility] Stop: 02/12/21 08:59 Last Admin: 01/13/21 09:21 Dose: 1 mg Documented by: Carvedilol (Carvedilol 12.5 Mg Tab) 12.5 mg PO BID [facility] Stop: 02/12/21 20:59 Doxycycline Hyclate (Doxycycline Hyclate 100 Mg Cap) 100 mg PO BID@1000,2200 [facility]; Protocol Stop: 01/20/21 09:59 Last Admin: 01/13/21 09:21 Dose: 100 mg Documented by: Epoetin Dipak (Epoetin Dipak 10,000 Units/Ml Vial) 10,000 units SQ ONE ONE Stop: 01/13/21 11:21 Heparin Sodium (Porcine) (Heparin Sod 5,000 Unit/0.5 Ml Vial) 5,000 units SQ Q8 [facility] Stop: 02/11/21 13:59 Last Admin: 01/13/21 05:59 Dose: 5,000 units Documented by: Hydralazine HCl (Hydralazine Tab 50 Mg Tab) 100 mg PO TID [facility] Stop: 02/11/21 13:59 Last Admin: 01/13/21 07:51 Dose: 100 mg Documented by: Piperacillin Sod/Tazobactam (Sod 3.375 gm/ Dextrose) 115 mls @ 28.75 mls/hr IV Q12H [facility]; Protocol Stop: 01/19/21 21:59 Last Admin: 01/13/21 09:20 Dose: 28.8 mls/hr Documented by: Furosemide 80 mg/ Syringe 8 mls @ 4 mls/min IV Q12 RA Stop: 02/12/21 11:19 Iron Sucrose 200 mg/ Sodium (Chloride) 110 mls @ 220 mls/hr IV TODAY ONE Stop: 01/13/21 11:48 Isosorbide Dinitrate (Isosorbide Dinitrate 20 Mg Tab) 20 mg PO BID@0700,1200 RA Stop: 02/11/21 12:29 Last Admin: 01/13/21 07:51 Dose: 20 mg Documented by: Miscellaneous (Zaditor: Order Awaiting Action) 1 ea N/A QS RA Stop: 02/11/21 15:59 Last Admin: 01/13/21 07:56 Dose: Not Given Documented by: Miscellaneous Information (Piperacill/Tazobac Consult Active) 1 ea N/A UD PRN PRN Reason: Consult Stop: 02/11/21 12:00 Pantoprazole Sodium (Pantoprazole 40 Mg Tab) 40 mg PO DAILY RA Stop: 02/12/21 08:59 Last Admin: 01/13/21 07:50 Dose: 40 mg Documented by: Tamsulosin HCl (Tamsulosin Hcl 0.4 Mg Cap) 0.4 mg PO HS RA Stop: 02/11/21 20:59 Last Admin: 01/12/21 21:02 Dose: 0.4 mg Documented by: Trazodone HCl (Trazodone Hcl 100 Mg Tab) 150 mg PO HS [facility] Stop: 02/11/21 20:59 Last Admin: 01/12/21 21:04 Dose: 150 mg Documented by: (1) Hypertension Hypertension type: unspecified Qualified Code(s): I10 - Essential (primary) hypertension
[2021-01-13] MEDS ORDERED: EPOETIN ALFA 10,000 UNITS/ML VIAL SQ ONE (11:30)
[2021-01-13] MEDS ORDERED: IRON SUCROSE 200 MG in 0.9 % SODIUM CHLORIDE 100 ML IV ONE (11:30)
--- NOTE | 2021-01-13 11:45 | Consultation Report ---
DATE OF CONSULTATION: 01/13/2021 NEPHROLOGY CONSULTATION NOTE REASON FOR CONSULT: Acute renal failure on background CKD. HISTORY OF PRESENT ILLNESS: The patient is a 70-year-old male who appears to have CKD stage IV to stage V at baseline, his more recent baseline creatinine seems to be in the high 4 and low 5, and he has also seen a french instructor through the [facility] and has been told that he will likely need dialysis in the coming months. He presented to the hospital because of shortness of breath, increased cough and was hypoxic. He was hypoxic down to the 80s on room air and has required oxygen to maintain saturation. He denies having any fever, but was having productive cough. He does have advanced COPD. Since admission, he has received 1 dose of IV Bumex and is currently written his outpatient diuretics, which are Bumex 1 daily and hydrochlorothiazide 12.5 daily. Echocardiogram shows slight increase in the pericardial effusion as well as left pleural effusion and moderately severe pulmonary hypertension, but preserved ejection fraction. Creatinine on admission and this morning was reviewed and has gone up from 5.4 to 6 this morning. Sodium is also slightly low at 135. Albumin was low at 2.6. He is getting IV antibiotics for presumptive respiratory tract infection. Blood cultures negative as of now. ALLERGIES: Allergy list was reviewed and is as per H and P. HOME MEDICATIONS: Reviewed. Of special interest to nephrology, he was on Bumex 1 daily, hydrochlorothiazide 12.5 daily as well as hydralazine, carvedilol, [place], amlodipine, tamsulosin, aspirin. 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 REVIEW OF SYSTEMS: As detailed in the HPI, unless stated otherwise, 12 systems reviewed and negative. SOCIAL HISTORY: He is a former smoker, no alcohol now. He came from [facility]. FAMILY HISTORY: Negative for renal disease or dialysis. PHYSICAL EXAMINATION: GENERAL: Elderly male who appears to be chronically ill. He is not in overt respiratory distress with oxygen. HEENT: Mucous membranes moist. NECK: Supple. No jugular venous distention. CHEST: Bilaterally decreased breath sounds, poor inspiratory effort. Prolonged expiration. CARDIOVASCULAR: S1, S2 regular. ABDOMEN: Soft, nontender. EXTREMITIES: Show no edema. VITAL SIGNS: Blood pressure 137/67, pulse rate 47, temperature 36.7, 99% on 4 liters oxygen. LABORATORY TESTS: This morning labs show creatinine of 6. Sodium 135, potassium 5.0. His baseline creatinine lately has been going in the high 4 and low 5 lately. Chest x-ray, CT scan, echocardiogram, venous duplex were all reviewed and showed moderately severe pulmonary hypertension, pericardial effusion as well as pleural effusion with extensive emphysematous changes. ASSESSMENT AND PLAN: A 70-year-old male with chronic kidney disease stage IV to stage V at baseline and progressively worsening towards end-stage renal disease, now admitted with shortness of breath. I have been consulted for renal failure. Acute on chronic renal failure: The acute component is very minimal as this is predominantly worsening chronic kidney disease secondary to his underlying etiology, which is hepatitis C related versus drug induced versus hypertension related. In any case, he has already had a renal biopsy and at this point does not need any further workup for the etiology. He is not volume depleted and does not need IV fluid. If anything, he needs to be diuresed given pericardial effusion, pleural effusion, shortness of breath. Given this, I would like to stop the hydrochlorothiazide, which at such a low dose is useless in a chronic kidney disease V patient. Increase the Bumex dose to 2 mg twice daily for outpatient. For the time being, we will give Lasix 80 mg IV twice daily. It is quite possible the patient may need dialysis during this admission itself. I have started discussion about the dialysis part. He is aware that this is likely needed in the near future. Hemoglobin is also low and it is related with anemia of chronic kidney disease. I will give him 1 dose of Venofer as well as Procrit. This will be managed essentially as chronic kidney disease V with respiratory tract infection at this point with some degree of congestive heart failure. MTDD
[2021-01-13] MEDS: FUROSEMIDE 80 MG in SYRINGE 0 ML IV SCH ×2 (13:37→21:10)
[2021-01-13] MEDS: LIDOCAINE 5% 1 PATCH TD SCH (13:38)
--- NOTE | 2021-01-13 15:07 | Emergency Department Note ---
Impression & Plan Acute respiratory failure with hypoxia, Volume overload, Acute on chronic diastolic CHF (congestive heart failure), Anemia, CKD (chronic kidney disease), stage IV ED Provider Note NAME: NADINE Schaefer [id number] KEVIN AGE: 70 SEX: M : 1950 ARRIVES VIA: Ambulance INFORMANT: Patient, caretakers ED PROVIDER(S): Walker Hudson MD CHIEF COMPLAINT: Shortness of Breath HPI: This is a 70-year-old male who presents emergency department complaining of hypoxia. [facility] he [place] the 70s. The patient sent him back to rule out a pulmonary embolism. Upon arrival to the emergency department the patient is complaining of shortness of breath. He is not normally on oxygen. He was satting 78% [facility]. He reports movement makes his shortness of breath worse however rest makes it better. He has not taken anything for the shortness of breath prior to arrival. Patient reports he is to start dialysis soon. ROS: See above HPI for pertinent positives & negatives. A total of 10 systems reviewed and were otherwise negative. PAST MEDICAL HISTORY: See Below PAST SURGICAL HISTORY: See Below FAMILY HISTORY: See Below SOCIAL HISTORY: See Below HOME MEDICATIONS: See Below ALLERGIES: See Below VITALS: See Below PHYSICAL EXAMINATION: VITAL SIGNS - Vital signs and nursing notes were reviewed. GENERAL - 70-year-old male appearing stated age who is in moderate distress. HEAD - NC/AT. EYES - PERRL with EOMI bilaterally. Sclera anicteric. Palpebral conjunctiva pink and moist with no injection noted. EARS - No deformities of external structures noted on gross examination bilaterally. NOSE - Midline and without cyanosis. No epistaxis or purulent drainage noted. Septum midline without deviation or septal hematoma noted. MOUTH/OROPHARYNX - Without perioral cyanosis. Buccal mucosa pink and moist and without leukoplakia. Tongue midline with equal elevation of palate bilaterally. No tonsillar hypertrophy, erythema, or exudates noted. NECK - Neck with FROM. Supple to palpation. lymphadenopathy noted. No nuchal rigidity. LUNGS - Chest wall symmetric without accessory muscle use, intercostals retractions, or central cyanosis.Rales at bases CARDIAC - RRR with S1/S2. No murmur, rubs, or gallops appreciated. ABDOMEN - Abdominal contour without pulsations or visible masses. BS normoactive all four quadrants. No tenderness, palpable masses, hepatosplenomegaly, or ascites noted. EXTREMITIES - No clubbing or peripheral cyanosis. No pretibial edema present. +3/5 radial, posterior tibial, and dorsalis pedis pulses palpated throughout. +5/5 strength noted in UE/LE bilaterally. NEUROLOGIC - Cranial nerves II through XII grossly intact. Sensory intact to light touch throughout. Patellar reflexes +2/4. PSYCH - A&Ox3 and cooperates fully with examiner. Pt is very pleasant and interacts well with examiner. MEDICAL DECISION MAKING: Patient was seen and evaluated as above in room A9. Review was performed of nursing notes and vital signs. I did review pertinent previous visits and patient history. After obtaining a thorough history and physical examination the above work up was performed. This 70-year-old male who presents back to the emergency department complaining of hypoxia. The patient was sent to rule out a PE. I will note that the patient's kidney function is grossly elevated. Based on this to rule out a PE he was discussed with the internal medicine service. In the meanwhile he was started on Solu-Medrol given an hour-long breathing treatment swab for coronavirus. He does not have an elevation in his troponin or his white blood cell count. An order was placed for continuous cardiac monitoring. The monitor shows a rate of 56 with Sinus Bradycardia rhythm. The patient was evaluated during a period of high volume and high acuity during the global COVID-19 pandemic, and that diagnosis was suspected/considered upon their initial presentation. Their evaluation, treatment and testing was co nsistent with current guidelines for patients who present with complaints or symptoms that may be related to COVID-19. Patient was seen while provider was wearing PPE. Triage Nursing notes reviewed. Prior medical records reviewed Vital Signs: reviewed and remarkable for no significant abnormalities Differential diagnosis: Reactive airway disease, pneumonia, pneumothorax, COPD, CHF, infections, cardiac ischemia, pulmonary embolism, musculoskeletal, gastrointestinal, as well as other pathologies. ER treatment provided: See below Diagnostics interpreted by me: ECG: EKG shows a sinus bradycardia old anterior septal infarct no ST elevation or depression EKG is compared to 01/11/2021 there is no acute change. QTC is 504 ventricular to 59. Laboratory studies: As stated above and show below. Imaging studies: See below Consultation(s): Internal Medicine ED COURSE: Procedures: none PDMP:reviewed and no issues Critical Care: I have personally spent greater than 30 minutes of critical care time in the direct management of this patient. This includes bedside care, interpretation of diagnostic studies, and testing, discussion with consultants, patient, and family members, and other required patient management activities. This 30 minutes is in excess of all separately billable procedures. Past Med/Surg History Medical History BPH (benign prostatic hyperplasia) Chronic diastolic CHF (congestive heart failure) Chronic hepatitis C CKD (chronic kidney disease), stage IV COPD (chronic obstructive pulmonary disease) COVID-19 Hydrocele in adult Hypertension Renal cyst, acquired Tobacco abuse, in remission Surgical History H/O hernia repair History of laryngoscopy Family History Other Diabetes Hypertension Social History Smoking Status: Former smoker Cigarettes Per Day: 03/11/20; Second Hand Exposure: No; Do You Dip or Chew Tobacco: No; Tobacco Cessation Education Requested by Patient: No Hx Alcohol Use: No Hx Substance Use: No Preferred Language: Yoruba Communication Ability: Effective 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 Verified 01/12/21 08:55 Home Meds Home Medications Medication Instructions Recorded Confirmed aspirin 81 mg PO DAILY 12/16/18 01/12/21 tamsulosin 0.4 mg PO HS 12/16/18 01/12/21 levalbuterol tartrate [Xopenex HFA] 2 inh INHALATION QID PRN 07/31/19 01/12/21 isosorbide dinitrate 20 mg PO BID 11/09/19 01/12/21 vitamin A and D 1 applic TOPICAL BID PRN 11/09/19 01/12/21 amlodipine 10 mg tablet 10 mg PO DAILY 01/31/20 01/12/21 Icy Hot Advanced Relief 1 applic TOPICAL BID PRN 09/10/20 01/12/21 bumetanide 1 mg PO DAILY 09/10/20 01/12/21 ketotifen fumarate [Zaditor] 1 drp OPB BID 09/10/20 01/12/21 pantoprazole [Protonix] 40 mg PO DAILY 09/10/20 01/12/21 trazodone 150 mg PO HS 09/10/20 01/12/21 carvedilol 25 mg PO BID 01/12/21 01/12/21 ciclesonide [Alvesco] 1 puff INHALATION BID 01/12/21 01/12/21 hydralazine 100 mg PO TID 01/12/21 01/12/21 hydrochlorothiazide 12.5 mg PO DAILY 01/12/21 01/12/21 Results & Data (ED) Laboratory Data Result diagrams: 01/13/21 05:49 01/13/21 05:49 Lab Results 01/12/21 01/12/21 01/12/21 Range/Units 08:35 08:35 08:35 WBC 5.61 (4.8-10.8) K/uL RBC 4.09 L (4.7-6.1) M/uL Hgb 9.3 L (14.0-18.0) g/dL POC Hgb (14.0-18.0) g/dl Hct 28.2 L (42-52) % POC Hct (42-52) % MCV 68.9 L (80-100) fL MCH 22.7 L (25-34) pg MCHC 33.0 (32-36) g/dL RDW Std Deviation 43.2 (36.4-46.3) fL RDW Coeff of Ayanna 17.0 H (11.5-14.5) % Plt Count 227 (130-400) K/uL MPV 8.8 (7.4-10.4) fL Immature Gran % (Auto) 0.2 % Neut % (Auto) 85.5 % Lymph % (Auto) 10.7 % Salem % (Auto) 2.9 % Eos % (Auto) 0.5 % Baso % (Auto) 0.2 % Neut # (Auto) 4.80 (1.4-6.5) K/uL Lymph # (Auto) 0.60 L (1.2-3.4) K/uL [place] # (Auto) 0.16 (0.11-0.59) K/uL Eos # (Auto) 0.03 (0-0.5) K/uL Baso # (Auto) 0.01 (0-0.2) K/uL Immature Gran # (Auto) 0.01 (0.00-0.02) K/uL Absolute Nucleated RBC 0.00 (0-0) K/uL Nucleated RBC % (auto) 0.0 % Polychromasia 1+ Microcytosis Present Target Cells 1+ Peripher Smr Path Cons POC Sodium (135-144) mmol/L Sodium 139 (136-145) mmol/L POC Potassium (3.3-5.0) mmol/L Potassium 4.6 (3.5-5.1) mmol/L POC Chloride (101-112) mmol/L Chloride 110 H (98-107) mmol/L Carbon Dioxide 23 (21-32) mmol/L POC Total CO2 (24-31) mmol/L Anion Gap 7.0 (3-11) POC Anion Gap (16-25) mmol/L POC BUN (7-18) mg/dl BUN 43 H (7-18) mg/dl Creatinine 4.79 H* (0.6-1.4) mg/dl POC Creatinine (0.6-1.3) mg/dl Est Cr Clr Drug Dosing Not Reportable Est GFR ( Amer) 13.1 Est GFR (Non-Af Amer) 11.3 BUN/Creatinine Ratio 8.9 L (10-20) Glucose 128 H (70-99) mg/dl POC Glucose (other) (70-99) mg/dl Calcium 8.4 L (8.5-10.1) mg/dl POC Ioniz Calcium Joy (1.12-1.32) mmol/l Iron (35-175) mcg/dl TIBC (250-450) mcg/dl Transferrin (200-360) mg/dl Ferritin (8-388) ng/ml Total Bilirubin 0.4 (0.2-1) mg/dl AST 8 L (15-37) U/L ALT 8 L (12-78) U/L Alkaline Phosphatase 84 (45-117) U/L Troponin I < 0.015 (0-0.045) ng/ml NT-Pro-B Natriuret Pep 2616 H (0-900) pg/ml Total Protein 7.2 (6.4-8.2) gm/dl Albumin 2.6 L (3.4-5.0) gm/dl Globulin 4.6 H (2.5-4.0) gm/dl Albumin/Globulin Ratio 0.6 L (0.9-2) Lipase 43 L (73-393) U/L COVID-19 Eval Order SARS-CoV-2 (PCR) (Negative) Influenza Type A (PCR) (Neg) Influenza Type B (PCR) (Neg) RSV (RT-PCR) (Neg) 01/12/21 01/12/21 01/12/21 Range/Units 08:35 08:39 09:05 WBC (4.8-10.8) K/uL RBC (4.7-6.1) M/uL Hgb (14.0-18.0) g/dL POC Hgb 9.2 L (14.0-18.0) g/dl Hct (42-52) % POC Hct 27 L (42-52) % MCV (80-100) fL MCH (25-34) pg MCHC (32-36) g/dL RDW Std Deviation (36.4-46.3) fL RDW Coeff of Ayanna (11.5-14.5) % Plt Count (130-400) K/uL MPV (7.4-10.4) fL Immature Gran % (Auto) % Neut % (Auto) % Lymph % (Auto) % [place] % (Auto) % Eos % (Auto) % Baso % (Auto) % Neut # (Auto) (1.4-6.5) K/uL Lymph # (Auto) (1.2-3.4) K/uL Salem # (Auto) (0.11-0.59) K/uL Eos # (Auto) (0-0.5) K/uL Baso # (Auto) (0-0.2) K/uL Immature Gran # (Auto) (0.00-0.02) K/uL Absolute Nucleated RBC (0-0) K/uL Nucleated RBC % (auto) % Polychromasia Microcytosis Target Cells Peripher Smr Path Cons POC Sodium 141 (135-144) mmol/L Sodium (136-145) mmol/L POC Potassium 4.6 (3.3-5.0) mmol/L Potassium (3.5-5.1) mmol/L POC Chloride 108 (101-112) mmol/L Chloride (98-107) mmol/L Carbon Dioxide (21-32) mmol/L POC Total CO2 23 L (24-31) mmol/L Anion Gap (3-11) POC Anion Gap 15.0 L (16-25) mmol/L POC BUN 39 H (7-18) mg/dl BUN (7-18) mg/dl Creatinine (0.6-1.4) mg/dl POC Creatinine 5.4 H* (0.6-1.3) mg/dl Est Cr Clr Drug Dosing Est GFR ( Amer) Est GFR (Non-Af Amer) BUN/Creatinine Ratio (10-20) Glucose (70-99) mg/dl POC Glucose (other) 133 H (70-99) mg/dl Calcium (8.5-10.1) mg/dl POC Ioniz Calcium Joy 1.23 (1.12-1.32) mmol/l Iron 22 L (35-175) mcg/dl TIBC 231 L (250-450) mcg/dl Transferrin 187 L (200-360) mg/dl Ferritin 27.0 (8-388) ng/ml Total Bilirubin (0.2-1) mg/dl AST (15-37) U/L ALT (12-78) U/L Alkaline Phosphatase (45-117) U/L Troponin I (0-0.045) ng/ml NT-Pro-B Natriuret Pep (0-900) pg/ml Total Protein (6.4-8.2) gm/dl Albumin (3.4-5.0) gm/dl Globulin (2.5-4.0) gm/dl Albumin/Globulin Ratio (0.9-2) Lipase (73-393) U/L COVID-19 Eval Order CovFluRsv at [facility] SARS-CoV-2 (PCR) (Negative) Influenza Type A (PCR) (Neg) Influenza Type B (PCR) (Neg) RSV (RT-PCR) (Neg) 01/12/21 Range/Units 09:05 WBC (4.8-10.8) K/uL RBC (4.7-6.1) M/uL Hgb (14.0-18.0) g/dL POC Hgb (14.0-18.0) g/dl Hct (42-52) % POC Hct (42-52) % MCV (80-100) fL MCH (25-34) pg MCHC (32-36) g/dL RDW Std Deviation (36.4-46.3) fL RDW Coeff of Ayanna (11.5-14.5) % Plt Count (130-400) K/uL MPV (7.4-10.4) fL Immature Gran % (Auto) % Neut % (Auto) % Lymph % (Auto) % [place] % (Auto) % Eos % (Auto) % Baso % (Auto) % Neut # (Auto) (1.4-6.5) K/uL Lymph # (Auto) (1.2-3.4) K/uL [place] # (Auto) (0.11-0.59) K/uL Eos # (Auto) (0-0.5) K/uL Baso # (Auto) (0-0.2) K/uL Immature Gran # (Auto) (0.00-0.02) K/uL Absolute Nucleated RBC (0-0) K/uL Nucleated RBC % (auto) % Polychromasia Microcytosis Target Cells Peripher Smr Path Cons POC Sodium (135-144) mmol/L Sodium (136-145) mmol/L POC Potassium (3.3-5.0) mmol/L Potassium (3.5-5.1) mmol/L POC Chloride (101-112) mmol/L Chloride (98-107) mmol/L Carbon Dioxide (21-32) mmol/L POC Total CO2 (24-31) mmol/L Anion Gap (3-11) POC Anion Gap (16-25) mmol/L POC BUN (7-18) mg/dl BUN (7-18) mg/dl Creatinine (0.6-1.4) mg/dl POC Creatinine (0.6-1.3) mg/dl Est Cr Clr Drug Dosing Est GFR ( Amer) Est GFR (Non-Af Amer) BUN/Creatinine Ratio (10-20) Glucose (70-99) mg/dl POC Glucose (other) (70-99) mg/dl Calcium (8.5-10.1) mg/dl POC Ioniz Calcium Joy (1.12-1.32) mmol/l Iron (35-175) mcg/dl TIBC (250-450) mcg/dl Transferrin (200-360) mg/dl Ferritin (8-388) ng/ml Total Bilirubin (0.2-1) mg/dl AST (15-37) U/L ALT (12-78) U/L Alkaline Phosphatase (45-117) U/L Troponin I (0-0.045) ng/ml NT-Pro-B Natriuret Pep (0-900) pg/ml Total Protein (6.4-8.2) gm/dl Albumin (3.4-5.0) gm/dl Globulin (2.5-4.0) gm/dl Albumin/Globulin Ratio (0.9-2) Lipase (73-393) U/L COVID-19 Eval Order SARS-CoV-2 (PCR) NEGATIVE (Negative) Influenza Type A (PCR) Negative (Neg) Influenza Type B (PCR) Negative (Neg) RSV (RT-PCR) Negative (Neg) Administered Medications Amlodipine Besylate (Amlodipine Besylate 5 Mg Tab) 10 mg PO DAILY [facility] Stop: 02/12/21 08:59 Last Admin: 01/13/21 07:50 Dose: 10 mg Documented by: [id number] Aspirin (Aspirin 81 Mg Ectab) 81 mg PO DAILY [facility] Stop: 02/12/21 08:59 Last Admin: 01/13/21 07:51 Dose: 81 mg Documented by: [id number] Bumetanide (Bumetanide 1 Mg Tab) 1 mg PO DAILY [facility] Stop: 02/12/21 08:59 Last Admin: 01/13/21 09:21 Dose: 1 mg Documented by: [id number] Doxycycline Hyclate (Doxycycline Hyclate 100 Mg Cap) 100 mg PO BID@1000,2200 [facility]; Protocol Stop: 01/20/21 09:59 Last Admin: 01/13/21 09:21 Dose: 100 mg Documented by: [id number] Heparin Sodium (Porcine) (Heparin Sod 5,000 Unit/0.5 Ml Vial) 5,000 units SQ Q8 [facility] Stop: 02/11/21 13:59 Last Admin: 01/13/21 13:39 Dose: 5,000 units Documented by: [id number] Admin: 01/13/21 05:59 Dose: 5,000 units Documented by: [id number] Admin: 01/12/21 21:04 Dose: 5,000 units Documented by: [id number] Admin: 01/12/21 14:58 Dose: 5,000 units Documented by: [id number] Hydralazine HCl (Hydralazine Tab 50 Mg Tab) 100 mg PO TID [facility] Stop: 02/11/21 13:59 Last Admin: 01/13/21 13:38 Dose: 100 mg Documented by: [id number] Admin: 01/13/21 07:51 Dose: 100 mg Documented by: [id number] Admin: 01/12/21 21:01 Dose: 100 mg Documented by: [id number] Admin: 01/12/21 14:57 Dose: 100 mg Documented by: [id number] Piperacillin Sod/Tazobactam (Sod 3.375 gm/ Dextrose) 115 mls @ 28.75 mls/hr IV Q12H [facility]; Protocol Stop: 01/19/21 21:59 Last Infusion: 01/13/21 13:20 Dose: 0 mls/hr Documented by: [id number] Admin: 01/13/21 09:20 Dose: 28.8 mls/hr Documented by: [id number] Infusion: 01/13/21 01:27 Dose: 0 mls/hr Documented by: [id number] Admin: 01/12/21 21:00 Dose: 28.8 mls/hr Documented by: [id number] Furosemide 80 mg/ Syringe 8 mls @ 4 mls/min IV Q12 [facility] Stop: 02/12/21 11:29 Last Admin: 01/13/21 13:37 Dose: 4 mls/min Documented by: [id number] Isosorbide Dinitrate (Isosorbide Dinitrate 20 Mg Tab) 20 mg PO BID@0700,1200 [facility] Stop: 02/11/21 12:29 Last Admin: 01/13/21 13:38 Dose: 20 mg Documented by: [id number] Admin: 01/13/21 07:51 Dose: 20 mg Documented by: [id number] Admin: 01/12/21 14:57 Dose: 20 mg Documented by: [id number] Lidocaine (Lidocaine 5% 1 Patch) 1 patch TD QAM [facility] Stop: 02/12/21 11:29 Last Admin: 01/13/21 13:38 Dose: 1 patch Documented by: [id number] Miscellaneous (Zaditor: Order Awaiting Action) 1 ea N/A QS [facility] Stop: 02/11/21 15:59 Last Admin: 01/13/21 13:47 Dose: Not Given Documented by: [id number] Admin: 01/13/21 07:56 Dose: Not Given Documented by: [id number] Admin: 01/12/21 23:27 Dose: Not Given Documented by: [id number] Admin: 01/12/21 14:59 Dose: Not Given Documented by: [id number] Pantoprazole Sodium (Pantoprazole 40 Mg Tab) 40 mg PO DAILY [facility] Stop: 02/12/21 08:59 Last Admin: 01/13/21 07:50 Dose: 40 mg Documented by: [id number] Tamsulosin HCl (Tamsulosin Hcl 0.4 Mg Cap) 0.4 mg PO [facility] Stop: 02/11/21 20:59 Last Admin: 01/12/21 21:02 Dose: 0.4 mg Documented by: [id number] Trazodone HCl (Trazodone Hcl 100 Mg Tab) 150 mg PO [facility] Stop: 02/11/21 20:59 Last Admin: 01/12/21 21:04 Dose: 150 mg Documented by: [id number] Discontinued Medications Albuterol (Albut/Ipratrop 3mg/0.5mg Neb 3 Ml Vial) 12 ml NEB ONE ONE Stop: 01/12/21 08:39 Last Admin: 01/12/21 09:22 Dose: 12 ml Documented by: [id number] Albuterol (Albut/Ipratrop 3mg/0.5mg Neb 3 Ml Vial) 3 ml NEB QIDR [facility] Stop: 02/11/21 14:59 Last Admin: 01/12/21 16:01 Dose: 3 ml Documented by: [id number] Carvedilol (Carvedilol 25 Mg Tab) 25 mg PO BID [facility] Stop: 02/11/21 20:59 Last Admin: 01/13/21 07:51 Dose: 25 mg Documented by: [id number] Admin: 01/12/21 21:04 Dose: Not Given Documented by: [id number] Epoetin Dipak (Epoetin Dipak 10,000 Units/Ml Vial) 10,000 units SQ ONE ONE Stop: 01/13/21 11:31 Last Admin: 01/13/21 13:45 Dose: 10,000 units Documented by: [id number] Hydrochlorothiazide (Hydrochlorothiazide 25 Mg Tab) 12.5 mg PO DAILY [facility] Stop: 02/12/21 08:59 Last Admin: 01/13/21 07:50 Dose: 12.5 mg Documented by: [id number] Hydromorphone HCl (Hydromorphone Inj 0.5 Mg/0.5 Ml Syr) 0.5 mg IV Q15M PRN PRN Reason: Pain Stop: 01/26/21 08:22 Last Admin: 01/12/21 08:47 Dose: 0.5 mg Documented by: [id number] Sodium Chloride (Nss 1000ml) 500 mls @ 999 mls/hr IV .Q31M ONE Stop: 01/12/21 08:53 Last Infusion: 01/12/21 09:23 Dose: 0 mls/hr Documented by: [id number] Admin: 01/12/21 08:52 Dose: 999 mls/hr Documented by: [id number] Acetaminophen (Ofirmev) 1,000 mg in 100 mls @ 400 mls/hr IV NOW STA Stop: 01/12/21 08:37 Last Infusion: 01/12/21 09:04 Dose: 0 mls/hr Documented by: [id number] Admin: 01/12/21 08:49 Dose: 400 mls/hr Documented by: [id number] Magnesium Sulfate/Dextrose (Magnesium Sulfate / D5w) 1 gm in 100 mls @ 100 mls/hr IV NOW STA Stop: 01/12/21 09:24 Last Infusion: 01/12/21 09:49 Dose: 0 mls/hr Documented by: [id number] Admin: 01/12/21 08:49 Dose: 100 mls/hr Documented by: [id number] Piperacillin Sod/Tazobactam (Sod 3.375 gm/ Dextrose) 115 mls @ 230 mls/hr IV NOW ONE; Protocol Stop: 01/12/21 12:59 Last Infusion: 01/12/21 15:28 Dose: 0 mls/hr Documented by: [id number] Admin: 01/12/21 14:58 Dose: 230 mls/hr Documented by: [id number] Iron Sucrose 200 mg/ Sodium (Chloride) 110 mls @ 220 mls/hr IV TODAY@1130 ONE Stop: 01/13/21 11:59 Last Infusion: 01/13/21 14:07 Dose: 0 mls/hr Documented by: [id number] Admin: 01/13/21 13:37 Dose: 220 mls/hr Documented by: [id number] Methylprednisolone (Methylprednisolone 125 Mg/2 Ml Vial) 60 mg IV NOW STA Stop: 01/12/21 08:24 Last Admin: 01/12/21 08:48 Dose: 60 mg Documented by: [id number] Ondansetron HCl (Ondansetron Inj 2 Mg/Ml 2 Ml Vial) 4 mg IV NOW STA Stop: 01/12/21 08:24 Last Admin: 01/12/21 08:49 Dose: 4 mg Documented by: [id number] Imaging Data Radiologist's Impression: Chest X-Ray 01/12/21 08:23 SINGLE VIEW CHEST CLINICAL HISTORY: Atypical chest pain. FINDINGS: An AP, portable, upright chest radiograph is compared to study dated 01/11/2021 and correlated with chest CT dated 09/10/2020. The examination is degraded by portable technique, patient rotation, and apical lordotic positioning. The heart is enlarged noting atherosclerotic calcification of the thoracic aorta. There is pulmonary vascular congestion as well as bilateral patchy airspace opacities. Emphysema and chronic interstitial thickening is similar to previous. There are small pleural effusions with bibasilar consolidation No pneumothorax is seen. The skeletal structures are osteopenic. The bony thorax is grossly intact. IMPRESSION: 1. Cardiomegaly and emphysema with pulmonary vascular congestion. 2. There are small pleural effusions with bibasilar consolidation. 3. There are increasing bilateral patchy airspace opacities. This could represen t mild pulmonary edema versus an infectious/inflammatory pneumonitis. Clinical correlation will be required. ACT 112: Negative or not required by law. Electronically signed by: Jakub Smith M.D. 01/12/2021 9:06 AM Discharge Plan Visit Data Chief Complaint: Shortness of Breath/Dyspnea Stated Complaint: SOB/Chest Pain ED Provider: Walker Hudson Discharge Problem: Acute respiratory failure with hypoxia, Volume overload, Acute on chronic diastolic CHF (congestive heart failure), Anemia, CKD (chronic kidney disease), stage IV Patient Disposition: Admitted As Inpatient Discharge Instructions Interventions: ED Discharge Assessment Last Done: 01/12/21 11:41 Discharge Problem: Volume overload Qualifiers: Hypervolemia type: unspecified Qualified Code(s): E87.70 - Fluid overload, unspecified Anemia Qualifiers: Anemia type: unspecified type Qualified Code(s): D64.9 - Anemia, unspecified
[2021-01-13] MEDS: TAMSULOSIN HCL 0.4 MG CAP PO SCH (21:11)
[2021-01-13] MEDS: traZODone HCL 100 MG TAB PO SCH (21:11)
[2021-01-13] MEDS: carvediloL 12.5 MG TAB PO SCH (21:12)
[2021-01-14] MEDS: ISOSORBIDE DINITRATE 20 MG TAB PO SCH ×2 (06:23→13:43)
[2021-01-14] MEDS: HEPARIN SOD 5,000 UNIT/0.5 ML VIAL SQ SCH ×3 (06:23→20:25)
--- NOTE | 2021-01-14 06:49 | Hospitalist Progress Note ---
Date of Service January 14, 2021 Assessment & Plan (1) Acute respiratory failure with hypoxia: (2) Volume overload: (3) CKD (chronic kidney disease), stage IV: (4) Acute on chronic diastolic CHF (congestive heart failure): (5) COPD (chronic obstructive pulmonary disease): -Patient presenting from [facility] for evaluation of shortness of breath and hypoxia. Hypoxic on room air in the 80s, on admission requiring 4 L of oxygen via NC to maintain saturation -Hypoxia likely multifactorial -due to CKD stage IV /acute on chronic diastolic CHF / ? COPD exacerbation / ? Pneumonia -History of hypertensive CKD stage IV -baseline creatinine ~ 4.0 -S/p Bumex 3 mg IV in the ED. Diuresis may be difficult due to underlying advanced CKD. -Nephrology consult, case discussed with Dr. Quiroz. Hold on further diuretics at this time. -Garay placed for strict I's and O's, daily weights -Noted normal procalcitonin however will start empiric IV Zosyn, doxy. Check MRSA nasal swab and if positive add linezolid. No wheezing, will hold on steroids. PRN nebs. -CT chest without contrast to further evaluate - shows advanced emphysema, cardiomegaly noting a small to moderate pericardial effusion. There are small pleural effusions with bibasilar consolidation. This likely represents atelectasis and clinical correlation required. -Consider VQ scan if not improving with above treatments -Updated Echo - severe concentric LVH. LVEF 55 to 60%. No regional wall motion abnormalities noted. There is mild mitral regurg. There is mild tricuspid regurg. Moderate to severe pulmonary hypertension is present. The estimated pulmonary systolic pressure 63 mmHg. There is a small circumferential pericardial effusion. Small left pleural effusion. Compared to study obtained in July 2019, there has been a subtle increase in the pericardial effusion. The estimated pulmonary artery systolic pressure is relatively unchanged. A left pleural effusion is now noted. 01/14/21 Patient's respiratory status is improved, currently only on 1 L of oxygen, satting in high 90s. I turned off the oxygen, and notified nursing staff to continue to monitor. We will try to wean off oxygen Given his CKD, plan for tunneled line placement tomorrow by general surgery, Dr. Quick. Plan for dialysis by nephrology. (6) Hypertension: -BP controlled, continue amlodipine, carvedilol, hydralazine, HCTZ, isosorbide (7) Anemia: -Hgb 9.3, slightly below recent baseline -Likely due to underlying CKD -No obvious signs of bleeding -Monitor CBC -We will obtain iron panel, FOBT, peripheral smear -FOBT was negative, per nephrology, likely secondary to CKD, patient actually was ordered Venofer and Epo -Current hemoglobin stable (8) DVT prophylaxis: -SQ heparin-hold after midnight for upcoming procedure (tunneled line placement) Admission and Anticipated Discharge Date Admission Date: January 12, 2021 Subjective Patient seen in follow-up of hypoxic failure, advanced CKD Recent COVID-19 infection Currently patient sitting up in bed, in no acute distress, using supplemental oxygen, down to 1 L, I turned it off and notified the nursing staff. He continues to cough occasionally. Patient is able to speak in full sentences and without difficulty. No accessory muscle use. Denies fever chills. No abdominal pain, no nausea vomiting. No chest pain. Continues to have left flank pain. Had 1 BM yesterday. No signs of bleeding. Review of Systems Review of Systems: All systems reviewed & are unremarkable except as noted in HPI & below ROS per HPI, all other systems reviewed and negative Constitutional: no fever and no chills Respiratory: + cough and + dyspnea (improved) Cardiovascular: no chest pain and no palpitations Gastrointestinal: no abdominal pain, no nausea and no vomiting Genitourinary: + flank pain (Left) Musculoskeletal: Left flank /back pain Physical Exam Physical Exam: Constitutional: WD/WN, vitals as above + chronically ill appearing; no acute distress Eyes: PERRL, EOMI, conjunctivae normal, anicteric sclerae ENMT: external ear and nose normal, oropharynx normal Respiratory: no respiratory distress Auscultation: + diminished lung sounds and + bibasilar crackles, no wheezing Cardiovascular: Rate/Rhythm: regular rate and regular rhythm Vessels: normal peripheral pulses Extremities: no edema Gastrointestinal (Abdomen): normal bowel sounds, soft, nontender Musculoskeletal: no cyanosis or clubbing, extremities motor strength 5/5, + left flank/ back pain Skin: no rashes, warm and dry Neurologic: PERRL, EOMI, no face palsy, no dysarthria, moves extremities Psychiatric: A+Ox3, euthymic affect Results & Data Results & Data ([place]) Vital Signs (Past 12 Hours) Vital Signs Temp Pulse Resp BP Pulse Ox 01/14/21 04:20 36.7 C 60 16 147/66 H 94 01/14/21 00:05 36.3 C L 61 18 143/70 H 94 01/13/21 19:48 36.7 C 63 17 159/73 H 92 Laboratory Results 01/14/21 01/14/21 01/13/21 Range/Units 07:11 07:11 23:04 WBC 7.21 (4.8-10.8) K/uL RBC 3.93 L (4.7-6.1) M/uL Hgb 9.0 L (14.0-18.0) g/dL Hct 26.5 L (42-52) % MCV 67.4 L (80-100) fL MCH 22.9 L (25-34) pg MCHC 34.0 (32-36) g/dL RDW Std Deviation 42.5 (36.4-46.3) fL RDW Coeff of Ayanna 17.0 H (11.5-14.5) % Plt Count 243 (130-400) K/uL MPV 9.5 (7.4-10.4) fL Absolute Nucleated RBC 0.02 H (0-0) K/uL Nucleated RBC % (auto) 0.3 % Sodium 136 (136-145) mmol/L Potassium 4.0 D (3.5-5.1) mmol/L Chloride 104 (98-107) mmol/L Carbon Dioxide 23 (21-32) mmol/L Anion Gap 9.0 (3-11) BUN 73 H (7-18) mg/dl Creatinine 6.29 H* D (0.6-1.4) mg/dl Est Cr Clr Drug Dosing 11.1 ml/min Est GFR ( Amer) 9.5 Est GFR (Non-Af Amer) 8.2 BUN/Creatinine Ratio 11.5 (10-20) Glucose 100 H (70-99) mg/dl Calcium 8.1 L (8.5-10.1) mg/dl Phosphorus 4.2 (2.5-4.9) mg/dl Magnesium 2.1 (1.8-2.4) mg/dl Stool Occult Bld Scrn Negative (Negative) Medications Administered Current Inpatient Medications Acetaminophen (Acetaminophen 325 Mg Tab) 650 mg PO Q4H PRN PRN Reason: Pain or Fever Stop: 02/11/21 12:00 Albuterol (Albut/Ipratrop 3mg/0.5mg Neb 3 Ml Vial) 3 ml NEB QIDR PRN PRN Reason: Shortness Of Breath Or Wheezing Stop: 02/11/21 14:59 Amlodipine Besylate (Amlodipine Besylate 5 Mg Tab) 10 mg PO DAILY [facility] Stop: 02/12/21 08:59 Last Admin: 01/14/21 09:04 Dose: 10 mg Documented by: Aspirin (Aspirin 81 Mg Ectab) 81 mg PO DAILY [facility] Stop: 02/12/21 08:59 Last Admin: 01/14/21 09:02 Dose: 81 mg Documented by: Bumetanide (Bumetanide 1 Mg Tab) 1 mg PO DAILY [facility] Stop: 02/12/21 08:59 Last Admin: 01/13/21 09:21 Dose: 1 mg Documented by: Carvedilol (Carvedilol 12.5 Mg Tab) 12.5 mg PO BID [facility] Stop: 02/12/21 20:59 Last Admin: 01/14/21 09:03 Dose: 12.5 mg Documented by: Doxycycline Hyclate (Doxycycline Hyclate 100 Mg Cap) 100 mg PO BID@1000,2200 [facility]; Protocol Stop: 01/20/21 09:59 Last Admin: 01/14/21 09:02 Dose: 100 mg Documented by: Heparin Sodium (Porcine) (Heparin Sod 5,000 Unit/0.5 Ml Vial) 5,000 units SQ Q8 [facility] Stop: 02/11/21 13:59 Last Admin: 01/14/21 06:23 Dose: 5,000 units Documented by: Hydralazine HCl (Hydralazine Tab 50 Mg Tab) 100 mg PO TID [facility] Stop: 02/11/21 13:59 Last Admin: 01/14/21 09:04 Dose: 100 mg Documented by: Piperacillin Sod/Tazobactam (Sod 3.375 gm/ Dextrose) 115 mls @ 28.75 mls/hr IV Q12H [facility]; Protocol Stop: 01/19/21 21:59 Last Infusion: 01/14/21 13:34 Dose: Infused Documented by: Furosemide 80 mg/ Syringe 8 mls @ 4 mls/min IV Q12 [facility] Stop: 02/12/21 11:29 Last Admin: 01/14/21 09:10 Dose: 4 mls/min Documented by: Isosorbide Dinitrate (Isosorbide Dinitrate 20 Mg Tab) 20 mg PO BID@0700,1200 [facility] Stop: 02/11/21 12:29 Last Admin: 01/14/21 06:23 Dose: 20 mg Documented by: Lidocaine (Lidocaine 5% 1 Patch) 1 patch TD QAM [facility] Stop: 02/12/21 11:29 Last Admin: 01/14/21 09:02 Dose: 1 patch Documented by: Misjuananeous (Zaditor: Order Awaiting Action) 1 ea N/A QS [facility] Stop: 02/11/21 15:59 Last Admin: 01/14/21 01:02 Dose: Not Given Documented by: [place] (Remove Lidoderm Patch) 1 ea N/A DAILY@2100 [facility] Stop: 02/12/21 20:59 Last Admin: 01/13/21 21:10 Dose: 1 ea Documented by: Miscellaneous Information (Piperacill/Tazobac Consult Active) 1 ea N/A UD PRN PRN Reason: Consult Stop: 02/11/21 12:00 Pantoprazole Sodium (Pantoprazole 40 Mg Tab) 40 mg PO DAILY [facility] Stop: 02/12/21 08:59 Last Admin: 01/14/21 09:04 Dose: 40 mg Documented by: Tamsulosin HCl (Tamsulosin Hcl 0.4 Mg Cap) 0.4 mg PO [facility] Stop: 02/11/21 20:59 Last Admin: 01/13/21 21:11 Dose: 0.4 mg Documented by: Trazodone HCl (Trazodone Hcl 100 Mg Tab) 150 mg PO [facility] Stop: 02/11/21 20:59 Last Admin: 01/13/21 21:11 Dose: 150 mg Documented by: (1) Volume overload Hypervolemia type: unspecified Qualified Code(s): E87.70 - Fluid overload, unspecified (2) Hypertension Hypertension type: unspecified Qualified Code(s): I10 - Essential (primary) hypertension (3) Anemia Anemia type: unspecified type Qualified Code(s): D64.9 - Anemia, unspecified
[2021-01-14 07:33] LABS: Hematocrit (blood only) 26.5 % (42-52); Mean Corpuscular Hemoglobin 22.9 pg (25-34); Mean Corpuscular Volume 67.4 fL (80-100); Mean Platelet Volume 9.5 fL (7.4-10.4); Nucleated RBC # (auto) 0.02 K/uL (0-0); Nucleated RBC % (auto) 0.3 %; Platelet Count 243 K/uL (130-400); RDW Standard Deviation 42.5 fL (36.4-46.3); Red Blood Count 3.93 M/uL (4.7-6.1); White Blood Count 7.21 K/uL (4.8-10.8)
[2021-01-14 08:19] LABS: BUN Creatinine Ratio 11.5 (10-20); Calcium 8.1 mg/dl (8.5-10.1); Creatinine Clr Calc Pharmacy 11.1 ml/min; Est GFR (African American) 9.5; Est GFR (Non-African American) 8.2; Magnesium 2.1 mg/dl (1.8-2.4); Phosphorus 4.2 mg/dl (2.5-4.9)
[2021-01-14] MEDS: ASPIRIN 81 MG ECTAB PO SCH (09:02)
[2021-01-14] MEDS: DOXYCYCLINE HYCLATE 100 MG CAP PO SCH ×2 (09:02→20:29)
[2021-01-14] MEDS: LIDOCAINE 5% 1 PATCH TD SCH (09:02)
[2021-01-14] MEDS: carvediloL 12.5 MG TAB PO SCH ×2 (09:03→20:24)
[2021-01-14] MEDS: hydrALAZINE TAB 50 MG TAB PO SCH ×3 (09:04→20:28)
[2021-01-14] MEDS: amLODIPine BESYLATE 5 MG TAB PO SCH (09:04)
[2021-01-14] MEDS: PANTOprazole 40 MG TAB PO SCH (09:04)
[2021-01-14] MEDS ORDERED: FUROSEMIDE 40 MG/4 ML VIAL IV ONE (09:07)
[2021-01-14] MEDS: FUROSEMIDE 80 MG in SYRINGE 0 ML IV SCH ×2 (09:10→20:24)
[2021-01-14] MEDS: PIPERACILLIN/TAZOBACTAM 3.375 GM in DEXTROSE 5% 100 ML IV SCH ×2 (09:10→20:24)
--- NOTE | 2021-01-14 10:21 | Nephrology Progress Note ---
Date of Service January 14, 2021 Assessment & Plan Admission and Anticipated Discharge Date Admission Date: January 12, 2021 Subjective Subjective: feels weak. SOme SOB. Appetite and taste is low. PHYSICAL EXAMINATION: GENERAL: Elderly male who appears to be chronically ill. He is not in overt respiratory distress with oxygen. HEENT: Mucous membranes moist. NECK: Supple. No jugular venous distention. CHEST: Bilaterally decreased breath sounds, poor inspiratory effort. Prolonged expiration. CARDIOVASCULAR: S1, S2 regular. ABDOMEN: Soft, nontender. EXTREMITIES: Show no edema. LABORATORY TESTS: Renal Panel keeps getting worse. Chest x-ray, CT scan, echocardiogram, venous duplex were all reviewed and showed moderately severe pulmonary hypertension, pericardial effusion as well as pleural effusion with extensive emphysematous changes. ASSESSMENT AND PLAN: A 70-year-old male with chronic kidney disease stage V at baseline and progressively worsening towards end-stage renal disease, now admitted with shortness of breath. I have been consulted for renal failure. Acute on chronic renal failure: The acute component is very minimal as this is predominantly worsening chronic kidney disease 5 secondary to his underlying etiology, which is hepatitis C related versus drug induced versus hypertension related. In any case, he has already had a renal biopsy and at this point does not need any further workup for the etiology. He is not volume depleted and does not need IV fluid. If anything, he needs to be diuresed given pericardial effusion, pleural effusion, shortness of breath. Rec: 1 Continue Lasix iv 80 bid given pericardial eff and Pl eff. 2 Prepare for Dialysis--ESRD with uremic Symptoms and Now Also Pericardial eff--likely uremic vs CHF related eff. may need to transfer if we dont have surgeon to place tunnelled HD cath. Discussed with primary team Results & Data ([facility]) Vital Signs (Past 12 Hours) Vital Signs Temp Pulse Resp BP Pulse Ox 01/14/21 07:00 36.8 C 86 16 139/86 99 01/14/21 04:20 36.7 C 60 16 147/66 H 94 01/14/21 00:05 36.3 C L 61 18 143/70 H 94
--- NOTE | 2021-01-14 12:42 | Surgery Consultation ---
Date of Consultation January 14, 2021 Assessment & Plan (1) Anemia: (2) CKD (chronic kidney disease) stage 4, GFR 15-29 ml/min: pt is a 70 year-old male who was admitted to hospital for renal failure, IMP; renal failure Plan, I was asked for insertion tunneled dialysis catheter, D/W benefits, risks and alternatives of the surgery, the risks - infection, bleeding, injury other organs, dysfunction catheter, WI, , pt understood, he agrees with the surgery, I answered all questions, pt wants to do tomorrow, - NPO and hold heparin after MN, Present on Admission?: Yes Supervising Physician Co-Signing Physician Notes Patient seen and examined by me, care coordinated with ANDRE Stuart, please refer to her note above for further detail. Patient is a 70-year-old male, with advanced CKD, recently admitted for COVID-19 infection, who became hypoxic and developed left flank pain, was evaluated by ED, and returned to present. Now presents back with oxygen requirement of 4 L. Concern for fluid overload on imaging. Elevated proBNP. Received 3 mg of IV Bumex in the ED. Garay catheter was placed. Nephrology was contacted, recommended to hold further Bumex. Patient was started on empiric IV antibiotics as above. Currently he is stable in bed, appears in no acute distress. Reports feeling somewhat better but still short of breath. Checked his Garay catheter which is draining clear yellow urine, patient is responding to diuretics well. He has somewhat diminished breath sounds, with some mild crackles at the bases. No wheezing noted. Heart sounds regular. Abdomen soft, nontender, however he has tenderness at left flank/back area. There is no lower extremity edema or tenderness to palpation. And he is moving extremities spontaneously. He is alert and oriented answering questions appropriately. Currently actually eating lunch. Denies any fevers or chills. Patient also has anemia. Denies any bleeding or blood in the stool. FOBT orde red, also iron panel ordered and peripheral smear. Anemia possibly secondary to CKD, need to rule out any acute bleed or iron deficiency anemia. Monitor H&H. Continue current treatment, will discuss further with nephrology tomorrow. Monitor I's and O's. If possible try to wean off oxygen. Julio Pastor MD History of Present Illness Attending Physician: Jose Luis Pastor MD History of Present Illness Chief Complaint: Shortness of breath Primary Care Provider: [facility] 70-year-old male inmate from [facility] with PMH COPD, CKD stage IV, HTN, chronic hepatitis C, chronic diastolic CHF, and other problems listed below who presents to the ED for evaluation of shortness of breath. Patient was diagnosed with COVID-19 09/2020. Patient reports his breathing has not improved since the diagnosis. He reports shortness of breath with minimal exertion. He reports a cough productive for aguero sputum. Reports sputum is typically white in color. He denies fevers. Patient also reports an intermittent substernal chest pain. Denies any specific causative or relieving factors. He reports orthopnea and abdominal fullness. No lower extremity edema. Does not weigh himself on a day-to-day basis. Follows with telehealth nephrology. Dialysis has been discussed however not arranged yet. Patient was complaining of left flank pain last evening. He was also found to be hypoxic in the 80s on room air. He was evaluated in the ED yesterday and underwent CT ABD/pelvis and lumbar spine CT. Results showed small bilateral pleural effusions, otherwise unremarkable for other findings. Patient was discharged back to [facility]. He continued to be hypoxic overnight. He was placed on 2 L of oxygen via nasal cannula, given a nebulizer treatment, and prednisone 60 mg. This morning, patient symptoms persisted. He was given another DuoNeb without much improvement and was sent back to the ED for further evaluation. Patient denies abdominal pain, nausea, vomiting, diarrhea. No fevers or chills. Denies urinary symptoms. In the ED, patient is requiring 4 L of oxygen via nasal cannula to maintain saturations > 92%. CXR shows pulmonary edema vs. pneumonitis. Labs show creatinine 4.7, proBNP 2600, Hgb 9.3. Patient was given IV Tylenol, nebulizer, IV Bumex 3 mg, IV Dilaudid, IV magnesium, Solu-Medrol 60 mg, IVF. I ( Gautam Quick MD ) got a call for consult insertion dialysis catheter for renal failure, I reviewed pt's H/P, labs, CT scan with pt, Allergies Allergy/AdvReac Type Severity Reaction Status Date / Time No Known Drug Allergies Allergy Unknown . Verified 01/12/21 08:55 Home Medications Medication Instructions Recorded Confirmed Type aspirin 81 mg PO DAILY 12/16/18 01/12/21 History tamsulosin 0.4 mg PO HS 12/16/18 01/12/21 History levalbuterol tartrate [Xopenex HFA] 2 inh INHALATION QID PRN 07/31/19 01/12/21 History isosorbide dinitrate 20 mg PO BID 11/09/19 01/12/21 History vitamin A and D 1 applic TOPICAL BID PRN 11/09/19 01/12/21 History amlodipine 10 mg tablet 10 mg PO DAILY 01/31/20 01/12/21 History Icy Hot Advanced Relief 1 applic TOPICAL BID PRN 09/10/20 01/12/21 History bumetanide 1 mg PO DAILY 09/10/20 01/12/21 History ketotifen fumarate [Zaditor] 1 drp OPB BID 09/10/20 01/12/21 History pantoprazole [Protonix] 40 mg PO DAILY 09/10/20 01/12/21 History trazodone 150 mg PO HS 09/10/20 01/12/21 History carvedilol 25 mg PO BID 01/12/21 01/12/21 History ciclesonide [Alvesco] 1 puff INHALATION BID 01/12/21 01/12/21 History hydralazine 100 mg PO TID 01/12/21 01/12/21 History hydrochlorothiazide 12.5 mg PO DAILY 01/12/21 01/12/21 History Past Med/Surg History Medical History BPH (benign prostatic hyperplasia) Chronic diastolic CHF (congestive heart failure) Chronic hepatitis C CKD (chronic kidney disease), stage IV COPD (chronic obstructive pulmonary disease) COVID-19 Hydrocele in adult Hypertension Renal cyst, acquired Tobacco abuse, in remission Surgical History H/O hernia repair History of laryngoscopy Family History Other Diabetes Hypertension Social History Smoking Status: Former smoker Cigarettes Per Day: 03/11/20; Second Hand Exposure: No; Do You Dip or Chew Tobacco: No; Tobacco Cessation Education Requested by Patient: No Hx Alcohol Use: No Hx Substance Use: No Preferred Language: [place]ican Communication Ability: Effective Automatic Transmission Mechanic Required: No Beliefs That Will Affect Care: Baptism Baptism Beliefs: bahai Current Living Situation: Other Current Living Situation Comment: [facility] Other Information That Helps Us Care for You: No Feels Safe at Home: Yes Safety Concerns: Feels Safe At This Time Assistive Devices: Oxygen - Continuous Review of Systems Review of Systems: ROS per HPI, all other systems reviewed and negative Allergies Allergy/AdvReac Type Severity Reaction Status Date / Time No Known Drug Allergies Allergy Unknown . Verified 01/12/21 08:55 Home Medications Medication Instructions Recorded Confirmed Type aspirin 81 mg PO DAILY 12/16/18 01/12/21 History tamsulosin 0.4 mg PO HS 12/16/18 01/12/21 History levalbuterol tartrate [Xopenex HFA] 2 inh INHALATION QID PRN 07/31/19 01/12/21 History isosorbide dinitrate 20 mg PO BID 11/09/19 01/12/21 History vitamin A and D 1 applic TOPICAL BID PRN 11/09/19 01/12/21 History amlodipine 10 mg tablet 10 mg PO DAILY 01/31/20 01/12/21 History Icy Hot Advanced Relief 1 applic TOPICAL BID PRN 09/10/20 01/12/21 History bumetanide 1 mg PO DAILY 09/10/20 01/12/21 History ketotifen fumarate [Zaditor] 1 drp OPB BID 09/10/20 01/12/21 History pantoprazole [Protonix] 40 mg PO DAILY 09/10/20 01/12/21 History trazodone 150 mg PO HS 09/10/20 01/12/21 History carvedilol 25 mg PO BID 01/12/21 01/12/21 History ciclesonide [Alvesco] 1 puff INHALATION BID 01/12/21 01/12/21 History hydralazine 100 mg PO TID 01/12/21 01/12/21 History hydrochlorothiazide 12.5 mg PO DAILY 01/12/21 01/12/21 History Patient History Medical History BPH (benign prostatic hyperplasia) Chronic diastolic CHF (congestive heart failure) Chronic hepatitis C CKD (chronic kidney disease), stage IV COPD (chronic obstructive pulmonary disease) COVID-19 Hydrocele in adult Hypertension Renal cyst, acquired Tobacco abuse, in remission Surgical History H/O hernia repair History of laryngoscopy Family History Other Diabetes Hypertension Social History Smoking Status: Former smoker Cigarettes Per Day: 03/11/20; Second Hand Exposure: No; Do You Dip or Chew Tobacco: No; Tobacco Cessation Education Requested by Patient: No Hx Alcohol Use: No Hx Substance Use: No Preferred Language: [place] Communication Ability: Effective Automatic Transmission Mechanic Required: No Beliefs That Will Affect Care: Baptism Baptism Beliefs: bahai Current Living Situation: Other Current Living Situation Comment: [facility] Other Information That Helps Us Care for You: No Feels Safe at Home: Yes Safety Concerns: Feels Safe At This Time Assistive Devices: Oxygen - Continuous Physical Exam Constitutional: WD/WN, vitals as above well developed and well nourished Eyes: PERRL, conjunctivae normal, anicteric sclerae ENMT: external ear and nose normal, oropharynx normal Neck: trachea midline, no thyromegaly Respiratory: normal respiratory effort, lungs clear to auscultation Cardiovascular: RRR, no murmur, no edema Gastrointestinal (Abdomen): normal bowel sounds, soft, nontender, no hepatosplenomegaly Musculoskeletal: no cyanosis or clubbing, extremities motor strength 5/5 Skin: no rashes, warm and dry Neurologic: awake Psychiatric: Orientation: alert and oriented x 3 Results & Data ([facility]) Vital Signs (Past 12 Hours) Vital Signs Temp Pulse Resp BP Pulse Ox 01/14/21 07:00 36.8 C 86 16 139/86 99 01/14/21 04:20 36.7 C 60 16 147/66 H 94 Laboratory Results Abnormal lab results 01/14/21 01/14/21 Range/Units 07:11 07:11 RBC 3.93 L (4.7-6.1) M/uL Hgb 9.0 L (14.0-18.0) g/dL Hct 26.5 L (42-52) % MCV 67.4 L (80-100) fL MCH 22.9 L (25-34) pg RDW Coeff of Ayanna 17.0 H (11.5-14.5) % Absolute Nucleated RBC 0.02 H (0-0) K/uL BUN 73 H (7-18) mg/dl Creatinine 6.29 H* D (0.6-1.4) mg/dl Glucose 100 H (70-99) mg/dl Calcium 8.1 L (8.5-10.1) mg/dl (1) Anemia Anemia type: unspecified type Qualified Code(s): D64.9 - Anemia, unspecified
--- NOTE | 2021-01-14 16:21 | Anesthesiology Consultation ---
Date of Service January 14, 2021 Assessment & Plan (1) Encounter for pre-operative examination: Chart Review Chart Review: Acceptable Risk for Surgery and Patient NOT seen in Pre Admission Testing Per hospitalist note, patient's respiratory status has improved, currently on 1L NC with SpO2 in high 90's. Plan for tunneled line for dialysis. Consults Requested none History Surgery Operation Date: 01/15/21 10:40 Proposed Procedures p Insertion Tunneled Dialysis Catheter - Gautam Quick MD Height/Weight Height: 5 ft 7 in Weight: 82.2 kg Allergies Allergy/AdvReac Type Severity Reaction Status Date / Time No Known Drug Allergies Allergy Unknown . Verified 01/12/21 08:55 Medications Home Medications Medication Instructions Recorded Confirmed Last Taken aspirin 81 mg PO DAILY 12/16/18 01/12/21 01/12/21 tamsulosin 0.4 mg PO HS 12/16/18 01/12/21 01/11/21 levalbuterol tartrate [Xopenex HFA] 2 inh INHALATION QID PRN 07/31/19 01/12/21 11/08/19 isosorbide dinitrate 20 mg PO BID 11/09/19 01/12/21 01/12/21 vitamin A and D 1 applic TOPICAL BID PRN 11/09/19 01/12/21 11/04/19 amlodipine 10 mg tablet 10 mg PO DAILY 01/31/20 01/12/21 01/12/21 Icy Hot Advanced Relief 1 applic TOPICAL BID PRN 09/10/20 01/12/21 Unknown bumetanide 1 mg PO DAILY 09/10/20 01/12/21 01/12/21 ketotifen fumarate [Zaditor] 1 drp OPB BID 09/10/20 01/12/21 Unknown pantoprazole [Protonix] 40 mg PO DAILY 09/10/20 01/12/21 01/12/21 trazodone 150 mg PO HS 09/10/20 01/12/21 01/11/21 carvedilol 25 mg PO BID 01/12/21 01/12/21 01/12/21 ciclesonide [Alvesco] 1 puff INHALATION BID 01/12/21 01/12/21 01/12/21 hydralazine 100 mg PO TID 01/12/21 01/12/21 01/12/21 hydrochlorothiazide 12.5 mg PO DAILY 01/12/21 01/12/21 01/12/21 Active Medications Generic Name Dose Route Start Last Admin Trade Name Jaqui PRN Reason Stop Dose Admin Amlodipine Besylate 10 mg 01/13/21 09:00 01/14/21 09:04 Amlodipine Besylate 5 Mg Tab PO 02/12/21 08:59 10 mg DAILY RA Administration Aspirin 81 mg 01/13/21 09:00 01/14/21 09:02 Aspirin 81 Mg Ectab PO 02/12/21 08:59 81 mg DAILY RA Administration Bumetanide 1 mg 01/13/21 09:00 01/13/21 09:21 Bumetanide 1 Mg Tab PO 02/12/21 08:59 1 mg DAILY RA Administration Carvedilol 12.5 mg 01/13/21 21:00 01/14/21 09:03 Carvedilol 12.5 Mg Tab PO 02/12/21 20:59 12.5 mg BID RA Administration Doxycycline Hyclate 100 mg 01/13/21 10:00 01/14/21 09:02 Doxycycline Hyclate 100 Mg Cap PO 01/20/21 09:59 100 mg BID@1000,2200 RA Administration Protocol Heparin Sodium (Porcine) 5,000 units 01/12/21 14:00 01/14/21 13:44 Heparin Sod 5,000 Unit/0.5 Ml Vial SQ 02/11/21 13:59 5,000 units Q8 RA Administration Hydralazine HCl 100 mg 01/12/21 14:00 01/14/21 13:44 Hydralazine Tab 50 Mg Tab PO 02/11/21 13:59 100 mg TID RA Administration Piperacillin Sod/Tazobactam 115 mls @ 28.75 mls/hr 01/12/21 22:00 01/14/21 13:34 Sod 3.375 gm/ Dextrose IV 01/19/21 21:59 Infused Q12H RA Infusion Protocol Furosemide 80 mg/ Syringe 8 mls @ 4 mls/min 01/13/21 11:30 01/14/21 09:10 IV 02/12/21 11:29 4 mls/min Q12 RA Administration Isosorbide Dinitrate 20 mg 01/12/21 12:30 01/14/21 13:43 Isosorbide Dinitrate 20 Mg Tab PO 02/11/21 12:29 20 mg BID@0700,1200 RA Administration Lidocaine 1 patch 01/13/21 11:30 01/14/21 09:02 Lidocaine 5% 1 Patch TD 02/12/21 11:29 1 patch QAM RA Administration Miscellaneous 1 ea 01/12/21 16:00 01/14/21 01:02 Zaditor: Order Awaiting Action N/A 02/11/21 15:59 Not Given QS RA Miscellaneous 1 ea 01/13/21 21:00 01/13/21 21:10 Remove Lidoderm Patch N/A 02/12/21 20:59 1 ea DAILY@2100 RA Administration Pantoprazole Sodium 40 mg 01/13/21 09:00 01/14/21 09:04 Pantoprazole 40 Mg Tab PO 02/12/21 08:59 40 mg DAILY RA Administration Tamsulosin HCl 0.4 mg 01/12/21 21:00 01/13/21 21:11 Tamsulosin Hcl 0.4 Mg Cap PO 02/11/21 20:59 0.4 mg HS RA Administration Trazodone HCl 150 mg 01/12/21 21:00 01/13/21 21:11 Trazodone Hcl 100 Mg Tab PO 02/11/21 20:59 150 mg HS RA Administration Past Medical History Medical History (Updated 01/14/21 @ 16:30 by Venkat Gomez MD) Acute respiratory failure with hypoxia BPH (benign prostatic hyperplasia) Chronic diastolic CHF (congestive heart failure) Chronic hepatitis C CKD (chronic kidney disease), stage IV COPD (chronic obstructive pulmonary disease) COVID-19 Patient positive for covid 09/2020. Tested NEGATIVE 4.4.. Hydrocele in adult Hypertension Renal cyst, acquired Tobacco abuse, in remission Patient presented to ER 01/12/2021: -Patient presenting from [facility] for evaluation of shortness of breath and hypoxia. Hypoxic on room air in the 80s, on admission requiring 4 L of oxygen via NC to maintain saturation -Hypoxia likely multifactorial -due to CKD stage IV /acute on chronic diastolic CHF / ? COPD exacerbation / ? Pneumonia -History of hypertensive CKD stage IV -baseline creatinine ~ 4.0 -S/p Bumex 3 mg IV in the ED. Diuresis may be difficult due to underlying advanced CKD. -Nephrology consult, case discussed with Dr. Quiroz. Hold on further diuretics at this time. -Garay placed for strict I's and O's, daily weights -Noted normal procalcitonin however will start empiric IV Zosyn, doxy. Check MRSA nasal swab and if positive add linezolid. No wheezing, will hold on steroids. PRN nebs. -CT chest without contrast to further evaluate - shows advanced emphysema, cardiomegaly noting a small to moderate pericardial effusion. There are small pleural effusions with bibasilar consolidation. This likely represents atelectasis and clinical correlation required. -Consider VQ scan if not improving with above treatments -Updated Echo - severe concentric LVH. LVEF 55 to 60%. No regional wall motion abnormalities noted. There is mild mitral regurg. There is mild tricuspid regurg. Moderate to severe pulmonary hypertension is present. The estimated pulmonary systolic pressure 63 mmHg. There is a small circumferential pericardial effusion. Small left pleural effusion. Compared to study obtained in July 2019, there has been a subtle increase in the pericardial effusion. The estimated pulmonary artery systolic pressure is relatively unchanged. A left pleural effusion is now noted. Past Family History Family History Other Diabetes Hypertension Past Surgical History Surgical History H/O hernia repair History of laryngoscopy Social History Smoking Status: Former smoker Smoking cigarettes per day: 03/11/20 Do You Dip or Chew Tobacco: No Hx Alcohol Use: No Hx Substance Use: No substance use type: does not use Physical Exam Vital Signs Last Vital Signs Temp 36.9 C 01/14/21 15:48 Pulse 65 01/14/21 15:48 Resp 21 01/14/21 15:48 BP 150/66 H 01/14/21 15:48 Pulse Ox 91 01/14/21 15:48 Testing Laboratory Results 01/14/21 07:11 01/14/21 07:11 Electrocardiogram Date: 01/12/21 DICTATED BY: Rolando Sy MD Test Reason : Blood Pressure : / mmHG Vent. 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
[2021-01-14] MEDS: traZODone HCL 100 MG TAB PO SCH (20:29)
[2021-01-14] MEDS: TAMSULOSIN HCL 0.4 MG CAP PO SCH (20:30)
[2021-01-15 06:30] LABS: Hematocrit (blood only) 28.3 % (42-52); Hemoglobin 9.7 g/dL (14.0-18.0); Mean Corpuscular Hgb Conc 34.3 g/dL (32-36); Mean Corpuscular Volume 67.1 fL (80-100); Mean Platelet Volume 9.8 fL (7.4-10.4); Nucleated RBC # (auto) 0.03 K/uL (0-0); Nucleated RBC % (auto) 0.4 %; Platelet Count 270 K/uL (130-400); RDW Standard Deviation 41.9 fL (36.4-46.3); Red Blood Count 4.22 M/uL (4.7-6.1); White Blood Count 6.79 K/uL (4.8-10.8)
[2021-01-15 07:19] LABS: BUN Creatinine Ratio 11.8 (10-20); Calcium 8.4 mg/dl (8.5-10.1); Creatinine Clr Calc Pharmacy 10.9 ml/min; Est GFR (African American) 9.3; Magnesium 1.9 mg/dl (1.8-2.4); Potassium 4.2 mmol/L (3.5-5.1)
[2021-01-15] MEDS: ASPIRIN 81 MG ECTAB PO SCH (09:29)
[2021-01-15] MEDS: ISOSORBIDE DINITRATE 20 MG TAB PO SCH ×2 (09:29→12:00)
[2021-01-15] MEDS: carvediloL 12.5 MG TAB PO SCH ×2 (09:29→21:45)
[2021-01-15] MEDS: PANTOprazole 40 MG TAB PO SCH (09:29)
[2021-01-15] MEDS: FUROSEMIDE 80 MG in SYRINGE 0 ML IV SCH ×2 (09:29→21:44)
[2021-01-15] MEDS: DOXYCYCLINE HYCLATE 100 MG CAP PO SCH ×2 (09:30→21:46)
[2021-01-15] MEDS: hydrALAZINE TAB 50 MG TAB PO SCH ×3 (09:30→21:45)
[2021-01-15] MEDS: amLODIPine BESYLATE 5 MG TAB PO SCH (09:30)
[2021-01-15] MEDS: LIDOCAINE 5% 1 PATCH TD SCH (09:31)
--- NOTE | 2021-01-15 10:23 | Nephrology Progress Note ---
Date of Service January 15, 2021 Assessment & Plan Admission and Anticipated Discharge Date Admission Date: January 12, 2021 Subjective Subjective: feels weak. Some SOB. Appetite and taste is low. PHYSICAL EXAMINATION: GENERAL: Elderly male who appears to be chronically ill. He is not in overt respiratory distress with oxygen. HEENT: Mucous membranes moist. NECK: Supple. No jugular venous distention. CHEST: Bilaterally decreased breath sounds, poor inspiratory effort. Prolonged expiration. CARDIOVASCULAR: S1, S2 regular. ABDOMEN: Soft, nontender. EXTREMITIES: Show no edema. LABORATORY TESTS: Renal Panel keeps getting worse. Chest x-ray, CT scan, echocardiogram, venous duplex were all reviewed and showed moderately severe pulmonary hypertension, pericardial effusion as well as pleural effusion with extensive emphysematous changes. ASSESSMENT AND PLAN: A 70-year-old male with chronic kidney disease stage V at baseline and progressively worsening towards end-stage renal disease, now admitted with shortness of breath. I have been consulted for renal failure. Acute on chronic renal failure: The acute component is very minimal as this is predominantly worsening chronic kidney disease 5 secondary to his underlying etiology, which is hepatitis C related versus drug induced versus hypertension related. In any case, he has already had a renal biopsy and at this point does not need any further workup for the etiology. He is not volume depleted and does not need IV fluid. If anything, he needs to be diuresed given pericardial effusion, pleural effusion, shortness of breath. Rec: 1 Continue Lasix iv 80 bid given pericardial eff and Pl eff. 2 Prepare for Dialysis--ESRD with uremic Symptoms and Now Also Pericardial eff--likely uremic vs CHF related eff. getting tunnelled HD cath this afternoon. 3 Will do dialysis from tomorrow Results & Data ([facility]) Vital Signs (Past 12 Hours) Vital Signs Temp Pulse Pulse Resp BP Pulse Ox 01/15/21 07:29 161/63 H 01/15/21 07:17 37.5 C 72 18 94 01/15/21 03:48 37.2 C 69 19 144/81 H 94 01/15/21 01:35 68 01/14/21 23:41 37.4 C 71 20 164/66 H 94
[2021-01-15] MEDS ORDERED: fentaNYL citrate 100 MCG/2 ML VIAL ONE (10:37)
[2021-01-15] MEDS ORDERED: PROPOFOL IV EMULSION 10 MG/ML 20 ML VIAL IV ONE (10:37)
[2021-01-15] MEDS ORDERED: ONDANSETRON INJ 2 MG/ML 2 ML VIAL ONE (10:39)
[2021-01-15] MEDS ORDERED: LIDOCAINE HCL 2% 2 ML VIAL/AMP(20MG/ML) INFIL ONE (10:39)
--- NOTE | 2021-01-15 10:50 | Hospitalist Progress Note ---
Date of Service January 15, 2021 Assessment & Plan (1) Acute respiratory failure with hypoxia: (2) Volume overload: (3) CKD (chronic kidney disease), stage IV: (4) Acute on chronic diastolic CHF (congestive heart failure): (5) COPD (chronic obstructive pulmonary disease): Patient presenting from [facility] for evaluation of shortness of breath and hypoxia. Hypoxic on room air in the 80s, on admission requiring 4 L of oxygen via NC to maintain saturation Hypoxia likely multifactorial -due to CKD stage IV /acute on chronic diastolic CHF / ? COPD exacerbation / ? Pneumonia CT chest showed advanced emphysema, cardiomegaly noting a small to moderate pericardial effusion. There are small pleural effusions with bibasilar consolidation. S/p Bumex 3 mg IV in the ED. Diuresis may be difficult due to underlying advanced CKD. Noted normal procalcitonin however will start empiric IV Zosyn, doxy. Updated Echo - severe concentric LVH. LVEF 55 to 60%. No regional wall motion abnormalities noted. There is mild mitral regurg. There is mild tricuspid regurg. Moderate to severe pulmonary hypertension is present. The estimated pulmonary systolic pressure 63 mmHg. There is a small circumferential pericardial effusion. Small left pleural effusion. Compared to study obtained in July 2019, there has been a subtle increase in the pericardial effusion. The estimated pulmonary artery systolic pressure is relatively unchanged. A left pleural effusion is now noted. Continue oxygen supplement Tunneled cath will place today then Plan for dialysis tomorrow Continue monitor closely (6) Hypertension: BP controlled Continue amlodipine, carvedilol, hydralazine, HCTZ, isosorbide (7) Anemia: Likely due to underlying CKD Hgb stable 9.7 stable No obvious signs of bleeding FOBT negative Continue monitor (8) DVT prophylaxis: On SQ heparin Admission and Anticipated Discharge Date Admission Date: January 12, 2021 Subjective Pt was seen and examined for follow of of SOB Lying in bed with no distress with 2 correctional officers at bedside Pt said that his breathing improves Denies any chest pain, palpitation and fever Physical Exam Physical Exam: General- No acute distress Head- atraumatic Eyes- PERRL, EOMI, ENT- oropharynx clear Neck- supple, no JVD Lungs- Diminished BS Heart- regular rhythm; no murmur Abdomen- normal bowel sounds, soft, nontender Extremities- no calf tenderness Neuro- alert, oriented x 3; PERRL, EOMI; no facial palsy; no dysarthria Skin- warm & dry Results & Data Results & Data ([facility]) Vital Signs (Past 12 Hours) Vital Signs Temp Pulse Pulse Resp BP Pulse Ox 01/15/21 07:29 161/63 H 01/15/21 07:17 37.5 C 72 18 94 01/15/21 03:48 37.2 C 69 19 144/81 H 94 01/15/21 01:35 68 01/14/21 23:41 37.4 C 71 20 164/66 H 94 (1) Anemia Anemia type: unspecified type Qualified Code(s): D64.9 - Anemia, unspecified (2) Hypertension Hypertension type: unspecified Qualified Code(s): I10 - Essential (primary) hypertension (3) Volume overload Hypervolemia type: unspecified Qualified Code(s): E87.70 - Fluid overload, unspecified
[2021-01-15] MEDS ORDERED: BUPIVACAINE 0.5 % 5 MG/1 ML MPF 30ML VIAL ONE (10:53)
[2021-01-15] MEDS ORDERED: LIDOCAINE HCL 1% 20 ML VIAL ONE (10:53)
[2021-01-15] MEDS ORDERED: BACITRACIN OINT 15 GM TUBE ONE (10:54)
[2021-01-15] MEDS ORDERED: HEPARIN 100 UNIT/ML 5ML FLUSH ONE (10:54)
[2021-01-15] MEDS ORDERED: HEPARIN SOD (PORCINE) 5,000 UNITS/ML VIAL ONE (10:55)
[2021-01-15] MEDS ORDERED: SODIUM CHLORIDE 0.9% INJ 10 ML VIAL ONE (10:56)
[2021-01-15] MEDS ORDERED: ceFAZolin 2000MG 2,000 MG/15 ML SYR IV ONE (11:01)
--- NOTE | 2021-01-15 11:01 | History & Physical Bridge Note ---
Date of Service January 15, 2021 History & Physical Bridge Note I have examined the patient, reviewed the History & Physical and in the interval since the performance of the History & Physical I have noted the following changes of clinical significance: no changes noted Supervising Physician Co-Signing Physician Notes Patient seen and examined by me, care coordinated with ANDRE Minaya, please refer to her note above for further detail. Patient is a 70-year-old male, with advanced CKD, recently admitted for COVID-19 infection, who became hypoxic and developed left flank pain, was evaluated by ED, and returned to present. Now presents back with oxygen requirement of 4 L. Concern for fluid overload on imaging. Elevated proBNP. Received 3 mg of IV Bumex in the ED. Garay catheter was placed. Nephrology was contacted, quin mmended to hold further Bumex. Patient was started on empiric IV antibiotics as above. Currently he is stable in bed, appears in no acute distress. Reports feeling somewhat better but still short of breath. Checked his Garay catheter which is draining clear yellow urine, patient is responding to diuretics well. He has somewhat diminished breath sounds, with some mild crackles at the bases. No wheezing noted. Heart sounds regular. Abdomen soft, nontender, however he has tenderness at left flank/back area. There is no lower extremity edema or tenderness to palpation. And he is moving extremities spontaneously. He is alert and oriented answering questions appropriately. Currently actually eating lunch. Denies any fevers or chills. Patient also has anemia. Denies any bleeding or blood in the stool. FOBT ordered, also iron panel ordered and peripheral smear. Anemia possibly secondary to CKD, need to rule out any acute bleed or iron deficiency anemia. Monitor H&H. Continue current treatment, will discuss further with nephrology tomorrow. Monitor I's and O's. If possible try to wean off oxygen. Julio Pastor MD
[2021-01-15] MEDS ORDERED: ATROPINE SULFATE 0.1 MG/ML 10ML SYR IV PRN (11:10)
[2021-01-15] MEDS ORDERED: ONDANSETRON INJ 2 MG/ML 2 ML VIAL IV PRN (11:10)
[2021-01-15] MEDS ORDERED: PROMETHAZINE HCL 12.5 MG in SODIUM CHLORIDE 0.9% 50 ML IV PRN (11:10)
[2021-01-15] MEDS ORDERED: ePHEDrine sulfate 50 MG/ML AMP IV PRN (11:10)
[2021-01-15 11:50] LABS: Phosphorus 3.2 mg/dl (2.5-4.9)
--- NOTE | 2021-01-15 12:31 | Post Operative Brief Note ---
Immediate Post Op Note v1 Date of Surgery January 15, 2021 Pre & Post Diagnosis Operation Date: 01/15/21 10:40 Pre-Op Diagnosis: Renal Failure Post-Op Diagnosis: Renal Failure I identified the patient and participated in the time-out.: Yes Procedure Operation Date: 01/15/21 10:40 Actual Procedures p Insertion Tunneled Dialysis Catheter to Right Internal Jugular Vein(Right) - Gautam Quick MD Surgeon Gautam Quick MD [employer] surgical supply assistant Estimated Blood Loss 5 Findings Consistent with Post-Op Diagnosis patent on right internal jugular vein Fluids 200ml Specimens none Anesthesia Type General Complications none Disposition Accompanied Patient To Recovery: Yes Disposition: Recovery Room Overlapping Procedure I was immediately available: during the entire case.
--- NOTE | 2021-01-15 12:49 | Fluoroscopy Report ---
FL chest 1V frontal CLINICAL HISTORY: INSERTION TUNNELED DIALYSIS CATHETER COMPARISON STUDY: Chest CT January 12, 2021. FLUOROSCOPY TIME: 2 seconds. FLUOROSCOPIC IMAGES: 2 FINDINGS: Fluoroscopy was provided during placement of a dual lumen right internal jugular tunneled d ialysis catheter. Catheter tip projects over the SVC. IMPRESSION: Fluoroscopy provided during insertion of a right internal jugular tunneled dialysis cath eter. ACT 112: Negative or not required by law. Electronically signed by: Jenaro Warren M.D. 01/15/2021 12:47 PM
[2021-01-15] MEDS: fentaNYL citrate 100 MCG/2 ML VIAL IV PRN ×2 (12:52→12:57)
[2021-01-15] MEDS: PIPERACILLIN/TAZOBACTAM 3.375 GM in DEXTROSE 5% 100 ML IV SCH ×2 (13:40→21:47)
[2021-01-15] MEDS ORDERED: LEVALBUTEROL TARTRATE 15 GM HFA.AER.AD INH PRN (13:54)
[2021-01-15] MEDS ORDERED: NON-FORMULARY MEDICATION (Camphor-Menthol [Icy Hot Advanced Relief] 11-16 % Cream) TOP PRN (13:54)
--- NOTE | 2021-01-15 14:07 | Anesthesiology Progress Note ---
Date of Service January 15, 2021 Anesthesia Post Procedure Vital Signs Vital Signs: Temp Pulse Pulse Pulse Resp BP Pulse Ox 01/15/21 13:33 63 18 167/82 H 01/15/21 13:05 36.8 C 62 16 157/62 H 96 01/15/21 12:55 61 16 149/66 H 98 01/15/21 12:45 67 14 159/80 H 99 01/15/21 12:37 36.5 C 66 12 150/69 H 99 01/15/21 11:11 37.3 C 77 18 148/88 H 93 01/15/21 08:00 69 01/15/21 07:29 161/63 H 01/15/21 07:17 37.5 C 72 18 94 01/15/21 03:48 37.2 C 69 19 144/81 H 94 01/15/21 01:35 68 01/14/21 23:41 37.4 C 71 20 164/66 H 94 01/14/21 19:59 36.8 C 62 20 165/72 H 95 01/14/21 15:48 36.9 C 65 21 150/66 H 91 Pain Intensity Chest: Pain Intensity: 0 Transfer of Care Handoff Completed per policy Notes Mental Status: alert / awake / arousable and participated in evaluation Patient Amnestic to Procedure: Yes Nausea / Vomiting: adequately controlled Pain: adequately controlled Airway Patency, RR, SpO2: stable & adequate BP & HR: stable & adequate Hydration State: stable & adequate Anesthetic Complications: no major complications apparent and Pt Satisfied with anesthetic care
[2021-01-15] MEDS ORDERED: PETROLATUM 16 OZ JAR EXT PRN (14:08)
[2021-01-15] MEDS: HEPARIN SOD 5,000 UNIT/0.5 ML VIAL SQ SCH (15:39)
--- NOTE | 2021-01-15 16:26 | Operative Report (OR) ---
DATE OF OPERATION: 01/15/2021 PREOPERATIVE DIAGNOSIS: Renal failure. POSTOPERATIVE DIAGNOSIS: Renal failure. PROCEDURE: Insertion of tunneled dialysis catheter permanent on right internal jugular vein. SURGEON: Gautam Quick MD. ANESTHESIA: General. ESTIMATED BLOOD LOSS: About 5 mL. FINDINGS: Patent on the right internal jugular vein. COMPLICATIONS: None. INDICATIONS FOR THE PROCEDURE: This is a 70-year-old gentleman who was admitted to hospital for renal failure needing dialysis catheter insertion. I did talk to the patient about the benefit, the risk, alternate procedure. I indicated the risks may include but not limited such as bleeding, infection, blood clot and dysfunction catheter, myocardial infarction, stroke, even . The patient understands and he signed informed consent and I answered all questions. DETAILS OF PROCEDURE: After we identified the patient and verified the procedure, we brought the patient to the OR, put the patient in the supine position. The patient received SCD on bilateral legs to prevent DVT. Also, patient received 2 grams Ancef IV for prophylactic antibiotic. The patient received general anesthesia without difficulty. The right side of the neck and the right side of upper chest was prepped and draped in routine sterile fashion. After timeout, we put the patient in Trendelenburg position. I used ultrasound guidance, using a 16-gauge needle, punctured the right internal jugular vein, easy blood return, and passed the wire and removed the needle. Then we used the fluorescence to confirm the wire located in the superior vena cava. Then, we injected the local anesthesia on the right upper chest wall and made about 0.5 cm incision and then passed the dialysis catheter through the right upper chest wall to reach the right side of the neck. Then, we used dilator, passed the wire, and once we dilated the incision site, then we passed a dilator with sheath, and removed the dilator and removed the wire, leaving the sheath in. Then we passed the catheter towards the sheath, and removed the sheath. Again, we used fluorescence to confirm the tip of the catheter located at the junction between the right atrium and the superior vena cava. At this moment, we used empty syringe to connect to the catheter, easy blood return on the both the catheter. Then we injected with normal saline and heparin to flush through catheter and hemostat was obtained. Then, I used 4-0 Vicryl to close the chest wall incision interruptedly and used 0 nylon to fix the catheter on the skin. Then, we put the dressing on. The patient tolerated the procedure well. All instrument, needle and sponge count were correct x2 at the end of the case. The patient transferred to recovery room in stable condition. After the procedure, I did talk to the patient about the OR finding and the procedure we did, he understands. I attest to the content of the Intraoperative Record and any orders documented therein. Any exceptions are noted below. MILLIE
[2021-01-15] MEDS: ACETAMINOPHEN 325 MG TAB PO PRN (20:25)
[2021-01-15] MEDS: FLUTICASONE FUROATE 200MCG 14 PUFFS/INHALER INH SCH (21:45)
[2021-01-15] MEDS: traZODone HCL 100 MG TAB PO SCH (21:46)
[2021-01-15] MEDS: TAMSULOSIN HCL 0.4 MG CAP PO SCH (21:46)
--- NOTE | 2021-01-15 22:00 | Communication Note ---
Date of Service: January 15, 2021 Notified by RN of increased bleeding from dialysis catheter site despite pressure dressing changes. RN requested to notify surgeon. Hold aspirin for now. Will relay to AM provider.
[2021-01-15 22:52] LABS: Basophils # (auto) 0.01 K/uL (0-0.2); Basophils % (auto) 0.1 %; Eosinophils # (auto) 0.13 K/uL (0-0.5); Eosinophils % (auto) 1.6 %; Hematocrit (blood only) 27.9 % (42-52); Hemoglobin 9.6 g/dL (14.0-18.0); Immature Granulocytes # (auto) 0.05 K/uL (0.00-0.02); Immature Granulocytes % (auto) 0.6 %; Lymphocytes # (auto) 1.27 K/uL (1.2-3.4); Lymphocytes % (auto) 15.4 %; Mean Corpuscular Hemoglobin 23.1 pg (25-34); Mean Corpuscular Hgb Conc 34.4 g/dL (32-36); Mean Corpuscular Volume 67.1 fL (80-100); Mean Platelet Volume 9.2 fL (7.4-10.4); Monocytes # (auto) 1.34 K/uL (0.11-0.59); Monocytes % (auto) 16.2 %; Neutrophils # (auto) 5.45 K/uL (1.4-6.5); Neutrophils % (auto) 66.1 %; Nucleated RBC # (auto) 0.03 K/uL (0-0); Nucleated RBC % (auto) 0.3 %; Platelet Count 262 K/uL (130-400); RDW Coefficient of Variation 17.1 % (11.5-14.5); RDW Standard Deviation 42.1 fL (36.4-46.3); Red Blood Count 4.16 M/uL (4.7-6.1); White Blood Count 8.25 K/uL (4.8-10.8)
[2021-01-15 23:05] LABS: INR 1.1 (0.9-1.1); Prothrombin Time 11.1 Seconds (9.0-12.0)
[2021-01-15 23:28] LABS: Microcytosis Present; Target Cells 1+
[2021-01-16 06:51] LABS: Hematocrit (blood only) 25.6 % (42-52); Hemoglobin 8.8 g/dL (14.0-18.0); Mean Corpuscular Hgb Conc 34.4 g/dL (32-36); Mean Platelet Volume 8.9 fL (7.4-10.4); Platelet Count 223 K/uL (130-400); RDW Coefficient of Variation 17.1 % (11.5-14.5); RDW Standard Deviation 42.4 fL (36.4-46.3); Red Blood Count 3.82 M/uL (4.7-6.1); White Blood Count 7.27 K/uL (4.8-10.8)
[2021-01-16] MEDS ORDERED: SODIUM CHLORIDE 0.9% 1000ML 1,000 ML IV PRN (07:00)
[2021-01-16] MEDS ORDERED: LIDOCAINE HCL 1% 20 ML VIAL INJ ONE (07:16)
[2021-01-16] MEDS ORDERED: LIDOCAINE HCL 1% 20 ML VIAL ONE (07:17)
[2021-01-16 07:45] LABS: BUN Creatinine Ratio 13.1 (10-20); Calcium 8.4 mg/dl (8.5-10.1); Creatinine Clr Calc Pharmacy 10.7 ml/min; Est GFR (African American) 9.1; Est GFR (Non-African American) 7.9; Phosphorus 4.4 mg/dl (2.5-4.9)
[2021-01-16] MEDS: traMADol HCL 50 MG TABLET PO PRN ×2 (08:24→21:41)
[2021-01-16] MEDS: amLODIPine BESYLATE 5 MG TAB PO SCH (08:25)
[2021-01-16] MEDS: ISOSORBIDE DINITRATE 20 MG TAB PO SCH ×2 (08:25→12:30)
[2021-01-16] MEDS: BUMETANIDE 1 MG TAB PO SCH (08:26)
[2021-01-16] MEDS: hydrALAZINE TAB 50 MG TAB PO SCH ×3 (08:26→21:42)
[2021-01-16] MEDS: PANTOprazole 40 MG TAB PO SCH (08:26)
[2021-01-16] MEDS: carvediloL 12.5 MG TAB PO SCH ×2 (08:27→21:43)
[2021-01-16] MEDS: FUROSEMIDE 80 MG in SYRINGE 0 ML IV SCH ×2 (08:27→21:41)
[2021-01-16 09:09] LABS: Hepatitis B Surface Ab Quant < 3.10 mIU/mL (>or=10mIU/mL Immune); Hepatitis B Surface Antibody Non-Immune
[2021-01-16 09:20] LABS: Hepatitis B Surf Ag Rflx Conf Neg (Neg)
--- NOTE | 2021-01-16 10:09 | Surgery Progress Note ---
Date of Service F/U S/P insertion dialysis catheter, POD 1, pt has some oozing on neck incision site, pressure dressing on, pt denies dizziness, January 16, 2021 Assessment & Plan (1) Anemia: (2) CKD (chronic kidney disease) stage 4, GFR 15-29 ml/min: pt is a 70 year-old male who was admitted to hospital for renal failure, IMP; renal failure Plan, I was asked for insertion tunneled dialysis catheter, D/W benefits, risks and alternatives of the surgery, the risks - infection, bleeding, injury other organs, dysfunction catheter, MS, , pt understood, he agrees with the surgery, I answered all questions, pt wants to do tomorrow, - NPO and hold heparin after MN, 01/16/2021 10:06AM I talked to pt , need put one suture on neck skin incision site, D/W benefits, risks and alternatives of the place suture, pt understood, he agrees with it, under sterile local anesthesia, I place one 2-0 suture on neck incision site, the oozing is stop, place dressing on, pt tolerated the it well, pt can have dialysis today, will F/U, Admission and Anticipated Discharge Date Admission Date: January 12, 2021 Supervising Physician Co-Signing Physician Notes Patient seen and examined by me, care coordinated with ANDRE Minaya, please refer to her note above for further detail. Patient is a 70-year-old male, with advanced CKD, recently admitted for COVID-19 infection, who became hypoxic and developed left flank pain, was evaluated by ED, and returned to present. Now presents back with oxygen requirement of 4 L. Concern for fluid overload on imaging. Elevated proBNP. Received 3 mg of IV Bumex in the ED. Garay catheter was placed. Nephrology was contacted, recommended to hold further Bumex. Patient was started on empiric IV an tibiotics as above. Currently he is stable in bed, appears in no acute distress. Reports feeling somewhat better but still short of breath. Checked his Garay catheter which is draining clear yellow urine, patient is responding to diuretics well. He has somewhat diminished breath sounds, with some mild crackles at the bases. No wheezing noted. Heart sounds regular. Abdomen soft, nontender, however he has tenderness at left flank/back area. There is no lower extremity edema or tenderness to palpation. And he is moving extremities spontaneously. He is alert and oriented answering questions appropriately. Currently actually eating lunch. Denies any fevers or chills. Patient also has anemia. Denies any bleeding or blood in the stool. FOBT ordered, also iron panel ordered and peripheral smear. Anemia possibly secondary to CKD, need to rule out any acute bleed or iron deficiency anemia. Monitor H&H. Continue current treatment, will discuss further with nephrology tomorrow. M onitor I's and O's. If possible try to wean off oxygen. Julio Pastor MD Subjective Pt was seen and examined for follow of of SOB Lying in bed with no distress with 2 correctional officers at bedside Pt said that his breathing improves Denies any chest pain, palpitation and fever Physical Exam Constitutional: WD/WN, vitals as above well developed and well nourished Eyes: PERRL, conjunctivae normal, anicteric sclerae ENMT: external ear and nose normal, oropharynx normal Neck: trachea midline, no thyromegaly small oozing on neck incision site, Respiratory: normal respiratory effort, lungs clear to auscultation Cardiovascular: RRR, no murmur, no edema Gastrointestinal (Abdomen): normal bowel sounds, soft, nontender, no hepatosplenomegaly Musculoskeletal: no cyanosis or clubbing, extremities motor strength 5/5 Skin: no rashes, warm and dry Neurologic: awake Psychiatric: Orientation: alert and oriented x 3 Results & Data ([facility]) Vital Signs (Past 12 Hours) Vital Signs Temp Pulse Pulse Pulse Resp BP BP 01/16/21 09:40 61 133/65 01/16/21 09:20 61 148/70 H 01/16/21 09:07 37.0 C 63 63 167/73 H 01/16/21 08:18 36.7 C 63 17 169/77 H 01/16/21 04:39 36.9 C 57 L 18 162/69 H 01/15/21 23:50 36.8 C 66 20 166/66 H Pulse Ox 01/16/21 09:40 01/16/21 09:20 01/16/21 09:07 01/16/21 08:18 93 01/16/21 04:39 96 01/15/21 23:50 96 Laboratory Results Abnormal lab results 01/15/21 01/16/21 01/16/21 Range/Units 22:38 06:31 06:31 RBC 4.16 L 3.82 L (4.7-6.1) M/uL Hgb 9.6 L 8.8 L (14.0-18.0) g/dL Hct 27.9 L 25.6 L (42-52) % MCV 67.1 L 67.0 L (80-100) fL MCH 23.1 L 23.0 L (25-34) pg RDW Coeff of Ayanna 17.1 H 17.1 H (11.5-14.5) % Dade # (Auto) 1.34 H (0.11-0.59) K/uL Immature Gran # (Auto) 0.05 H (0.00-0.02) K/uL Absolute Nucleated RBC 0.03 H (0-0) K/uL BUN 85 H (7-18) mg/dl Creatinine 6.48 H* (0.6-1.4) mg/dl Calcium 8.4 L (8.5-10.1) mg/dl Hep Bs Antibody, Quant (>or=10mIU/mL Immune) mIU/mL 01/16/21 Range/Units 06:35 RBC (4.7-6.1) M/uL Hgb (14.0-18.0) g/dL Hct (42-52) % MCV (80-100) fL MCH (25-34) pg RDW Coeff of Ayanna (11.5-14.5) % Dade # (Auto) (0.11-0.59) K/uL Immature Gran # (Auto) (0.00-0.02) K/uL Absolute Nucleated RBC (0-0) K/uL BUN (7-18) mg/dl Creatinine (0.6-1.4) mg/dl Calcium (8.5-10.1) mg/dl Hep Bs Antibody, Quant < 3.10 L (>or=10mIU/mL Immune) mIU/mL (1) Anemia Anemia type: unspecified type Qualified Code(s): D64.9 - Anemia, unspecified
--- NOTE | 2021-01-16 11:42 | Dialysis Progress Note ---
Date of Service January 16, 2021 Assessment & Plan (1) ESRD needing dialysis: he has progressed to ESRD. will do dialysis 3 days in a row given uremic pericardial effusion. From next week he will have 3 days a week dialysis and will continue that even after hospital discharge. necessary arrangements will have to be made regarding the [facility]. Admission and Anticipated Discharge Date Admission Date: January 12, 2021 Subjective patient was seen during dialysis. so far tolerating it well. however the dialysis catheter is not working very good and where barely getting a blood flow of 200. Feels weak and tired Physical Exam Constitutional: WD/WN, vitals as above well developed and well nourished Eyes: PERRL, conjunctivae normal, anicteric sclerae ENMT: external ear and nose normal, oropharynx normal Neck: trachea midline, no thyromegaly small oozing on neck incision site, Respiratory: normal respiratory effort, lungs clear to auscultation Cardiovascular: RRR, no murmur, no edema Gastrointestinal (Abdomen): normal bowel sounds, soft, nontender, no hepatosplenomegaly Musculoskeletal: no cyanosis or clubbing, extremities motor strength 5/5 Skin: no rashes, warm and dry Neurologic: awake Psychiatric: Orientation: alert and oriented x 3 Results & Data ([facility]) Vital Signs (Past 12 Hours) Vital Signs Temp Pulse Pulse Pulse Resp BP BP 01/16/21 11:20 58 L 135/66 01/16/21 11:00 58 L 143/66 H 01/16/21 10:40 57 L 139/67 01/16/21 10:20 59 L 129/68 01/16/21 10:00 62 127/63 01/16/21 09:40 61 133/65 01/16/21 09:20 61 148/70 H 01/16/21 09:07 37.0 C 63 63 167/73 H 01/16/21 08:18 36.7 C 63 17 169/77 H 01/16/21 04:39 36.9 C 57 L 18 162/69 H 01/15/21 23:50 36.8 C 66 20 166/66 H Pulse Ox 01/16/21 11:20 01/16/21 11:00 01/16/21 10:40 01/16/21 10:20 01/16/21 10:00 01/16/21 09:40 01/16/21 09:20 01/16/21 09:07 01/16/21 08:18 93 01/16/21 04:39 96 01/15/21 23:50 96
[2021-01-16] MEDS: CEFDINIR 300 MG CAP PO SCH ×2 (12:20→17:52)
--- NOTE | 2021-01-16 14:54 | Hospitalist Progress Note ---
Date of Service January 16, 2021 Assessment & Plan (1) Acute respiratory failure with hypoxia: (2) Volume overload: (3) Acute on chronic diastolic CHF (congestive heart failure): Patient presenting from [facility] for evaluation of shortness of breath and hypoxia. Hypoxic on room air in the 80s, on admission requiring 4 L of oxygen via NC to maintain saturation Hypoxia likely multifactorial -due to CKD stage IV /acute on chronic diastolic CHF / ? COPD exacerbation / ? Pneumonia CT chest showed advanced emphysema, cardiomegaly noting a small to moderate pericardial effusion. There are small pleural effusions with bibasilar consolidation. S/p Bumex 3 mg IV in the ED. Diuresis may be difficult due to underlying advanced CKD. Noted normal procalcitonin however will start empiric IV Zosyn, doxy. Updated Echo - severe concentric LVH. LVEF 55 to 60%. No regional wall motion abnormalities noted. There is mild mitral regurg. There is mild tricuspid regurg. Moderate to severe pulmonary hypertension is present. The estimated pulmonary systolic pressure 63 mmHg. There is a small circumferential pericardial effusion. Small left pleural effusion. Compared to study obtained in July 2019, there has been a subtle increase in the pericardial effusion. The estimated pulmonary artery systolic pressure is relatively unchanged. A left pleural effusion is now noted. Continue IV lasix 80mg BID Continue oxygen supplement Continue monitor closely (4) ESRD needing dialysis: Tunneled cath will placed on 01/15 and pt had 1st HD today Will get HD in the next 2 days ( Wednesday and Wed) [facility] (5) Pneumonia: (6) COPD (chronic obstructive pulmonary disease): Sputum cx positive for gram negative bacilli Will deescalate IV zosyn to Cefdinir and discontinue doxycycline Continue oxygen supplement Follow up sputum sensitivity (7) Hypertension: BP controlled Continue amlodipine, carvedilol, hydralazine, HCTZ, isosorbide (8) Anemia: Likely due to underlying CKD Hgb stable 8.8 stable No obvious signs of bleeding FOBT negative Continue monitor (9) DVT prophylaxis: On SQ heparin on hold due to bleeding from the Tunnel cath access will add SCD for now Admission and Anticipated Discharge Date Admission Date: January 12, 2021 Subjective Pt was seen and examined for follow up. Lying in bed with no distress Pt said that he is having some pain on neck skin incision site where the tunnel cath placed He had his 1st HD today and tolerated well He said that he feels his breathing the same Denies any chest pain, palpitation, dizziness and fever Review of Systems Review of Systems: All systems reviewed & are unremarkable except as noted in Subjective Physical Exam Physical Exam: General- No acute distress Head- atraumatic Eyes- PERRL, EOMI, ENT- oropharynx clear Neck- supple, no JVD Lungs- Diminished BS Heart- regular rhythm; no murmur Abdomen- normal bowel sounds, soft, nontender Extremities- no calf tenderness Neuro- alert, oriented x 3; PERRL, EOMI; no facial palsy; no dysarthria Skin- warm & dry Results & Data Results & Data ([facility]) Vital Signs (Past 12 Hours) Vital Signs Temp Pulse Pulse Pulse Resp BP BP 01/16/21 11:57 37.2 C 59 L 160/68 H 01/16/21 11:40 59 L 160/68 H 01/16/21 11:20 58 L 135/66 01/16/21 11:00 58 L 143/66 H 01/16/21 10:40 57 L 139/67 01/16/21 10:20 59 L 129/68 01/16/21 10:00 62 127/63 01/16/21 09:40 61 133/65 01/16/21 09:20 61 148/70 H 01/16/21 09:07 37.0 C 63 63 167/73 H 01/16/21 08:18 36.7 C 63 17 169/77 H 01/16/21 04:39 36.9 C 57 L 18 162/69 H Pulse Ox 01/16/21 11:57 01/16/21 11:40 01/16/21 11:20 01/16/21 11:00 01/16/21 10:40 01/16/21 10:20 01/16/21 10:00 01/16/21 09:40 01/16/21 09:20 01/16/21 09:07 01/16/21 08:18 93 01/16/21 04:39 96 (1) Anemia Anemia type: unspecified type Qualified Code(s): D64.9 - Anemia, unspecified (2) Hypertension Hypertension type: unspecified Qualified Code(s): I10 - Essential (primary) hypertension (3) Volume overload Hypervolemia type: unspecified Qualified Code(s): E87.70 - Fluid overload, unspecified
[2021-01-16] MEDS: FLUTICASONE FUROATE 200MCG 14 PUFFS/INHALER INH SCH (21:41)
[2021-01-16] MEDS: TAMSULOSIN HCL 0.4 MG CAP PO SCH (21:42)
[2021-01-16] MEDS: traZODone HCL 100 MG TAB PO SCH (21:42)
[2021-01-17 06:24] LABS: Hematocrit (blood only) 26.1 % (42-52); Hemoglobin 9.1 g/dL (14.0-18.0); Mean Corpuscular Hemoglobin 23.2 pg (25-34); Mean Corpuscular Hgb Conc 34.9 g/dL (32-36); Mean Corpuscular Volume 66.6 fL (80-100); Mean Platelet Volume 9.3 fL (7.4-10.4); Nucleated RBC # (auto) 0.02 K/uL (0-0); Nucleated RBC % (auto) 0.2 %; Platelet Count 253 K/uL (130-400); RDW Coefficient of Variation 17.3 % (11.5-14.5); Red Blood Count 3.92 M/uL (4.7-6.1); White Blood Count 9.47 K/uL (4.8-10.8)
[2021-01-17] MEDS ORDERED: SODIUM CHLORIDE 0.9% 1000ML 1,000 ML IV PRN (07:00)
[2021-01-17] MEDS ORDERED: EPOETIN ALFA 10,000 UNITS/ML VIAL IV ONE (07:00)
[2021-01-17] MEDS ORDERED: HEPARIN SOD (PORCINE) 1000 UNIT/ML IV ONE (07:00)
[2021-01-17 07:08] LABS: BUN Creatinine Ratio 13.3 (10-20); Calcium 8.7 mg/dl (8.5-10.1); Creatinine Clr Calc Pharmacy 13.6 ml/min; Est GFR (African American) 12.2; Est GFR (Non-African American) 10.6; Potassium 4.1 mmol/L (3.5-5.1)
[2021-01-17] MEDS: traMADol HCL 50 MG TABLET PO PRN (08:26)
[2021-01-17] MEDS: FUROSEMIDE 80 MG in SYRINGE 0 ML IV SCH ×3 (08:27→21:04)
[2021-01-17] MEDS: ISOSORBIDE DINITRATE 20 MG TAB PO SCH ×2 (08:27→12:35)
[2021-01-17] MEDS: BUMETANIDE 1 MG TAB PO SCH (08:28)
[2021-01-17] MEDS: hydrALAZINE TAB 50 MG TAB PO SCH ×3 (08:28→20:45)
[2021-01-17] MEDS: carvediloL 12.5 MG TAB PO SCH ×2 (08:28→20:46)
[2021-01-17] MEDS: amLODIPine BESYLATE 5 MG TAB PO SCH (08:29)
[2021-01-17] MEDS: PANTOprazole 40 MG TAB PO SCH (08:29)
[2021-01-17] MEDS: ACETAMINOPHEN 325 MG TAB PO PRN (12:43)
--- NOTE | 2021-01-17 12:52 | Progress Notes ---
DATE: 01/17/2021 NEPHROLOGY PROGRESS NOTE SUBJECTIVE: The patient feels weak, cold and tired. He also had hypoxia at night. He is also complaining of lot of pain in his knee, which is new. He had dialysis yesterday, but the catheter did not work very well. We could barely get blood flow of 250. He is scheduled for dialysis again later this afternoon. OBJECTIVE: VITAL SIGNS: Blood pressure 178/79, pulse rate 65, temperature 36.6, 96% on 2 liter nasal cannula. HEENT: Mucous membrane is moist. NECK: Painful at the catheter insertion site. LUNGS: Poor inspiratory effort, so very limited quality exam, but some bilateral crackles heard. CARDIOVASCULAR: S1 and S2, regular. ABDOMEN: Soft, nontender. EXTREMITIES: Show no edema. LABORATORY TEST: From this morning was reviewed and shows hemoglobin of 9.1. Sodium 137, potassium 4.1, creatinine is 5.08, BUN is 68. ASSESSMENT AND PLAN: A 70-year-old male who had preexisting chronic kidney disease V at baseline and has progressively worsening towards end-stage renal disease, was admitted with shortness of breath. 1. End-stage renal disease: At this point, I have declared him as end-stage renal disease. He had a baseline creatinine of height 4 and 5 even prior to this hospitalization. This has already been worked up extensively by his registered nurse first assistant including kidney biopsy. We will do dialysis again later today for 3 hours and then again tomorrow for 3 hours, after that the plan is to do dialysis 3 times a week from next week. At this time, the big concern is about the catheter. It did not work very well yesterday. We may have to call the surgeon again for further repositioning of the catheter. 2. Shortness of breath: This is multifactorial. He does have evidence of fluid overload and I will increase the dose of Lasix. We will also try to take some fluid off with dialysis.
--- NOTE | 2021-01-17 13:02 | Surgery Progress Note ---
Date of Service F/U S/P dialysis catheter, pt is doing fine, no more bleeding on neck, pt had dialysis yesterday , on issue, January 17, 2021 Assessment & Plan (1) Anemia: (2) CKD (chronic kidney disease) stage 4, GFR 15-29 ml/min: pt is a 70 year-old male who was admitted to hospital for renal failure, IMP; renal failure Plan, I was asked for insertion tunneled dialysis catheter, D/W benefits, risks and alternatives of the surgery, the risks - infection, bleeding, injury other organs, dysfunction catheter, IA, , pt understood, he agrees with the surgery, I answered all questions, pt wants to do tomorrow, - NPO and hold heparin after MN, 01/16/2021 10:06AM I talked to pt , need put one suture on neck skin incision site, D/W benefits, risks and alternatives of the place suture, pt understood, he agrees with it, under sterile local anesthesia, I place one 2-0 suture on neck incision site, the oozing is stop, place dressing on, pt tolerated the it well, pt can have dialysis today, will F/U, 01/17/2021 12:59PM no more bleeding on neck, back to heparin ok, sign off today, please call with questions, thanks, keep the dressing on for 3 days, F/U prn, Admission and Anticipated Discharge Date Admission Date: January 12, 2021 Supervising Physician Co-Signing Physician Notes Patient seen and examined by me, care coordinated with ANDRE Minaya, please refer to her note above for further detail. Patient is a 70-year-old male, with advanced CKD, recently admitted for COVID-19 infection, who became hypoxic and developed left flank pain, was evaluated by ED, and returned to present. Now presents back with oxygen requirement of 4 L. Concern for fluid overload on imaging. Elevated proBNP. Received 3 mg of IV Bumex in the ED. Garay catheter was placed. Nephrology was contacted, recommended to hold further Bumex. Patient was started on empiric IV antibiotics as above. Currently he is stable in bed, appears in no acute distress. Reports feeling somewhat better but still short of breath. Checked his Garay catheter which is draining clear yellow urine, patient is responding to diuretics well. He has somewhat diminished breath sounds, with some mild crackles at the bases. No wheezing noted. Heart sounds regular. Abdomen soft, nontender, however he has tenderness at left flank/back area. There is no lower extremity edema or tenderness to palpation. And he is moving extremities spontaneously. He is alert and oriented answering questions appropriately. Currently actually eating lunch. Denies any fevers or chills. Patient also has anemia. Denies any bleeding or blood in the stool. FOBT ordered, also iron panel ordered and peripheral smear. Anemia possibly secondary to CKD, need to rule out any acute bleed or iron deficiency anemia. Monitor H&H. Continue current treatment, will discuss further with nephrology tomorrow. Monitor I's and O's. If possible try to wean off oxygen. Julio Pastor MD Subjective Pt was seen and examined for follow up. Lying in bed with no distress Pt said that he is having some pain on neck skin incision site where the tunnel cath placed He had his 1st HD today and tolerated well He said that he feels his breathing the same Denies any chest pain, palpitation, dizziness and fever Physical Exam Constitutional: WD/WN, vitals as above well developed and well nourished Eyes: PERRL, conjunctivae normal, anicteric sclerae ENMT: external ear and nose normal, oropharynx normal Neck: trachea midline, no thyromegaly no more bleeding on neck, the catheter intact, Respiratory: normal respiratory effort, lungs clear to auscultation Cardiovascular: RRR, no murmur, no edema Gastrointestinal (Abdomen): normal bowel sounds, soft, nontender, no hepatosplenomegaly Musculoskeletal: no cyanosis or clubbing, extremities motor strength 5/5 Skin: no rashes, warm and dry Neurologic: awake Psychiatric: Orientation: alert and oriented x 3 Results & Data ([facility]) Vital Signs (Past 12 Hours) Vital Signs Temp Pulse Pulse Pulse Resp BP BP 01/17/21 11:53 36.6 C 65 17 178/79 H 01/17/21 10:18 01/17/21 08:43 67 01/17/21 08:25 37.2 C 67 18 171/79 H 01/17/21 03:53 37.4 C 72 18 161/73 H Pulse Ox 01/17/21 11:53 96 01/17/21 10:18 94 01/17/21 08:43 01/17/21 08:25 98 01/17/21 03:53 96 (1) Anemia Anemia type: unspecified type Qualified Code(s): D64.9 - Anemia, unspecified
[2021-01-17] MEDS: HEPARIN SOD (PORCINE) 1000 UNIT/ML IV SCH (15:03)
[2021-01-17] MEDS ORDERED: HEPARIN 100 UNIT/ML 5ML FLUSH ONE ×2 (15:25→15:30)
--- NOTE | 2021-01-17 15:55 | XRay Report ---
XR chest 1V portable HISTORY: 70 years-old Male f/u, s/p tunnel cath status post placement of a right IJ dual-lumen hemod ialysis catheter COMPARISON: Chest radiograph and chest CT 01/12/2021 TECHNIQUE: Portable AP view of the chest FINDINGS: Cardiomegaly. Right IJ hemodialysis catheter is noted with distal tip terminating in the expected loc ation of the inferior internal jugular vein. Small left and trace right pleural effusions with persis tent bibasilar consolidation. No pneumothorax. Emphysema with chronic interstitial coarsening. Degene rative changes of the shoulders and spine. IMPRESSION: 1. Status post placement of a dual lumen right IJ hemodialysis catheter distal tip terminating within the expected location of the inferior jugular vein. 2. No pneumothorax. 3. Left greater than right pleural effusions with bibasilar consolidation redemonstrated. 4. Cardiomegaly. ACT 112: Negative or not required by law. The above report was generated using voice recognition software. It may contain grammatical, syntax o r spelling errors. Electronically signed by: Levy Gibbs M.D. 01/17/2021 3:53 PM
--- NOTE | 2021-01-17 16:24 | Progress Note ---
Date of Service I got a call report the dialysis catheter is not working, I back to pt's room, check the catheter, easy blood return, and easy to push heparin with NS, CXR don e, which shows- the catheter tip back up 1-2 cm, which could cause the catheter is not working, pt denies ches pain, no bleed at incision site January 17, 2021 Assessment & Plan (1) Anemia: Anemia type: unspecified type Qualified Code(s): D64.9 - Anemia, unspecified (2) CKD (chronic kidney disease) stage 4, GFR 15-29 ml/min: pt is a 70 year-old male who was admitted to hospital for renal failure, IMP; renal failure Plan, I was asked for insertion tunneled dialysis catheter, D/W benefits, risks and alternatives of the surgery, the risks - infection, bleeding, injury other organs, dysfunction catheter, AL, , pt understood, he agrees with the surgery, I answered all questions, pt wants to do tomorrow, - NPO and hold heparin after MN, 01/16/2021 10:06AM I talked to pt , need put one suture on neck skin incision site, D/W benefits, risks and alternatives of the place suture, pt understood, he agrees with it, under sterile local anesthesia, I place one 2-0 suture on neck incision site, the oozing is stop, place dressing on, pt tolerated the it well, pt can have dialysis today, will F/U, 01/17/2021 12:59PM no more bleeding on neck, back to heparin ok, sign off today, please call with questions, thanks, keep the dressing on for 3 days, F/U prn, 01/17/2021 4:18PM the catheter is not working on dialysis machine, cxr shows the catheter tip back up 1-2 cm, which could cause not function of catheter, I explain to pt, I recommend to back to OR tomorrow reverse the catheter under sedation + local, D/W benefits, risks and alternatives of the surgery, the risks - infection, bleeding, blood clot, injury other organs, dysfunction the catheter, pt understood, he agrees with the surgery, I answered all questions, hold heparin and NPO after MN, Admission and Anticipated Discharge Date Admission Date: January 12, 2021 Supervising Physician Co-Signing Physician Notes Patient seen and examined by me, care coordinated with ANDRE Minaya, please refer to her note above for further detail. Patient is a 70-year-old male, with advanced CKD, recently admitted for COVID-19 infection, who became hypoxic and developed left flank pain, was evaluated by ED, and returned to present. Now presents back with oxygen requirement of 4 L. Concern for fluid overload on imaging. Elevated proBNP. Received 3 mg of IV Bumex in the ED. Garay catheter was placed. Nephrology was contacted, recommended to hold further Bumex. Patient was started on empiric IV antibiotics as above. Currently he is stable in bed, appears in no acute distress. Reports feeling somewhat better but still short of breath. Checked his Garay catheter which is draining clear yellow urine, patient is responding to diuretics well. He has somewhat diminished breath sounds, with some mild crackles at the bases. No wheezing noted. Heart sounds regular. Abdomen soft, nontender, however he has tenderness at left flank/back area. There is no lower extremity edema or tenderness to palpation. And he is moving extremities spontaneously. He is alert and oriented answering questions appropriately. Currently actually eating lunch. Denies any fevers or chills. Patient also has anemia. Denies any bleeding or blood in the stool. FOBT ordered, also iron panel ordered and peripheral smear. Anemia possibly secondary to CKD, need to rule out any acute bleed or iron deficiency anemia. Monitor H&H. Continue current treatment, will discuss further with nephrology tomorrow. Monitor I's and O's. If possible try to wean off oxygen. Julio Pastor MD Subjective Pt was seen and examined for follow up. Lying in bed with no distress Pt said that he is having some pain on neck skin incision site where the tunnel cath placed He had his 1st HD today and tolerated well He said that he feels his breathing the same Denies any chest pain, palpitation, dizziness and fever Physical Exam Constitutional: WD/WN, vitals as above well developed and well nourished Eyes: PERRL, conjunctivae normal, anicteric sclerae ENMT: external ear and nose normal, oropharynx normal Neck: trachea midline, no thyromegaly Respiratory: normal respiratory effort, lungs clear to auscultation Cardiovascular: RRR, no murmur, no edema Chest (Breasts): Additional Comments: the catheter on right chest wall, no bleeding on incision site Gastrointestinal (Abdomen): normal bowel sounds, soft, nontender, no hepatosplenomegaly Musculoskeletal: no cyanosis or clubbing, extremities motor strength 5/5 Skin: no rashes, warm and dry Neurologic: awake Psychiatric: Orientation: alert and oriented x 3 Results & Data ([facility]) Vital Signs (Past 12 Hours) Vital Signs Temp Pulse Pulse Pulse Resp BP Pulse Ox 01/17/21 16:01 36.5 C 61 17 154/76 H 96 01/17/21 15:35 67 01/17/21 14:00 36.6 C 64 01/17/21 11:53 36.6 C 65 17 178/79 H 96 01/17/21 10:18 94 01/17/21 08:43 67 01/17/21 08:25 37.2 C 67 18 171/79 H 98 Laboratory Results Abnormal lab results 01/17/21 01/17/21 Range/Units 05:48 05:48 RBC 3.92 L (4.7-6.1) M/uL Hgb 9.1 L (14.0-18.0) g/dL Hct 26.1 L (42-52) % MCV 66.6 L (80-100) fL MCH 23.2 L (25-34) pg RDW Coeff of Ayanna 17.3 H (11.5-14.5) % Absolute Nucleated RBC 0.02 H (0-0) K/uL BUN 68 H (7-18) mg/dl Creatinine 5.08 H* D (0.6-1.4) mg/dl Glucose 108 H (70-99) mg/dl
--- NOTE | 2021-01-17 16:31 | Hospitalist Progress Note ---
Date of Service January 17, 2021 Assessment & Plan (1) Acute respiratory failure with hypoxia: (2) Volume overload: (3) Acute on chronic diastolic CHF (congestive heart failure): Patient presenting from [facility] for evaluation of shortness of breath and hypoxia. Hypoxic on room air in the 80s, on admission requiring 4 L of oxygen via NC to maintain saturation Hypoxia likely multifactorial -due to CKD stage IV /acute on chronic diastolic CHF / ? COPD exacerbation / ? Pneumonia CT chest showed advanced emphysema, cardiomegaly noting a small to moderate pericardial effusion. There are small pleural effusions with bibasilar consolidation. S/p Bumex 3 mg IV in the ED. Diuresis may be difficult due to underlying advanced CKD. Noted normal procalcitonin however will start empiric IV Zosyn, doxy. Updated Echo - severe concentric LVH. LVEF 55 to 60%. No regional wall motion abnormalities noted. There is mild mitral regurg. There is mild tricuspid regurg. Moderate to severe pulmonary hypertension is present. The estimated pulmonary systolic pressure 63 mmHg. There is a small circumferential pericardial effusion. Small left pleural effusion. Compared to study obtained in July 2019, there has been a subtle increase in the pericardial effusion. The estimated pulmonary artery systolic pressure is relatively unchanged. A left pleural effusion is now noted. Lasix was increased to 80mg IV q8h Continue oxygen supplement Continue monitor closely (4) ESRD needing dialysis: Tunneled cath will placed on 01/15 and pt had yesterday Plan was to HD today but the Tunnel cath did not work properly surgery will plan to reposition the Tunnel access tomorrow Will need to [facility] about the [facility] (5) Pneumonia: (6) COPD (chronic obstructive pulmonary disease): Sputum cx positive for gram negative bacilli Will deescalate IV zosyn to Cefdinir and discontinue doxycycline Sputum cx grew Klebsiella, will continue cefdinir Continue oxygen supplement (7) Hypertension: BP controlled Continue amlodipine, carvedilol, hydralazine, HCTZ, isosorbide (8) Anemia: Likely due to underlying CKD Hgb stable 8.8 stable No obvious signs of bleeding FOBT negative Continue monitor (9) DVT prophylaxis: SQ heparin on hold due to bleeding from the Tunnel cath access On SCD for now Admission and Anticipated Discharge Date Admission Date: January 12, 2021 Subjective Pt was seen and examined for follow up. Lying in bed with no distress Pt said that he continues to have pain on neck skin incision site where the tunnel cath placed Denies any chest pain, palpitation, dizziness and fever Review of Systems Review of Systems: All systems reviewed & are unremarkable except as noted in Subjective Physical Exam Physical Exam: General- No acute distress Head- atraumatic Eyes- PERRL, EOMI, ENT- oropharynx clear Neck- supple, no JVD Lungs- Diminished BS Heart- regular rhythm; no murmur Abdomen- normal bowel sounds, soft, nontender Extremities- no calf tenderness Neuro- alert, oriented x 3; PERRL, EOMI; no facial palsy; no dysarthria Skin- warm & dry Results & Data Results & Data ([facility]) Vital Signs (Past 12 Hours) Vital Signs Temp Pulse Pulse Pulse Resp BP Pulse Ox 01/17/21 16:01 36.5 C 61 17 154/76 H 96 01/17/21 15:35 67 01/17/21 14:00 36.6 C 64 01/17/21 11:53 36.6 C 65 17 178/79 H 96 01/17/21 10:18 94 01/17/21 08:43 67 01/17/21 08:25 37.2 C 67 18 171/79 H 98 (1) Anemia Anemia type: unspecified type Qualified Code(s): D64.9 - Anemia, unspecified (2) Hypertension Hypertension type: unspecified Qualified Code(s): I10 - Essential (primary) hypertension (3) Volume overload Hypervolemia type: unspecified Qualified Code(s): E87.70 - Fluid overload, unspecified
[2021-01-17] MEDS: CEFDINIR 300 MG CAP PO SCH (17:32)
[2021-01-17] MEDS: traZODone HCL 100 MG TAB PO SCH (20:47)
[2021-01-17] MEDS: TAMSULOSIN HCL 0.4 MG CAP PO SCH (20:48)
[2021-01-17] MEDS: FLUTICASONE FUROATE 200MCG 14 PUFFS/INHALER INH SCH (20:49)
[2021-01-18] MEDS: traMADol HCL 50 MG TABLET PO PRN (00:39)
[2021-01-18] MEDS ORDERED: amLODIPine BESYLATE 5 MG TAB PO SCH (05:15)
[2021-01-18] MEDS ORDERED: carvediloL 6.25 MG TAB PO SCH (05:15)
[2021-01-18] MEDS: FUROSEMIDE 80 MG in SYRINGE 0 ML IV SCH ×2 (06:21→16:50)
[2021-01-18] MEDS ORDERED: LIDOCAINE HCL 2% 2 ML VIAL/AMP(20MG/ML) INFIL ONE (07:19)
[2021-01-18] MEDS ORDERED: PROPOFOL IV EMULSION 10 MG/ML 20 ML VIAL IV ONE (07:19)
[2021-01-18] MEDS ORDERED: DEXAMETHASONE SOD INJ 4 MG/ML VIAL ONE (07:19)
[2021-01-18] MEDS ORDERED: ONDANSETRON INJ 2 MG/ML 2 ML VIAL ONE (07:19)
[2021-01-18] MEDS ORDERED: MIDAZOLAM HCL 1 MG/ML 2ML VIAL ONE (07:20)
[2021-01-18] MEDS ORDERED: fentaNYL citrate 100 MCG/2 ML VIAL ONE (07:20)
[2021-01-18] MEDS ORDERED: BACITRACIN OINT 15 GM TUBE ONE (07:31)
[2021-01-18] MEDS ORDERED: HEPARIN SOD (PORCINE) 5,000 UNITS/ML VIAL ONE (07:31)
[2021-01-18] MEDS ORDERED: KETAMINE 50 MG/5 ML SYRINGE ONE (07:31)
[2021-01-18] MEDS ORDERED: SODIUM CHLORIDE 0.9% INJ 10 ML VIAL ONE (07:31)
[2021-01-18] MEDS ORDERED: HEPARIN 100 UNIT/ML 5ML FLUSH ONE (07:31)
[2021-01-18] MEDS ORDERED: LIDOCAINE HCL 1% 20 ML VIAL ONE (07:32)
[2021-01-18] MEDS ORDERED: BUPIVACAINE 0.5 % 5 MG/1 ML MPF 30ML VIAL ONE (07:32)
[2021-01-18] MEDS ORDERED: ceFAZolin 2000MG 2,000 MG/15 ML SYR IV ONE (07:33)
--- NOTE | 2021-01-18 07:33 | Anesthesiology Consultation ---
Date of Service January 18, 2021 Assessment & Plan (1) Encounter for pre-operative examination: History Surgery Operation Date: 01/15/21 10:40 Proposed Procedures p Insertion Tunneled Dialysis Catheter - Gautam Quick MD Operation Date: 01/18/21 07:30 Proposed Procedures p Reposition Dialysis Catheter - Gautam Quick MD Height/Weight Height: 5 ft 7 in Weight: 73.8 kg Allergies Allergy/AdvReac Type Severity Reaction Status Date / Time No Known Drug Allergies Allergy Unknown . Verified 01/12/21 08:55 Medications Home Medications Medication Instructions Recorded Confirmed Last Taken aspirin 81 mg PO DAILY 12/16/18 01/12/21 01/12/21 tamsulosin 0.4 mg PO HS 12/16/18 01/12/21 01/11/21 levalbuterol tartrate [Xopenex HFA] 2 inh INHALATION QID PRN 07/31/19 01/12/21 11/08/19 isosorbide dinitrate 20 mg PO BID 11/09/19 01/12/21 01/12/21 vitamin A and D 1 applic TOPICAL BID PRN 11/09/19 01/12/21 11/04/19 amlodipine 10 mg tablet 10 mg PO DAILY 01/31/20 01/12/21 01/12/21 Icy Hot Advanced Relief 1 applic TOPICAL BID PRN 09/10/20 01/12/21 Unknown bumetanide 1 mg PO DAILY 09/10/20 01/12/21 01/12/21 ketotifen fumarate [Zaditor] 1 drp OPB BID 09/10/20 01/12/21 Unknown pantoprazole [Protonix] 40 mg PO DAILY 09/10/20 01/12/21 01/12/21 trazodone 150 mg PO HS 09/10/20 01/12/21 01/11/21 carvedilol 25 mg PO BID 01/12/21 01/12/21 01/12/21 ciclesonide [Alvesco] 1 puff INHALATION BID 01/12/21 01/12/21 01/12/21 hydralazine 100 mg PO TID 01/12/21 01/12/21 01/12/21 hydrochlorothiazide 12.5 mg PO DAILY 01/12/21 01/12/21 01/12/21 Active Medications Generic Name Dose Route Start Last Admin Trade Name Freq PRN Reason Stop Dose Admin Acetaminophen 650 mg 01/12/21 12:01 01/17/21 12:43 Acetaminophen 325 Mg Tab PO 02/11/21 12:00 650 mg Q4H PRN Administration Pain or Fever Amlodipine Besylate 10 mg 01/18/21 05:15 01/18/21 05:35 Amlodipine Besylate 5 Mg Tab PO 02/17/21 05:14 10 mg DAILY RA Administration Aspirin 81 mg 01/13/21 09:00 01/15/21 09:29 Aspirin 81 Mg Ectab PO 02/12/21 08:59 81 mg DAILY RA Administration Bumetanide 1 mg 01/13/21 09:00 01/17/21 08:28 Bumetanide 1 Mg Tab PO 02/12/21 08:59 1 mg DAILY RA Administration Carvedilol 18.75 mg 01/18/21 05:15 01/18/21 05:35 Carvedilol 6.25 Mg Tab PO 02/17/21 05:14 18.75 mg BID RA Administration Cefdinir 300 mg 01/16/21 08:00 01/16/21 12:20 Cefdinir 300 Mg Cap PO 01/23/21 07:59 300 mg Q48H RA Administration Protocol Cefdinir 300 mg 01/16/21 18:00 01/17/21 17:32 Cefdinir 300 Mg Cap PO 01/23/21 17:59 300 mg DAILY@1800 RA Administration Protocol Fluticasone Furoate 1 puffs 01/15/21 21:00 01/17/21 20:49 Fluticasone Furoate 200mcg 14 Puffs/Inhaler INH 02/14/21 20:59 1 puffs QPM RA Administration Protocol Heparin Sodium (Porcine) 5,000 units 01/12/21 14:00 01/15/21 15:39 Heparin Sod 5,000 Unit/0.5 Ml Vial SQ 02/11/21 13:59 Not Given Q8 RA Hydralazine HCl 100 mg 01/12/21 14:00 01/17/21 20:45 Hydralazine Tab 50 Mg Tab PO 02/11/21 13:59 100 mg TID RA Administration Furosemide 80 mg/ Syringe 8 mls @ 4 mls/min 01/17/21 14:00 01/18/21 06:21 IV 05/09/21 13:59 4 mls/min Q8 RA Administration Isosorbide Dinitrate 20 mg 01/12/21 12:30 01/17/21 12:35 Isosorbide Dinitrate 20 Mg Tab PO 02/11/21 12:29 20 mg BID@0700,1200 RA Administration Miscellaneous 1 ea 01/13/21 21:00 01/17/21 20:55 Remove Lidoderm Patch N/A 02/12/21 20:59 1 ea DAILY@2100 RA Administration Pantoprazole Sodium 40 mg 01/13/21 09:00 01/17/21 08:29 Pantoprazole 40 Mg Tab PO 02/12/21 08:59 40 mg DAILY RA Administration Tamsulosin HCl 0.4 mg 01/12/21 21:00 01/17/21 20:48 Tamsulosin Hcl 0.4 Mg Cap PO 02/11/21 20:59 0.4 mg HS RA Administration Tramadol HCl 50 mg 01/16/21 07:55 01/18/21 00:39 Tramadol Hcl 50 Mg Tablet PO 02/15/21 07:54 50 mg Q12H PRN Administration Pain Trazodone HCl 150 mg 01/12/21 21:00 01/17/21 20:47 Trazodone Hcl 100 Mg Tab PO 02/11/21 20:59 150 mg HS RA Administration NPO Date Last Intake of Fluids: 01/17/21 Time Last Intake of Fluids: 23:00 Date Last Intake of Solids: 01/17/21 Time Last Intake of Solids: 17:00 Past Medical History Medical History Acute respiratory failure with hypoxia BPH (benign prostatic hyperplasia) Chronic diastolic CHF (congestive heart failure) Chronic hepatitis C CKD (chronic kidney disease), stage IV COPD (chronic obstructive pulmonary disease) COVID-19 Patient positive for covid 09/2020. Tested NEGATIVE 4... Hydrocele in adult Hypertension Renal cyst, acquired Tobacco abuse, in remission Past Family History Family History Other Diabetes Hypertension Past Surgical History Surgical History H/O hernia repair History of laryngoscopy Social History Smoking Status: Former smoker Smoking cigarettes per day: 03/11/20 Do You Dip or Chew Tobacco: No Hx Alcohol Use: No Hx Substance Use: No substance use type: does not use Physical Exam Vital Signs Last Vital Signs Temp 37.1 C 01/18/21 04:43 Pulse 67 01/18/21 06:22 Resp 17 01/18/21 04:43 BP 160/79 H 01/18/21 06:22 Pulse Ox 97 01/18/21 04:43 Testing Laboratory Results 01/17/21 05:48 01/17/21 05:48 PT 11.1 Seconds (9.0-12.0) 01/15/21 22:38 INR 1.1 (0.9-1.1) 01/15/21 22:38 Blood Type O Positive 01/15/21 22:38 Antibody Screen NEGATIVE 01/15/21 22:38 01/15/21 00:23 Gram Stain - Final Sputum, Expectorated Sputum Culture - Final Klebsiella pneumoniae Electrocardiogram Date: 01/12/21 DICTATED BY: Rolando Sy MD Test Reason : Blood Pressure : / mmHG Vent. 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
--- NOTE | 2021-01-18 07:33 | History & Physical Bridge Note ---
Date of Service January 18, 2021 History & Physical Bridge Note I have examined the patient, reviewed the History & Physical and in the interval since the performance of the History & Physical I have noted the following changes of clinical significance: no changes noted Supervising Physician Co-Signing Physician Notes Patient seen and examined by me, care coordinated with ANDRE Minaya, please refer to her note above for further detail. Patient is a 70-year-old male, with advanced CKD, recently admitted for COVID-19 infection, who became hypoxic and developed left flank pain, was evaluated by ED, and returned to present. Now presents back with oxygen requirement of 4 L. Concern for fluid overload on imaging. Elevated proBNP. Received 3 mg of IV Bumex in the ED. Garay catheter was placed. Nephrology was contacted, rec ommended to hold further Bumex. Patient was started on empiric IV antibiotics as above. Currently he is stable in bed, appears in no acute distress. Reports feeling somewhat better but still short of breath. Checked his Garay catheter which is draining clear yellow urine, patient is responding to diuretics well. He has somewhat diminished breath sounds, with some mild crackles at the bases. No wheezing noted. Heart sounds regular. Abdomen soft, nontender, however he has tenderness at left flank/back area. There is no lower extremity edema or tenderness to palpation. And he is moving extremities spontaneously. He is alert and oriented answering questions appropriately. Currently actually eating lunch. Denies any fevers or chills. Patient also has anemia. Denies any bleeding or blood in the stool. FOBT ordered, also iron panel ordered and peripheral smear. Anemia possibly secondary to CKD, need to rule out any acute bleed or iron deficiency anemia. Monitor H&H. Continue current treatment, will discuss further with nephrology tomorrow. Monitor I's and O's. If possible try to wean off oxygen. Julio Pastor MD
[2021-01-18] MEDS ORDERED: ATROPINE SULFATE 0.1 MG/ML 10ML SYR IV PRN (07:40)
[2021-01-18] MEDS ORDERED: ePHEDrine sulfate 50 MG/ML AMP IV PRN (07:40)
[2021-01-18] MEDS ORDERED: fentaNYL citrate 100 MCG/2 ML VIAL IV PRN (07:40)
[2021-01-18] MEDS ORDERED: ONDANSETRON INJ 2 MG/ML 2 ML VIAL IV PRN (07:40)
--- NOTE | 2021-01-18 08:39 | Post Operative Brief Note ---
Immediate Post Op Note v1 Date of Surgery January 18, 2021 Pre & Post Diagnosis Operation Date: 01/15/21 10:40 Pre-Op Diagnosis: Renal Failure Post-Op Diagnosis: Renal Failure Operation Date: 01/18/21 07:30 Pre-Op Diagnosis: Need for Dialysis Cartheter Repositioning Post-Op Diagnosis: Need for Dialysis Cartheter Repositioning I identified the patient and participated in the time-out.: Yes Procedure Operation Date: 01/15/21 10:40 Actual Procedures p Insertion Tunneled Dialysis Catheter to Right Internal Jugular Vein(Right) - Gautam Quick MD Operation Date: 01/18/21 07:30 Actual Procedures p Reposition Dialysis Catheter - Gautam Quick MD Surgeon Gautam Quick MD Stockkeeper certified surgical technologist Estimated Blood Loss 3 Findings Consistent with Post-Op Diagnosis the catheter back up 1cm, reposition catheter push deep to 1 cm, Fluids 200ml Specimens none Drains Garay Catheter Anesthesia Type General Complications none Disposition Accompanied Patient To Recovery: Yes Disposition: Recovery Room Overlapping Procedure I was immediately available: during the entire case.
--- NOTE | 2021-01-18 09:02 | Progress Note ---
Date of Service pt went to OR for reposition dialysis catheter, pt tolerated it well, January 18, 2021 Assessment & Plan (1) Anemia: Anemia type: unspecified type Qualified Code(s): D64.9 - Anemia, unspecified (2) CKD (chronic kidney disease) stage 4, GFR 15-29 ml/min: pt is a 70 year-old male who was admitted to hospital for renal failure, IMP; renal failure Plan, I was asked for insertion tunneled dialysis catheter, D/W benefits, risks and alternatives of the surgery, the risks - infection, bleeding, injury other organs, dysfunction catheter, HI, , pt understood, he agrees with the surg monika, I answered all questions, pt wants to do tomorrow, - NPO and hold heparin after MN, 01/16/2021 10:06AM I talked to pt , need put one suture on neck skin incision site, D/W benefits, risks and alternatives of the place suture, pt understood, he agrees with it, under sterile local anesthesia, I place one 2-0 suture on neck incision site, the oozing is stop, place dressing on, pt tolerated the it well, pt can have dialysis today, will F/U, 01/17/2021 12:59PM no more bleeding on neck, back to heparin ok, sign off today, please call with questions, thanks, keep the dressing on for 3 days, F/U prn, 01/17/2021 4:18PM the catheter is not working on dialysis machine, cxr shows the catheter tip back up 1-2 cm, which could cause not function of catheter, I explain to pt, I recommend to back to OR tomorrow reverse the catheter under sedation + local, D/W benefits, risks and alternatives of the surgery, the risks - infection, bleeding, blood clot, injury other organs, dysfunction the catheter, pt understood, he agrees with the surgery, I answered all questions, hold heparin and NPO after MN, 01/18/2021 8:59AM reposition the dialysis catheter, pt tolerated it well, regular diet, pt can be dialysis today, hold heparin one more day, resume it tomorrow, please call me or wildlife conservation professor surgeon with questions, thanks, Admission and Anticipated Discharge Date Admission Date: January 12, 2021 Supervising Physician Co-Signing Physician Notes Patient seen and examined by me, care coordinated with ANDRE Minaya, please refer to her note above for further detail. Patient is a 70-year-old male, with advanced CKD, recently admitted for COVID-19 infection, who became hypoxic and developed left flank pain, was evaluated by ED, and returned to present. Now presents back with oxygen requirement of 4 L. Concern for fluid overload on imaging. Elevated proBNP. Received 3 mg of IV Bumex in the ED. Garay catheter was placed. Nephrology was contacted, recommended to hold further Bumex. Patient was started on empiric IV an tibiotics as above. Currently he is stable in bed, appears in no acute distress. Reports feeling somewhat better but still short of breath. Checked his Garay catheter which is draining clear yellow urine, patient is responding to diuretics well. He has somewhat diminished breath sounds, with some mild crackles at the bases. No wheezing noted. Heart sounds regular. Abdomen soft, nontender, however he has tenderness at left flank/back area. There is no lower extremity edema or tenderness to palpation. And he is moving extremities spontaneously. He is alert and oriented answering questions appropriately. Currently actually eating lunch. Denies any fevers or chills. Patient also has anemia. Denies any bleeding or blood in the stool. FOBT ordered, also iron panel ordered and peripheral smear. Anemia possibly secondary to CKD, need to rule out any acute bleed or iron deficiency anemia. Monitor H&H. Continue current treatment, will discuss further with nephrology tomorrow. M onitor I's and O's. If possible try to wean off oxygen. Julio Pastor MD Subjective Pt was seen and examined for follow up. Lying in bed with no distress Pt said that he continues to have pain on neck skin incision site where the tunnel cath placed Denies any chest pain, palpitation, dizziness and fever Physical Exam Constitutional: WD/WN, vitals as above well developed and well nourished Eyes: PERRL, conjunctivae normal, anicteric sclerae ENMT: external ear and nose normal, oropharynx normal Neck: trachea midline, no thyromegaly Respiratory: normal respiratory effort, lungs clear to auscultation Cardiovascular: RRR, no murmur, no edema Gastrointestinal (Abdomen): normal bowel sounds, soft, nontender, no hepatosplenomegaly Musculoskeletal: no cyanosis or clubbing, extremities motor strength 5/5 Skin: no rashes, warm and dry Neurologic: awake Psychiatric: Orientation: alert and oriented x 3 Results & Data ([facility]) Vital Signs (Past 12 Hours) Vital Signs Temp Pulse Pulse Resp BP BP Pulse Ox 01/18/21 08:50 58 L 12 149/64 H 100 01/18/21 08:42 36.4 C L 61 12 166/79 H 99 01/18/21 06:22 67 160/79 H 01/18/21 04:43 37.1 C 73 17 181/76 H 97 01/18/21 01:02 81 01/18/21 00:25 172/86 H 01/17/21 22:27 37.2 C 76 16 172/80 H 96 01/17/21 21:33 174/78 H
--- NOTE | 2021-01-18 09:22 | XRay Report ---
XR chest 1V portable HISTORY: REPOSITION DIALYSIS CATHETER COMPARISON: Chest 01/17/2021. FINDINGS: The right jugular central venous catheter has been advanced and now terminates in the expec florencia location of the proximal SVC. No pneumothorax. The heart remains enlarged. Small left pleural eff usion and left base airspace opacity persists. There is progressive interstitial/vascular thickening consistent with mild interstitial pulmonary edema. IMPRESSION: 1. The right jugular central venous catheter now terminates in the expected location of the proximal SVC. No pneumothorax. 2. Interval development of mild interstitial pulmonary edema. 3. Small left pleural effusion and left basilar density persists. ACT 112: Negative or not required by law. Electronically signed by: Lan Eagle M.D. 01/18/2021 9:21 AM
--- NOTE | 2021-01-18 09:23 | Anesthesiology Progress Note ---
Date of Service January 18, 2021 Anesthesia Post Procedure Vital Signs Vital Signs: Temp Pulse Pulse Pulse Resp BP BP 01/18/21 09:20 36.7 C 58 L 12 161/63 H 01/18/21 09:10 62 12 162/64 H 01/18/21 09:00 57 L 12 157/61 H 01/18/21 08:50 58 L 12 149/64 H 01/18/21 08:42 36.4 C L 61 12 166/79 H 01/18/21 06:22 67 160/79 H 01/18/21 04:43 37.1 C 73 17 181/76 H 01/18/21 01:02 81 01/18/21 00:25 172/86 H 01/17/21 22:27 37.2 C 76 16 172/80 H 01/17/21 21:33 174/78 H 01/17/21 20:42 79 187/87 H 01/17/21 20:00 36.7 C 70 17 181/82 H 01/17/21 16:01 36.5 C 61 17 154/76 H 01/17/21 15:35 67 01/17/21 14:00 36.6 C 64 01/17/21 11:53 36.6 C 65 17 178/79 H 01/17/21 10:18 Pulse Ox 01/18/21 09:20 98 01/18/21 09:10 96 01/18/21 09:00 96 01/18/21 08:50 100 01/18/21 08:42 99 01/18/21 06:22 01/18/21 04:43 97 01/18/21 01:02 01/18/21 00:25 01/17/21 22:27 96 01/17/21 21:33 01/17/21 20:42 01/17/21 20:00 97 01/17/21 16:01 96 01/17/21 15:35 01/17/21 14:00 01/17/21 11:53 96 01/17/21 10:18 94 Pain Intensity Chest: Pain Intensity: 8 Right Neck: Pain Intensity: 8 Transfer of Care Handoff Completed per policy Notes Mental Status: alert / awake / arousable and participated in evaluation Patient Amnestic to Procedure: Yes Nausea / Vomiting: adequately controlled Pain: adequately controlled Airway Patency, RR, SpO2: stable & adequate BP & HR: stable & adequate Hydration State: stable & adequate Anesthetic Complications: no major complications apparent and Pt Satisfied with anesthetic care
--- NOTE | 2021-01-18 11:02 | Nephrology Progress Note ---
Date of Service January 18, 2021 Assessment & Plan (1) ESRD needing dialysis: Initially admitted with shortness of breath , CKD stage V with pericardial or pleural effusion , progressed to ESRD. -No flow in the TDC yesterday (he was started on dialysis on 01/16), to reposition today and is ready to be used as per surgery . -Orders in to be dialyzed without heparin today . -If his catheter does not work , he has to be transferred to [place] - From next week he will have 3 days a week dialysis and will continue that even after hospital discharge. necessary arrangements will have to be made regarding the department of [facility]. Admission and Anticipated Discharge Date Admission Date: January 12, 2021 Subjective Patient seen and examined after positioning of the total dialysis cath. Still under anesthesic effect. In mild respiratory distress. Review of Systems Review of Systems: Unobtainable due to cognitive status Physical Exam Physical Exam: GENERAL: Somnolent, in mild respiratory distress lethargic and weak and not able to answer detailed question. HEENT: Mucous membrane is moist. NECK: Supple. No jugular venous distention. CHEST: Bilaterally decreased breath sounds. CARDIOVASCULAR: S1, S2 irregular. Soft systolic murmur heard. ABDOMEN: Soft, nontender, obese. EXTREMITIES: Show no edema. Results & Data ([facility]) Vital Signs (Past 12 Hours) Vital Signs Temp Pulse Pulse Resp BP BP Pulse Ox 01/18/21 10:00 36.8 C 65 18 169/72 H 92 01/18/21 09:20 36.7 C 58 L 12 161/63 H 98 01/18/21 09:10 62 12 162/64 H 96 01/18/21 09:00 57 L 12 157/61 H 96 01/18/21 08:50 58 L 12 149/64 H 100 01/18/21 08:42 36.4 C L 61 12 166/79 H 99 01/18/21 06:22 67 160/79 H 01/18/21 04:43 37.1 C 73 17 181/76 H 97 01/18/21 01:02 81 01/18/21 00:25 172/86 H Laboratory Results 01/17/21 05:48 01/17/21 05:48
[2021-01-18] MEDS: BUMETANIDE 1 MG TAB PO SCH (11:17)
[2021-01-18] MEDS: ISOSORBIDE DINITRATE 20 MG TAB PO SCH ×2 (11:18→13:05)
[2021-01-18] MEDS: hydrALAZINE TAB 50 MG TAB PO SCH ×2 (11:18→16:47)
[2021-01-18] MEDS: CEFDINIR 300 MG CAP PO SCH ×2 (11:19→18:11)
[2021-01-18] MEDS: PANTOprazole 40 MG TAB PO SCH (11:19)
[2021-01-18] MEDS: HEPARIN SOD 5,000 UNIT/0.5 ML VIAL SQ SCH (16:47)
--- NOTE | 2021-01-18 17:08 | Hospitalist Progress Note ---
Date of Service January 18, 2021 Assessment & Plan (1) Acute respiratory failure with hypoxia: (2) Volume overload: (3) Acute on chronic diastolic CHF (congestive heart failure): Patient presenting from [facility] for evaluation of shortness of breath and hypoxia. Hypoxic on room air in the 80s, on admission requiring 4 L of oxygen via NC to maintain saturation Hypoxia likely multifactorial -due to CKD stage IV /acute on chronic diastolic CHF / ? COPD exacerbation / ? Pneumonia CT chest showed advanced emphysema, cardiomegaly noting a small to moderate pericardial effusion. There are small pleural effusions with bibasilar consolidation. S/p Bumex 3 mg IV in the ED. Diuresis may be difficult due to underlying advanced CKD. Noted normal procalcitonin however will start empiric IV Zosyn, doxy. Updated Echo - severe concentric LVH. LVEF 55 to 60%. No regional wall motion abnormalities noted. There is mild mitral regurg. There is mild tricuspid regurg. Moderate to severe pulmonary hypertension is present. The estimated pulmonary systolic pressure 63 mmHg. There is a small circumferential pericardial effusion. Small left pleural effusion. Compared to study obtained in July 2019, there has been a subtle increase in the pericardial effusion. The estimated pulmonary artery systolic pressure is relatively unchanged. A left pleural effusion is now noted. Continue Lasix 80mg IV q8h for now Continue oxygen supplement Continue monitor closely (4) ESRD needing dialysis: Tunneled cath will placed on 01/15 and pt had yesterday Tunnel catheter was repositioning today by Dr. Quick Plan was to HD today but the Tunnel cath did not work properly Case discussed with nephrology that recommended to transfer to [place] for dialysis access and HD Case discussed with providers in [place] Dr. Wilson, [place] [facility] and our nephrology Dr. Owens joined the call as well Hospitalist in [place] Dr. Wilson that accepting the patient on transfer Will need to inform the [facility] about the dialysis I notified staff (Nurse Lili) at [facility] about the transfer to [place] Will monitor BMP (5) Pneumonia: (6) COPD (chronic obstructive pulmonary disease): Sputum cx positive for gram negative bacilli Will deescalate IV zosyn to Cefdinir and discontinue doxycycline Sputum cx grew Klebsiella, will continue cefdinir to complete the course Continue oxygen supplement (7) Hypertension: BP controlled Continue amlodipine, carvedilol, hydralazine, HCTZ, isosorbide (8) Anemia: Likely due to underlying CKD Hgb stable 8.8 stable No obvious signs of bleeding FOBT negative Continue monitor (9) DVT prophylaxis: SQ heparin on hold due to bleeding from the Tunnel cath access On SCD for now Disposition Transfer to [place] Admission and Anticipated Discharge Date Admission Date: January 12, 2021 Subjective Pt was seen and examined for follow up of hypoxia and fluid overload Lying in bed with no distress with 2 correctional official at bedside Pt said that he is having alot of pain today specially in his joint area He had the tunnel cath reposition today by Dr. Quick, but unfortunately the tunnel cath could not work during dialysis Spoke to Nephrology and feels the best course of action is to transfer the patient to [place] for dialysis access and HD Pt said that his breathing is the same Denies any chest pain, palpitation, dizziness and fever Review of Systems Review of Systems: All systems reviewed & are unremarkable except as noted in Subjective Physical Exam Physical Exam: General- No acute distress Head- atraumatic Eyes- PERRL, EOMI, ENT- oropharynx clear Neck- supple, no JVD Lungs- Diminished BS Heart- no murmur Abdomen- normal bowel sounds, soft, nontender Extremities- no calf tenderness Neuro- alert, oriented x 3; PERRL, EOMI; no facial palsy; no dysarthria Skin- warm & dry Results & Data Results & Data ([facility]) Vital Signs (Past 12 Hours) Vital Signs Temp Pulse Pulse Pulse Resp BP BP 01/18/21 16:48 36.7 C 84 18 142/66 H 01/18/21 16:14 60 01/18/21 16:00 60 01/18/21 15:18 37.0 C 68 68 146/66 H 146/66 H 01/18/21 14:57 37.1 C 74 74 166/76 H 01/18/21 12:00 36.9 C 73 20 158/64 H 01/18/21 10:30 60 159/66 H 01/18/21 10:15 67 166/69 H 01/18/21 10:00 36.8 C 65 18 169/72 H 01/18/21 09:45 60 166/69 H 01/18/21 09:30 59 L 165/75 H 01/18/21 09:20 36.7 C 58 L 12 161/63 H 01/18/21 09:15 59 L 165/71 H 01/18/21 09:10 62 12 162/64 H 01/18/21 09:00 63 57 L 12 157/61 H 01/18/21 08:50 58 L 12 149/64 H 01/18/21 08:42 36.4 C L 61 12 166/79 H 01/18/21 06:22 67 160/79 H Pulse Ox 01/18/21 16:48 99 01/18/21 16:14 01/18/21 16:00 01/18/21 15:18 01/18/21 14:57 01/18/21 12:00 95 01/18/21 10:30 01/18/21 10:15 01/18/21 10:00 92 01/18/21 09:45 01/18/21 09:30 01/18/21 09:20 98 01/18/21 09:15 01/18/21 09:10 96 01/18/21 09:00 96 01/18/21 08:50 100 01/18/21 08:42 99 01/18/21 06:22 (1) Anemia Anemia type: unspecified type Qualified Code(s): D64.9 - Anemia, unspecified (2) Hypertension Hypertension type: unspecified Qualified Code(s): I10 - Essential (primary) hypertension (3) Volume overload Hypervolemia type: unspecified Qualified Code(s): E87.70 - Fluid overload, unspecified
--- NOTE | 2021-01-18 18:40 | Operative Report (OR) ---
DATE OF OPERATION: 01/18/2021 PREOPERATIVE DIAGNOSIS: Dysfunctional dialysis catheter. POSTOPERATIVE DIAGNOSIS: Dysfunctional dialysis catheter. OPERATION: Reposition of dialysis catheter. SURGEON: Gautam Quick MD. ANESTHESIA: Conscious sedation plus local. ESTIMATED BLOOD LOSS: About 3 mL. FINDINGS: Catheter pushed back up about 1 cm. Then we repositioned and push back 1 cm. COMPLICATIONS: None. INDICATIONS FOR THE PROCEDURE: This is a 70-year-old gentleman who had a dialysis catheter insertion about a couple of days ago and following this the patient had a dialysis catheter functioning well and yesterday patient tried to do the dialysis, catheter not working and I went ahead and evaluated the patient, we got an x-ray. The x-ray showed the catheter back up about 1 cm on the original location, which could cause dysfunction of the catheter, so I recommended to take the patient to the OR and do repositioning of dialysis catheter. I did talk to the patient about the benefit, the risk, alternate procedure. I indicated the risks may include but not limited such as bleeding, infection, blood clot, dysfunction of catheter, injury to other organs. The patient understands and he signed informed consent and I answered all questions. DETAILS OF PROCEDURE: After we identified the patient and verified the procedure, we brought the patient to the OR, put the patient in the supine position. The patient received SCD on bilateral legs to prevent DVT. Also, patient received 2 grams Ancef IV for prophylactic antibiotic. The patient received conscious sedation by the anesthesiology. The right side of the neck and the right upper chest wall was prepped and draped in routine sterile fashion. After time-out, I injected local anesthesia by using 1% lidocaine mixed with 0.5% Marcaine on the right side of the neck and right upper chest. Then, I removed the old suture on the right side of neck. Also, we removed the old suture on the right side of chest wall. Then on the right side of neck incision, we reached the catheter and then because we found the catheter pushed back about 1 cm, now we used the fluorescence to confirm the catheter pushed back 1 cm. At this moment, I used DeBakey to hold this catheter, pushed back deeper about 1 cm and then we used the fluorescence to confirm the catheter tip located at the junction between the right atrium and superior vena cava is good location. At this moment, I used an empty syringe and connected the catheter, easy blood return and pushed back. Then I used 10 mL normal saline to flush the catheter. Then I injected 1.6 mL heparin solution, which is a 1 mL include 5000 units of heparin. Then, we put the cap on, then we did same thing on another catheter, we connected to another catheter with use of an empty syringe, easy blood return and pushed back. No resistance, then I used 10 mL normal saline to flush the catheter. Then I injected 1.6 mL heparin into the catheter. Then, we put the cap on and then we used 0 nylon to fix the catheter on the right side of chest wall. Then, we used a 0 Vicryl and closed the neck incision interruptedly. Then, we put the dressing on. Again, we used fluorescence to confirm again the catheter location at the junction between the right atrium and superior vena cava. Then, we put the dressing on. The patient tolerated the procedure well. All instrument, needle, sponge count were correct x2 at the end of the case. The patient transferred to recovery room in stable condition. The patient can be dialyzed today. After procedure, I did talk to the patient about the OR finding and the procedure we did, he understands. I attest to the content of the Intraoperative Record and any orders documented therein. Any exception s are noted below.
--- NOTE | 2021-01-18 18:41 | Discharge Summary ---
Date of Service January 18, 2021 Admission HPI Per Admitting Provider 70-year-old male inmate from [facility] with PMH COPD, CKD stage IV, HTN, chronic hepatitis C, chronic diastolic CHF, and other problems listed below who presents to the ED for evaluation of shortness of breath. Patient was diagnosed with COVID-19 09/2020. Patient reports his breathing has not improved since the diagnosis. He reports shortness of breath with minimal exertion. He reports a cough productive for aguero sputum. Reports sputum is typically white in color. He denies fevers. Patient also reports an intermittent substernal chest pain. Denies any specific causative or relieving factors. He reports orthopnea and abdominal fullness. No lower extremity edema. Does not weigh himself on a day-to-day basis. Follows with telehealth nephrology. Dialysis has been discussed however not arranged yet. Patient was complaining of left flank pain last evening. He was also found to be hypoxic in the 80s on room air. He was evaluated in the ED yesterday and underwent CT ABD/pelvis and lumbar spine CT. Results showed small bilateral pleural effusions, otherwise unremarkable for other findings. Patient was discharged back to the [facility]. He continued to be hypoxic overnight. He was placed on 2 L of oxygen via nasal cannula, given a nebulizer treatment, and prednisone 60 mg. This morning, patient symptoms persisted. He was given another DuoNeb without much improvement and was sent back to the ED for further evaluation. Patient denies abdominal pain, nausea, vomiting, diarrhea. No fevers or chills. Denies urinary symptoms. In the ED, patient is requiring 4 L of oxygen via nasal cannula to maintain saturations > 92%. CXR shows pulmonary edema vs. pneumonitis. Labs show creatinine 4.7, proBNP 2600, Hgb 9.3. Patient was given IV Tylenol, nebulizer, IV Bumex 3 mg, IV Dilaudid, IV magnesium, Solu-Medrol 60 mg, IVF. Admission Exam Per Admitting Provider Constitutional: WD/WN, vitals as above + ill appearing; no acute distress Eyes: PERRL, conjunctivae normal, anicteric sclerae ENMT: external ear and nose normal, oropharynx normal Respiratory: + tachypneic; no respiratory distress Auscultation: + diminished lung sounds and + crackles (Bilateral bases) Cardiovascular: Rate/Rhythm: regular rate and regular rhythm Vessels: normal peripheral pulses Extremities: no edema Gastrointestinal: normal bowel sounds, soft, nontender, no hepatosplenomegaly Musculoskeletal: no cyanosis or clubbing, extremities motor strength 5/5 Skin: no rashes, warm and dry Neurologic: PERRL, EOMI, accommodation nl, no face palsy, no dysarthria Psychiatric: A+Ox3, euthymic affect Principal Diagnosis (1) Acute respiratory failure with hypoxia: (2) Volume overload: (3) Acute on chronic diastolic CHF (congestive heart failure): (4) ESRD needing dialysis: (5) Pneumonia: (6) COPD (chronic obstructive pulmonary disease) (7) Hypertension: (8) Anemia: Discharge Exam General- No acute distress Head- atraumatic Eyes- PERRL, EOMI, ENT- oropharynx clear Neck- supple, no JVD Lungs- Diminished BS Heart- no murmur Abdomen- normal bowel sounds, soft, nontender Extremities- no calf tenderness Neuro- alert, oriented x 3; PERRL, EOMI; no facial palsy; no dysarthria Skin- warm & dry Discharge Data Allergies Allergy/AdvReac Type Severity Reaction Status Date / Time No Known Drug Allergies Allergy Unknown . Verified 01/12/21 08:55 Consultations 01/12/21 10:23 ED Decision to Admit Stat 01/12/21 12:01 Consult Nephrology Routine 01/14/21 10:30 Consult General Surgery Routine Procedures Performed Operation Date: 01/15/21 10:40 Actual Procedures p Insertion Tunneled Dialysis Catheter to Right Internal Jugular Vein(Right) - Gautam Quick MD Operation Date: 01/18/21 07:30 Actual Procedures p Reposition Dialysis Catheter - Gautam Quick MD Ordered Studies 01/12/21 11:07 CT chest diagnostic wo con Routine 01/13/21 08:00 US venous doppler LE BI Routine 01/15/21 10:40 FL chest 1V frontal Routine FL fluoroscopy <1hr Routine 01/18/21 FL chest 1V frontal Routine SINGLE VIEW CHEST CLINICAL HISTORY: Atypical chest pain. FINDINGS: An AP, portable, upright chest radiograph is compared to study dated 01/11/2021 and correlated with chest CT dated 09/10/2020. The examination is degraded by portable technique, patient rotation, and apical lordotic positionin g. The heart is enlarged noting atherosclerotic calcification of the thoracic aorta. There is pulmonary vascular congestion as well as bilateral patchy airspace opacities. Emphysema and chronic interstitial thickening is similar to previous. There are small pleural effusions with bibasilar consolidation No pneumothorax is seen. The skeletal structures are osteopenic. The bony thorax is grossly intact. IMPRESSION: 1. Cardiomegaly and emphysema with pulmonary vascular congestion. 2. There are small pleural effusions with bibasilar consolidation. 3. There are increasing bilateral patchy airspace opacities. This could represent mild pulmonary edema versus an infectious/inflammatory pneumonitis. Clinical correlation will be required. ACT 112: Negative or not required by law. Electronically signed by: Jakub Smith M.D. 01/12/2021 9:06 AM Dictated: 01/12/21 09Transcribed: 01/12/21 09 FL fluoroscopy <1hr Routine CT SCAN OF THE CHEST WITHOUT IV CONTRAST CLINICAL HISTORY: Hypoxia. COMPARISON STUDY: Chest x-ray dated 01/12/2021. Chest CT dated 09/10/2020. Abdominal CT dated 01/11/2021. TECHNIQUE: CT scan of the thorax was performed from the thoracic inlet to the upper abdomen. Images are reviewed in the axial, sagittal, and coronal planes. IV contrast was not administered for this examination as per the referring clinician. A dose lowering technique was utilized adhering to the principles of ALARA. CT DOSE: 444.43 mGy.cm FINDINGS: Thyroid: The thyroid gland is mildly enlarged and heterogeneous. Thoracic aorta: There is advanced atherosclerotic calcification of the thoracic aorta, which is normal in caliber and demonstrates standard 3-vessel arch anatomy. Heart: The heart is enlarged noting a small to moderate pericardial effusion. The coronary arteries are densely calcified. Lungs and pleural spaces: Advanced as evidenced change is noted. Foci of parenchymal scarring are seen throughout both lungs. There are small pleural effusions with bibasilar consolidation. This is unchanged from yesterday's abdominal CT. Mediastinum: There are scattered subcentimeter mediastinal lymph nodes. Erma: Not well assessed without IV contrast. Axillae: There is no axillary lymphadenopathy. Upper abdomen: A 5 cm peripherally calcified cyst is again seen arising from the upper pole of the right kidney. Partially visualized upper abdominal viscera is otherwise grossly unremarkable. See report of abdominal CT performed yesterday for detailed intra-abdominal findings. Skeletal structures: The skeletal structures are osteopenic. No lytic or blastic bony lesions are seen. Soft tissues: There is body wall edema. IMPRESSION: 1. Advanced emphysema. 2. Cardiomegaly noting a small to moderate pericardial effusion. 3. There are small pleural effusions with bibasilar consolidation. This likely represents atelectasis and clinical correlation will be required. 4. Additional findings as above. ACT 112: Negative or not required by law. Electronically signed by: Jakub Smith M.D. 01/12/2021 3:03 PM Dictated: 01/12/21 1458Transcribed: 01/12/21 1458 ULTRASOUND BILATERAL LOWER EXTREMITY VENOUS CLINICAL HISTORY: Lower extremity edema. COMPARISON STUDY: Right lower extremity venous ultrasound dated 03/21/2018. TECHNIQUE: Real-time, grayscale, and color Doppler sonography of the deep veins of the right and left lower extremity was performed from the inguinal crease to the calf. Compression and augmentation were utilized. FINDINGS: There is no sonographic evidence of deep venous thrombosis identified in the right or left lower extremity. The common femoral, superficial femoral, and popliteal veins are patent and normally compressible bilaterally. The greater saphenous vein and the profunda femoris vein at the junction with the common femoral vein are clear in both legs. The visualized calf veins are patent bilaterally. IMPRESSION: There is no sonographic evidence of deep venous thrombosis identified in the right or left lower extremity. ACT 112: Negative or not required by law. Electronically signed by: Jakub Smith M.D. 01/13/2021 8:33 AM Dictated: 01/13/21 0833Transcribed: 01/13/21 0833 FL chest 1V frontal CLINICAL HISTORY: INSERTION TUNNELED DIALYSIS CATHETER COMPARISON STUDY: Chest CT January 12, 2021. FLUOROSCOPY TIME: 2 seconds. FLUOROSCOPIC IMAGES: 2 FINDINGS: Fluoroscopy was provided during placement of a dual lumen right internal jugular tunneled dialysis catheter. Catheter tip projects over the SVC. IMPRESSION: Fluoroscopy provided during insertion of a right internal jugular tunneled dialysis catheter. ACT 112: Negative or not required by law. Electronically signed by: Jenaro Warren M.D. 01/15/2021 12:47 PM Dictated: 01/15/21 1246Transcribed: 01/15/21 1246 XR chest 1V portable HISTORY: 70 years-old Male f/u, s/p tunnel cath status post placement of a right IJ dual-lumen hemodialysis catheter COMPARISON: Chest radiograph and chest CT 01/12/2021 TECHNIQUE: Portable AP view of the chest FINDINGS: Cardiomegaly. Right IJ hemodialysis catheter is noted with distal tip terminating in the expected location of the inferior internal jugular vein. Small left and trace right pleural effusions with persistent bibasilar consolidation. No pneumothorax. Emphysema with chronic interstitial coarsening. Degenerative changes of the shoulders and spine. IMPRESSION: 1. Status post placement of a dual lumen right IJ hemodialysis catheter distal tip terminating within the expected location of the inferior jugular vein. 2. No pneumothorax. 3. Left greater than right pleural effusions with bibasilar consolidation redemonstrated. 4. Cardiomegaly. ACT 112: Negative or not required by law. The above report was generated using voice recognition software. It may contain grammatical, syntax or spelling errors. Electronically signed by: Levy Gibbs M.D. 01/17/2021 3:53 PM Dictated: 01/17/21 1548Transcribed: 01/17/21 1548 XR chest 1V portable HISTORY: REPOSITION DIALYSIS CATHETER COMPARISON: Chest 01/17/2021. FINDINGS: The right jugular central venous catheter has been advanced and now terminates in the expected location of the proximal SVC. No pneumothorax. The heart remains enlarged. Small left pleural effusion and left base airspace opacity persists. There is progressive interstitial/vascular thickening consistent with mild interstitial pulmonary edema. IMPRESSION: 1. The right jugular central venous catheter now terminates in the expected location of the proximal SVC. No pneumothorax. 2. Interval development of mild interstitial pulmonary edema. 3. Small left pleural effusion and left basilar density persists. ACT 112: Negative or not required by law. Electronically signed by: Lan Eagle M.D. 01/18/2021 9:21 AM Dictated: 01/18/21919Transcribed: 01/18/21919 Hospital Course (1) Acute respiratory failure with hypoxia: (2) Volume overload: (3) Acute on chronic diastolic CHF (congestive heart failure): Patient presenting from [facility] for evaluation of shortness of breath and hypoxia. Hypoxic on room air in the 80s, on admission requiring 4 L of oxygen via NC to maintain saturation Hypoxia likely multifactorial -due to CKD stage IV /acute on chronic diastolic CHF / ? COPD exacerbation / ? Pneumonia CT chest showed advanced emphysema, cardiomegaly noting a small to moderate pericardial effusion. There are small pleural effusions with bibasilar consolidation. S/p Bumex 3 mg IV in the ED. Diuresis may be difficult due to underlying advanced CKD. Noted normal procalcitonin however will start empiric IV Zosyn, doxy. Updated Echo - severe concentric LVH. LVEF 55 to 60%. No regional wall motion abnormalities noted. There is mild mitral regurg. There is mild tricuspid regurg. Moderate to severe pulmonary hypertension is present. The estimated pulmonary systolic pressure 63 mmHg. There is a small circumferential pericardial effusion. Small left pleural effusion. Compared to study obtained in July 2019, there has been a subtle increase in the pericardial effusion. The estimated pulmonary artery systolic pressure is relatively unchanged. A left pleural effusion is now noted. Continue Lasix 80mg IV q8h for now Continue oxygen supplement Continue monitor closely (4) ESRD needing dialysis: Tunneled cath will placed on 01/15 and pt had yesterday Tunnel catheter was repositioning today by Dr. Quikc Plan was to HD today but the Tunnel cath did not work properly Case discussed with nephrology that recommended to transfer to [place] for dialysis access and HD Case discussed with providers in [place] Dr. Wilson, [facility] and our nephrology Dr. Owens joined the call as well Hospitalist in [place] Dr. Wilson that accepting the patient on transfer Will need to inform the senior care about the dialysis I notified staff (Nurse Lili) at [facility] about the transfer to [facility] Will monitor BMP (5) Pneumonia: (6) COPD (chronic obstructive pulmonary disease): Sputum cx positive for gram negative bacilli Will deescalate IV zosyn to Cefdinir and discontinue doxycycline Sputum cx grew Klebsiella, will continue cefdinir to complete the course Continue oxygen supplement (7) Hypertension: BP controlled Continue amlodipine, carvedilol, hydralazine, HCTZ, isosorbide (8) Anemia: Likely due to underlying CKD Hgb stable 8.8 stable No obvious signs of bleeding FOBT negative Continue monitor (9) DVT prophylaxis: SQ heparin on hold due to bleeding from the Tunnel cath access On SCD for now Disposition Transfer to [facility] Total Time Total Time Spent Total Time Spent (In Minutes): 60 minutes Total Time Includes: Examination of the Patient, Discharge Planning, Medication Reconciliation, Communication With Other Providers and Other Discharge Plan Discharge Items Patient Disposition: Transfer Acute Care Hospital Reason For Visit: ACUTE HYPOXIC RESP FAILURE Discharge Diagnosis: (1) Acute respiratory failure with hypoxia: (2) Volume overload: (3) Acute on chronic diastolic CHF (congestive heart failure): (4) ESRD needing dialysis: (5) Pneumonia: (6) COPD (chronic obstructive pulmonary disease) (7) Hypertension: (8) Anemia: Activity: Resume your previous activity Non-emergency contact: Primary Care Provider and Eap Consultant Call non-emergency contact if: you have any medication questions Follow-up/Referrals: Matthew CONLEY [Primary Care Provider] - Diet: Dialysis Renal Addtl Attending Provider Instructions: Transfer to [facility] for dialysis access and hemodialysis Accepting physician Dr. Wilson Will need nephrology consult for ESRD needs dialysis Complete the course of the antibiotic with Cefdinir Monitor BMP and CBC Keep IV access and bull cath on transfer Pending Studies at Discharge: No Stand-Alone Forms: My [facility] Skilled Items Patient informed of condition?: Yes DNR: No Discharge Level of Care: Other Communicable Disease: No Discharge Prognosis: Stable Lines: Peripheral IV Urinary Catheter: Yes Medications and DC Order Prescriptions: New cefdinir 300 mg Capsule 300 mg PO DAILY@1800 3 Days RF: 0 Continued amlodipine 10 mg tablet 10 mg PO DAILY RF: 0 tamsulosin 0.4 mg Capsule 0.4 mg PO HS RF: 0 aspirin 81 mg Tablet,Chewable 81 mg PO DAILY RF: 0 levalbuterol tartrate [Xopenex HFA] 45 mcg/actuation Hfa Aerosol Inhaler 2 inh INHALATION QID PRN (Reason: Shortness Of Breath) RF: 0 ketotifen fumarate [Zaditor] 0.025 % (0.035 %) Drops 1 drp OPB BID RF: 0 pantoprazole [Protonix] 40 mg Tablet,Delayed Release (Dr/Ec) 40 mg PO DAILY RF: 0 bumetanide 1 mg Tablet 1 mg PO DAILY RF: 0 trazodone 150 mg Tablet Extended Release 24 Hr 150 mg PO HS RF: 0 Icy Hot Advanced Relief 11-16 % Cream 1 applic TOPICAL BID PRN (Reason: Pain) RF: 0 vitamin A and D Ointment 1 applic TOPICAL BID PRN (Reason: PRN) RF: 0 isosorbide dinitrate 20 mg Tablet 20 mg PO BID RF: 0 carvedilol 25 mg Tablet 25 mg PO BID RF: 0 hydrochlorothiazide 12.5 mg Capsule 12.5 mg PO DAILY RF: 0 hydralazine 50 mg Tablet 100 mg PO TID RF: 0 Alvesco 160 mcg/actuation Hfa Aerosol Inhaler 1 puff INHALATION BID RF: 0 Discharge Orders: Discharge Order (Routine); Ordered 01/18/21 Ordered By: Jarod Rey Admission Data Admit Date/Time: 01/12/21 10:54 Attending Provider: Jarod Rey Admit Provider: Jose Luis Pastor Primary Care Provider: Matthew CONLEY Other Providers: Jose Luis Pastor ; Zarina Quiroz ; Gautam Quick
--- NOTE | 2021-01-20 13:25 | Fluoroscopy Report ---
FL chest 1V frontal CLINICAL HISTORY: DIALYSIS CATHETER REPOSITIONING COMPARISON STUDY: Chest radiograph January 17, 2021. Chest CT January 12, 2021. FLUOROSCOPY TIME: 2 seconds. FLUOROSCOPIC IMAGES: 3 FINDINGS: Fluoroscopy was provided during repositioning of the right internal jugular dual lumen dial ysis catheter. Catheter appears intact. IMPRESSION: Fluoroscopy provided during repositioning of the right internal jugular dual lumen dialy sis catheter. ACT 112: Negative or not required by law. Electronically signed by: Jenaro Warren M.D. 01/20/2021 1:23 PM
== END 2021-01-18 19:50 | disposition short-term general hospital (02) | DRG 291 ==
LOC: ED 08:11 → SUATTDRO 10:54 → 2S 10:54